=== PATIENT | male | born 1945 | race Caucasian/White ===

== ENCOUNTER 2023-12-02 09:48 | Outpatient (OUT) | payer MEDICARE, SELFPAY ==
--- NOTE | 2023-12-02 09:57 | CA_ITS ---
Patient Name: NGHIA GUPTA MR#: [id number] : 1945 Exam Date: 12/02/2023 Ordering Doctor: DR KATELYN VALENTE M.D. ECHOCARDIOGRAM REPORT PROCEDURE: CA ECHO DOPPLER COMPLETE INDICATIONS: Nonrheumatic aortic valve stenosis COMPARISON: None. DESCRIPTION: COMPLETE ECHOCARDIOGRAM Real-time transthoracic echocardiography with 2D, M-mode, spectral and color flow Doppler performed. QUALITY: Technical quality was adequate. LEFT VENTRICLE: Normal chamber size. Mild concentric left ventricular hypertrophy. LV EF: Global left ventricular systolic function is normal. Visual estimation of left ventricular ejection fraction is 60-65%. No wall motion abnormalities. DIASTOLIC: Normal diastolic function. ATRIAL SEPTUM: Inadequately seen. LEFT ATRIUM: Normal chamber size. RIGHT ATRIUM: Mild dilatation. RIGHT VENTRICLE: Mild dilatation. Normal right ventricular systolic function. TRICUSPID VALVE: Normal mobility and thickness. No stenosis with trivial regurgitation. No evidence of pulmonary hypertension. RVSP 33mmHg MITRAL VALVE: Mildly thickened with normal mobility. No evidence of mitral valve stenosis. Moderate mitral annular calcification. AORTIC VALVE: Normal trileaflet appearance. Moderately calcified aortic valve. Doppler velocity suggests mild aortic valve stenosis. Vmax 2.1m/s, Mean gradient 10mmHg. No aortic regurgitation. AORTIC ROOT: Normal diameter and appearance. PULMONIC VALVE: Normal thickness and mobility. No stenosis. Trivial regurgitation. PERICARDIUM: No evidence of pericardial effusion. IVC: Collapses with inspirations. Normal size. CONCLUSION: 1. Global left ventricular systolic angiogram; visually estimated ejection fraction is 60 to 65% 2. Right ventricle is mildly dilated with normal systolic function 3. Mild right atrial dilatation 4. Mildly increased left ventricular wall thickness 5. Normal diastolic function 6. Mild aortic valve stenosis Adult Echocardiography Procedure Report Left Ventricle LVEDD (3.7 - 5.6 cm): 5.14 cm LVESD (2.2 - 4.0 cm): 3.62 cm LVIVS thickness (0.6 - 1.2 cm): 1.43 cm LVPW thickness (0.5 - 1.0 cm): 1.29 cm e': 0.07 m/s E - e': 11.97 LVOT Max Gradient: 1.60 mm[Hg] LVOT Area (cm2): 0.63 m/s Peak Velocity (LVOT): 0.63 m/s Mean Velocity (LVOT): 0.41 m/s LVOT Diameter 2.36 cm Left Atrium Left Atrium Systolic Dimension: 5.00 cm Mitral Valve MV E to A Ratio: 0.88 Mitral Valve A-Wave Peak Velocity: 0.95 m/s Mitral Valve E-Wave Peak Velocity: 0.84 m/s Right Ventricle RV Internal Diastolic Dimension: 4.19 cm Aorta AO Root Diam: 3.60 cm Ascending Ao Diam: 3.50 cm Aortic Valve AoV Area (Peak Cheo): 1.33 cm2, 1.34 cm2 AoV Area (VTI): 1.46 cm2, 1.46 cm2 Peak Velocity(Antegrade Flow): 2.05 m/s, 2.10 m/s Peak Gradient(Antegrade Flow): 16.77 mm[Hg], 17.67 mm[Hg] Mean Velocity(Antegrade Flow): 1.41 m/s, 1.50 m/s Mean Gradient(Antegrade Flow): 8.99 mm[Hg], 10.17 mm[Hg] Velocity Time Integral: 48.12 cm, 47.88 cm Tricuspid Valve Peak Velocity (Regurgitant Flow): 2.44 m/s, 2.21 m/s, 2.74 m/s Pulmonic Valve Mean Gradient: 2.51 mm[Hg], 3.42 mm[Hg] Mean Velocity: 0.74 m/s, 0.87 m/s Peak Velocity: 1.13 m/s Peak Gradient: 4.78 mm[Hg], 5.42 mm[Hg] Right Atrium Right Atrium Systolic Pressure: 73.81 ml, 73.81 ml Dictated by: Shahana Padron M.D. on 12/03/2023 at 10:29 Approved by: Shahana Padron M.D. on 12/03/2023 at 10:34
== END 2023-12-02 09:49 | disposition home or self-care (01) ==
LOC: CARD 09:52
PROVIDERS: PCP Family Medicine; Visit Provider Internal Medicine Interventional Cardiology
DX: I35.0 Nonrheumatic aortic (valve) stenosis (principal)
CPT/HCPCS: 93306

== ENCOUNTER 2023-12-16 13:39 | Inpatient (IN) | payer MEDICARE, SELFPAY ==
[2023-12-16] VITALS (66 sets, daily range): BP systolic 105–164; BP diastolic 42–79; PULSE 32–74; TEMP 36.7–36.9; O2SAT 94–97; BMI 52.3; BMI 52.6
--- NOTE | 2023-12-16 13:42 | ECG_ITS ---
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1945 Requested By: 1854 Order Number: [id number] Reading MD: LEV IBARRA Measurements Intervals [place] Rate: 55 P: -56561 RI: -87042 QRS: -30 QRSD: 100 T: 75 QT: 426 QTc: 414 Interpretive Statements FIRST DEGREE AV BLOCK 3113 Cannot rule out anterior myocardial infarction, probably old 8102 Low QRS voltage in chest leads 9150 abnormal ECG Compared to ECG 06/26/2018 21:29:02 Sinus tachycardia no longer present First degree AV block no longer present Incomplete right bundle-branch block no longer present Left anterior fascicular block no longer present Myocardial infarct finding still present Electronically Signed On 12-17-2023 13:31:34 EDT by LEV IBARRA
--- NOTE | 2023-12-16 14:02 | ED_ITS ---
HPI - Arrhythmia/Palpitations General Chief Complaint: Arrhythmia/Palpitations Stated Complaint: SLOW HEART RATE Time Seen by Provider: 12/16/23 13:42 Source: patient Mode of arrival: Wheelchair Limitations: no limitations History of Present Illness HPI narrative: The patient was getting a regular outpatient evaluation at the cardiology clinic when he was found to have a bradycardic rate, the patient himself denies any complaints chest pain or any nausea vomiting dizziness or any other concerns. He also mentioned that he took his beta-marcello this morning Related Data Home Medications ?Medication ?Instructions ?Recorded ?Confirmed albuterol sulfate 90 mcg/actuation inhalation 12/16/23 aerosol inhaler amlodipine 10 mg tablet 10 mg PO DAILY 12/16/23 12/16/23 atorvastatin 40 mg tablet 40 mg PO DAILY 12/16/23 12/16/23 carvedilol 6.25 mg tablet 6.25 mg 12/16/23 clopidogrel 75 mg tablet 75 mg PO DAILY 12/16/23 12/16/23 dapagliflozin propanediol 5 mg 5 mg PO DAILY 12/16/23 12/16/23 tablet (Farxiga) lisinopril 30 mg tablet 30 mg PO DAILY 12/16/23 12/16/23 metformin 1,000 mg tablet 1,000 mg PO BID 12/16/23 12/16/23 prazosin 5 mg capsule 5 mg PO DAILY 12/16/23 12/16/23 Allergies Allergy/AdvReac Type Severity Reaction Status Date / Time sulfamethoxazole Allergy Severe Hives Verified 12/16/23 13:49 [From ] trimethoprim [From ] Allergy Severe Hives Verified 12/16/23 13:49 Review of Systems ROS Status of ROS 10 or more systems reviewed and unremark able except as noted in history and below [facility] Medical History (Updated 12/16/23 @ 15:02 by Dorothy Ray MD) History of stroke ?Z86.73 - Personal history of transient ischemic attack (TIA), and cerebral infarction without residual deficits (ICD-10) History of COPD ?Z87.09 - Personal history of other diseases of the respiratory system (ICD- 10) History of hypertension ?Z86.79 - Personal history of other diseases of the circulatory system (ICD- 10) History of diabetes mellitus ?Z86.39 - Personal history of other endocrine, nutritional and metabolic disease (ICD-10) Surgical History (Updated 12/16/23 @ 14:12 by Amor Vick) History of appendectomy ?Z90.49 - Acquired absence of other specified parts of digestive tract (ICD- 10) History of bilateral knee replacement ?Z96.653 - Presence of artificial knee joint, bilateral (ICD-10) Hx of heart artery stent ?Z95.5 - Presence of coronary angioplasty implant and graft (ICD-10) Exam Narrative Exam Narrative: Nurses notes and vital signs reviewed and patient is not hypoxic. General: Well-appearing and in no apparent distress. Skin: Warm, dry, no pallor noted. No rash. Head: Normocephalic, atraumatic. Neck: Supple, non-tender. Eye: Pupils are equal, round and EOMI. No scleral icterus. Ears, Nose, Mouth, and Throat: TM are clear, no nasal mucosal hypertrophy. Oral mucosa is moist, no posterior oropharynx erythema, uvula is mid-line Cardiovascular: Regular Rate and Rhythm without murmur, gallop or rub. Respiratory: No accessory muscle use or respiratory distress. Lungs are clear to auscultation, no wheezing, rales or rhonchi Chest Wall: no tenderness Back: No midline thoracic or lumbar vertebral tenderness. No CVA tenderness Musculoskeletal: normal ROM, no calf or popliteal tenderness, no lower extremity edema/swelling GI: Abdomen is soft, non-distended. Normal bowel sounds. No masses appreciated. No tenderness to palpation. No rebound, guarding, or rigidity noted. Neurological: A&O x4. No cranial nerve dysfunction observed. No truncal ataxia. Moves all extremities. Sensation intact. Psychiatric: Cooperative and interactive. Normal mood and affect. Constitutional Vital Signs, click to edit/add: Last Vital Signs Temp 98.5 F 12/16/23 13:49 Pulse 54 L 12/16/23 14:47 Resp 19 12/16/23 14:47 BP 117/53 12/16/23 14:47 Pulse Ox 95 12/16/23 14:47 O2 Del Method Room Air 12/16/23 14:10 Course Vital Signs Vital signs: Vital Signs Temperature 98.5 F 12/16/23 13:49 Pulse Rate 53 L 12/16/23 13:49 Respiratory Rate 16 12/16/23 13:49 Blood Pressure 138/45 L 12/16/23 13:49 Pulse Oximetry 96 12/16/23 13:49 Oxygen Delivery Method Room Air 12/16/23 13:49 Temperature 98.5 F 12/16/23 13:49 Pulse Rate 54 L 12/16/23 14:47 Respiratory Rate 19 12/16/23 14:47 Blood Pressure 117/53 12/16/23 14:47 Pulse Oximetry 95 12/16/23 14:47 Oxygen Delivery Method Room Air 12/16/23 14:10 MDM - Arrhythmia/Palpitations MDM Narrative Medical decision making narrative: I did receive the signout from the outpatient clinic for concern of bradycardia and complete heart block possibly although the EKG upon arrival did show bradycardia with a possible second-degree The first EKG was done showing heart rate of 55 with a second-degree heart block with possible PACs The patient EKG done after he was given 0.5 mg of atropine showing sinus rhythm with a heart rate of 72 with a first-degree heart block The patient CBC and chemistry shows some elevation acute kidney injury he was provided with IV fluid 500 cc The patient case was discussed with Dr. Weber and after reviewing the EKG she agreed that this is not a complete heart block the plan right now is just to observe the patient after stopping his beta-marcello I spoke with Dr. Barroso and she agreed with admitting the patient for observation Lab Data Labs: Lab Results 12/16/23 Range/Units 13:57 WBC 6.4 (4.0-11.0) 10^3/uL RBC 4.56 L (4.70-6.10) 10^6/uL Hgb 12.9 L (14.0-18.0) g/dL Hct 39.1 L (42.0-54.0) % MCV 85.7 (80.0-94.0) fL MCH 28.3 (25.9-34.0) pg MCHC 33.0 (29.9-35.2) g/dL RDW 14.3 (11.0-15.0) % Plt Count 206 (150-450) 10^3/uL MPV 9.1 L (9.5-13.5) fL Neut % (Auto) 65.5 (43.0-75.0) % Lymph % (Auto) 22.3 (20.5-60.0) % [place] % (Auto) 7.5 (1.7-12.0) % Eos % (Auto) 3.7 (0.9-7.0) % Baso % (Auto) 0.8 (0.2-2.0) % Neut # (Auto) 4.2 (1.4-6.5) 10^3/uL Lymph # (Auto) 1.4 (1.2-3.8) 10^3/uL [place] # (Auto) 0.5 (0.3-0.8) 10^3/uL Eos # (Auto) 0.2 (0.0-0.7) 10^3/uL Baso # (Auto) 0.1 (0.0-0.1) 10^3/uL Abs Immat Gran (auto) 0.01 (0.00-0.03) 10^3/uL Imm/Tot Granulo (auto) 0.2 (0.0-0.5) % PT 10.4 (9.0-11.6) sec INR 0.98 Sodium 136 (136-145) mmol/L Potassium 4.8 (3.5-5.1) mmol/L Chloride 102 (98-107) mmol/L Carbon Dioxide 24.2 (21.0-32.0) mmol/L Anion Gap 14.6 BUN 24.0 H (7.0-18.0) mg/dL Creatinine 1.65 H (0.70-1.30) mg/dL Est GFR ( Amer) 49 L (>=60) Est GFR (Non-Af Amer) 40 L (>=60) BUN/Creatinine Ratio 14.5 Glucose 139 H (74-106) mg/dL Calcium 9.0 (8.5-10.1) mg/dL Magnesium 1.9 (1.8-2.4) mg/dL Total Bilirubin 1.1 H (0.2-1.0) mg/dL AST 17 (15-37) U/L ALT 29 (16-63) U/L Alkaline Phosphatase 115 (46-116) U/L Troponin I High Sens 11.7 (4.0-76.1) pg/mL Total Protein 7.4 (6.4-8.2) g/dL Albumin 3.6 (3.4-5.0) g/dL Globulin 3.8 g/dL Albumin/Globulin Ratio 0.9 Discharge Plan Discharge Chief Complaint: Arrhythmia/Palpitations Clinical Impression: Bradycardia Patient Disposition: Admitted as Observation Time of Disposition Decision: 15:01
[2023-12-16 14:05] LABS: White Blood Count 6.4 10^3/uL (4.0-11.0)
[2023-12-16 14:06] LABS: Basophils Absolute Auto 0.1 10^3/uL (0.0-0.1); Basophils Percent Auto 0.8 % (0.2-2.0); Eosinophils Absolute Auto 0.2 10^3/uL (0.0-0.7); Eosinophils Percent Auto 3.7 % (0.9-7.0); Hematocrit 39.1 % (42.0-54.0); Hemoglobin 12.9 g/dL (14.0-18.0); Immature Granulocytes Abs Auto 0.01 10^3/uL (0.00-0.03); Immature Granulocytes Pct Auto 0.2 % (0.0-0.5); Lymphocytes Absolute Auto 1.4 10^3/uL (1.2-3.8); Lymphocytes Percent Auto 22.3 % (20.5-60.0); Mean Corpuscular Hemoglobin 28.3 pg (25.9-34.0); Mean Corpuscular Volume 85.7 fL (80.0-94.0); Mean Platelet Volume 9.1 fL (9.5-13.5); Monocytes Absolute Auto 0.5 10^3/uL (0.3-0.8); Monocytes Percent Auto 7.5 % (1.7-12.0); Neutrophils Absolute Auto 4.2 10^3/uL (1.4-6.5); Neutrophils Percent Auto 65.5 % (43.0-75.0); Platelet Count 206 10^3/uL (150-450); Red Blood Count 4.56 10^6/uL (4.70-6.10); Red Cell Distribution Width 14.3 % (11.0-15.0)
[2023-12-16 14:21] LABS: INR 0.98; Prothrombin Time 10.4 sec (9.0-11.6)
[2023-12-16] MEDS: ATROPINE SULFATE 1 MG/10 ML SYRINGE 0.5 MG IVP (14:22)
[2023-12-16 14:23] LABS: Alanine Aminotransferase 29 U/L (16-63); Albumin Globulin Ratio 0.9; Albumin Level 3.6 g/dL (3.4-5.0); Alkaline Phosphatase 115 U/L (46-116); Anion Gap 14.6; Aspartate Amino Transferase 17 U/L (15-37); BUN Creatinine Ratio 14.5; Bilirubin Total 1.1 mg/dL (0.2-1.0); Carbon Dioxide 24.2 mmol/L (21.0-32.0); Chloride 102 mmol/L (98-107); Estimated GFR (African America 49 (>=60); Estimated GFR (Non-African Ame 40 (>=60); Globulin 3.8 g/dL; Glucose 139 mg/dL (74-106); Magnesium 1.9 mg/dL (1.8-2.4); Potassium 4.8 mmol/L (3.5-5.1); Sodium 136 mmol/L (136-145); Total Protein 7.4 g/dL (6.4-8.2); Troponin I High Sensitivity 11.7 pg/mL (4.0-76.1)
--- NOTE | 2023-12-16 14:26 | ECG_ITS ---
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1945 Requested By: 1854 Order Number: [id number] Reading MD: LEV IBARRA Measurements Intervals [place] Rate: 72 P: -98630 SC: -67604 QRS: -27 QRSD: 96 T: 64 QT: 384 QTc: 408 Interpretive Statements FIRST DEGREE AV BLOCK 2440 Incomplete right bundle branch block 3114 Cannot rule out anterior myocardial infarction, age undetermined 8102 Low QRS voltage in chest leads 9150 abnormal ECG Compared to ECG 12/16/2023 13:49:42 Incomplete right bundle-branch block now present First degree AV block no longer present Myocardial infarct finding still present Electronically Signed On 12-17-2023 13:32:08 EDT by LEV IBARRA
[2023-12-16] MEDS: 0.9 % SODIUM CHLORIDE 1,000 ML 500 ML IV (15:02)
--- NOTE | 2023-12-16 15:13 | P.HP_ITS ---
HPI H&P: HPI History of Present Illness Chief complaint: SLOW HEART RATE bradycardia Narrative: Patient is a 78 y.o white male with past medical history of Type 2 diabetes, non insulin dep., History of Stroke, Cardiac Stent, Neurogenic bladder with incontinence, HTN, HLD, COPD (ex smoker). Patient reports that he was being seen at the cardiology clinic today when after vitals, he was told his HR was in the 30's. EKG showed 1st degree heart block. At the time and currently, patient de nies chest pain, weakness or dizziness. He does wrap his legs daily and has noticed a slight increase in size on the left leg but no warmth to touch, no pain, no history of DVT's. He reports his BP's have been stable at home, Sugars have been running 90-110's. Yesterday was his birthday and overall he's been feeling good. No shortness of breath, no chest pain, no weakness, denies sweats, weight gain. ER findings: Cr. 1.65, uncertain baseline, BUN 24, normal mag, potassium, Trop, TSH; hemoglobin 12.9, WBC's 6.4. EKG showed Mobitz Type 1, first degree heart block with HR of 43, per ER doctor, HR 30's given Atropine 1.5mg total. I spoke with Dr. Weber communication spec [employer] As[employer] from [facility], She also feels the coreg is contributing and stopping this and HR should improve. Patient had recent Echo 12/02/23 which showed EF 60-65% with mild aortic valve stenosis Opioid HPI Opioid Management Most Recent Pain and Opioid Data: Last Pain Scale 0 12/16/23 14:10 Last ED Pain Assessment 12/16/23 14:10 Last ORT Total Score 0 12/16/23 16:20 Last ORT Risk Category Low Risk 12/16/23 16:20 Review of Systems ROS Narrative ROS: a complete review of systems were reviewed with patient and are positive as below or listed in History of Chief Complaint. General: no fever, chills, night sweats Head: no headache, trauma, visual changes, nausea or vomiting Skin: no reported rashes, itching or sores Eyes: no blurriness of vision Ears: no reported hearing loss, vertigo, earache, or tinnitus Throat: no sore throat, hoarseness, swelling of neck, or tongue pain Heart: no chest pain Lungs: no shortness of breath or cough GI: no diarrhea or vomiting/nausea Urinary: no urinary urgency, frequency or pain Neuro: no numbness or tingling HEM: no bleeding issues or bruising ENDO: no thyroid problems Psych: no anxiety or depression PFSH PFS Medical History (Updated 12/16/23 @ 17:16 by Aure Barroso DO) History of stroke ?Z86.73 - Personal history of transient ischemic attack (TIA), and cerebral infarction without residual deficits (ICD-10) History of COPD ?Z87.09 - Personal history of other diseases of the respiratory system (ICD- 10) History of hypertension ?Z86.79 - Personal history of other diseases of the circulatory system (ICD-10) History of diabetes mellitus ?Z86.39 - Personal history of other endocrine, nutritional and metabolic disease (ICD-10) Surgical History History of appendectomy ?Z90.49 - Acquired absence of other specified parts of digestive tract (ICD- 10) History of bilateral knee replacement ?Z96.653 - Presence of artificial knee joint, bilateral (ICD-10) Hx of heart artery stent ?Z95.5 - Presence of coronary angioplasty implant and graft (ICD-10) Family History (Updated 12/16/23 @ 17:15 by Rosy Post) Other Family history of CHF (congestive heart failure) Family history of cancer Family history of diabetes mellitus Family history of hypertension Family history of stroke Meds Home Medications and Allergies Home Medications ?Medication ?Instructions ?Recorded ?Confirmed ?Type albuterol sulfate 90 mcg/actuation 2 puff inhalation Q6H PRN 12/16/23 12/16/23 History aerosol inhaler shortness of breath or wheezing amlodipine 10 mg tablet 10 mg PO DAILY 12/16/23 12/16/23 History atorvastatin 40 mg tablet 40 mg PO DAILY 12/16/23 12/16/23 History clopidogrel 75 mg tablet 75 mg PO DAILY 12/16/23 12/16/23 History dapagliflozin propanediol 5 mg 5 mg PO DAILY 12/16/23 12/16/23 History tablet (Farxiga) lisinopril 30 mg tablet 30 mg PO DAILY 12/16/23 12/16/23 History metformin 1,000 mg tablet 1,000 mg PO BID 12/16/23 12/16/23 History prazosin 5 mg capsule 5 mg PO DAILY 12/16/23 12/16/23 History umeclidinium 62.5 mcg/actuation 1 inh inhalation Q24H 12/16/23 History blister powder for inhalation (Incruse Ellipta) Allergies Allergy/AdvReac Type Severity Reaction Status Date / Time sulfamethoxazole Allergy Severe Hives Verified 12/16/23 13:49 [From ] trimethoprim [From ] Allergy Severe Hives Verified 12/16/23 13:49 Exam Narrative Exam Narrative: General: Patient is alert, and oriented to person, place and time with normal affect, proper hygiene, mobid obesity Skin: no visible rashes, or ulcers Head: atraumatic, acephalic Eyes: PERRLA, no nystagmus present, conjunctiva clear, no scleral icterus Ears: normal gross auditory acuity Nose: symmetric, no discharge, no maxillary or frontal sinus tenderness Heart: Normal rate and rhythm, no murmurs/rubs/gallops Lungs: no audible wheezes, crackles and normal breath sounds all lung [place] Abdomen: Normal audible bowel sounds, no distension, No palpable masses, no organomegaly, no rebound/guarding/ or rigidity; central obesity Musculoskeletal: bilateral leg wraps in place Neuro: CN II-X grossly intact Constitutional Vital Signs, click to edit/add: Last Vital Signs Temp 98.5 F 12/16/23 13:49 Pulse 53 L 12/16/23 15:01 Resp 16 12/16/23 15:01 BP 106/44 L 12/16/23 15:01 Pulse Ox 95 12/16/23 15:01 O2 Del Method Room Air 12/16/23 14:10 Results Labs Labs: Short CBC 12/16/23 Range/Units 13:57 WBC 6.4 (4.0-11.0) 10^3/uL Hgb 12.9 L (14.0-18.0) g/dL Hct 39.1 L (42.0-54.0) % Plt Count 206 (150-450) 10^3/uL BMP 12/16/23 13:57 Sodium 136 Potassium 4.8 Chloride 102 Carbon Dioxide 24.2 BUN 24.0 H Creatinine 1.65 H Glucose 139 H Calcium 9.0 Liver Function 12/16/23 Range/Units 13:57 Total Bilirubin 1.1 H (0.2-1.0) mg/dL AST 17 (15-37) U/L ALT 29 (16-63) U/L Alkaline Phosphatase 115 (46-116) U/L Albumin 3.6 (3.4-5.0) g/dL Assessment and Plan Assessment and Plan (1) First degree heart block by electrocardiogram: Assessment and Plan: Patient given 1.5mg of Atropine. HR 50-70 after admission. cbc, electrolytes and TSH all normal. troponin normal. Stop coreg, Cardiology consult. Recheck labs in the morning. Patient on tele. (2) Bradycardia: Assessment and Plan: see #1 (3) Acute kidney injury: Assessment and Plan: uncertain baseline, Cr 1.65, Will treat with gentle LR @ 75 (4) Hypertension: Assessment and Plan: will continue lisinopril, BP stable, Hold amlodipine and coreg. Qualifiers: Hypertension type: primary hypertension Qualified Code(s): I10 - Essential (primary) hypertension (5) Diabetes mellitus type 2, noninsulin dependent: Assessment and Plan: SSI for now, hold metformin, Farxiga, check ha1c in the morning. (6) History of COPD: Assessment and Plan: no acute exacerbation, may continue home meds. (7) Urinary incontinence, functional: Assessment and Plan: reports long standing, nothing acute. (8) CAD in [place] artery: Assessment and Plan: continue statin and plavix Plan Patient is a full code Patient was made inpatient status due to bradycardia, and heart block, the need for hospital care and possible decompensation requiring urgent need for transfer and pacemaker placement. SCD's for DVT prophylaxis
[2023-12-16 15:14] LABS: Thyroid Stimulating Hormone 2.561 uIU/mL (0.358-3.740)
[2023-12-16] MEDS: ATROPINE SULFATE 1 MG/10 ML SYRINGE IVP (15:31)
--- NOTE | 2023-12-16 16:07 | ECG_ITS ---
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
--- OUTSIDE RECORDS SUMMARY | 2023-12-16 16:34 | XMS_ITS | CCD ---
Author Organization [facility] Care Team Providers Care Hand Mounter Name Role Phone MARJORIE NATH Primary Care Physician [phone] GABRIELA CLEMENS Admitting Unavailable GABRIELA CLEMENS Attending Unavailable DR MARJORIE NATH Primary Care Unavailable GABRIELA CLEMENS Consulting Unavailable KATELYN VALENTE Attending Unavailable GABRIELA CLEMENS Attending Unavailable TYREE HADDAD Attending Sherlyn Shelby Referring Unavailable Sherlyn Navarro Attending Unavailable Sherlyn Navarro Admitting Unavailable TYREE HADDAD Attending Unavailab TYREE Valentino Admitting Unavailab Sherlyn Weinstein Referring Unavailable Sherlyn Navarro Attending Unavailable Marjorie Nath MD Unavailable Marjorie Nath MD Primary Care Provider JUAN TRAORE Attending Unavailable ROSSY ZAMAN Attending Unavailable KYMBERLY NATION Attending Unavailable WENDY HURLEY Attending Unavailable MILADY CAMPOS Attending UnavailJUAN Burgess Attending Unavailable WENDY HURLEY Attending Unavailable ROSSY ZAMAN Attending Unavailable WENDY HURLEY Attending Unavailable Allergies Allergy Classification Reported Allergen(s) Allergy Type Date of Onset Reaction(s) Facility (13 sources) Sulfamethoxazole / Trimethoprim; Translations: [sulfamethoxazole-t rimethoprim] Drug Allergy 01-13-20 13 Urticaria (disorder), Hives, Other [facility] (2 sources) Sulfamethoxazole / Trimethoprim; Translations: [Septra] Drug Allergy [facility] Repository (1 source) Sulfamethizole; Translations: [SULFAMETHIZOLE] Drug Allergy 04-14-20 [facility] Rep[facility] (1 source) Trimethoprim; Translations: [TRIMETHOPRIM] Drug Allergy 04-14-20 16 [facility] Rep[facility] (3 sources) Sulfonamides (Antibiotic) Drug Intolerance 02-11-20 17 [facility] Work Phone: Medications Current Medications Medication Drug Class(es) Dates Sig (Normalized) Sig (Original) [id number] 200 actuat albuterol 0.09 mg/actuat metered dose inhaler (3 sources) beta2-Adrenergic Agonist Start: 01-15-2023 albuterol HFA 90 mcg/act inhaler Indications: Chronic obstructive pulmonary disease, unspecified COPD type (CMS/HCC) USE 1 INHALATION ORALLY EVERY 4 HOURS NEEDED FORSHORTNESS OF BREATH OR COUGH for 34 18 g 5 01/15/2023 Active amLODIPine 10 mg oral tablet (7 sources) Dihydropyridine Calcium Channel Linda Start: 01-19-2019 take 1 tablet by mouth once daily amLODIPine 10 mg Tab 10 mg = 1 tab(s), Oral, Daily, Refills(s) 0 Start Date: 01/19/19 Status: Ordered aspirin 81 mg oral tablet (7 sources) Platelet Aggregation Inhibitor, Nonsteroidal Anti-inflammatory Drug Start: 01-19-2019 take 1 mg by mouth once daily aspirin 81 mg oral tablet mg tab(s), Oral, Daily, Refills(s) 0 Start Date: 01/19/19 Status: Ordered take 1 tablet by mouth in the mo rning aspirin 81 MG EC tablet Take 1 tablet by mouth in the morning. 0 Active atorvastatin 40 mg oral tablet (7 sources) HMG-CoA Reductase Inhibitor Start: 03-11-2023 atorvastatin (Lipito r) 40 MG tablet Indications: Hyperlipidemia, unspecified hyperlipidemia type (CMS/HCC) TAKE 1 TABLET ONCE DAILY 90 tablet 1 03/11/2023 Active Start: 01-19-2019 take 1 tablet by susu th once daily atorvastatin 40 mg Tab 40 mg = 1 tab(s), Oral, Daily, Refills(s) 0 Start Date: 01/19/19 Status: Ordered carvedilol 6.25 mg oral tablet (5 sources) alpha-Adrenergic Linda, beta-Adrenergic Linda Start: 09-25-2022 End: 09-25-2023 take 1 tablet by mouth in the morning carvedilol (Coreg) 6.25 MG tablet Take 6.25 mg by mouth in the morning and 6.25 mg in the evening. Take with meals. 0 09/25/2022 09/25/2023 Active Start: 07-20-2020 take 1 mg by mouth twice daily carvedilol 6.25 mg Tab mg tab(s), Oral, BID, Refills(s) 0 Start Date: 07/20/20 Status: Ordered cholecalciferol 0.025 mg oral capsule (3 sources) Vitamin D take 1 capsule by mouth in the morning cholecalciferol (Vitamin D-3) 25 MCG (1000 UT) capsule Take 1,000 Units by mouth in the morning. 0 Active ciclopirox 7.7 mg/ml topical cream (4 sources) Start: 05-06-2023 ciclopirox (Loprox) 0.77 % cream Indications: Intertrigo Apply to skin folds External BID prn for skin irritation, hold when clear for 90 days 90 g 11 05/06/2023 Active Start: 12-25-2022 ciclopirox top ical 0.77% cream Refill(s) 0 Start Date: 12/25/22 Status: Ordered clopidogrel 75 mg oral tablet (7 sources) P2Y12 Platelet Inhibitor Start: 06-02-2023 clopidogrel (Plavix) 75 MG tablet Indications: CAD S/P percutaneous coronary angioplasty ([facility]) TAKE 1 TABLET ONCE DAILY 90 tablet 1 06/02/2023 Active Start: 01-19-2019 take 1 tablet by susu once daily Plavix 75 mg Tab 75 mg = 1 tab(s), Oral, Daily, Refills(s) 0 Start Date: 01/19/19 Status: Ordered dapagliflozin 5 mg oral tablet (3 sources) Sodium-Glucose Cotransporter 2 Inhibitor Start: 03-31-2023 Farxiga 5 MG Indications: Type 2 diabetes mellitus with microalbuminuria, without long-term current use of insulin ([facility]) TAKE 1 TABLET IN THE MORNING 90 tablet 1 03/31/2023 Active furosemide 20 mg oral tablet (2 sources) Loop Diuretic Start: 12-25-2022 furosemide 20 mg Tab Refills(s) 0 Start Date: 12/25/22 Status: Ordered Start: 01-19-2019 take 1 tablet by susu th once daily furosemide 40 mg Tab 40 mg = 1 tab(s), Oral, Daily, patient takes 3-4 days per week, Refills(s) 0 Start Date: 01/19/19 Status: Ordered lisinopril 30 mg oral tablet (7 sources) Angiotensin Converting Enzyme Inhibitor Start: 06-23-2023 lisinopril 30 MG tablet Indications: Benign essential hypertension (CMS/HCC) TAKE 1 TABLET EVERY MORNING 90 tablet 1 06/23/2023 Active Start: 01-19-2019 take 1 tablet by susu th once daily lisinopril 20 mg Tab 20 mg = 1 tab(s), Oral, Daily, Refills(s) 0 Start Date: 01/19/19 Status: Ordered metFORMIN hydrochloride 1000 mg oral tablet (7 sources) Biguanide Start: 06-02-2023 metFORMIN (Glu cophage) 1000 MG tablet Indications: Type 2 diabetes mellitus without complication, without long-term current use of insulin (CMS/HCC) TAKE 1 TABLET TWICE DAILY WITH MEALS 180 tablet 1 06/02/2023 Active Start: 01-19-2019 take 1 tablet by susu twice daily metformin 1000 mg Tab 1,000 mg = 1 tab(s), Oral, BID, Refills(s) 0 Start Date: 01/19/19 Status: Ordered pioglitazone 30 mg oral tablet (5 sources) Peroxisome Proliferator Receptor alpha Agonist, Peroxisome Proliferator Receptor gamma Agonist, Thiazolidinedione Start: 07-20-2020 take 1 mg by mouth once daily Actos 30 mg Tab mg tab(s), Oral, Daily, Refills(s) 0 Start Date: 07/20/20 Status: Ordered Start: 01-19-2019 take 1 tablet by susu th once daily pioglitazone 15 mg Tab 15 mg = 1 tab(s), Oral, Daily, Refills(s) 0 Start Date: 01/19/19 Status: Ordered prazosin 5 mg oral capsule (7 sources) alpha-Adrenergic Linda Start: 06-02-2023 prazo sin (Minipress) 5 MG capsule Indications: Benign essential hypertension (CMS/HCC) TAKE 1 CAPSULE ONCE DAILY 90 capsule 1 06/02/2023 Active Start: 01-19-2019 take 1 capsule by mo [facility] at bedtime prazosin 5 mg oral capsule 5 mg = 1 cap(s), Oral, Bedtime, Refills(s) 0 Start Date: 01/19/19 Status: Ordered Tylenol 8 HR Arthritis Pain (1 source) Start: 12-08-2019 Tylenol 8 HR Arthritis Pain Oral, BID, Refills(s) 0 Start Date: 12/08/19 Status: Ordered 7 actuat umeclidinium 0.0625 mg/actuat dry powder inhaler (2 sources) Anticholinergic Start: 07-02-2023 End: 09-30-2023 take 1 puff(s) by inhalation in the morning Umeclidinium [place] (Incruse Ellipta) 62.5 MCG/ACT aerosol powder Indications: Chronic obstructive pulmonary disease, unspecified COPD type (CMS/HCC) Inhale 1 puff in the morning. 90 each 0 07/02/2023 09/30/2023 Active Vitamin D3 (4 sources) Start: 01-19-2019 Vitamin D3 Refills(s) 0 Start Date: 01/19/19 Status: Ordered Problems Active Problems Problem Classification Problem Date Documented Date Episodic/Chronic Acute cerebrovascular disease (7 sources) Cerebrovascular accident; Translations: [Cerebellar infarction] Onset: 01-12-2013 01-19-2019 Chronic Cataract (3 sources) Nuclear sclerotic cataract; Translations: [Age-related nuclear cataract, unspecified eye] Onset: 03-25-2023 03-25-2023 Chronic Chronic kidney disease (2 sources) Chronic kidney disease stage 3A ; Translations: [Chronic kidney disease, stage 3a (HCC) ([facility])] 07-02-2023 Chronic Chronic obstructive pulmonary disease and bronchiectasis (5 sources) Chronic obstructive lung disease; Translations: [Chronic obstructive pulmonary disease, unspecified] Onset: 03-09-2019 12-24-2022 Chronic Coronary atherosclerosis and other heart disease (11 sources) Atherosclerotic heart disease of [place] coronary artery without angina pectoris; Translations: [Atherosclerosis of coronary artery without angina pectoris] Onset: 01-12-2013 Chronic Diabetes mellitus with complications (9 sources) Disorder of nervous system due to type 2 diabetes mellitus; Translations: [Type 2 diabetes mellitus with other diabetic neurological complication] Onset: 12-24-2022 12-24-2022 Chronic Diabetes mellitus without complication (6 sources) Diabetes mellitus; Translations: [Type 2 diabetes mellitus without complications] Onset: 05-18-2014 12-24-2022 Chronic Disorders of lipid metabolism (15 sources) Hyperlipidemia; Translations: [Mixed hyperlipidemia] Onset: 09-11-2011 01-19-2019 Chronic Essential hypertension (12 sources) Hypertensive disorder; Translations: [Essential (primary) hypertension] Onset: 09-11-2011 Resolved: 03-27-2023 01-19-2019 Chronic Genitourinary symptoms and ill-defined conditions (20 sources) Urge incontinence; Translations: [Incontinence without sensory awareness] Onset: 06-24-2016 Chronic Heart valve disorders (9 sources) Nonrheumatic aortic (valve) stenosis; Translations: [Aortic valve stenosis] Onset: 04-28-2020 Chronic Hyperplasia of prostate (7 sources) Benign prostatic hypertrophy with outflow obstruction; Translations: [Benign prostatic hyperplasia with lower urinary tract symptoms] Onset: 09-11-2021 Chronic Late effects of cerebrovascular disease (3 sources) Ataxia as sequela of cerebrovascular disease; Translations: [Ataxia following cerebral infarction] Onset: 01-12-2013 12-24-2022 Chronic Osteoarthritis (6 sources) Primary gonarthrosis, bilateral; Translations: [Bilateral primary osteoarthritis of knee] Onset: 11-05-2017 12-24-2022 Chronic Other and ill-defined cerebrovascular disease (3 sources) Cerebrovascular disease; Translations: [Cerebrovascular disease, unspecified] Onset: 01-27-2013 03-25-2023 Chronic Other and ill-defined heart disease (3 sources) Cardiomegaly; Translations: [Cardiomegaly] Onset: 07-18-2016 12-24-2022 Chronic Other circulatory disease (2 sources) Personal history of transient ischemic attack (TIA), and cerebral infarction without residual deficits; Translations: [Personal history of transient ischemic attack (TIA), and cerebral infarction without residual deficits] Onset: 06-24-2022 Episodic Other diseases of veins and lymphatics (3 sources) Lymphedema; Translations: [Lymphedema, not elsewhere classified] Onset: 06-07-2021 12-24-2022 Chronic Other eye disorders (3 sources) Bilateral posterior vitreous detachment; Translations: [Vitreous degeneration, bilateral] Onset: 03-25-2023 03-25-2023 Chronic Other liver diseases (3 sources) Steatosis of liver; Translations: [Fatty (change of) liver, not elsewhere classified] Onset: 12-24-2022 12-24-2022 Chronic Other lower respiratory disease (3 sources) Interstitial lung disease; Translations: [Interstitial pulmonary disease, unspecified] Onset: 12-22-2020 12-24-2022 Chronic Other nervous system disorders (3 sources) Chronic pain; Translations: [Other chronic pain] Onset: 06-08-2019 12-24-2022 Chronic Other nutritional; endocrine; and metabolic disorders (4 sources) Body mass index 40+ - severely obese 01-18-2020 Chronic Other nutritional; endocrine; and metabolic disorders (2 sources) Morbid (severe) obesity due to excess calories; Translations: [Morbid (severe) obesity due to excess calories] Onset: 06-24-2022 Chronic Other nutritional; endocrine; and metabolic disorders (3 sources) Morbid obesity; Translations: [Morbid (severe) obesity due to excess calories] Onset: 04-28-2020 12-24-2022 Chronic Other nutritional; endocrine; and metabolic disorders (3 sources) Obesity caused by energy imbalance; Translations: [Other obesity due to excess calories] Onset: 09-11-2011 03-25-2023 Chronic Residual codes; unclassified (3 sources) Obstructive sleep apnea syndrome; Translations: [Obstructive sleep apnea (adult) (pediatric)] Onset: 02-07-2021 12-24-2022 Chronic Retinal detachments; defects; vascular occlusion; and retinopathy (3 sources) Epiretinal membrane; Translations: [Puckering of macula, unspecified eye] Onset: 03-25-2023 03-25-2023 Chronic Unclassified (4 sources) Drug therapy finding 11-09-2019 Past or Other Problems Problem Classification Problem Date Documented Date Episodic/Chronic Biliary tract disease (3 sources) Finding of measures of gallbladder; Translations: [Other specified diseases of gallbladder] Onset: 12-24-2022 12-24-2022 Episodic Blindness and vision defects (9 sources) Hypermetropia; Translations: [Hypermetropia, unspecified eye] Onset: 03-25-2023 03-25-2023 Episodic Coronary atherosclerosis and other heart disease (5 sources) Presence of coronary angioplasty implant and graft; Translations: [Patient post percutaneous transluminal coronary angioplasty] Onset: 10-10-2011 Episodic Genitourinary symptoms and ill-defined conditions (15 sources) Increased frequency of urination; Translations: [Nocturia] Onset: 03-13-2022 11-09-2019 Episodic Mood disorders (3 sources) Mood disorders Onset: 03-26-2023 03-26-2023 Other circulatory disease (3 sources) History of cerebrovascular accident; Translations: [Personal history of transient ischemic attack (TIA), and cerebral infarction without residual deficits] Onset: 04-28-2020 12-24-2022 Episodic Other screening for suspected conditions (not mental disorders or infectious disease) (7 sources) Encounter for screening for malignant neoplasm of prostate; Translations: [Screening for malignant neoplasm done] Onset: 09-11-2011 Episodic Residual codes; unclassified (3 sources) Edema; Translations: [Edema, unspecified] Onset: 03-13-2022 12-24-2022 Episodic Residual codes; unclassified (3 sources) H/O: neoplasm; Translations: [Personal history of other specified conditions] Onset: 06-29-2019 12-24-2022 Episodic Results Test Name Value Interpretation Reference Range Facility Laboratory - Hematology and Cell countson 07-02-2023 HbA1c (Bld) [Mass fraction] 6.3 % [facility] No Panel Informationon 07-02 Interpretation and review of laboratory results Abnormal [facility] XR CHEST 2 VIEWSon 3 XR CHEST 2 VIEWS EXAMINATION: XR CHES T 2 VIEWS HISTORY: cough TECHNIQUE: Frontal and lateral views of the chest. COMPARISON: FINDINGS: Cardiomediastinal silhouette is within normal limits. No pneumothorax, pleural effusion, or consolidation. The lungs appear hyperinflated and there is coarsening of the pulmonary interstitium, most significant at the lung bases. No acute osseous abnormality. IMPRESSION: No radiographic evidence of acute intrathoracic process. Findings suggesting COPD. ELECTRONICALLY SIGNED BY: Nghia Lam DO Normal Not Available [facility] 12-26-2022 Screens [id number] :127 Normal [facility] Ambulatory Visit Summaryon 0 12-25-2022 Ambulatory Visit Summary NGHIA GUPTA:1945 Visit Date:12/25/2022 Ambulatory Visit Instructions Your Diagnosis Urinary incontinence without sensory awareness Urge incontinence BPH with urinary obstruction Tests Performed Urnls Dip Stick Auto w/o Microscopy POC 24880 Your Care Team Attending Physician - hSerlyn Navarro MD Primary Care Physician - MARJORIE NATH MD Referring Physician - Sherlyn Navarro MD This Is Your Medications List Contact prescribing physician if questions or concerns amlodipine (amLODIPine 10 mg Tab) aspirin (aspirin 81 mg oral tablet) atorvastatin (atorvastatin 40 mg Tab) carvedilol (carvedilol 6.25 mg Tab) cholecalciferol (Vitamin D3) ciclopirox topical (ciclopirox topical 0.77% cream) clopidogrel (Plavix 75 mg Tab) furosemide (furosemide 20 mg Tab) lisinopril (lisinopril 20 mg Tab) metformin (metformin 1000 mg Tab) pioglitazone (Actos 30 mg Tab) prazosin (prazosin 5 mg oral capsule) Procedures Performed Injection of therapeutic substance into bladder wall (12/16/2019), Injection of therapeutic substance into bladder wall (03/25/2019), Colonoscopy (11/04/2016), Cystoscopy (09/23/2014), Placement of stent in cardiac conduit (05/26/2009), Laser ablation of prostate (05/2007), Transrectal biopsy of prostate using ultrasound (US) guidance (05/26/2007), Appendectomy, Cystoscopy, Knee replacement. Discharge Vitals Heart Rate (Peripheral) 68 Respiratory Rate 16 Blood Pressure 132/84 Height 170 cm Height 67 in Weight 141 kg Weight 310.2 lb BMI 48.79 What to do next You Need to Schedule the Following Appointments Follow Up with Ramon WHITE, Sherlyn Hernandez, URL, URO When: Comments: PRN Where: Medications What How Much When Instructions Unchanged amlodipine (amLODIPine 10 mg Tab) 1 Tablets By Mouth Every day Contact prescribing physician if questions or concerns Unchanged aspirin (aspirin 81 mg oral tablet) By Mouth Every day Contact prescribing physician if questions or concerns Unchanged atorvastatin (atorvastatin 40 mg Tab) 1 Tablets By Mouth Every day Contact prescribing physician if questions or concerns Unchanged carvedilol (carvedilol 6.25 mg Tab) Contact prescribing physician if questions or concerns Unchanged cholecalciferol (Vitamin D3) Contact prescribing physician if questions or concerns Unchanged ciclopirox topical (ciclopirox topical 0.77% cream) Contact prescribing physician if questions or concerns Unchanged clopidogrel (Plavix 75 mg Tab) 1 Tablets By Mouth Every day Contact prescribing physician if questions or concerns Unchanged furosemide (furosemide 20 mg Tab) Contact prescribing physician if questions or concerns Unchanged lisinopril (lisinopril 20 mg Tab) 1 Tablets By Mouth Every day Contact prescribing physician if questions or concerns Unchanged metformin (metformin 1000 mg Tab) 1 Tablets By Mouth 2 times a day Contact prescribing physician if questions or concerns Unchanged pioglitazone (Actos 30 mg Tab) By Mouth Every day Contact prescribing physician if questions or concerns Unchanged prazosin (prazosin 5 mg oral capsule) 1 Capsules By Mouth At bedtime Contact prescribing physician if questions or concerns Test Results Urnls Dip Stick Auto w/o Microscopy POC 31665 (12/25/2022) Bilirubin Urine Dipstick - Negative Blood Urine Dipstick - Trace-intact Glucose Urine Dipstick - Negative Ketones Urine Dipstick - Negative Leukocytes Urine Dipstick - 1+ Small Nitrite Urine Dipstick - Negative Protein Urine Dipstick - Negative Specific [place] Urine Dipstick - 1.020 Urine Appearance Urine Dipstick - Clear Urine Color Urine Dipstick - Yellow Urobilinogen Urine Dipstick - Normal 0.2-1 EU/dl pH Urine Dipstick - 5.5 Allergies Septra (Hives) sulfamethoxazole-trimeth oprim (Unknown) Problems Ongoing - Any problem that you are currently receiving treatment for. Anticoagulated BMI 50.0-59.9, adult BPH with urinary obstruction Nocturia Urge incontinence Urinary frequency Urinary incontinence without sensory awareness Urinary urgency Historical - Any problem that you are no longer receiving treatment for. Hyperlipidemia Hypertension Stroke Education Materials Benign Prostatic Hyperplasia Benign prostatic hyperplasia (BPH) is an enlarged prostate gland that is caused by the normal aging process. The prostate may get bigger as a man gets older. The condition is not caused by cancer. The prostate is a walnut-sized gland that is involved in the production of semen. It is located in front of the rectum and below the bladder. The bladder stores urine. The urethra carries stored urine out of the body. An enlarged prostate can press on the urethra. This can make it harder to pass urine. The buildup of urine in the bladder can cause infection. Back pressure and infection may progress to bladder damage and kidney (renal) failure. What are the causes? This condition (more content not included)... Normal [facility] Patient Educationon 12-26-19 Patient Education Urology Benign Prostatic Hyperplasia Benign prostatic hyperplasia (BPH) is an enlarged prostate gland that is caused by the normal aging process. The prostate may get bigger as a man gets older. The condition is not caused by cancer. The prostate is a walnut-sized gland that is involved in the production of semen. It is located in front of the rectum and below the bladder. The bladder stores urine. The urethra carries stored urine out of the body. An enlarged prostate can press on the urethra. This can make it harder to pass urine. The buildup of urine in the bladder can cause infection. Back pressure and infection may progress to bladder damage and kidney (renal) failure. What are the causes? This condition is part of the normal aging process. However, not all men develop problems from this condition. If the prostate enlarges away from the urethra, urine flow will not be blocked. If it enlarges toward the urethra and compresses it, there will be problems passing urine. What increases the risk? This condition is more likely to develop in men older than 50 years. What are the signs or symptoms? Symptoms of this condition include: ? Getting up often during the night to urinate. ? Needing to urinate frequently during the day. ? Difficulty starting urine flow. ? Decrease in size and strength of your urine stream. ? Leaking (dribbling) after urinating. ? Inability to pass urine. This needs immediate treatment. ? Inability to completely empty your bladder. ? Pain when you pass urine. This is more common if there is also an infection. ? Urinary tract infection (UTI). How is this diagnosed? This condition is diagnosed based on your medical history, a physical exam, and your symptoms. Tests will also be done, such as: ? A post-void bladder scan. This measures any amount of urine that may remain in your bladder after you finish urinating. ? A digital rectal exam. In a rectal exam, your health care provider checks your prostate by putting a lubricated, gloved finger into your rectum to feel the back of your prostate gland. This exam detects the size of your gland and any abnormal lumps or growths. ? An exam of your urine (urinalysis). ? A prostate specific antigen (PSA) screening. This is a blood test used to screen for prostate cancer. ? An ultrasound. This test uses sound waves to electronically produce a picture of your prostate gland. Your health care provider may refer you to a specialist in kidney and prostate diseases (urologist). How is this treated? Once symptoms begin, your health care provider will monitor your condition (active surveillance or watchful waiting). Treatment for this condition will depend on the severity of your condition. Treatment may include: ? Observation and yearly exams. This may be the only treatment needed if your condition and symptoms are mild. ? Medicines to relieve your symptoms, including: ? Medicines to shrink the prostate. ? Medicines to relax the muscle of the prostate. ? Surgery in severe cases. Surgery may include: ? Prostatectomy. In this procedure, the prostate tissue is removed completely through an open incision or with a laparoscope or robotics. ? Transurethral resection of the prostate (TURP). In this procedure, a tool is inserted through the opening at the tip of the penis (urethra). It is used to cut away tissue of the inner core of the prostate. The pieces are removed through the same opening of the penis. This removes the blockage. ? Transurethral incision (TUIP). In this procedure, small cuts are made in the prostate. This lessens the prostate's pressure on the urethra. ? Transurethral microwave thermotherapy (TUMT). This procedure uses microwaves to create heat. The heat destroys and removes a small amount of prostate tissue. ? Transurethral needle ablation (TUNA). This procedure uses radio frequencies to destroy and remove a small amount of prostate tissue. ? Interstitial laser coagulation (ILC). This procedure uses a laser to destroy and remove a small amount of prostate tissue. ? Transurethral electrovaporization (TUVP). This procedure uses electrodes to destroy and remove a small amount of prostate tissue. ? Prostatic urethral lift. This procedure inserts an implant to push the lobes of the prostate away from the urethra. Follow these instructions at home: ? Take dbet-cdp-fzvnbdc and prescription medicines only as told by your health care provider. ? Monitor your symptoms for any changes. Contact your health care provider with any changes. ? Avoid drinking large amounts of liquid before going to bed or out in public. ? Avoid or reduce how much caffeine or alcohol you drink. ? Give yourself time when you urinate. ? Keep all follow-up visits. This is important. Contact a health care provider if: ? You have unexplained back pain. ? Your symptoms do not get better with treatment. ? You develop side effects from the medicine (more content not included)... Normal [facility] Urology Office/Clinic Noteon 12-25-2022 Urology Office/Clinic Note Chief Complaint S/P Botox 100 units HPI Staff S/P Cysto/Botox 100 units 09/30/22. Previous DX:Urinary Incontinence without Sensory Awareness, Urge Incontinence, BPH with Urinary Obstruction. Pt is currently taking Prazosin, through PCP. Urgency has improved. Still wearing a depends. Occasional leakage. Has greatly improved. Leakage is mostly when he first gets up in the morning. Denies nocturia. Denies pain/burning and blood in urine. Per last encounter, stopped monitoring PSA due to age & stability. IPSS 6 QOl 3 PVR 0ml History of Present Illness Tests reviewed: reviewed UA I have reviewed the previous health record information and history for this patient from . I have reviewed and verified the staff HPI to be accurate for this encounter. There have been no associated fever, chills, flank pain, or blood in the urine. Denies any urinary infections since last encounter. Review of Systems PHQ Score Initial Depression Screen Score: 0 ROS - Provider Constitutional: denies weight loss, denies hot flashes. Eyes: denies eye problems. Gastrointestinal: denies nausea, denies vomiting. Cardiovascular: denies chest pain or angina. Integumentary: no dryness Musculoskeletal: denies musculoskeletal symptoms. ENMT: denies otolaryngeal symptoms. Respiratory: no shortness of breath. Heme/Lymph: denies easy bleeding tendency, denies easy bruising tendency. Psychiatric: no confusion, no anxiety. Genitourinary: See HPI. Physical Exam Vitals & Measurements HR: 68(Peripheral) RR: 16 BP: 132/84 HT: 67 in HT: 170 cm WT: 141 kg WT: 310.2 lb BMI: 48.79 General Appearance: alert, no distress, well nourished, well developed male. Assessment/Plan Pt had seen Diana Haddad in the past, followed up with Botox w/ KML. Pt has had botox in the past with DLS. Per last encounter, stopped monitoring PSA due to age & stability. 1. Urinary incontinence without sensory awareness (N39.42: Incontinence without sensory awareness) S/p Botox 100u in Dec 2019, had good response per pt. S/p Botox 100u 09/30/22 Pt states his urinary symptoms have improved since his Botox. Pt experiences occasional leaking, mostly in the mornings. Pt states he does wear depends at night due to the leaking in the morning. Pt states he tries to limit fluid before bed, advised stopping fluid intake 1-2 hr before bed. Advised pt that his sleep apnea could cause more leaking. Pt states he is happy with his urinary symptoms. -Advised pt that if he feels his Botox is wearing off, he can call our office to have another appt set up. All questions/concerns were discussed. Pt to call the office if he encounters any issues prior. Pt acknowledges understanding. 2. Urge incontinence (N39.41: Urge incontinence) see #1. 3. BPH with urinary obstruction (N40.1: Benign prostatic hyperplasia with lower urinary tract symptoms) Pt is currently taking prazosin through PCP, not for BPH. UA today shows trace intact blood and small leuks. IPSS 6(15), QoL 3, PVR 0ml. Pt denies any issues w UTIs. Pt denies any gross hematuria. -Cont timed voiding, call for follow up if having issues I spent 20 minutes today with the patient: reviewing tests in preparation to see and discuss them with the patient, documenting clinical information in the electronic health records, and care coordination. Time was spent performing a medical exam and evaluation, and counseling and educating the patient. Follow-up With When Contact Information Ramon WHIET, Sherlyn Hernandez, URBryson, URO Additional Instructions: PRN Patient Education Benign Prostatic Hyperplasia Keren Mata, personally scribed for Dr. Navarro on 12/25/2022 10:19:14. . Documentation recorded by the scribe, Keren Hylton, accurately reflects the services(s) I performed and decisions made by me. Authenticated by Dr. Navarro on 12/25/2022 12:33:18. Problem List/Past Medical History Ongoing Anticoagulated BMI 50.0-59.9, adult BPH with urinary obstruction Nocturia Urge incontinence Urinary frequency Urinary incontinence without sensory awareness Urinary urgency Historical Hyperlipidemia Hypertension Stroke Procedure/Surgical History Injection of therapeutic substance into bladder wall (12/16/2019), Injection of therapeutic substance into bladder wall (03/25/2019), Colonoscopy (11/04/2016), Cystoscopy (09/23/2014), Placement of stent in cardiac conduit (05/26/2009), Laser ablation of prostate (05/2007), Transrectal biopsy of prostate using ultrasound (US) guidance (05/26/2007), Appendectomy, Cystoscopy, Knee replacement. Medications Actos 30 mg Tab, Oral, Daily amLODIPine 10 mg Tab, 10 mg= 1 tab(s), Oral, Daily aspirin 81 mg oral tablet, Oral, Daily atorvastatin 40 mg Tab, 40 mg= 1 tab(s), Oral, Daily carvedilol 6.25 mg Tab ciclopirox topical 0.77% cream furosemide 20 mg Tab lisinopril 20 mg Tab, 20 mg= 1 tab(s), Oral, Daily metfor (more content not included)... Normal [facility] Comment on above: Result Comment: Elec tronically Signed By: Sherlyn Navarro MD\.br\Date and Time Signed: 12/25/22 12:33 EDT\.br\Electronically Co-Signed By: Keren Hylton\.br\Date and Time Co-Signed: 12/25/22 10:19 EDT Office Visiton 12-10-2022 Follow-up visit [id number] Rodolfo Gupta 1945 M Date Provider Department Center 12/10/2022 KATELYN DILL KARYN Cortez [facility] Family History Problem Relation Age of Onset Coronary artery disease Father Coronary artery disease Brother Family Status - Relation Status Age at Father Brother Level of Service:22732 DE OFFICE/OUTPATIENT ESTABLISHED LOW MDM 20-29 MIN Reason for Visit and Comments: Follow-up [789103] - 6 month follow up Normal [facility] Consent for Procedure/Surger yon 09-30-2022 Consent for Procedure/Surgery [id number]: 127 Normal [facility] Consent for Treatmenton Consent for Treatment [id number]: 127 [facility] Inpatient Patient Summaryon 09-30-2022 Inpatient Patient Summary [address] [address] Clinical Summary Person Information Name: NGHIA GUPTA Age: 76 Years : 1945 Sex: Male PCP: MARJORIE NATH MD Marital Status: Race: White Ethnicity: Non- or Language: Lao Visit Id: Visit Reason: URINARY INCONTINENCE WITHOUT SENSORY AWARENESS, URGE INCONTINENCE Speciality: Acuity: Enc Type: Outpatient Med Service: Surgery Arrival: 09/30/2022 09:01:45 Discharge: Dispo Type: Address: [address] [place] [address] [id number] Provider Notes: Diagnosis: Anticoagulated; Urge incontinence; Urinary incontinence without sensory awareness; Urinary urgency Problems Active BPH with urinary obstruction Urinary incontinence without sensory awareness Urge incontinence BMI 50.0-59.9, adult Anticoagulated Urinary frequency Nocturia Urinary urgency Smoking Status: Functional Status: Sensory Deficits: History of Falls: Mobility Assistance Prior to Admission: ADLs: Current Level of Assistance for Self-Care/Mobility: Cognitive Status: Allergies Septra (Hives) sulfamethoxazole-trimeth oprim (Unknown) Laboratory or Other Results This Visit (last charted value for your 09/30/2022 visit) No Laboratory or Other Results This Visit Measurements: Height: 170 cm Weight: 146 kg Blood Pressure: Not Valued / Not Valued BMI: 50.52 kg/m2 Procedures No Procedures Documented Immunizations No Immunizations Documented This Visit Final Med List: amlodipine (amLODIPine 10 mg Tab) 1 Tablets By Mouth every day. aspirin (aspirin 81 mg oral tablet) By Mouth every day. atorvastatin (atorvastatin 40 mg Tab) 1 Tablets By Mouth every day. cholecalciferol (Vitamin D3) clopidogrel (Plavix 75 mg Tab) 1 Tablets By Mouth every day. lisinopril (lisinopril 20 mg Tab) 1 Tablets By Mouth every day. metformin (metformin 1000 mg Tab) 1 Tablets By Mouth 2 times a day. pioglitazone (Actos 30 mg Tab) By Mouth every day. prazosin (prazosin 5 mg oral capsule) 1 Capsules By Mouth at bedtime. Care Team Members: Attending Physician: Sherlyn Navarro MD Consulting Physician: Referring Physician: Sherlyn Navarro MD Follow up: With: Address: When: Sherlyn Navarro [address], [address], [facility] [address] [place] [id number] [phone] Business (1) Comments: Office to schedule follow up in 3 months with PVR Patient Education Information: EU - Cystoscopy with Botox Injection Discharge Instructions (CUSTOM) [facility] IntraOperative Documentson 0 09-30-2022 IntraOperative Documents [id number]: 127 [facility] Main OR Intraoperative Recor don 09-30-2022 Main OR Intraoperative Record IntraOp Document Type FTURO Summary Primary Physician: Sherlyn Navarro MD Finalized Date/Time: 09/30/22 10:27:33 Pt. Name: NGHIA GUPTA Dannie Santos/Sex: 1945 Male Med Rec #: [id number] Physician: Sherlyn Navarro MD Financial #: [id number] Pt. Type: O Room/Bed: / Admit/Disch: 09/30/22 09:01:45 - Institution: Case Times FTURO Entry 1 Patient Times In Room 09/30/22 10:05:00 Out Room 09/30/22 10:22:00 Procedure Times Start 09/30/22 10:07:00 Stop 09/30/22 10:16:00 Anesthesia Times Last Modified By: Shanna AJ, Genevieve STANTON 09/30/22 10:16:29 Case Attendance FTURO Entry 1 Entry 2 Entry 3 Case Attendee Sherlyn Navarro MD RN, PORSHAOR, Chelo HARRIS, Malinda Vallejo Role Performed Surgeon - Primary Home Energy Consultant - Primary Scrub - Primary Time In 09/30/22 10:05:00 09/30/22 10:05:00 09/30/22 10:05:00 Time Out 09/30/22 10:22:00 09/30/22 10:22:00 09/30/22 10:22:00 Procedure CYSTOSCOPY LOCAL BOTOX CYSTOSCOPY LOCAL BOTOX CYSTOSCOPY LOCAL BOTOX INJECTION(.) INJECTION(.) INJECTION(.) Comments Last Modified By: Shanna RN, CNShanna REYNOSO RN, MAXIMINO, Shanna AJ, PORSHAOR, Genevieve 09/30/22 Genevieve 09/30/22 Genevieve 09/30/22 10:16:31 10:16:31 10:16:31 Surgical Procedures FTURO Entry 1 Procedure Description Procedure CYSTOSCOPY LOCAL BOTOX Modifiers . INJECTION Surgeon Description CYSTO WITH BOTOX 100 UNITS Primary Procedure Yes Primary Surgeon Sherlyn Navarro MD Start 09/30/22 10:07:00 Stop 09/30/22 10:16:00 Anesthesia Type Local Surgical Service Urology Wound Class 2 - Clean-Contaminated Last Modified By: Shanna AJ, PORSHAOR, Genevieve 09/30/22 10:16:34 General Comments: botox 100 units lot [id number] outdate 02/17 General Case Data FTURO Pre-Care Text: Classifies surgical wound, implements aseptic technique, initiates traffic control Entry 1 Case Information OR URO 1 FT Case Level None Wound Class 2 - Clean-Contaminated Specialty Urology Preop Diagnosis URINARY INCONTINENCE Postop Same As Preop Yes WITHOUT SENSORY AWARENESS, URGE INCONTINENCE Postop Diagnosis URINARY INCONTINENCE Outcomes Met? Yes WITHOUT SENSORY AWARENESS, URGE INCONTINENCE Last Modified By: Shanna AJ, PORSHAOR, Genevieve 09/30/22 10:09:10 Post-Care Text: The patient is free from signs and symptoms of infection EU IntraOp - FTURO Pre-Care Text: Implements protective measures prior to operative or invasive procedure, confirms identity before the operative or invasive procedure, verifies operative procedure, surgical site, and laterality Entry 1 EU Perioperative Protocols Procedure(s) CYSTOSCOPY LOCAL BOTOX Patient Identity Birthday, ID Band INJECTION(.) Verified (select at Check, Patient least 2): Participation Consents / H and P HandP, Surgery/Procedure Operative Site N/A Verified Consent Marking Verified Surgical Site Yes Laterality Verified n/a Verified Procedure Verified Yes Correct Patient Yes Position Verified Availability Equipment, Implant, Time Out Sherlyn Navarro MD, Verified (If Medication Participants Shanna AJ, CNOR, Applicable) Chelo Vallejo CST, Malinda Chan Time Out Complete 09/30/22 10:06:00 Allergies Reviewed? Yes Allergies Reviewed Self/Patient With Body Position Low Lithotomy Prep Area penis Prep Agents Betadine Solution Skin. Condition Unable to Visualize Additional None Specimens Collected Vitals - EU Blood Pressure 144/73 Pulse 64 bpm Respirations 16 br/min SPO2 EBL 0 IandO - EU Total Intake 0 Total Output 0 Outcomes Met? Yes Last Modified By: MAXIMINO Otero RN, Ruthann 09/30/22 10:14:36 Post-Care Text: The patient is free from signs and symptoms of injury caused by extraneous objects Sign Out FTURO Entry 1 Before Patient Leaves OR Nurse verbally Yes Nurse verbally n/a confirms with the confirms with the team the name of team that the procedure(s) instrument, sponge, recorded and needle counts are correct (or N/A) Nurse verbally n/a Nurse verbally n/a confirms with the confirms with the team how the team whether there specimen is labeled are any equipment (including patient problems to be name), if applicable addressed Sign Out Complete 09/30/22 10:20:00 Last Modified By: MAXIMINO Otero RN, Ruthann 09/30/22 10:22:43 Case Comments Finalized By: MAXIMINO Otero RN, Ruthann Document Signatures Signed By: MAXIMINO Otero RN, Ruthann 09/30/22 10:22 MAXIMINO Otero RN, Ruthann 09/30/22 10:24 MAXIMINO Otero RN, Ruthann 09/30/22 10:27 Normal [facility] Main OR Preoperative Recordo n 09-30-2022 Main OR Preoperative Record Holding Area Document Type FTURO Summary Primary Physician: Sherlyn Navarro MD Finalized Date/Time: 09/30/22 10:13:50 Pt. Name: ALONSONGHIA/Sex: 1945 Male Med Rec #: [id number] Physician: Sherlyn Navarro MD Financial #: [id number] Pt. Type: O Room/Bed: / Admit/Disch: 09/30/22 09:01:45 - Institution: Case Times Holding FTURO Pre-Care Text: Verifies consent for planned procedure, identifies individual values and wishes concerning care, includes family members in perioperative teaching Secures patient's records' belongings, and valuables, maintains patient's dignity and privacy, and maintains patient confidentiality Entry 1 In Holding 09/30/22 09:36:00 Outcomes Met? Yes Last Modified By: Malinda Brenner RN 09/30/22 09:36:29 Post-Care Text: The patient participates in decisions affecting his or her perioperative plan of care The patient's right to privacy is maintained Surgery Checklist FTURO Entry 1 Patient Birthday, ID Band Procedure History and Physical, Identification: Check, Patient Verification: Surgical Consent, With Participation Patient NPO after Midnight: n/a Personal Items: Glasses Personal Items GLASSES WITH PT Limitations: UP WITH CANE Comment: Complaints of Pain: No Skin Integrity Dry, Warm Vitals - EU Blood Pressure 144/73 Pulse 64 bpm Respirations 16 br/min SPO2 97 % Additional Other (See Comment) Specimens Comment U/A DIPSTICK Specimens Collected RN Reviewed Yes Last Modified By: Malinda Brenner RN 09/30/22 09:39:06 Finalized By: MAXIMINO Otero RN, Ruthann Document Signatures Signed By: Malinda Brenner RN 09/30/22 10:01 MAXIMINO Otero RN, Ruthann 09/30/22 10:13 Normal [facility] Operative Reporton Operative Report Patient: DELIO GUPTA Age: 76 years Sex: Male : 1945 Associated Diagnoses: None Author: Sherlyn Navarro MD Procedure Operative Information Details: Date/ Time: 09/30/2022 10:19:00. Pre-Op Dx: Urinary urgency (VEJ71-KS R39.15, Discharge, Medical), Urinary incontinence without sensory awareness (LRX21-ZX N39.42, Discharge, Medical), Urge incontinence (QJW41-DM N39.41, Discharge, Medical), Anticoagulated (ZVI19-LF Z79.01, Discharge, Medical). Post-Op Dx: Same. Anesthesia Type: Local. Procedure: Local Cystoscopy with botox injection. Complications: None. Risks/Benefits/Informed Consent: Surgical risks, benefits, details of the procedure have been explained to the patient, Full informed consent has been obtained, Elevated risk of bleeding discussed as pt is on Plavix, tolerated procedure well in the past. Intraoperative Information Prepped: Patient is brought back to the endoscopy suite, Male Prep (Patient is placed in supine position, 10 cc 2% Xylocaine Jelly is placed per Urethra, Straight cath inserted to obtain urine specimen, 60 cc 2% Xylocaine liquid inserted into bladder, 10 additional cc 2% Xylocaine Jelly is placed per Urethra, Penile clamp applied for 20 min dwell prior to procedure with patient in sitting position, Placed in modified dorso/lithotomy position for procedure), Urine Specimen Results Negative for infection, Patient prepped in the usual fashion with Betadine solution, After waiting several minutes the Cystoscope is introduced. Procedure: The trigone was identified and evaluated. The bladder was instilled with enough saline to achieve adequate visualization for the injections. The needle was inserted approximately 2 mm into the detrusor. A total of 10 injections with 1 ml volume was delivered at each site, total 100 units, evenly spaced out throughout the bladder taking care to avoid the ureteral orficies. There was excellent hemostasis at the end of the procedure. The cystoscope was removed and the patient tolerated the procedure well without immediate complications. . The Urethra is: Normal. The Prostatic Urethra is: Unobstructed, Mild-moderate right lateral hypertrophy only, not obstructed overall from defect in prostatic fossa from prior outlet procedure. The Bladder is: Trabeculated (Moderate (2), Scattered few small cellules. ), No bladder tumors, lesions, stones or foreign bodies. . The ureteral orifices: Show efflux of clear urine. Devices Implanted: None. Removal: Cystoscope is removed, The patient tolerated it well. Postoperative Information Discharge: Patient is discharged home with antibiotic coverage, Follow up arranged. Follow up in 3 months with PVR. Normal [facility] Comment on above: Result Comment: Elec tronically Signed By: Sherlyn Navarro MD\.br\Date and Time Signed: 09/30/22 10:22 EDT Outpatient Surgery Discharge Instructionon 09-30-2022 Outpatient Surgery Discharge Instruction [id number]: 127 Normal [facility] Outpatient Surgery Discharge Instruction [address] [address] Patient Discharge Instructions PERSON INFORMATION Name: NGHIA GUPTA Date of : 1945 Current Date: 09/30/2022 10:19:03 PHYSICIANS Admitting Physician: Sherlyn Navarro MD Comment: Discharge Diagnosis: Anticoagulated; Urge incontinence; Urinary incontinence without sensory awareness; Urinary urgency NGHIA GUPTA has been given the following list of follow-up instructions, prescriptions, and patient education materials: IF UNABLE TO CONTACT YOUR PHYSICIAN AND YOU FEEL IT IS AN EMERGENCY, GO TO THE NEAREST EMERGENCY ROOM OR CALL 911 Follow up: With: Address: When: Sherlyn Navarro [address] [facility], [place] [address], [place] [phone] Business (1) Comments: Office to schedule follow up in 3 months with PVR Comment: PATIENT EDUCATION INFORMATION Instructions: Cystoscopy with Botox injection ? Voiding after the procedure: there may be some pain, burning, urgency, frequency and blood tinged urine following the procedure. These symptoms usually resolve within 2-5 days. Drink the amount of fluid it takes to keep the urine pink to yellow or clear in color. Drinking enough water and fluids will help to ease any discomfort after your procedure. ? It may take a few days to a week to notice a gradual improvement in the overactive bladder symptoms. ? If you are having problems that seem out of the ordinary, please call. ? If unable to contact your physician and you feel it is an emergency, go to the nearest emergency room or call 911 ? Do not lift more than fifteen pounds for 1-2 days. If you see a lot of blood, you probably did too much. ? Diet ? you may resume your normal diet. ? Pain control ? You may take extra strength Tylenol or Motrin for discomfort. ? Call if you have a fever over 100 degrees. I, NGHIA GUPTA, have received the attached patient education materials/instructions and have verbalized understanding: May we do a follow up call? Yes No I was present when discharge instructions were given Patient Signature Date Clinican/Nurse Signature Date You may receive a survey from [facility] asking you to rate your care experience. Your feedback is important and will help us understand what we do well and how we can improve the quality of care we provide to you, your loved ones and our community. It?s an honor to serve you. Thank you for choosing [facility] Normal [facility] Pre-Certification Formon Pre-Certification Form [id number] D:127 Normal [facility] Coding Summary.on 09-20-2022 Coding Summary. CD:[id number] Ww+P GhlYWQ+TU6NVMOuZ63sxGIzq I7bM2MUGToTVitgNIPLUWyVH oOuxxZlIH6qyNTtBMMa IC8+OU1yABCbTmhcaTDnx4E4 vWC8M56ayl9yCFundTD3DBDi EmPssjysj2usmBw1YOmdXprm OyBt WXPigK83SLR0jX49Bl68gAHk rINud6djaYf6OpQfBFDrPAC7 hFlkRRqav9HiWZMkF00vmOGg c2U6 WFMxuOiigSJcSsMmtIS8vY3z PFuxsutdj6giegurRec6tw25 bKFgg0H3gHL8U6TolhQ8SHJo bGQg LxubnTFBgZ5nwqaqs7vggdry TlTnYXYgWMh7UXp4YZFamGuk TgItQC29GLA8QJArkeErU5Oy LWFs aLhhAxP2w4Z8Pm1RB0LWBsab Q2IHJBTINIdydZO+IO56to92 W3MtMksdCkh8AVPgEHV1kNB3 aD0n CJAvOBewn7K9dJI4W7WqfhQz mm5sc1umQAMlHFgrM10ecWEi e7M8YBSwlVK9OMKeiVejWpHz aG93 Oyc+HFVsdWahh8IkIdgig7fh g6kuaGy2EwarPUQvblHvtKdk KWM5s5TdHs5nQQAyrTL3xUW5 aD0i YqUsYuM3PUarE201JxVimQLl VuprI33bY9GbmOR+PHRyPjx0 DMYvtDxwJN6bV2JgFJNfdmen bGVm gXpnSF2rUIVnojunCMEfaH9w RQBaF3g7IdJdUkR8NSjdK8Ig HASsncnwYy15qK2uFoMrLbW2 MGlu L8NddbN2DVIgsEMsVXrnUAH2 A02sp0M2YKAnIWYcKWE7vQU2 sP0tqBohqpezpQKhrLxvluQr dGlj SGwuCNntA910HKAifIeaRpAd ZGluZyBEYXRlOiAgMDQvMjgv MjAyMzwvdGQ+JBUxHWM4vUxw PSAn xYAjIEfjGu7bjGepkTzgAL0n GIDxvesmDERvfV2mETYxwQFl lWbsKI3kYHUiyzpyt811ByXf MHB0 GHLimPJtB7QfpX3gShMuIQQn SRFfK2YwsJBnTAmmM858SVol BjB3DAFtyrTrA6CnRUFmlWkn OiB0 r4N9Af1Dm3DbcjhyZ4JapRTt PoQsNzymSGq2P9WwDtkoaPA+ NZ79LAJuJU70DNn1WKB2oUbg PSdi FDGmO9YmaD0pCwQnXSFtSDAy Oyc+PHRhYmxlIHdpZHRoPScx SLHwJzHglAwqKG9cIp4hPPPt LWNv aKkfhFFqOeTyw8yqXPBrOEkw LS7seTbrZ5FlaLQ3GHDpa6w5 Yo83E15iV5JiaUA+PGNvbCB3 aWR0 nR7gFmRmKsQ1FEqpM309IfGr pWWoMiasu3egy0bpyEc4GhP2 XBOjbtBzaQpdTCB0t0WoBo22 Y29s IHdpZHRoPSIxNSUiIHZhbGln zb4ugO8yRf7+YIQurFZ0mJU6 uU0nEoHoDaO3NNymL272TiKh cCIv Jgqvz7oqj4wlzBx8CyYbBJWy vlVhqQkfUTI4x2HvLc68J4Mj aQlav2WfCfb7fn85tUHlw3X5 bGU9 V1AcKZKwtqjiaOMlcWqyUX7x POZitomtHUIqkD7hZJJaI0k2 RrJwRlN3EEdoY3GcwiF5AKKr bGQg WNHnlKBBfT6njgqky5ebcndi VrHvJYQlEWm7TOi2TPMtzLxx IqMjCCF3RuY2KMB4gRPfoJ5d bGln ufdimU5eNeo+CIY2pILulVQF DP7kCahpbPJ+AUMqBYU5wKhm MAjnBIBkiR8uSQAfY4b3NiLv LjA1 RXnzD5WynfZ6EZOydNWxPZGn iYKKgX7ojympp8rrcdqwQyEc AAJzRJf0ESj6PYTtcNifYjSt ZWZ0 RfS8ICF0dQZbqG9uwUjqwvjz lC6lYvr+VlzniZfdUEB1GEe5 B1ChUcr8XRExtFjiQR0idYWg ZGlu Vl6jjNvlvOshCF9eRCQyikfg g351OcQhv8jkYJZkjRLqARxt TOV9G42jm4V0UTWkWPPgVGW4 dGV4 gT1ksKqdryfnqINzxSkbefRn fRksGLpfWNssF607KJWucRkh CqIlCBp6V7KaTfi2VCPmnCuw ZT0n xIGkLVkbEl3jtAfljGjlHJ2n EJIhajixo628TpQpk4nlUWWq rBMbSTjdWIL8O97xd1K9VORe MDAw VZN8kJG5oM9ixNerchmvlUCz aKteuhGvbVfnABobBOymY615 TUNgcFzpIyPsoQz2R5QrRlo4 ZCBz uPajGS8ugCYjQQebJl8jeVzg sSffNL7sEQEdvomzi339HeRi o6ynHHZwiLNxJLcbPXN0L09z b3I6 ONWhCEZbBQA4wTQ7sO0laXxi bjogbGVmdDsgdmVydGljYWwt VUilV227WBLhqLztFvFevTux bnQg SScwUBi8Y7ZaJgmuzQR+PC90 TDUzVT47hLJklQZwp7rxhGv5 IzNrGCFlMDN4fMugYPxfv2Ty ZXIt P36uhHVem4T2ANZcsWdwzKRu PrRzeXE6eS3cAHyjxcxap3hj hjnbGnhsg9wces20oC53U49v IHdp JNBdNSMfWMWpLOZimOjbwk2t hU9kAn7+LRVukZS3sXJ1zH9z UJMoIwH5IFopD484AdEklPLw Pjxj s4kmd0ncnPs5QtL3RGVggmFy vAjdTYN4a3UnRi07Z85lFErg GCQbFPZxMKShKVVwvWauha1j dG9w Ii8+PPBtcAH1dIH8nM8rIuEo SrU9HQrsO830KkLhsTWqHfkn Z90aT2JsaIT+WWWeBio2MNVg dHls DC7apCUnGPreHo9hZMO0YwEn PxYnOQzyV7FyYQUwqikkvkxu zSX6KQFaIIIzrM92Cp6gdWnw MTBw yLVBoV0ffkbvf0hluneeLhGw HJFwDKc6QUt3XEUnkCriZhYs CJR3QoA0TLU6bAAluW8fsOuq bjog vM2wU5DvHFDhvmivRf62zS2n HfDtQaH8COdrTcd+SPSXP4OE BMDKE6TYVbCvTklcsSQ+PHRk IHN0 eGutHFtkEBGfeJ1aHDWiX0g8 AnNkGhQ6RIidF1FeKNGquvos Cl34eX9gDoYrPuH9YAywR7Vp bnQ6 GDQaoERpAXjqCMG7U41br1F4 SMQvVNSwVEM2vNE2cP4kaNue bjogbGVmdDsgdmVydGljYWwt YWxp S085XJKniJbuGeU4TfAsMcL9 ZUM6O6CwAka1BRFuaFnkWF6k bQDkEEdhNn6oyHrdbKifBV8h NTBp mcsgNEZceX3mORNklROryWqx DY5jQFJmdwuet848JsHmRAN1 YXMlyFRxH1RtbQ0bPaDdVBSr MDAw G9VpgQCcRJkvG724GZiiAgT2 PPClyrWrL6XwFHVoaZuoOgC3 w6S1Nr47BWXHRIQcqqbukDW+ PHRk MIY4yJehGApvUCDqkY8mLBOq Y7o8OwXhZuD5TJbiQ0PjPCHy zlalZh94aX8sDgDwXuP9JCgg O2Zv wvZ3VKSbqDUjDMosAVW1D53l n1E5WDPtJQTnQMK4mZQ7jH0b bGlnbjogbGVmdDsgdmVydGlj YWwt WVylQ654EMNljHmwQp3bcYI5 E6OwMys9WJYpbMazRL7ljKAn MDuxSz7vjHmvxZauRO5kSQHw bjtw GMSswX9bNWDnxTQuoIkfLB0d ZXAagngpu352XaReAWF3ETFa jKHkV9NjjF5cHdUcGDJiDQXy O3Rl gBRnYWqaW382LPpwKwU6DAOg qbVlC9NrLAIviMhgTiY7i1D1 Kh2SHHAbDKRymLCqJiJ2L6Aw Pjwv dHI+NJ02ZLIcLY61aOLurNXf x1whsEa8GkFlPMUwFJY0oGom XWdds2DxXVBmT31wkGVka3R8 IGNv kKcqtJEsFnWrkHB3mX2dQWok eqjey0coecshBooki8udqe75 jG30A79hBMosUXHmLPMbGTTz IHZh uPujho0deX4gQd7+PGNvbCB3 aVI4xM3zGuIsMwF5LQedN018 ShMquBUlFjbss8zyw2llrLm9 IjIw LVJpgrLgkXypHRH1r1MoZm53 M72zGSryRUQjZKBcPLQjJAGp xFdgto1bqD9kZu0+PR1dg0uh cm91 aE60mHD+HNNwAFL3hGkyMMli JSQmjJ9qUNtfGtY7ZLNxVyTq vL39fUDjMMrwWl9uzWjudCrc MC4w FUEzfvclu361TbRpr1fuBOSj rDEjAPjuELD1E66ky6S8NIQx QVCnCKZ8sGZ1vP9vjIytcmsz bGVm sSafczAvrCjoWLccHEpgX427 SYOvjTliGyDesZWfH8uiaqBS WR8fRsrxtEL+VIKkGRV7hIus PSdw PBLdgH7xICClP1v9DwKgCkB2 TJhzG1VbiiN4DQIhjDEgBWSb cWGCbN2vommql8qhinskIcQg MDAw EUc9EHj6SGPojFteOnOnZBN7 LsO4ORT2wJNwcT5cyLcfmtpo bQ4eDbf+RklOOjwvdGQ+PHRk IHN0 sKnbQKhjPSJlgT3hVFCbF3g2 HaJfWuT8OAurC3SehiP2RAMn tIMtWTXukDPAbK3buqhif6ap cjog VcTeGVVwDOq8FSm8EYBrsWem ElElUXD8BdS1WJP9cOLxvX8m bZtueqwmhE5kWys+TVJOOjwv dGQ+ LCHxMNH3uZxrZVifBMVxkK4q KVIbI3y8QbMlHqH5OUpuH3If twZ7OXNxjLMlTIPpcZWLrI7l cztj n8pxhxabOpThVNDmIJx6TQi8 NQUeeObaSjDqBVI5KcC6DTD6 vTFvmG7bdSjlsizlmB0fJii+ UGF5 VCL7DU38YS61N2NiIwtigOBa bGU+PHRhYmxlIHdpZHRoPScx BHZaLqIkjGclBT6dDz5pMMXd LWNv bGxhcHNl (more content not included)... Normal [facility] C Urineon 09-19-2022 Bacteria identified Cx Nom (U) Microbiology PROCEDURE: Urine Culture [R1] SOURCE: U Random BODY SITE: COLLECTED DATE/TIME: 09/17/2022 11:31 EDT RECEIVED DATE/TIME: 09/17/2022 18:03 EDT START DATE/TIME: 09/17/2022 18:03 EDT FREE TEXT SOURCE: CATIE MARJORIE CLEMENTS PA-C, JENNIFER E FINAL REPORTS Final Report [] Verified Date/Time: 09/19/2022 11:58 EDT 75,000 cfu/ml Citrobacter koseri SUSCEPTIBILITY RESULTS ___ LEGEND: S=Susceptible, N/R=Not Reported, Blank=Data not available, or drug not advisable or tested, I=Intermediate, ESBL=Extended spectrum beta-lactamase, R=Resistant, TFG=Thymidine-dependent strain, YUE=Beta-lactamase positive, ABBI=mcg/m;(mg/L), S*=Predicted susceptible interp, R*=Predicted resistant interp Citkos Antibiotic ABBI Dilutn ABBI Interp Amikacin <=16 S Ampicillin >16 R Ampicillin/ <=8/4 S Sulbactam Aztreonam <=4 S Cefazolin <=2 S Cefepime <=2 S Cefoxitin <=8 S Ceftazidime <=1 S Ceftazidime/ <=8 S Avibactam Ceftriaxone <=1 S Ciprofloxacin <=1 S Ertapenem <=0.5 S Gentamicin <=4 S Levofloxacin <=2 S Meropenem <=1 S Nitrofurantoin <=32 S Piperacillin/ <=16 S Tazobactam Tetracycline <=4 S Tigecycline <=2 S Tobramycin <=4 S Trimethoprim/ <=2/38 S Sulfa Performing Locations R1: This test was performed at: [facility], [address] [place] [address], [id number] , [place], Normal [facility] Comment on above: Performed By: #### [id number] ####[facility] [address] [place] [address] Patient Educationon 09-18-19 Patient Education Urology Urinary Incontinence Urinary incontinence refers to a condition in which a person is unable to control where and when to pass urine. A person with this condition will urinate involuntarily. This means that the person urinates when he or she does not mean to. What are the causes? This condition may be caused by: ? Medicines. ? Infections. ? Constipation. ? Overactive bladder muscles. ? Weak bladder muscles. ? Weak pelvic floor muscles. These muscles provide support for the bladder, intestine, and, in women, the uterus. ? Enlarged prostate in men. The prostate is a gland near the bladder. When it gets too big, it can pinch the urethra. With the urethra blocked, the bladder can weaken and lose the ability to empty properly. ? Surgery. ? Emotional factors, such as anxiety, stress, or post-traumatic stress disorder (PTSD). ? Spinal cord injury, nerve injury, or other neurological conditions. ? Pelvic organ prolapse. This happens in women when organs move out of place and into the vagina. This movement can prevent the bladder and urethra from working properly. What increases the risk? The following factors may make you more likely to develop this condition: ? Age. The older you are, the higher the risk. ? Obesity. ? Being physically inactive. ? and childbirth. ? Menopause. ? Diseases that affect the nerves or spinal cord. ? Long-term, or chronic, coughing. This can increase pressure on the bladder and pelvic floor muscles. What are the signs or symptoms? Symptoms may vary depending on the type of urinary incontinence you have. They include: ? A sudden urge to urinate, and passing urine involuntarily before you can get to a bathroom (urge incontinence). ? Suddenly passing urine when doing activities that force urine to pass, such as coughing, laughing, exercising, or sneezing (stress incontinence). ? Needing to urinate often but urinating only a small amount, or constantly dribbling urine (overflow incontinence). ? Urinating because you cannot get to the bathroom in time due to a physical disability, such as arthritis or injury, or due to a communication or thinking problem, such as Alzheimer's disease (functional incontinence). How is this diagnosed? This condition may be diagnosed based on: ? Your medical history. ? A physical exam. ? Tests, such as: ? Urine tests. ? X-rays of your kidney and bladder. ? Ultrasound. ? CT scan. ? Cystoscopy. In this procedure, a health care provider inserts a tube with a light and camera (cystoscope) through the urethra and into the bladder to check for problems. ? Urodynamic testing. These tests assess how well the bladder, urethra, and sphincter can store and release urine. There are different types of urodynamic tests, and they vary depending on what the test is measuring. To help diagnose your condition, your health care provider may recommend that you keep a log of when you urinate and how much you urinate. How is this treated? Treatment for this condition depends on the type of incontinence that you have and its cause. Treatment may include: ? Lifestyle changes, such as: ? Quitting smoking. ? Maintaining a healthy weight. ? Staying active. Try to get 150 minutes of moderate-intensity exercise every week. Ask your health care provider which activities are safe for you. ? Eating a healthy diet. ? Avoid high-fat foods, like fried foods. ? Avoid refined carbohydrates like white bread and white rice. ? Limit how much alcohol and caffeine you drink. ? Increase your fiber intake. Healthy sources of fiber include beans, whole grains, and fresh fruits and vegetables. ? Behavioral changes, such as: ? Pelvic floor muscle exercises. ? Bladder training, such as lengthening the amount of time between bathroom breaks, or using the bathroom at regular intervals. ? Using techniques to suppress bladder urges. This can include distraction techniques or controlled breathing exercises. ? Medicines, such as: ? Medicines to relax the bladder muscles and prevent bladder spasms. ? Medicines to help slow or prevent the growth of a man's prostate. ? Botox injections. These can help relax the bladder muscles. ? Treatments, such as: ? Using pulses of electricity to help change bladder reflexes (electrical nerve stimulation). ? For women, using a special forces medical sergeant to prevent urine leaks. This is a small, tampon-like, disposable device that is inserted into the urethra. ? Injecting collagen or carbon beads (bulking agents) into the urinary sphincter. These can help thicken tissue and close the bladder opening. ? Surgery. Follow these instructions at home: Lifestyle ? Limit alcohol and caffeine. These can fill your bladder quickly and irritate it. ? Keep yourself clean to help prevent odors and skin damage. Ask your health care provider about special skin creams and cleansers that can protect the skin from urine. ? (more content not included)... Normal [facility] Urology Office/Clinic Noteon 09-17-2022 Urology Office/Clinic Note Chief Complaint 1yr HPI Staff DLS pt 1 yr with PVR. DX: Urinary Incontinence w/o sensory awareness, urge incontinence & BPH. no rx meds from our office. Pt states he is incontinent. Constantly wears pad. Gets the urge to void and won't make it to restroom in time. Also has spontaneous leaking through out the day. Doesn't feel it. Did have Botox in 2019. States it did help then. Would be interested in possibly another round of Botox. Intermittent weak stream at times. Does have to sit to void. Denies pain, pain visible blood. IPSS 15 PVR 0 Review of Systems PHQ Score Initial Depression Screen Score: 0 no fever, chills, malaise, myalgia. no rash/lesions. no chest pain, palpitations, or SOB. no abdominal pain, nausea, vomiting. no unilateral calf swelling, redness, pain Physical Exam Vitals & Measurements HR: 68(Peripheral) RR: 16 BP: 130/78 HT: 67 in HT: 170 cm WT: 146 kg WT: 321.2 lb BMI: 50.52 General: nontoxic, NAD Mouth: moist mucosa Lungs: normal respiratory effort Cardio: regular rate, good distal perfusion Abdomen: nondistended, no suprapubic distention or tenderness, no CVA tenderness Neurologic: Grossly normal Skin: No rashes or suspicious lesions Assessment/Plan 1. Urinary incontinence without sensory awareness (N39.42: Incontinence without sensory awareness) going through a few pads per day. not saturated/soaked. amount of leakage varies based on fluid intake. has noticed leaking worsening over the past year. s/p Botox 100u in Dec 2019. had good response per pt. would like to try this again. will send urine today. Will schedule Botox. The procedural risks, benefits, details, and treatment alternatives have been discussed with the patient. These include bleeding, infection, continued problems with overactive bladder, inability to empty the bladder which could require an indwelling catheter or need for in/out catheterization to empty the bladder, and need for repeat procedures over time (usually lasts up to six months), as well as fatigue and insomnia, among others. There is a minimal risk of Botox entering the blood stream and causing neurological problems, which is quite rare. Full informed consent has been obtained. Will order Local anesthesia. Ordered: E&M of Est. Patient Moderate 30-39 Min 02941 2. Urge incontinence (N39.41: Urge incontinence) see #1. Ordered: E&M of Est. Patient Moderate 30-39 Min 20428 3. BPH with urinary obstruction (N40.1: Benign prostatic hyperplasia with lower urinary tract symptoms) on prazosin through PCP, not for BPH. mild weak stream/straining but no changes over the past 3-5 yrs per pt. PVR 0ml. no issues w UTIs. no gross hematuria. Ordered: E&M of Est. Patient Moderate 30-39 Min 11869 Measure Post Void residual urine and/or bladder capacity by US- non-imaging 06038 Urnls Dip Stick Auto w/o Microscopy POC 41985 4. Prostate cancer screening (Z12.5: Encounter for screening for malignant neoplasm of prostate) PSA Feb 2021 - 0.9 I discussed stopping the PSA checks, due to the PSA stability, and his advancing age. He is aware that his chances of developing and having problems from prostate cancer at this point are quite low. He agrees to stop the PSA checks. Ordered: E&M of Est. Patient Moderate 30-39 Min 47029 Follow-up With When Contact Information [facility] [place] [address] Business (1) Additional Instructions: our patient scheduler will be contacting you for follow-up Patient Education Urinary Incontinence Problem List/Past Medical History Ongoing Anticoagulated BMI 50.0-59.9, adult BPH with urinary obstruction Nocturia Urge incontinence Urinary frequency Urinary incontinence without sensory awareness Urinary urgency Historical Hyperlipidemia Hypertension Stroke Procedure/Surgical History Injection of therapeutic substance into bladder wall (12/16/2019), Injection of therapeutic substance into bladder wall (03/25/2019), Colonoscopy (11/04/2016), Cystoscopy (09/23/2014), Placement of stent in cardiac conduit (05/26/2009), Laser ablation of prostate (05/2007), Transrectal biopsy of prostate using ultrasound (US) guidance (05/26/2007), Appendectomy, Cystoscopy, Knee replacement. Medications Actos 30 mg Tab, Oral, Daily amLODIPine 10 mg Tab, 10 mg= 1 tab(s), Oral, Daily aspirin 81 mg oral tablet, Oral, Daily atorvastatin 40 mg Tab, 40 mg= 1 tab(s), Oral, Daily lisinopril 20 mg Tab, 20 mg= 1 tab(s), Oral, Daily metformin 1000 mg Tab, 1000 mg= 1 tab(s), Oral, BID Plavix 75 mg Tab, 75 mg= 1 tab(s), Oral, Daily prazosin 5 mg oral capsule, 5 mg= 1 cap(s), Oral, Bedtime Vitamin D3 Allergies Septra (Hives) sulfamethoxazole-trimeth oprim (Unknown) Social History Alcohol - Denies Alcohol Use, 01/19/2019 Substance Abuse - Denies Substance Abuse, 11/09/2019 Tobacco - Denies Tobacco Use, 11/09/2019 Former smok (more content not included)... Normal [facility] Comment on above: Result Comment: Elec tronically Signed By: MARJORIE HADDAD PA-C\.br\Date and Time Signed: 09/17/22 09:56 EDT Office Visiton 06-24-2022 Follow-up visit [id number] Rodolfo Gupta 1945 M Date Provider Department Center 06/24/2022 GABRIELA FERNANDEZ Family History Problem Relation Age of Onset Coronary artery disease Father Coronary artery disease Brother Family Status - Relation Status Age at Father Brother Level of Service:09900 DE OFFICE/OUTPATIENT ESTABLISHED LOW MDM 20-29 MIN Reason for Visit and Comments: Coronary Artery Disease [187] Hypertension [925570] Hyperlipidemia [182] Normal [facility] XR Chest 2 Views*on 05-31-19 XR Chest 2 Views* FINDINGS: Comparison made with priorr chest x-ray 2020, subsequent chest CT January 23, 2021. Persistent diffuse interstitial prominence. No new parenchymal consolidation, infiltrates, or pulmonary edema. No pleural effusion. Mild beventricular prominence. IMPRESSION: Stable parenchymal findings consistent with interstitial lung disease Report reported and signed by Jan Cortes on 05/31/2022 0933 Normal [facility] US Liveron 04-05-2022 US Liver HISTORY: FINDINGS: The liver is somewhat homogeneous, appearance suggestive of diffuse fatty infiltration. No focal mass lesions or biliary dilatation, however, is identified. Relatively smooth, borderline nodular contour. Diffuse fatty replacement throughout the pancreatic bed. No pancreatic mass or neighboring fluid collections. No pancreatic ductal dilatation. Right kidney: Normal. Gallbladder: Irregular wall thickening (2-4mm), several focal areas of shadowing, no dependently layering stones, pericholecystic fluid or positive sonographic Williamson's sign upon examination. Non-distended biliary tree, normal common bile duct 3 mm. IMPRESSION: 1. Gallbladder findings most consistent with chronic cholecystitis, possible component of cholesterolosis. No current evidence of acute cholecystits or biliary obstruction. 2. Hepatic appearance consistent with diffuse fatty infiltration, borderline nodular contour may reflect early cirrhosis. 3. Diffuse fatty replacement of the pancreas. Report reported and signed by Jan Cortes on 04/05/2022 0919 Normal [facility] ECHOCARDIO M/2D COMPLETEon 1 06-02-2021 ECHOCARDIO M/2D COMPLETE Patient: NGHIA GUPTA Exam Date: 04/02/2022 : 1945 Gender:M Ordering : [facility] Admission #: [id number] Family : DR MARJORIE NATH M.D. Order #: [id number] CLICK HERE TO VIEW EXAM ECHOCARDIOGRAM REPORT PROCEDURE: CARDIO PULMONARY ECHOCARDIO M/2D COMP INDICATIONS: Aortic valve stenosis, hypertension, diabetes, h/o CVA COMPARISON: None. DESCRIPTION: COMPLETE ECHOCARDIOGRAM Real-time transthoracic echocardiography with 2D, M-mode, spectral and color flow Doppler performed. QUALITY: Technically difficult due to patients condition. 66 311# BP 128/64 LEFT VENTRICLE: Mild dilatation. Borderline left ventricular hypertrophy. Normal systolic function. LV EF: Normal left ventricular ejection fraction, (>55%). DIASTOLIC: Grade I diastolic dysfunction. ATRIAL SEPTUM: Visually appears intact. LEFT ATRIUM: Mild mild dilatation. RIGHT ATRIUM: Moderate dilatation. RIGHT VENTRICLE: Normal chamber size. Normal systolic function TRICUSPID VALVE: Normal mobility and thickness. No stenosis. Unable to calculate right sided pressures due to lack of regurgitation. MITRAL VALVE: Normal mobility and thickness. No evidence of mitral valve stenosis. Mild mitral annular calcification. No mitral regurgitation. AORTIC VALVE: Normal trileaflet appearance. Mildly to moderately calcified aortic valve. Mildly diminished mobility. No aortic regurgitation. AORTIC ROOT: Normal diameter and appearance. PULMONIC VALVE: Not well visualized. No stenosis. Trivial regurgitation. PERICARDIUM: No evidence of pericardial effusion. IVC: Dilated IVC with no collapse. PLEURA: CONCLUSION: 1. Left ventricle is mildly dilated with normal systolic function. LVEF is 60%. 2. The right ventricle is normal in size and systolic function. 3. Mild to moderate calcification of the aortic valve with likely mild stenosis. 4. Technically difficult study. Adult Echocardiography Procedure Report Left Ventricle LVEDD (3.7 - 5.6 cm): 6.32 cm LVESD (2.2 - 4.0 cm): 3.75 cm LVIVS thickness (0.6 - 1.2 cm): 1.07 cm LVPW thickness (0.5 - 1.0 cm): 0.96 cm e': 0.10 m/s E - e': 8.19 LVOT Diameter 2.75 cm, 2.43 cm Left Ventricular Ejection Fraction: 60 % Left Atrium Left Atrium Systolic Dimension: 5.78 cm Mitral Valve MV E to A Ratio: 0.93 Mitral Valve A-Wave Peak Velocity: 0.92 m/s Mitral Valve E-Wave Peak Velocity: 0.86 m/s Right Ventricle Aorta AO Root Diam: 3.81 cm Aortic Valve Peak Velocity(Antegrade Flow): 1.89 m/s, 1.35 m/s, 1.35 m/s, 1.88 m/s Peak Gradient(Antegrade Flow): 14.12 mm[Hg], 14.30 mm[Hg], 7.31 mm[Hg], 7.31 mm[Hg] Mean Velocity(Antegrade Flow): 1.22 m/s, 0.89 m/s, 0.88 m/s Mean Gradient(Antegrade Flow): 7.42 mm[Hg], 3.72 mm[Hg], 3.49 mm[Hg] Velocity Time Integral: 30.66 cm, 29.56 cm, 29.74 cm Tricuspid Valve Peak Velocity: 0.86 m/s Pulmonic Valve Mean Gradient: 2.72 mm[Hg] Mean Velocity: 0.78 m/s Peak Velocity: 1.12 m/s, 1.01 m/s Peak Gradient: 4.07 mm[Hg], 5.05 mm[Hg] Right Atrium Right Atrium Systolic Pressure: 46.69 ml, 46.69 ml Dictated by: Katelyn Valente M.D. on 04/02/2022 at 16:05 Approved by: Katelyn Valente M.D. on 04/02/2022 at 16:11 Normal [facility] Comprehensive Metabolic Pane [facility] 06-18-2021 Albumin [Mass/Vol] 4.7 g/dL Normal 3.6-5.1 [facility] Comment on above: Performed By: #### C MP #### [facility] [address], [place] [id number] Albumin/Globulin [Mass ratio] 2.2 {ratio} Normal 1.0-2.5 [facility] Comment on above: Performed By: #### C MP #### [facility] [address], [place] [id number] ALP [Catalytic activity/Vol] 104 U/L Normal 40-129 [facility] Comment on above: Performed By: #### C MP #### [facility] [address], [place] [id number] ALT [Catalytic activity/Vol] 18 U/L Normal 9-46 [facility] Comment on above: Result Comment: 04/25 Female reference range changed. Performed By: #### C MP #### [facility] [address], [place] [id number] Anion gap [Moles/Vol] 18 mmol/L Normal 12-20 [facility] Comment on above: Result Comment: Effe ctive 05/31/2019 reference range changed. Performed By: #### C MP #### [facility] [address], [place] [id number] AST [Catalytic activity/Vol] 17 U/L Normal 10-40 [facility] Comment on above: Performed By: #### C MP #### [facility] [address], [place] [id number] Bilirubin [Mass/Vol] 0.86 mg/dL Normal 0.30-1.20 [facility] Comment on above: Performed By: #### C MP #### [facility] [address], [place] [id number] BUN/CREA 25 Ratio High 6-22 [facility] Comment on above: Performed By: #### C MP #### [facility] [address], [place] [id number] Calcium [Mass/Vol] 9.5 mg/dL Normal 8.6-10.2 [facility] Comment on above: Performed By: #### C MP #### [facility] [address], [place] [id number] Chloride [Moles/Vol] 104 mmol/L Normal 98-107 [facility] Comment on above: Performed By: #### C MP #### [facility] [address], [place] [id number] CO2 [Moles/Vol] 25 mmol/L Normal 20-31 [facility] Comment on above: Performed By: #### C MP #### [facility] [address], [place] [id number] Creatinine [Mass/Vol] 0.8 mg/dL Normal 0.7-1.4 [facility] Comment on above: Performed By: #### C MP #### [facility] [address], [place] [id number] eGFRAA 114 mL/min/1.73m2 Normal >60 [facility] Comment on above: Performed By: #### C MP #### [facility] [address], [place] [id number] eGFRNAA 94 mL/min/1.73m2 Normal >60 [facility] Comment on above: Performed By: #### C MP #### [facility] [address], [place] [id number] Globulin (S) [Mass/Vol] 2.1 g/dL Normal 1.9-3.7 [facility] Comment on above: Performed By: #### C MP #### [facility] [address], [place] [id number] Glucose [Mass/Vol] 157 mg/dL High 65-99 [facility] Comment on above: Result Comment: For FASTING Glucose --- ADA reference ranges: Normal 65-99 mg/dl Prediabetes 100-125 Diabetes >/= 126 Performed By: #### C MP #### [facility] [address], [place] [id number] Potassium [Moles/Vol] 4.4 mmol/L Normal 3.5-5.5 [facility] Comment on above: Performed By: #### C MP #### [facility] [address], [place] [id number] Protein [Mass/Vol] 6.8 g/dL Normal 6.1-8.1 [facility] Comment on above: Performed By: #### C MP #### [facility] [address], [place] [id number] Sodium [Moles/Vol] 142 mmol/L Normal 135-146 [facility] Comment on above: Performed By: #### C MP #### [facility] [address], [place] [id number] Urea nitrogen [Mass/Vol] 20 mg/dL Normal 7-25 [facility] Comment on above: Performed By: #### C MP #### [facility] [address], [place] [id number] Hemoglobin A1Con 06-18-2021 EAG 154.20 Normal [facility] Comment on above: Performed By: #### A 1C #### [facility] [address], [place] [id number] HbA1c (Bld) [Mass fraction] 7.0 % High 4.0-6.0 [facility] Comment on above: Performed By: #### A 1C #### [facility] [address], [place] [id number] Vital Signs Date Time Vital Sign Value Performing Clinician Facility 07-02-2023 11:33-0500 Diastolic blood pressure 62 mm[Hg] Juan Kampfer ELECTROFORMER Work Phone: [facility] 07-02-2023 11:33-0500 Systolic blood pressure 138 mm[Hg] Juan Traore ELECTROFORMER Work Phone: [facility] 07-02-2023 11:06-0500 Body height 165.1 cm Juan Traore ELECTROFORMER Work Phone: [facility] 07-02-2023 11:06-0500 Body mass index (BMI) [Ratio] 51.59 kg/m2 Juan Traore ELECTROFORMER Work Phone: [facility] 07-02-2023 11:06-0500 Body weight 140.62 kg Juan Traore ELECTROFORMER Work Phone: [facility] 07-02-2023 11:06-0500 Heart rate 66 /min Juan Traore ELECTROFORMER Work Phone: [facility] 07-02-2023 11:06-0500 SaO2% (BldA) [Mass fraction] 95 % Juan Traore ELECTROFORMER Work Phone: [facility] 12-25-2022 09:38-0400 Blood Pressure Location Sherlyn Lue [facility] 12-25-2022 09:38-0400 Diastolic blood pressure 84 mm[Hg] Sherlyn Lue [facility] 12-25-2022 09:38-0400 Heart rate 68 /min Sherlyn Lue [facility] 12-25-2022 09:38-0400 Respiratory rate 16 /min Sherlyn Lue [facility] 12-25-2022 09:38-0400 Systolic blood pressure 132 mm[Hg] Sherlyn Lue [facility] 09-17-2022 08:59-0400 Blood Pressure Location MARJORIE HADDAD [facility] 09-17-2022 08:59-0400 Diastolic blood pressure 78 mm[Hg] MARJORIE CATIE [facility] 09-17-2022 08:59-0400 Heart rate 68 /min MARJORIE HADDAD [facility] 09-17-2022 08:59-0400 Respiratory rate 16 /min MARJORIE CATIE [facility] 09-17-2022 08:59-0400 Systolic blood pressure 130 mm[Hg] MARJORIE HADDAD [facility] 09-11-2021 11:06-0400 Diastolic blood pressure 73 mm[Hg] Ron Miller Jr. [facility] 09-11-2021 11:06-0400 Mean blood pressure 89 mm[Hg] Ron Miller Jr. [facility] 09-11-2021 11:06-0400 Systolic blood pressure 121 mm[Hg] Ron Miller Jr. [facility] 09-11-2021 10:29-0400 Blood Pressure Location Ron Miller Jr. [facility] 09-11-2021 10:29-0400 Diastolic blood pressure 70 mm[Hg] Ron Miller Jr. [facility] 09-11-2021 10:29-0400 Heart rate 62 /min Ron Miller Jr. [facility] 09-11-2021 10:29-0400 Respiratory rate 16 /min Ron Miller Jr. [facility] 09-11-2021 10:29-0400 Systolic blood pressure 158 mm[Hg] Ron Miller Jr. [facility] Encounters Encounter Date Encounter Type Care Provider Facility Start: 11-06-2023 End: 11-06-2023 ambulatory WENDY HURLEY Not Available Start: 10-03-2023 End: 10-03-2023 ambulatory JUAN TRAORE Not Available Start: 08-19-2023 End: 08-19-2023 ambulatory MILADY CAMPOS Not Available Start: 08-05-2023 End: 08-05-2023 ambulatory WENDY HURLEY Not Available Start: 07-30-2023 End: 07-30-2023 ambulatory KYMBERLY NATION Not Available Start: 07-29-2023 End: 07-29-2023 ambulatory ROSSY Chan FELTFREEDOM Not Available Start: 07-02-2023 Bamboo flowsheet Juan Traore ELECTROFORMER Work Phone: [facility] Start: 07-02-2023 Bamboo flowsheet Juan Traore ELECTROFORMER Work Phone: [facility] Start: 07-02-2023 End: 07-02-2023 ambulatory JUAN TRAORE Not Available Start: 07-02-2023 End: 07-02-2023 Office outpatient visit 25 minutes Juan Traore ELECTROFORMER Work Phone: [facility] Comment on above: Type 2 diabetes leesa itus with neurological manifestation (CMS/HCC) (Primary Dx); Chronic obstructive pulmonary disease, unspecified COPD type (CMS/HCC); Type 2 diabetes mellitus with stage 3a chronic kidney disease, without long-term current use of insulin (HCC) (CMS/HCC); Chronic kidney disease, stage 3a (N18.31); Type 2 diabetes mellitus with diabetic cataract, without long-term current use of insulin (CMS/HCC) Start: 05-06-2023 End: 05-06-2023 ambulatory ROSSY ZAMAN Not Available Start: 04-29-2023 End: 04-29-2023 ambulatory WENDY Thompson HURLEY Not Available Start: 03-25-2023 Patient encounter status Juan Traore Work Phone: [facility] Start: 12-25-2022 End: 12-26-2022 ambulatory Sherlyn Navarro Facility:[facility] Start: 12-25-2022 End: 12-25-2022 Patient encounter procedure Sherlyn Navarro [facility] Start: 12-10-2022 End: 12-10-2022 ambulatory [facility] Start: 09-30-2022 End: 10-01-2022 ambulatory Sherlyn Navarro Facility:[facility] Start: 09-17-2022 End: 09-18-2022 ambulatory TIFFANIE-Apryl HADDAD Facility:[facility] Start: 09-17-2022 End: 09-17-2022 Lab Drop off MARJORIE HADDAD [facility] Start: 09-17-2022 End: 09-18-2022 ambulatory TIFFANIE-Apryl HADDAD Facility:[facility] Start: 09-17-2022 End: 09-17-2022 Patient encounter procedure MARJORIE HADDAD [facility] Start: 06-24-2022 End: 06-24-2022 ambulatory [facility] Start: 04-02-2022 End: 04-03-2022 ambulatory [facility] Facility:[facility] Start: 09-11-2021 End: 09-11-2021 Patient encounter procedure Ron Miller Jr. [facility] Procedures Date Procedure Procedure Detail Performing Clinician Start: 07-02-2023 Hemoglobin glycosyla gracie a1c Juan Eugenie ELECTROFORMER Work Phone: Start: 12-16-2019 Injection of therape utic substance into bladder wall Ron Miller Jr. Start: 03-25-2019 Injection of therape utic substance into bladder wall Ron Miller Jr. Start: 11-04-2016 Colonoscopy Ron hodge Jr. Start: 09-23-2014 Cystoscopy Ron hodge Jr. Start: 05-26-2009 Placement of stent i n cardiac conduit Ron Miller Jr. Start: 05-26-2007 Laser ablation of prostate Ron Miller Jr. Start: 05-26-2007 Transrectal biopsy o f prostate using ultrasound guidance Ron Miller Jr. Appendectomy Ron Headley Arthroplasty of knee Ron Miller Jr. Comment on above: B/L Cystoscopy Ron Headley Plan of Treatment Date Care Activity Detail Author Start: 03-13-2025 Glaucoma screening Diabetes: R etinopathy Screening [facility] Start: 03-26-2024 Medicare Annual Well ness (AWV) Medicare Annual Wellness (AWV) [facility] Start: 10-03-2023 End: 10-03-2023 Patient encounter procedure 10/03/2023 11:30 AM EDT Office Visit [facility] [address] [place] [id number] Juan Traore, JANELL [address] [place], [place] [id number] [facility] Start: 09-30-2023 Hemoglobin A1c measurement Diabetes: Hemoglobin A1C [facility] Start: 08-05-2023 End: 08-05-2023 Patient encounter procedure 08/05/2023 9:30 AM EDT Procedure Visit [facility] [address] [place] [phone] Wendy Hurley, MALIA [address] [place], [place] [id number] [facility] Start: 07-30-2023 End: 07-30-2023 Patient encounter procedure 07/30/2023 10:45 [address] [facility] [address] [place] [phone] Kymberly Nation, DO [address] [place] [address] [facility] Start: 07-29-2023 End: 07-29-2023 Patient encounter procedure 07/29/2023 10:10 AM EST Office Visit [facility] [address] [place] [phone] Rossy Zaman, [employer] [address] [place], [place] [phone] [facility] Start: 06-26-2023 Hemoglobin A1c measurement Diabetes: Hemoglobin A1C [facility] Immunizations Immunization Date Immunization Notes Care Provider [facility] 02-21-2023 RSV, recombinant, protein subunit RSVpreF, adjuvant reconstitu, 120mcg/0.5mL, PF (Arexvy) Juan Traore ELECTROFORMER Work Phone: [facility] 02-21-2023 SARS-COV-2 (COVID-19 ) vaccine, mRNA, spike protein, LNP, PF, alfonzo-sucrose, 30 mcg/0.3 mL Juan Traore ELECTROFORMER Work Phone: [facility] 02-07-2023 Influenza, Seasonal, Quadrivalent, Adjuvanted Juan Traore ELECTROFORMER Work Phone: [facility] 02-07-2023 zoster vaccine recombinant Juan Traore ELECTROFORMER Work Phone: [facility] 10-09-2022 Moderna Bivalent Gamez ster Vaccination Juan Traore ELECTROFORMER Work Phone: [facility] 10-09-2022 SARS-CoV-2 (COVID-19 ) [id number] Sherlyn Navarro [facility] 10-09-2022 zoster vaccine recombinant Sherlyn Navarro [facility] 03-26-2022 Moderna Bivalent Gamez ster Vaccination Juan Traore ELECTROFORMER Work Phone: [facility] 03-26-2022 SARS-CoV-2 (COVID-19 ) [id number] MARJORIEMLIAN BRICERY [facility] 01-24-2022 influenza virus vacc ine, unspecified formulation Juan Traore ELECTROFORMER Work Phone: [facility] 01-16-2022 influenza virus vacc ine, unspecified formulation MARJORIE CATIE [facility] 01-16-2022 Influenza, Seasonal, Quadrivalent, Adjuvanted Juan Traore ELECTROFORMER Work Phone: [facility] 09-03-2021 SARS-CoV-2 (COVID-19 ) mRNA-1273 vaccine MARJORIE BRICERY [facility] 04-11-2022 SARS-CoV-2, Unspecified April h Kampfer ELECTROFORMER Work Phone: [facility] 04-05-2021 SARS-CoV-2 (COVID-19 ) mRNA-1273 vaccine MARJORIEMILAN BRICERY [facility] 04-05-2021 SARS-CoV-2, Unspecified April Traore ELECTROFORMER Work Phone: [facility] 04-04-2021 Moderna SARS-CoV-2 Vaccination Juan Traore ELECTROFORMER Work Phone: [facility] 02-23-2021 influenza virus vacc ine, unspecified formulation Juan Traore ELECTROFORMER Work Phone: [facility] 02-16-2021 influenza virus vacc ine, unspecified formulation MARJORIE HADDAD [facility] 02-16-2021 Influenza, Seasonal, Quadrivalent, Adjuvanted Juan Traore ELECTROFORMER Work Phone: [facility] 07-31-2020 Moderna SARS-CoV-2 Vaccination Juan Traore ELECTROFORMER Work Phone: [facility] 07-04-2020 SARS-CoV-2 (COVID-19 ) mRNA-1953 vaccine Ron Miller Jr. [facility] 07-03-2020 Moderna SARS-CoV-2 Vaccination Juan Traore ELECTROFORMER Work Phone: [facility] 01-25-2020 influenza virus vacc ine, unspecified formulation Ron Miller Jr. [facility] 01-22-2020 influenza virus vacc ine, unspecified formulation MARJORIE CATIE [facility] 01-22-2020 influenza, injectabl e, quadrivalent, preservative free Juan Elizondopfer ELECTROFORMER Work Phone: [facility] 03-11-2019 Influenza, High-dose Seasonal, Quadrivalent, Preservative Free Juan Elizondopfer ELECTROFORMER Work Phone: [facility] 03-05-2019 influenza virus vacc ine, unspecified formulation MARJORIE CATIE [facility] 03-05-2019 Seasonal trivalent influenza vaccine, adjuvanted, preservative free Juan Elizondopfer ELECTROFORMER Work Phone: [facility] 01-24-2019 influenza virus vacc ine, unspecified formulation Juan Elizondopfer ELECTROFORMER Work Phone: [facility] 11-16-2018 pneumococcal conjuga te vaccine, 13 valent MARJORIE CATIE [facility] 02-09-2018 influenza virus vacc ine, unspecified formulation MARJORIE CATIE [facility] 02-09-2018 Seasonal trivalent influenza vaccine, adjuvanted, preservative free Juan Kampfer ELECTROFORMER Work Phone: [facility] 03-28-2017 pneumococcal polysaccharide vaccine, 23 valent MARJORIE CATIE [facility] 02-10-2017 tetanus toxoid, redu dora diphtheria toxoid, and acellular pertussis vaccine, adsorbed Juan Elizondonellyfer ELECTROFORMER Work Phone: [facility] 02-03-2017 influenza virus vacc ine, unspecified formulation MARJORIE CATIE [facility] 02-03-2017 Seasonal trivalent influenza vaccine, adjuvanted, preservative free Juan Kampfer ELECTROFORMER Work Phone: [facility] 03-27-2016 pneumococcal conjuga te vaccine, 13 valent MARJORIE CATIE [facility] 02-07-2016 influenza virus vacc ine, unspecified formulation MARJORIE CATIE [facility] 02-07-2016 seasonal influenza, intradermal, preservative free Juan Kampfer ELECTROFORMER Work Phone: [facility] 02-01-2015 influenza virus vacc ine, unspecified formulation MARJORIE CATIE [facility] 02-01-2015 influenza, high dose seasonal, preservative-free Juan Kampfer ELECTROFORMER Work Phone: [facility] 06-17-2013 zoster vaccine, live JENNIFE R CATIE [facility] 02-24-2012 influenza virus vacc ine, unspecified formulation MARJORIE CATIE [facility] 02-24-2012 influenza, seasonal, injectable Juan Kampfer ELECTROFORMER Work Phone: [facility] 02-27-2010 influenza virus vacc ine, unspecified formulation MARJORIE CATIE [facility] 02-27-2010 influenza, seasonal, injectable Juan Kampfer ELECTROFORMER Work Phone: [facility] Payers Date Payer Category Payer Medicare [employer]NA MEDICARE A DVANTAGE AETNA MEDICARE REPLACEMENT [id number] 2022-Present [address] [place] [address] [id number] 2022 Medicare [id number] 1961 Medicare [id number] 1945 Unknown [id number] 1943 Unknown [id number] 1943 Unknown [id number] 1943 Unknown [id number] 1943 Unknown [id number] 1943 Unknown [id number] 1943 Unknown [id number] 1943 Unknown [id number] 1943 Unknown [id number] [id number] 1943 Unknown [id number] [id number] 1943 Unknown [id number] 1943 Unknown [id number] 1943 Unknown [id number] 1943 Unknown [id number] Unknown [id number] Social History Date Type Detail Facility Start: 09-11-2021 End: 12-25-2022 Tobacco smoking status Ex-smoker (finding) [facility] Start: 03-25-2023 End: 03-26-2023 Sex Assigned At Male [facility] Tobacco smoking status Never [facility] Start: 12-25-2022 Tobacco smoking stat us WYIS Never smoked tobacco [facility] Start: 12-25-2022 Tobacco use and exposure Smokeless tobacco non-user [facility] Start: 05-06-2023 End: 07-02-2023 Alcohol intake Lifetime non-drinker (finding) [facility] Start: 03-25-2023 End: 03-26-2023 History of Social function [facility] Within the last year , have you been afraid of your partner or ex-partner? No [facility] Are you now , , , , never or living with a partner? [facility] How often to you hav e a drink containing alcohol? Never [facility] (I/We) worried whenaveen er (my/our) food would run out before (I/we) got money to buy more. Never true [facility] Start: 01-15-2023 Alcohol Comment caffeine: coff ee occasionally [facility] Start: 1945 Sex Assigned At Not on file [facility] Start: 08-07-2022 Gender identity Identifies as male gender (finding) [facility] Functional Status Date Assessment Result Facility 12-25-2022 Functional Status N/A [facility] 09-17-2022 Functional Status N/A [facility] Clinical Notes 09-11-2021 to 07-02-2023 Juan Traore NP - 07/02/2023 11:00 AM EST Note Date & Type Note Facility 07-02-2023 History of Present illness Narrative Nghia Gupta is a 77 y.o. male presents with chief complaint of Diabetes and Follow-up HPI: Diabetes Mellitus Patient presents for follow up of diabetes. Current symptoms include: none. Symptoms have stabilized. Patient denies foot ulcerations and hyperglycemia. Evaluation to date has included: fasting blood sugar, fasting lipid panel, and hemoglobin A1C. Home sugars: BGs consistently in an acceptable range, BGs have been labile ranging between 90 and 110. Current treatment: Continued metformin which has been effective. Last dilated eye exam: dec. 2023. He reports ongoing cough, worse in the mornings, does have some sputum production clear to white in color. Is using albuterol inhaler 3-5 times a week. Diabetes SUBJECTIVE: MEDICATIONS: Current Outpatient Medications Medication Instructions albuterol HFA 90 mcg/act inhaler USE 1 INHALATION ORALLY EVERY 4 HOURS NEEDED FORSHORTNESS OF BREATH OR COUGH for 34 amLODIPine (Norvasc) 10 MG tablet Take 1 tablet every day by oral route for 90 days. aspirin 81 MG EC tablet 1 tablet, Oral, Daily atorvastatin (LIPITOR) 40 mg, Oral, Daily carvedilol (COREG) 6.25 mg, Oral, 2 times daily with meals cholecalciferol (VITAMIN D-3) 1,000 Units, Oral, Daily RT ciclopirox (Loprox) 0.77 % cream Apply to skin folds External BID prn for skin irritation, hold when clear for 90 days clopidogrel (PLAVIX) 75 mg, Oral, Daily Farxiga 5 mg, Oral, Every morning lisinopril 30 mg, Oral, Every morning metFORMIN (GLUCOPHAGE) 1,000 mg, Oral, 2 times daily with meals prazosin (MINIPRESS) 5 mg, Oral, Daily REVIEW OF SYMPTOMS: Review of Systems Constitutional: Negative. HENT: Negative. Eyes: Negative. Respiratory: Negative. Cardiovascular: Negative. Gastrointestinal: Negative. Genitourinary: Negative. Musculoskeletal: Negative. Skin: Negative. Neurological: Negative. OBJECTIVE: Visit Vitals BP 138/62 Pulse 66 Ht 5' 5 Wt 310 lb SpO2 95% BMI 51.59 kg/m Smoking Status Never BSA 2.54 m Physical Exam Vitals reviewed. Constitutional: Appearance: He is obese. HENT: Head: Normocephalic and atraumatic. Nose: Nose normal. Mouth/Throat: Mouth: Mucous membranes are moist. Eyes: Pupils: Pupils are equal, round, and reactive to light. Cardiovascular: Rate and Rhythm: Normal rate and regular rhythm. Pulses: Normal pulses. Heart sounds: Normal heart sounds. Pulmonary: Effort: Pulmonary effort is normal. Breath sounds: Normal breath sounds. Musculoskeletal: Cervical back: Normal range of motion and neck supple. Skin: General: Skin is warm and dry. Capillary Refill: Capillary refill takes less than 2 seconds. Findings: No rash. Neurological: General: No focal deficit present. Mental Status: He is alert and oriented to person, place, and time. ASSESSMENT AND PLAN: Assessment/Plan Diagnoses and all orders for this visit: Type 2 diabetes mellitus with neurological manifestation ([facility]) - POCT Glycated hemoglobin, total -Diabetic protocols reviewed. Discussed and updated current management plan. Addressed barriers to care, diet, exercise plan and blood sugar testing. Education provided for medications. Goal A1C <7 and BP <130/80 for suboptimally controlled diabetes. I have encouraged patient to check feet regularly and to see ophthomololgist annually. I have discussed the need for regular testing and follow up. We will recheck an A1C every 3 months and microalbumin yearly. Discussed complications which could include blindness, heart disease and kidney disease. Chronic obstructive pulmonary disease, unspecified COPD type ([facility]) - Umeclidinium [place] (Incruse Ellipta) 62.5 MCG/ACT aerosol powder ; Inhale 1 puff in the morning. -Using rescue inhaler frequently during the week. Start him on a maintenance inhaler to help with his breathing. He is agreeable to this. Type 2 diabetes mellitus with stage 3a chronic kidney disease, without long-term current use of insulin (HCC) ([facility]) Chronic kidney disease, stage 3a (N18.31) Type 2 diabetes mellitus with diabetic cataract, without long-term current use of insulin ([facility]) documented in this encounter [facility] 12-25-2022 Hospital Discharge instructions Patient Education 12/25/2022 10:17:49 Benign Prostatic Hyperplasia Benign Prostatic Hyperplasia Benign prostatic hyperplasia (BPH) is an enlarged prostate gland that is caused by the normal aging process. The prostate may get bigger as a man gets older. The condition is not caused by cancer. The prostate is a walnut-sized gland that is involved in the production of semen. It is located in front of the rectum and below the bladder. The bladder stores urine. The urethra carries stored urine out of the body. An enlarged prostate can press on the urethra. This can make it harder to pass urine. The buildup of urine in the bladder can cause infection. Back pressure and infection may progress to bladder damage and kidney (renal) failure. What are the causes? This condition is part of the normal aging process. However, not all men develop problems from this condition. If the prostate enlarges away from the urethra, urine flow will not be blocked. If it enlarges toward the urethra and compresses it, there will be problems passing urine. What increases the risk? This condition is more likely to develop in men older than 50 years. What are the signs or symptoms? Symptoms of this condition include: Getting up often during the night to urinate. Needing to urinate frequently during the day. Difficulty starting urine flow. Decrease in size and strength of your urine stream. Leaking (dribbling) after urinating. Inability to pass urine. This needs immediate treatment. Inability to completely empty your bladder. Pain when you pass urine. This is more common if there is also an infection. Urinary tract infection (UTI). How is this diagnosed? This condition is diagnosed based on your medical history, a physical exam, and your symptoms. Tests will also be done, such as: A post-void bladder scan. This measures any amount of urine that may remain in your bladder after you finish urinating. A digital rectal exam. In a rectal exam, your health care provider checks your prostate by putting a lubricated, gloved finger into your rectum to feel the back of your prostate gland. This exam detects the size of your gland and any abnormal lumps or growths. An exam of your urine (urinalysis). A prostate specific antigen (PSA) screening. This is a blood test used to screen for prostate cancer. An ultrasound. This test uses sound waves to electronically produce a picture of your prostate gland. Your health care provider may refer you to a specialist in kidney and prostate diseases (urologist). How is this treated? Once symptoms begin, your health care provider will monitor your condition (active surveillance or watchful waiting). Treatment for this condition will depend on the severity of your condition. Treatment may include: Observation and yearly exams. This may be the only treatment needed if your condition and symptoms are mild. Medicines to relieve your symptoms, including: ?Medicines to shrink the prostate. ?Medicines to relax the muscle of the prostate. Surgery in severe cases. Surgery may include: ?Prostatectomy. In this procedure, the prostate tissue is removed completely through an open incision or with a laparoscope or robotics. ?Transurethral resection of the prostate (TURP). In this procedure, a tool is inserted through the opening at the tip of the penis (urethra). It is used to cut away tissue of the inner core of the prostate. The pieces are removed through the same opening of the penis. This removes the blockage. ?Transurethral incision (TUIP). In this procedure, small cuts are made in the prostate. This lessens the prostate's pressure on the urethra. ?Transurethral microwave thermotherapy (TUMT). This procedure uses microwaves to create heat. The heat destroys and removes a small amount of prostate tissue. ?Transurethral needle ablation (TUNA). This procedure uses radio frequencies to destroy and remove a small amount of prostate tissue. ?Interstitial laser coagulation (ILC). This procedure uses a laser to destroy and remove a small amount of prostate tissue. ?Transurethral electrovaporization (TUVP). This procedure uses electrodes to destroy and remove a small amount of prostate tissue. ?Prostatic urethral lift. This procedure inserts an implant to push the lobes of the prostate away from the urethra. Follow these instructions at home: Take athd-ejo-pwqoump and prescription medicines only as told by your health care provider. Monitor your symptoms for any changes. Contact your health care provider with any changes. Avoid drinking large amounts of liquid before going to bed or out in public. Avoid or reduce how much caffeine or alcohol you drink. Give yourself time when you urinate. Keep all follow-up visits. This is important. Contact a health care provider if: You have unexplained back pain. Your symptoms do not get better with treatment. You develop side effects from the medicine you are taking. Your urine becomes very dark or has a bad smell. Your lower abdomen becomes distended and you have trouble passing urine. Get help right away if: You have a fever or chills. You suddenly cannot urinate. You feel light-headed or very dizzy, or you faint. There are large amounts of blood or clots in your urine. Your urinary problems become hard to manage. You develop moderate to severe low back or flank pain. The flank is the side of your body between the ribs and the hip. These symptoms may be an emergency. Get help right away. Call 911. Do not wait to see if the symptoms will go away. Do not drive yourself to the hospital. Summary Benign prostatic hyperplasia (BPH) is an enlarged prostate that is caused by the normal aging process. It is not caused by cancer. An enlarged prostate can press on the urethra. This can make it hard to pass urine. This condition is more likely to develop in men older than 50 years. Get help right away if you suddenly cannot urinate. This information is not intended to replace advice given to you by your health care provider. Make sure you discuss any questions you have with your health care provider. Document Revised: 11/28/2021 Document Reviewed: 11/28/2021 [employer] Patient Education 2022 [employer]. Follow Up Care 09/30/2022 10:27:46 With:Ramon WHITE, Sherlyn Hernandez, URBryson, URO Address: When: Unknown Comments:[facility] 12-10-2022 Note [place] [facility] Subjective Nghia Gupta is a 76 y.o. 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 (CMS/HCC) Chronic obstructive pulmonary disease (CMS/HCC) Chronic pain DM type 2 (diabetes mellitus, type 2) (CMS/HCC) Type 2 diabetes mellitus without complication (CMS/HCC) Dribbling of urine Dizziness Dyslipidemia Edema Elevated PSA Encounter for preprocedural cardiovascular examination History of cerebrovascular accident History of neoplasm Hyperlipidemia Benign essential hypertension Hypertension Cerebrovascular disease Class 2 obesity due to excess calories without serious comorbidity with body mass index (BMI) of 37.0 to 37.9 in adult Lymphedema Interstitial lung disease (CMS/HCC) Morbid obesity (CMS/HCC) Obstructive sleep apnea syndrome Osteoarthritis of knee Proteinuria Pure hypercholesterolemia Status post percutaneous transluminal coronary angioplasty Urinary incontinence Family History Problem Relation Name Age of Onset Coronary artery disease Father Coronary artery disease Brother Social History Tobacco Use Smoking status: Former Types: Cigarettes Smokeless tobacco: Never Substance Use Topics Alcohol use: Not Currently HPI Mr. Gupta is seen in follow-up. He is a 76-year-old man with prior history: CAD -In 2011, he underwent cardiac cath with BMS to his RCA. His last stress test was in 2014 which was negative for ischemia. HTN DM type II CVA around 2013. He is on DAPT chronically. HLD - Mild per 04/2020 ECHO, moderate by echo 03/2021. He ambulates with the help of a cane, he also uses a walker. He is undergoing treatment for lymphedema with pumps. He denies chest pain, shortness of breath, syncope and palpitations. Overall he says he is doing well. Review of Systems Cardiovascular: Positive for leg swelling. Musculoskeletal: Positive for back pain. All other systems reviewed and are negative. Objective Visit Vitals BP 132/78 (BP Location: Left arm, Patient Position: Sitting, BP Cuff Size: Large adult) Pulse 60 Ht 1.676 m (5' 6 ) Wt (!) 142 kg (314 lb) SpO2 95% BMI 50.68 kg/m??? Smoking Status Former BSA 2.57 m??? Physical Exam Constitutional: Appearance: He is well-developed. He is obese. He is not ill-appearing. HENT: Head: Normocephalic and atraumatic. Nose: Nose normal. Eyes: General: No scleral icterus. Pupils: Pupils are equal, round, and reactive to light. Neck: Thyroid: No thyromegaly. Vascular: No JVD. Cardiovascular: Rate and Rhythm: Normal rate and regular rhythm. Pulses: Radial pulses are 2+ on the right side and 2+ on the left side. Heart sounds: Normal heart sounds. No murmur heard. No friction rub. No gallop. Pulmonary: Effort: Pulmonary effort is normal. No respiratory distress. Breath sounds: Normal breath sounds. No wheezing or rales. Chest: Chest wall: No tenderness. Abdominal: General: Bowel sounds are normal. There is no distension. Palpations: Abdomen is soft. Tenderness: There is no abdominal tenderness. Musculoskeletal: General: No swelling. Cervical back: Neck supple. Right lower le+ Pitting Edema present. Left lower le+ Pitting Edema present. Comments: Uses a cane to help with ambulation Skin: General: Skin is warm and dry. Neurological: General: No focal deficit present. Mental Status: He is alert and oriented to person, place, and time. Psychiatric: Mood and Affect: Mood normal. Behavior: Behavior is cooperative. Judgment: Judgment normal. Allergies Allergies Allergen Reactions Sulfamethizole Other reaction(s): Intolerance-unknown Sulfamethoxazole-Trimethoprim Hives Trimethoprim Other reaction(s): Intolerance-unknown Medications Current Outpatient Medications: amLODIPine (Norvasc) 10 mg tablet, amlodipine 10 mg tablet, Disp: , Rfl: aspirin 81 mg EC tablet, in the morning., Disp: , Rfl: atorvastatin (Lipitor) 40 mg tablet, atorvastatin 40 mg tablet, Disp: , Rfl: carvedilol (Coreg) 6.25 mg tablet, Take 1 tablet (6.25 mg) by mouth with breakfast and with evening meal., Disp: 180 tablet, Rfl: 3 clopidogrel (Plavix) 75 mg tablet, clopidogrel 75 mg tablet, Disp: , Rfl: furosemide (Lasix) 20 mg tablet, Take 1 tablet (20 mg) by mouth in the morning., Disp: 90 tablet, Rfl: 3 lisinopril 30 mg tablet, Take 30 mg by mouth in the morning., Disp: , Rfl: metFORMIN (Glucophage) 1,000 mg tablet, Take 1,000 mg by mouth with breakfast., Disp: , Rfl: pioglitazone (Actos) 30 mg tablet, pioglitazone 30 mg tablet, Disp: , Rfl: prazosin (Minipress) 5 mg capsule, prazosin 5 mg (more content not included)... [facility] 09-30-2022 Note [id number] [facility] 09-30-2022 Note Cystoscopy with Boto x injection ? Voiding after the procedure: there may be some pain, burning, urgency, frequency and blood tinged urine following the procedure. These symptoms usually resolve within 2-5 days. Drink the amount of fluid it takes to keep the urine pink to yellow or clear in color. Drinking enough water and fluids will help to ease any discomfort after your procedure. ? It may take a few days to a week to notice a gradual improvement in the overactive bladder symptoms. ? If you are having problems that seem out of the ordinary, please call. ? If unable to contact your physician and you feel it is an emergency, go to the nearest emergency room or call 911 ? Do not lift more than fifteen pounds for 1-2 days. If you see a lot of blood, you probably did too much. ? Diet ? you may resume your normal diet. ? Pain control ? You may take extra strength Tylenol or Motrin for discomfort. ? Call if you have a fever over 100 degrees. [facility] 09-17-2022 Evaluation + Plan note Diagnostic Tests PendingUrine Culture 4/25/23 [facility] 09-17-2022 Hospital Discharge instructions Patient Education 09/17/2022 09:56:10 Urinary Incontinence Urinary Incontinence Urinary incontinence refers to a condition in which a person is unable to control where and when to pass urine. A person with this condition will urinate involuntarily. This means that the person urinates when he or she does not mean to. What are the causes? This condition may be caused by: Medicines. Infections. Constipation. Overactive bladder muscles. Weak bladder muscles. Weak pelvic floor muscles. These muscles provide support for the bladder, intestine, and, in women, the uterus. Enlarged prostate in men. The prostate is a gland near the bladder. When it gets too big, it can pinch the urethra. With the urethra blocked, the bladder can weaken and lose the ability to empty properly. Surgery. Emotional factors, such as anxiety, stress, or post-traumatic stress disorder (PTSD). Spinal cord injury, nerve injury, or other neurological conditions. Pelvic organ prolapse. This happens in women when organs move out of place and into the vagina. This movement can prevent the bladder and urethra from working properly. What increases the risk? The following factors may make you more likely to develop this condition: Age. The older you are, the higher the risk. Obesity. Being physically inactive. and childbirth. Menopause. Diseases that affect the nerves or spinal cord. Long-term, or chronic, coughing. This can increase pressure on the bladder and pelvic floor muscles. What are the signs or symptoms? Symptoms may vary depending on the type of urinary incontinence you have. They include: A sudden urge to urinate, and passing urine involuntarily before you can get to a bathroom (urge incontinence). Suddenly passing urine when doing activities that force urine to pass, such as coughing, laughing, exercising, or sneezing (stress incontinence). Needing to urinate often but urinating only a small amount, or constantly dribbling urine (overflow incontinence). Urinating because you cannot get to the bathroom in time due to a physical disability, such as arthritis or injury, or due to a communication or thinking problem, such as Alzheimer's disease (functional incontinence). How is this diagnosed? This condition may be diagnosed based on: Your medical history. A physical exam. Tests, such as: ?Urine tests. ?X-rays of your kidney and bladder. ?Ultrasound. ?CT scan. ?Cystoscopy. In this procedure, a health care provider inserts a tube with a light and camera (cystoscope) through the urethra and into the bladder to check for problems. ?Urodynamic testing. These tests assess how well the bladder, urethra, and sphincter can store and release urine. There are different types of urodynamic tests, and they vary depending on what the test is measuring. To help diagnose your condition, your health care provider may recommend that you keep a log of when you urinate and how much you urinate. How is this treated? Treatment for this condition depends on the type of incontinence that you have and its cause. Treatment may include: Lifestyle changes, such as: ?Quitting smoking. ?Maintaining a healthy weight. ?Staying active. Try to get 150 minutes of moderate-intensity exercise every week. Ask your health care provider which activities are safe for you. ?Eating a healthy diet. ?Avoid high-fat foods, like fried foods. ?Avoid refined carbohydrates like white bread and white rice. ?Limit how much alcohol and caffeine you drink. ?Increase your fiber intake. Healthy sources of fiber include beans, whole grains, and fresh fruits and vegetables. Behavioral changes, such as: ?Pelvic floor muscle exercises. ?Bladder training, such as lengthening the amount of time between bathroom breaks, or using the bathroom at regular intervals. ?Using techniques to suppress bladder urges. This can include distraction techniques or controlled breathing exercises. Medicines, such as: ?Medicines to relax the bladder muscles and prevent bladder spasms. ?Medicines to help slow or prevent the growth of a man's prostate. ?Botox injections. These can help relax the bladder muscles. Treatments, such as: ?Using pulses of electricity to help change bladder reflexes (electrical nerve stimulation). ?For women, using a special forces medical sergeant to prevent urine leaks. This is a small, tampon-like, disposable device that is inserted into the urethra. ?Injecting collagen or carbon beads (bulking agents) into the urinary sphincter. These can help thicken tissue and close the bladder opening. ?Surgery. Follow these instructions at home: Lifestyle Limit alcohol and caffeine. These can fill your bladder quickly and irritate it. Keep yourself clean to help prevent odors and skin damage. Ask your health care provider about special skin creams and cleansers that can protect the skin from urine. Consider wearing pads or adult diapers. Make sure to change them regularly, and always change them right after experiencing incontinence. General instructions Take show-rqg-jyalqgs and prescription medicines only as told by your health care provider. Use the bathroom about every 3 4 hours, even if you do not feel the need to urinate. Try to empty your bladder completely every time. After urinating, wait a minute. Then try to urinate again. Make sure you are in a relaxed position while urinating. If your incontinence is caused by nerve problems, keep a log of the medicines you take and the times you go to the bathroom. Keep all follow-up visits. This is important. Where to find more information [employer]est[employer]ney Diseases: www.niddk.nih.gov [employer]: www.urologyhealth.org Contact a health care provider if: You have pain that gets worse. Your incontinence gets worse. Get help right away if: You have a fever or chills. You are unable to urinate. You have redness in your groin area or down your legs. Summary Urinary incontinence refers to a condition in which a person is unable to control where and when to pass urine. This condition may be caused by medicines, infection, weak bladder muscles, weak pelvic floor muscles, enlargement of the prostate (in men), or surgery. Factors such as older age, obesity, and childbirth, menopause, neurological diseases, and chronic coughing may increase your risk for developing this condition. Types of urinary incontinence include urge incontinence, stress incontinence, overflow incontinence, and functional incontinence. This condition is usually treated first with lifestyle and behavioral changes, such as quitting smoking, eating a healthier diet, and doing regular pelvic floor exercises. Other treatment options include medicines, bulking agents, medical devices, electrical nerve stimulation, or surgery. This information is not intended to replace advice given to you by your health care provider. Make sure you discuss any questions you have with your health care provider. Document Revised: 2020 Document Reviewed: 2020 [employer] Patient Education 2022 [employer]. Follow Up Care 09/11/2021 11:22:38 With:[facility] Address: [address] [place] [address] Business (1) When: Unknown Comments:our patient scheduler will be contacting you for follow-up [facility] 06-24-2022 Note Patient here for 6 m o follow up CAD, hypertension, and aortic valve stenosis. Has not had lipid profile done yet, but did have echo in Mar 2022. Denies chest pain and SOB. No more LE edema than normal for him. He does not want to take lasix more than 20mg daily due to frequent urination and incontinence. Review of Systems Cardiovascular: Positive for leg swelling. Genitourinary: Positive for bladder incontinence. All other systems reviewed and are negative. [facility] 06-24-2022 Note [facility] SUBJECTIVE Chief Complaint Patient presents with Coronary Artery Disease Hypertension Hyperlipidemia Nghia Gupta is a 76 y.o. male here for follow-up. HPI PMHx: *CAD -In 2011, he underwent cardiac cath with BMS to his RCA. His last stress test was in 2014 which was negative for ischemia. *HTN *DM type II *CVA *HLD * - Mild per 04/2020 ECHO, moderate per 03/2021 ECHO *Lymphedema 06/24/22 -He states he has been feeling well, no changes since last seen -He did have a fall about 1 month ago while trying to get into his sons car, slipped on the ice -He ambulates with a cane. 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 (CMS/HCC) Chronic obstructive pulmonary disease (CMS/HCC) Chronic pain DM type 2 (diabetes mellitus, type 2) (CMS/HCC) Type 2 diabetes mellitus without complication (CMS/HCC) Dribbling of urine Dizziness Dyslipidemia Edema Elevated PSA Encounter for preprocedural cardiovascular examination History of cerebrovascular accident History of neoplasm Hyperlipidemia Benign essential hypertension Hypertension Cerebrovascular disease Class 2 obesity due to excess calories without serious comorbidity with body mass index (BMI) of 37.0 to 37.9 in adult Lymphedema Interstitial lung disease (CMS/HCC) Morbid obesity (CMS/HCC) Obstructive sleep apnea syndrome Osteoarthritis of knee Proteinuria Pure hypercholesterolemia Status post percutaneous transluminal coronary angioplasty Urinary incontinence Past Medical History: Diagnosis Date Coronary artery disease Diabetes mellitus (CMS/HCC) Heart valve disease Hyperlipidemia Hypertension Sleep apnea Stroke (CMS/HCC) Family History Problem Relation Name Age of Onset Coronary artery disease Father Coronary artery disease Brother Social History Tobacco Use Smoking status: Former Types: Cigarettes Smokeless tobacco: Never Substance Use Topics Alcohol use: Not Currently Allergies Allergen Reactions Sulfamethoxazole-Trimethoprim Hives ROS Cardiovascular: Positive for leg swelling. Genitourinary: Positive for bladder incontinence. All other systems reviewed and are negative. OBJECTIVE Visit Vitals BP 112/60 (BP Location: Left arm, Patient Position: Sitting) Pulse 63 Ht 1.676 m (5' 6 ) Wt (!) 147 kg (323 lb) SpO2 97% BMI 52.13 kg/m??? Smoking Status Former BSA 2.62 m??? Medications: Current Outpatient Medications: amLODIPine (Norvasc) 10 mg tablet, amlodipine 10 mg tablet, Disp: , Rfl: aspirin 81 mg EC tablet, in the morning., Disp: , Rfl: atorvastatin (Lipitor) 40 mg tablet, atorvastatin 40 mg tablet, Disp: , Rfl: carvedilol (Coreg) 6.25 mg tablet, Take 6.25 mg by mouth with breakfast and with evening meal., Disp: , Rfl: clopidogrel (Plavix) 75 mg tablet, clopidogrel 75 mg tablet, Disp: , Rfl: furosemide (Lasix) 20 mg tablet, Take 1 tablet (20 mg) by mouth in the morning., Disp: 90 tablet, Rfl: 3 lisinopril 30 mg tablet, Take 30 mg by mouth in the morning., Disp: , Rfl: metFORMIN (Glucophage) 1,000 mg tablet, Take 1,000 mg by mouth with breakfast., Disp: , Rfl: pioglitazone (Actos) 30 mg tablet, pioglitazone 30 mg tablet, Disp: , Rfl: prazosin (Minipress) 5 mg capsule, prazosin 5 mg capsule, Disp: , Rfl: Physical Exam Constitutional: Appearance: Normal appearance. He is obese. HENT: Head: Normocephalic and atraumatic. Right Ear: External ear normal. Left Ear: External ear normal. Eyes: Extraocular Movements: Extraocular movements intact. Pupils: Pupils are equal, round, and reactive to light. Neck: Vascular: No carotid bruit. Cardiovascular: Rate and Rhythm: Normal rate and regular rhythm. Pulses: Normal pulses. Heart sounds: Normal heart sounds. Pulmonary: Effort: Pulmonary effort is normal. Breath sounds: Normal breath sounds. Abdominal: General: Bowel sounds are normal. Palpations: Abdomen is soft. Musculoskeletal: General: Normal range of motion. Cervical back: Neck supple. Right lower leg: Edema present. Left lower leg: Edema present. Comments: Bilateral leg wraps in place Skin: General: Skin is warm and dry. Neurological: General: No focal deficit present. Mental Status: He is alert and oriented to person, place, and time. Psychiatric: Mood and Affect: Mood normal. Behavior: Behavior normal. Thought Content: Thought content normal. Judgment: Judgment normal. Labs/Testing/Procedures: ECHO (04/03/2022) Labs 06/18/2021 CMP-creatinine 0.8, BUN 20, K4.4, GFR 94, (more content not included)... [facility] 09-11-2021 Hospital Discharge instructions Patient Education 09/11/2021 11:10:59 Overactive Bladder, Adult Overactive Bladder, Adult Overactive bladder refers to a condition in which a person has a sudden need to pass urine. The person may leak urine if he or she cannot get to the bathroom fast enough (urinary incontinence). A person with this condition may also wake up several times in the night to go to the bathroom. Overactive bladder is associated with poor nerve signals between your bladder and your brain. Your bladder may get the signal to empty before it is full. You may also have very sensitive muscles that make your bladder squeeze too soon. These symptoms might interfere with daily work or social activities. What are the causes? This condition may be associated with or caused by: Urinary tract infection. Infection of nearby tissues, such as the prostate. Prostate enlargement. Surgery on the uterus or urethra. Bladder stones, inflammation, or tumors. Drinking too much caffeine or alcohol. Certain medicines, especially medicines that get rid of extra fluid in the body (diuretics). Muscle or nerve weakness, especially from: ?A spinal cord injury. ?Stroke. ?Multiple sclerosis. ?Parkinson's disease. Diabetes. Constipation. What increases the risk? You may be at greater risk for overactive bladder if you: Are an older adult. Smoke. Are going through menopause. Have prostate problems. Have a neurological disease, such as stroke, dementia, Parkinson's disease, or multiple sclerosis (MS). Eat or drink things that irritate the bladder. These include alcohol, spicy food, and caffeine. Are overweight or obese. What are the signs or symptoms? Symptoms of this condition include: Sudden, strong urge to urinate. Leaking urine. Urinating 8 or more times a day. Waking up to urinate 2 or more times a night. How is this diagnosed? Your health care provider may suspect overactive bladder based on your symptoms. He or she will diagnose this condition by: A physical exam and medical history. Blood or urine tests. You might need bladder or urine tests to help determine what is causing your overactive bladder. You might also need to see a health care provider who specializes in urinary tract problems (urologist). How is this treated? Treatment for overactive bladder depends on the cause of your condition and whether it is mild or severe. You can also make lifestyle changes at home. Options include: Bladder training. This may include: ?Learning to control the urge to urinate by following a schedule that directs you to urinate at regular intervals (timed voiding). ?Doing Kegel exercises to strengthen your pelvic floor muscles, which support your bladder. Toning these muscles can help you control urination, even if your bladder muscles are overactive. Special devices. This may include: ?Biofeedback, which uses sensors to help you become aware of your body's signals. ?Electrical stimulation, which uses electrodes placed inside the body (implanted) or outside the body. These electrodes send gentle pulses of electricity to strengthen the nerves or muscles that control the bladder. ?Women may use a plastic device that fits into the vagina and supports the bladder (pessary). Medicines. ?Antibiotics to treat bladder infection. ?Antispasmodics to stop the bladder from releasing urine at the wrong time. ?Tricyclic antidepressants to relax bladder muscles. ?Injections of botulinum toxin type A directly into the bladder tissue to relax bladder muscles. Lifestyle changes. This may include: ?Weight loss. Talk to your health care provider about weight loss methods that would work best for you. ?Diet changes. This may include reducing how much alcohol and caffeine you consume, or drinking fluids at different times of the day. ?Not smoking. Do not use any products that contain nicotine or tobacco, such as cigarettes and e-cigarettes. If you need help quitting, ask your health care provider. Surgery. ?A device may be implanted to help manage the nerve signals that control urination. ?An electrode may be implanted to stimulate electrical signals in the bladder. ?A procedure may be done to change the shape of the bladder. This is done only in very severe cases. Follow these instructions at home: Lifestyle Make any diet or lifestyle changes that are recommended by your health care provider. These may include: ?Drinking less fluid or drinking fluids at different times of the day. ?Cutting down on caffeine or alcohol. ?Doing Kegel exercises. ?Losing weight if needed. ?Eating a healthy and balanced diet to prevent constipation. This may include: ?Eating foods that are high in fiber, such as fresh fruits and vegetables, whole grains, and beans. ?Limiting foods that are high in fat and processed sugars, such as fried and sweet foods. General instructions Take [id number] and prescription medicines only as told by your health care provider. If you were prescribed an antibiotic medicine, take it as told by your health care provider. Do not stop taking the antibiotic even if you start to feel better. Use any implants or pessary as told by your health care provider. If needed, wear pads to absorb urine leakage. Keep a journal or log to track how much and when you drink and when you feel the need to urinate. This will help your health care provider monitor your condition. Keep all follow-up visits as told by your health care provider. This is important. Contact a health care provider if: You have a fever. Your symptoms do not get better with treatment. Your pain and discomfort get worse. You have more frequent urges to urinate. Get help right away if: You are not able to control your bladder. Summary Overactive bladder refers to a condition in which a person has a sudden need to pass urine. Several conditions may lead to an overactive bladder. Treatment for overactive bladder depends on the cause and severity of your condition. Follow your health care provider's instructions about lifestyle changes, doing Kegel exercises, keeping a journal, and taking medicines. This information is not intended to replace advice given to you by your health care provider. Make sure you discuss any questions you have with your health care provider. Document Released: 03/08/2010 Document Revised: 09/02/2019 Document Reviewed: 05/28/2018 [employer] Patient Education 2020 [employer]. 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 No data available for this section [facility] Summary Purpose Family History No Family History Records FoundNo Family History Records FoundNo Family History Records FoundNo Family History Records FoundNo Family History Records Found Advance Directives No Advanced Directives Records FoundNo Advanced Directives Records FoundNo Advanced Directives Records FoundNo Advanced Directives Records FoundNo Advanced Directives Records Found Additional Source Comments (unrecognized sect ion and content) No Status Records FoundNo Status Records FoundNo Status Records FoundNo Status Records FoundNo Status Records Found INFORMATION SOURCE (unrecogn ized section and content) DATE CREATED AUTHOR 05/31/2022 [facility] DATE CREATED AUTHOR AUTHOR'S ORGANIZ ATION 08/08/2022 [facility] DATE CREATED AUTHOR AUTHOR'S ORGANIZ ATION 12/11/2022 [facility] DATE CREATED AUTHOR AUTHOR'S ORGANIZ ATION 12/27/2022 Shawn Jennings [facility] DATE CREATED AUTHOR AUTHOR'S ORGANIZ ATION 11/07/2023 [facility] EPIC Patient Care team informatio n (unrecognized section and content) Hand Mounter Relationship Specialty Start Date End Date Marjorie Nath MD [address] [place] [address] PCP - [employer] 05/26/22 Marjorie Nath MD [address] [place] [address] PCP - General Family Medicine 12/21/22 Hand Mounter Relationship Specialty Start Date End Date Marjorei Nath MD [address] [place] [address] PCP - [employer] 05/26/22 Marjorie Nath MD [address] [place] [address] PCP - General Family Medicine 12/21/22 Reason for Visit (unrecogniz ed section and content) Reason Comments Diabetes Follow-up FOR RECORDS PERTAINING TO PATIENTS WHO ARE OR HAVE BEEN ENROLLED IN A CHEMICAL DEPENDENCY/SUBSTANCEABUSE PROGRAM, SOME INFORMATION MAY BE OMITTED. This clinical summary was aggregated from multiple sources. Caution should be exercised in using it in the provision of clinical care. This summary normalizes information from multiple sources, and as a consequence, information in this document may materially change the coding, format and clinical context of patient data. In addition, data may be omitted in some cases. CLINICAL DECISIONS SHOULD BE BASED ON THE PRIMARY CLINICAL RECORDS. [employer] provides no warranty or guarantee of the accuracy or completeness of information in this document.
[2023-12-16] MEDS: LACTATED RINGER'S SOLUTION 1,000 ML 75 ML IV (17:20)
[2023-12-16 17:25] LABS: Glucometer 95 mg/dL (74-106)
--- NOTE | 2023-12-16 19:43 | ECG_ITS ---
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
[2023-12-16 22:26] LABS: Glucometer 114 mg/dL (74-106)
[2023-12-17] VITALS (84 sets, daily range): BP systolic 116–129; BP diastolic 46–72; PULSE 28–73; TEMP 36.6; O2SAT 96
--- NOTE | 2023-12-17 01:32 | ECG_ITS ---
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1945 Requested By: LEV IBARRA Order Number: [id number] Reading MD: LEV IBARRA Measurements Intervals [place] Rate: 29 P: 17 NV: 328 QRS: -23 QRSD: 94 T: 70 QT: 490 QTc: 345 Interpretive Statements marked Mobitz type I 1938 Extreme bradycardia 2231 First degree AV block 2440 Incomplete right bundle branch block 3113 Cannot rule out anterior myocardial infarction, probably old 8102 Low QRS voltage in chest leads 8305 Short QTc interval 9150 abnormal ECG Compared to ECG 12/16/2023 19:50:43 Second-degree AV block, Mobitz type I (Wenckebach) no longer present Left-axis deviation no longer present Myocardial infarct finding still present Electronically Signed On 12-17-2023 13:36:44 EDT by LEV IBARRA
[2023-12-17] MEDS: LACTATED RINGER'S SOLUTION 1,000 ML 75 ML IV (04:53)
[2023-12-17 06:27] LABS: Basophils Percent Auto 0.3 % (0.2-2.0); Eosinophils Absolute Auto 0.2 10^3/uL (0.0-0.7); Eosinophils Percent Auto 3.5 % (0.9-7.0); Hematocrit 37.8 % (42.0-54.0); Hemoglobin 12.1 g/dL (14.0-18.0); Immature Granulocytes Abs Auto 0.02 10^3/uL (0.00-0.03); Immature Granulocytes Pct Auto 0.3 % (0.0-0.5); Lymphocytes Absolute Auto 1.1 10^3/uL (1.2-3.8); Lymphocytes Percent Auto 16.3 % (20.5-60.0); Mean Corpuscular Hemoglobin 28.1 pg (25.9-34.0); Mean Corpuscular Volume 87.9 fL (80.0-94.0); Mean Platelet Volume 9.5 fL (9.5-13.5); Monocytes Absolute Auto 0.5 10^3/uL (0.3-0.8); Monocytes Percent Auto 7.4 % (1.7-12.0); Neutrophils Percent Auto 72.2 % (43.0-75.0); Platelet Count 200 10^3/uL (150-450); Red Cell Distribution Width 14.3 % (11.0-15.0); White Blood Count 6.9 10^3/uL (4.0-11.0)
[2023-12-17 06:41] LABS: Estimated Average Glucose 134 mg/dL; Glycohemoglobin A1C 6.3 % (4.5-6.2)
[2023-12-17 06:57] LABS: Alanine Aminotransferase 22 U/L (16-63); Albumin Globulin Ratio 0.9; Albumin Level 3.2 g/dL (3.4-5.0); Alkaline Phosphatase 103 U/L (46-116); Anion Gap 13.5; Aspartate Amino Transferase 17 U/L (15-37); BUN Creatinine Ratio 15.6; Bilirubin Total 1.3 mg/dL (0.2-1.0); Calcium 8.7 mg/dL (8.5-10.1); Carbon Dioxide 25.1 mmol/L (21.0-32.0); Chloride 106 mmol/L (98-107); Chol HDL Ratio 2.7; Cholesterol 122 mg/dL (<=200); Estimated GFR (African America 59 (>=60); Estimated GFR (Non-African Ame 48 (>=60); Globulin 3.4 g/dL; Glucose 120 mg/dL (74-106); HDL Cholesterol 45 mg/dL (40-60); LDL Cholesterol Calculated 63.6 mg/dL; Magnesium 1.9 mg/dL (1.8-2.4); Potassium 4.6 mmol/L (3.5-5.1); Sodium 140 mmol/L (136-145); Total Protein 6.6 g/dL (6.4-8.2); Triglycerides 67 mg/dL (<=150); Troponin I High Sensitivity 12.3 pg/mL (4.0-76.1); VLDL CHOLESTEROL 13.4 mg/dL
--- NOTE | 2023-12-17 08:37 | P.DS_ITS ---
DS: Providers Provider Date of admission: 12/16/23 16:10 Primary care physician: MARYJO NATH Admitting clinician: Aure Barroso Consults: 12/16/23 Consult to Poultry Farm Manager Routine Reason for consult:: Durable Medical Equipment 12/16/23 15:04 Physical Therapy Eval and Treat Routine Reason for consultation: weakness Has provider been notified: No 12/16/23 15:13 Consult to Cardiology Routine Reason for consultation: bradycardia, 1st degree heart block Has provider been notified: No Discharging clinician: Aure Barroso DS: Diagnosis Discharge Diagnosis (1) First degree heart block by electrocardiogram: (2) Bradycardia: (3) Acute kidney injury: (4) Hypertension: Qualifiers: Hypertension type: primary hypertension Qualified Code(s): I10 - Essential (primary) hypertension (5) Diabetes mellitus type 2, noninsulin dependent: (6) History of COPD: (7) Urinary incontinence, functional: (8) 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 Patient reports that he was being seen at the cardiology clinic when after vitals, he was told his HR was in the 30's. EKG showed 1st degree heart block. At the time and currently, patient denies chest pain, weakness or dizziness. He does wrap his legs daily and has noticed a slight increase in size on the left leg but no warmth to touch, no pain, no history of DVT's. He reports his BP's have been stable at home, Sugars have been running 90-110's. At the time of transfer, patient denies shortness of breath, no chest pain, no weakness, denies sweats, weight gain. findings: Cr. 1.65 down to 1.41, uncertain baseline, BUN 24, normal mag, potassium, Trop, TSH; hemoglobin 12.1, WBC's 6.9. EKG showed Mobitz Type 1, first degree heart block with HR of 43, per ER doctor, HR 30's given Atropine 1.5mg total. No interventions overnight. HR dropped to 28, this morning 30-50's during exam. I spoke with Dr. Weber collections associate Director Corporate Compliance from [facility], She also feels the coreg is contributing and stopping this and HR should improve. Patient had recent Echo 12/02/23 which showed EF 60-65% with mild aortic valve stenosis. Unfortunately, little to no improvement with holding the coreg. I have called for Transfer of the patient to [facility] for cardiology evaluation and pacemaker placement. Dr. Guillaume and Dr. Dockery accepting physicians. Patient is in agreement with transfer. I have also held patient's amlodipine along with the coreg. SSI, held oral hypoglycemics. Continued statin and plavix. Status at Discharge Functional status at discharge: uses cane/walker Time Spent with Patient Time attestation: Total time spent providing and/or coordinating discharge services: Time spent: greater than 30 minutes Exam Narrative Exam Narrative: General: Patient is alert, and oriented to person, place and time with normal affect, proper hygiene, morbid obesity Skin: no visible rashes, or ulcers Head: atraumatic, acephalic Eyes: PERRLA, no nystagmus present, conjunctiva clear, no scleral icterus Ears: normal gross auditory acuity Nose: symmetric, no discharge, no maxillary or frontal sinus tenderness Heart: slow rate and abnormal rhythm, no murmurs/rubs/gallops Lungs: no audible wheezes, crackles and normal breath sounds all lung garrison Abdomen: Normal audible bowel sounds, no distension, No palpable masses, no organomegaly, no rebound/guarding/ or rigidity; central obesity Musculoskeletal: bilateral leg wraps in place Neuro: CN II-X grossly intact Constitutional Vital Signs, click to edit/add: Last Vital Signs Temp 98 F 12/17/23 00:35 Pulse 38 L 12/17/23 07:57 Resp 19 12/17/23 05:02 BP 129/72 12/17/23 04:55 Pulse Ox 96 12/17/23 01:50 O2 Del Method Room Air 12/16/23 19:58 DS: Data Data Completed and Pending Labs on day of discharge: Labs from last 24 hours 12/17/23 12/16/23 12/16/23 05:34 22:23 17:22 WBC 6.9 RBC 4.30 L Hgb 12.1 L Hct 37.8 L MCV 87.9 MCH 28.1 MCHC 32.0 RDW 14.3 Plt Count 200 MPV 9.5 Neut % (Auto) 72.2 Lymph % (Auto) 16.3 L [place] % (Auto) 7.4 Eos % (Auto) 3.5 Baso % (Auto) 0.3 Neut # (Auto) 5.0 Lymph # (Auto) 1.1 L [place] # (Auto) 0.5 Eos # (Auto) 0.2 Baso # (Auto) 0.0 Abs Immat Gran (auto) 0.02 Imm/Tot Granulo (auto) 0.3 PT INR Sodium 140 Potassium 4.6 Chloride 106 Carbon Dioxide 25.1 Anion Gap 13.5 BUN 22.0 H Creatinine 1.41 H Est GFR ( Amer) 59 L Est GFR (Non-Af Amer) 48 L BUN/Creatinine Ratio 15.6 Glucose 120 H Estimat Average Glucose 134 Hemoglobin A1c 6.3 H Calcium 8.7 Magnesium 1.9 Total Bilirubin 1.3 H AST 17 ALT 22 Alkaline Phosphatase 103 Troponin I High Sens 12.3 NT-Pro-B Natriuret Pep 821.0 Total Protein 6.6 Albumin 3.2 L Globulin 3.4 Albumin/Globulin Ratio 0.9 Triglycerides 67 Cholesterol 122 LDL Cholesterol, Calc 63.6 VLDL Cholesterol 13.4 HDL Cholesterol 45 Cholesterol/HDL Ratio 2.7 TSH POC Glucose 114 H 95 12/16/23 13:57 WBC 6.4 RBC 4.56 L Hgb 12.9 L Hct 39.1 L MCV 85.7 MCH 28.3 MCHC 33.0 RDW 14.3 Plt Count 206 MPV 9.1 L Neut % (Auto) 65.5 Lymph % (Auto) 22.3 [place] % (Auto) 7.5 Eos % (Auto) 3.7 Baso % (Auto) 0.8 Neut # (Auto) 4.2 Lymph # (Auto) 1.4 Stoddard # (Auto) 0.5 Eos # (Auto) 0.2 Baso # (Auto) 0.1 Abs Immat Gran (auto) 0.01 Imm/Tot Granulo (auto) 0.2 PT 10.4 INR 0.98 Sodium 136 Potassium 4.8 Chloride 102 Carbon Dioxide 24.2 Anion Gap 14.6 BUN 24.0 H Creatinine 1.65 H Est GFR ( Amer) 49 L Est GFR (Non-Af Amer) 40 L BUN/Creatinine Ratio 14.5 Glucose 139 H Estimat Average Glucose Hemoglobin A1c Calcium 9.0 Magnesium 1.9 Total Bilirubin 1.1 H AST 17 ALT 29 Alkaline Phosphatase 115 Troponin I High Sens 11.7 NT-Pro-B Natriuret Pep 211.0 Total Protein 7.4 Albumin 3.6 Globulin 3.8 Albumin/Globulin Ratio 0.9 Triglycerides Cholesterol LDL Cholesterol, Calc VLDL Cholesterol HDL Cholesterol Cholesterol/HDL Ratio TSH 2.561 POC Glucose Discharge Plan Discharge Disposition: Xfer Acute Care Hospital Discharge location: [facility] under Dr. Dockery and Dr. Guillaume for pacemaker
--- NOTE | 2023-12-17 09:18 | PC.NURSE ---
[facility] cardiology [place] office calls and instructs transfer to [facility]. Dr Barroso notified
[2023-12-17] MEDS: CLOPIDOGREL BISULFATE 75 MG TABLET PO (10:07)
[2023-12-17] MEDS: LISINOPRIL 10 MG TABLET 30 MG PO (10:07)
[2023-12-17] MEDS: ATORVASTATIN CALCIUM 40 MG TABLET PO (10:07)
--- NOTE | 2023-12-17 10:12 | SWNOTE1 ---
Important Message from Medicare reviewed and discussed with patient. Pt. verbalized understanding and signed the form. Original given to patient and copy placed in patient?s chart. Plan is for pt to be transferred to [facility]. SW did have order to discuss DME with pt, but with plan of transfer, DME can be discussed with discharging facility.
--- NOTE | 2023-12-17 11:13 | CM.NOTE ---
Rounds made with Dr. Barroso. Plan is to transfer to [facility] for Cardiac intervention. Mr. Avery verbalizes understanding.
[2023-12-17 11:22] LABS: Glucometer 123 mg/dL (74-106)
[2023-12-17 13:27] LABS: Bilirubin Urine NEGATIVE (NEGATIVE); Blood Urine SMALL (NEGATIVE); Clarity Urine CLEAR (CLEAR); Color Urine LT. YELLOW (YELLOW); Glucose Urine UA NEGATIVE (NEGATIVE); Ketones Urine NEGATIVE (NEGATIVE); Leukocyte Esterase Urine LARGE (NEGATIVE); Nitrite Urine NEGATIVE (NEGATIVE); Protein Urine TRACE mg/dL (NEG/TRACE); Specific Gravity Urine 1.015 (1.005-1.025); Urobilinogen Urine 0.2 EU/dL (0.2-1.0)
[2023-12-17 13:37] LABS: Urine Microscopic Indicated YES
[2023-12-17 13:45] LABS: Bacteria Urine LARGE #/HPF (NONE SEEN); Mucus Urine NONE SEEN (NONE SEEN); WBC Urine 20-50 #/HPF (NONE SEEN)
[2023-12-17 13:46] LABS: Cast Seen? NONE SEEN #/LPF (NONE SEEN); Crystals Seen? None Seen #/HPF (None Seen); Squamous Epithelial Cell Urine FEW #/LPF (NONE/RARE); Urine Culture Indicated YES
== END 2023-12-17 14:24 | disposition short-term general hospital (02) | DRG 309 ==
LOC: ER 15:02 → ICU 16:17
PROVIDERS: Admitting Provider Family Medicine; Emergency Provider Emergency Medicine; PCP Family Medicine; Visit Provider Family Medicine
DX: I44.0 Atrioventricular block, first degree (principal); N17.9 Acute kidney failure, unspecified; N39.0 Urinary tract infection, site not specified; R00.1 Bradycardia, unspecified; I10 Essential (primary) hypertension; E11.9 Type 2 diabetes mellitus without complications; J44.9 Chronic obstructive pulmonary disease, unspecified; I25.10 Atherosclerotic heart disease of native coronary artery without angina pectoris; R39.81 Functional urinary incontinence; N31.9 Neuromuscular dysfunction of bladder, unspecified; E78.5 Hyperlipidemia, unspecified; Z95.5 Presence of coronary angioplasty implant and graft; Z79.899 Other long term (current) drug therapy; Z79.02 Long term (current) use of antithrombotics/antiplatelets; Z79.84 Long term (current) use of oral hypoglycemic drugs; Z86.73 Personal history of transient ischemic attack (TIA), and cerebral infarction without residual deficits; Z87.891 Personal history of nicotine dependence; B96.89 Other specified bacterial agents as the cause of diseases classified elsewhere
CPT/HCPCS: 36415; 51702; 51798; 80053; 80061; 81001; 82948; 83036; 83735; 83880; 84443; 84484; 85025; 85610; 87086; 87150; 87186; 93005; 94761; 96374; 96376; 99285; J0461

== ENCOUNTER 2024-01-04 17:35 | Emergency (ER) | payer MEDICARE, SELFPAY ==
[2024-01-04 17:41] VITALS: BP 149/69; PULSE 64; TEMP 36.6; O2SAT 96; BMI 49.9
--- OUTSIDE RECORDS SUMMARY | 2024-01-04 17:42 | XMS_ITS | CCD ---
Author Organization [facility] CliniSymo Care Team Providers Care Editing Internship Name Role Phone MARJORIE NATH Primary Care Physician HENOK LUONGINDA Admitting Unavailable JAYLEENHENOKGABRIELA Attending Unavailable DR MARJORIE NATH Primary Care Unavailable GABRIELA LUONG Consulting TYREE Alexander Attending UnavailSherlyn Bui Referring Unavailable Sherlyn Navarro Attending Unavailable Sherlyn Navarro Admitting Unavailable TYREE PICKETT Attending Unavailab TYREE Valentino Admitting UnavailSherlyn Bui Referring Unavailable Sherlyn Navarro Attending Unavailable Marjorie Nath MD Unavailable Marjorie Nath MD Primary Care Provider DEIRDRE MOJICA Referring Unavailable JAYLEEN, GABRIELA Referring Unavailable FREEMAN, YOHAN Referring Unavailable FREEMAN, YOHAN Referring Unavailable JAYLEEN, GABRIELA Attending Unavailable JUN HEALY Attending Unavailable JAYLEEN, GABRIELA Referring Unavailable MARGARETTEDIVINA ARIAS Attending Unavailable FREEMAN, YOHAN Admitting Unavailable HORANI, CARROL Admitting Unavailable HORANI, CARROL Attending Unavailable JAYLEEN, GABRIELA Referring Unavailable BETH TRAORE Attending Unavailable MARCELLA ZAMAN Attending Unavailable KYMBERLY NATION Attending Unavailable AURE HURLEY Attending Unavailable MILADY CAMPOS Attending Unavailab BETH Cali Attending Unavailable AURE HURLEY Attending Unavailable AURE HURLEY Attending Unavailable MARJORIE NATH Attending Unavailable MARCELLA ZAMAN Attending Unavailable Allergies Allergy Classification Reported Allergen(s) Allergy Type Date of Onset Reaction(s) Facility (13 sources) Sulfamethoxazole / Trimethoprim; Translations: [sulfamethoxazole-t rimethoprim] Drug Allergy 01-13-20 13 Urticaria (disorder), Hives, Other [facility] (2 sources) Sulfamethoxazole / Trimethoprim; Translations: [Septra] Drug Allergy [facility] Repository (3 sources) Sulfonamides (Antibiotic) Drug Intolerance 02-11-20 17 [facility] Work Phone: (1 source) Sulfamethizole; Translations: [SULFAMETHIZOLE] Drug Allergy 04-14-20 16 [facility] Repository (1 source) Trimethoprim; Translations: [TRIMETHOPRIM] Drug Allergy 04-14-20 16 [facility] Repository Medications Current Medications Medication Drug Class(es) Dates Sig (Normalized) Sig (Original) [id number] 200 actuat albuterol 0.09 mg/actuat metered dose inhaler (3 sources) beta2-Adrenergic Agonist Start: 01-15-2023 albuterol HFA 90 mcg/act inhaler Indications: Chronic obstructive pulmonary disease, unspecified COPD type (CMS/HCC) USE 1 INHALATION ORALLY EVERY 4 HOURS NEEDED FORSHORTNESS OF BREATH OR COUGH for 34 18 g 5 01/15/2023 Active amLODIPine 10 mg oral tablet (7 sources) Dihydropyridine Calcium Channel Marcello Start: 01-19-2019 take 1 tablet by mouth [...] 6.25 mg oral tablet (5 sources) alpha-Adrenergic Marcello, beta-Adrenergic Marcello Start: 09-25-2022 End: 09-25-2023 take 1 tablet [...] tablet Indications: CAD S/P percutaneous coronary angioplasty (CMS/HCC) TAKE 1 TABLET ONCE DAILY 90 tablet 1 06/02/2023 Active Start: 01-19-2019 take 1 tablet by susu th once daily Plavix 75 mg Tab 75 mg = 1 tab(s), Oral, Daily, Refills(s) 0 Start Date: 01/19/19 Status: Ordered dapagliflozin 5 mg oral tablet (3 sources) Sodium-Glucose Cotransporter 2 Inhibitor Start: 03-31-2023 Farxiga 5 MG Indications: Type 2 diabetes mellitus with microalbuminuria, without long-term current use of insulin ([facility]) TAKE 1 TABLET IN THE MORNING 90 [...] 30 MG tablet Indications: Benign essential hypertension ([facility]) TAKE 1 TABLET EVERY MORNING 90 tablet [...] complication, without long-term current use of insulin ([facility]) TAKE 1 TABLET TWICE DAILY WITH MEALS 180 tablet 1 06/02/2023 Active Start: 01-19-2019 take 1 tablet by susu th twice daily metformin 1000 mg Tab 1,000 [...] 5 mg oral capsule (7 sources) alpha-Adrenergic Marcello Start: 06-02-2023 prazo sin (Minipress) 5 MG capsule Indications: Benign essential hypertension (CMS/HCC) TAKE 1 CAPSULE ONCE DAILY 90 capsule 1 06/02/2023 Active Start: 01-19-2019 take 1 capsule by cox monett at bedtime prazosin 5 mg oral capsule [...] puff(s) by inhalation in the morning Umeclidinium [place] (Incruse Ellipta) 62.5 MCG/ACT aerosol powder Indications: [...] Translations: [Cerebellar infarction] Onset: 01-12-2013 01-19-2019 Chronic Cardiac dysrhythmias (2 sources) Bradycardia Onset: 12-16-2023 Episodic Cataract (3 sources) Nuclear sclerotic cataract; Translations: [Age-related nuclear cataract, unspecified eye] Onset: 03-25-2023 03-25-2023 Chronic Chronic kidney disease (2 sources) Chronic kidney disease stage 3A ; Translations: [Chronic kidney disease, stage 3a (HCC) (CMS/HCC)] 07-02-2023 Chronic Chronic obstructive pulmonary disease and bronchiectasis (5 sources) Chronic obstructive lung disease; Translations: [Chronic obstructive pulmonary disease, unspecified] Onset: 03-09-2019 12-24-2022 Chronic Conduction disorders (2 sources) Atrioventricular block, complete; Translations: [Atrioventricular block, complete] Onset: 12-17-2023 Chronic Coronary atherosclerosis and other heart disease (11 sources) Atherosclerosis of coronary artery without angina pectoris; Translations: [Atherosclerotic heart disease of [place] coronary artery without angina pectoris] Onset: 01-12-2013 12-24-2022 Chronic Diabetes mellitus with complications (9 sources) Disorder of nervous system due to type 2 diabetes mellitus; Translations: [Type 2 diabetes mellitus with other diabetic neurological complication] Onset: 12-24-2022 12-24-2022 Chronic Diabetes mellitus without complication (6 sources) Diabetes mellitus; Translations: [Type 2 diabetes mellitus without complications] Onset: 05-18-2014 12-24-2022 Chronic Disorders of lipid metabolism (15 sources) Hyperlipidemia; Translations: [Dyslipidemia] Onset: 09-11-2011 01-19-2019 Chronic Essential hypertension (12 sources) Hypertensive disorder; Translations: [Benign essential hypertension] Onset: 09-11-2011 Resolved: 03-27-2023 01-19-2019 Chronic Genitourinary symptoms and ill-defined conditions (20 sources) Urge incontinence; Translations: [Incontinence without sensory awareness] Onset: 06-24-2016 Chronic Heart valve disorders (7 sources) Nonrheumatic aortic (valve) stenosis; Translations: [Aortic [...] Translations: [Cardiomegaly] Onset: 07-18-2016 12-24-2022 Chronic Other diseases of veins and lymphatics (3 [...] Episodic Coronary atherosclerosis and other heart disease (3 sources) Patient post percutaneous transluminal coronary angioplasty; Translations: [Coronary angioplasty status] Onset: 10-10-2011 03-25-2023 Episodic Genitourinary symptoms and ill-defined conditions (15 [...] Test Name Value Interpretation Reference Range Facility Office Visiton 12-26-2023 Follow-up visit [id number] Marker,Rodolfo rt K 1945 M Date Provider Department Center 12/26/2023 Elvin-JUN HEALY KARYN Ortega Family History Problem Relation Age of Onset Coronary artery disease Father Coronary artery disease Brother Family Status - Relation Status Age at Father Brother Level of Service:17142 [place] POSTOP FOLLOW UP VISIT RELATED TO ORIGINAL PX Normal [facility] BASIC METABOLIC PANELon 11-24 Anion gap [Moles/Vol] 13 mmol/L Normal -20 [facility] Comment on above: Performed By: #### L [id number] #### [facility] (BEAKER) [address] [place] [address] Calcium [Mass/Vol] 9.0 mg/dL Normal 8.6-10.3 [facility] Comment on above: Performed By: #### L [id number] #### [facility] (BEAKER) [address] [place] [address] Chloride [Moles/Vol] 103 mmol/L Normal 98-107 [facility] Comment on above: Performed By: #### L [id number] #### [facility] ([facility]) [address] [place] [address] CO2 [Moles/Vol] 26 mmol/L Normal 21-31 [facility] Comment on above: Performed By: #### L [id number] #### [facility] ([facility]) [address] [place] [address] Creatinine [Mass/Vol] 1.21 mg/dL Normal 0.70-1.30 [facility] Comment on above: Performed By: #### L [id number] #### [facility] ([facility]) [address] [place] [address] GLOMERULAR FILTRATION RATE ML/MIN/1.73 SQ M.PREDICTED 60.5 mL/min/1.73m*2 Normal >60.0 [facility] Comment on above: Result Comment: The [facility]???s estimated glomerular filtration rate (eGFR) will no longer include consideration of race in its calculation. The National Kidney Foundation???s eGFR Task Force developed new recommendations for the estimation of the glomerular filtration rate in the [place] They recommend immediate implementation of the new equation refit without the race variable in all laboratories because the calculation does not include race. In addition to not including race in the calculation and reporting, it included diversity in its development, and has acceptable performance characteristics and potential consequences that do not disproportionately affect any one group of individuals. Performed By: #### L [id number] #### [facility] ([facility]) [address] [place] [address] Glucose [Mass/Vol] 115 mg/dL High 70-100 [facility] Comment on above: Performed By: #### L [id number] #### [facility] ([facility]) [address] [place] [address] Potassium [Moles/Vol] 4.2 mmol/L Normal 3.5-5.1 [facility] Comment on above: Performed By: #### L [id number] #### [facility] (BEAKER) [address] [place] [address] Sodium [Moles/Vol] 138 mmol/L Normal 136-145 [facility] Comment on above: Performed By: #### L [id number] #### [facility] ([facility]) [address] [place] [place] [address] Urea nitrogen [Mass/Vol] 26 mg/dL High 7-25 [facility] Comment on above: Performed By: #### L [id number] #### [facility] ([facility]) [address] [place] [place] [address] UREA NITROGEN/CREATININE (MASS RATIO) IN SER/PLAS 21.5 Normal [facility] Comment on above: Performed By: #### L [id number] #### [facility] ([facility]) [address] [place] [place] [address] CBC WITH AUTO DIFFERENTIALon 12-20-2023 Basophils (Bld) [#/Vol] 0.03 10*3/uL Normal 0.00-0.20 [facility] Comment on above: Performed By: #### L [id number] #### [facility] ([facility]) [address] [place] [address] Basophils/100 WBC (Bld) 0.4 % Normal 0.0-1.0 [facility] Comment on above: Performed By: #### L [id number] #### [facility] ([facility]) [address] [place] [address] Eosinophils (Bld) [#/Vol] 0.32 10*3/uL Normal 0.00-0.50 [facility] Comment on above: Performed By: #### L [id number] #### [facility] ([facility]) [address] [place] [address] Eosinophils/100 WBC (Bld) 4.0 % Normal 0.0-6.0 [facility] Comment on above: Performed By: #### L [id number] #### [facility] ([facility]) [address] [place] [address] Erythrocyte distribution width (RBC) [Ratio] 14.2 % Normal 11.5-15.0 [facility] Comment on above: Performed By: #### L [id number] #### [facility] (BEAKER) [address] [place] [address] ERYTHROCYTE MEAN CORPUSCULAR HEMOGLOBIN CONCENTRATION (G/DL) BY AUTOMATED 32.3 g/dL Normal 32.0-35.0 [facility] Comment on above: Performed By: #### L [id number] #### [facility] ([facility] [address] [place] [address] Hematocrit (Bld) [Volume fraction] 38.1 % Low 39.0-55.0 [facility] Comment on above: Performed By: #### L [id number] #### [facility] ([facility] [address] [place] [address] Hemoglobin (Bld) [Mass/Vol] 12.3 g/dL Low 13.0-17.0 [facility] Comment on above: Performed By: #### L [id number] #### [facility] (BEAKER) [address] [place] [address] Immature granulocytes (Bld) [#/Vol] 0.03 10*3/uL Normal 0.00-0.20 [facility] Comment on above: Performed By: #### L [id number] #### [facility] ([facility]AKER) [address] [place] [address] Immature granulocytes/100 WBC (Bld) 0.4 % Normal 0.0-1.0 [facility] Comment on above: Performed By: #### L [id number] #### [facility] ([facility]ER) [address] [place] [address] Lymphocytes (Bld) [#/Vol] 1.12 10*3/uL Low 1.20-4.00 [facility] Comment on above: Performed By: #### L [id number] #### [facility] ([facility]ER) [address] [place] [address] Lymphocytes/100 WBC (Bld) 14.1 % Low 20.0-45.0 [facility] Comment on above: Performed By: #### L [id number] #### [facility] ([facility] [address] [place] [address] MCH (RBC) [Entitic mass] 27.6 pg Normal 27.0-33.0 [facility] Comment on above: Performed By: #### L [id number] #### [facility] ([facility]) [address] [place] [address] MCV (RBC) [Entitic vol] 85.4 fL Normal 82.0-98.0 [facility] Comment on above: Performed By: #### L [id number] #### [facility] ([facility]) [address] [place] [address] Monocytes (Bld) [#/Vol] 0.67 10*3/uL Normal 0.10-1.00 [facility] Comment on above: Performed By: #### L [id number] #### [facility] ([facility]) [address] [place] [address] Monocytes/100 WBC (Bld) 8.4 % Normal 5.0-12.0 [facility] Comment on above: Performed By: #### L [id number] #### [facility] ([facility]) [address] [place] [address] Neutrophils (Bld) [#/Vol] 5.76 10*3/uL Normal 1.60-7.60 [facility] Comment on above: Performed By: #### L [id number] #### [facility] ([facility] [address] [place] [address] Neutrophils/100 WBC (Bld) 72.7 % High 40.0-72.0 [facility] Comment on above: Performed By: #### L [id number] #### [facility] ([facility] [address] [place] [address] NRBC (PER 100 WBCS) BY AUTOMATED COUNT 0.0 % Normal 0 [facility] Comment on above: Performed By: #### L [id number] #### [facility] ([facility] [address] [place] [address] PLATELETS (10*3/UL) IN BLOOD AUTOMATED COUNT 208 10*3/uL Normal 150-400 [facility] Comment on above: Performed By: #### L [id number] #### [facility] ([facility]) [address] [place] [address] RBC (Bld) [#/Vol] 4.46 10*6/uL Normal 4.20-5.70 [facility] Comment on above: Performed By: #### L [id number] #### [facility] ([facility]) [address] [place] [address] WBC (Bld) [#/Vol] 7.93 10*3/uL Normal 4.00-10.60 [facility] Comment on above: Performed By: #### L [id number] #### [facility] ([facility]) [address] [place] [address] DSon 12-20-2023 DS Admit Date 12/17/2023 Discharge Date 12/20/2023 Discharge Diagnosis 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 Take 1 tablet (12.5 mg) by mouth two times daily for 60 doses. CONTINUE taking these medications Instructions Last Dose Given Next Dose Due aspirin 81 mg EC tablet atorvastatin 40 mg tablet Commonly known as: Lipitor cholecalciferol 25 MCG (1000 UT) capsule Commonly known as: Vitamin D-3 dapagliflozin propanediol 5 mg Commonly known as: Farxiga Incruse Ellipta 62.5 mcg/actuation inhalation Generic drug: umeclidinium lisinopril 30 mg tablet metFORMIN 1,000 mg tablet Commonly known as: Glucophage pioglitazone 30 mg tablet Commonly known as: Actos prazosin 5 mg capsule Commonly known as: Minipress STOP taking these medications amLODIPine 10 mg tablet Commonly known as: Norvasc clopidogrel 75 mg tablet Commonly known as: Plavix Where to Get Your Medications These medications were sent to [facility] [place], [place] - [address] [place] [address] [place] [address], [facility] [address] carvedilol 12.5 mg tablet Activity -Maintain post-device precautions for 4 weeks after procedure including no driving, lifting left elbow above left shoulder, lifting >5# with left arm. , -No showering until we see you in clinic. You may sponge bath. No driving for 4 weeks No showering Sponge bathe only until clinic visit Diet Continue on the same type of diet and foods as you were eating before your admission. Drink plenty of water. Allergies Sulfamethizole, Sulfamethoxazole-trimeth oprim, and Trimethoprim Hospital Course History of Present Illness Nghia Avery is an 78 y.o. male who came from [facility] with concern for complete heart block. Patient has past medical history of CAD with stent placement in 2011, hypertension, diabetes mellitus type 2, CVA, hyperlipidemia, aortic stenosis-moderate, and lymphedema. Patient was sent to [facility] due to concern for complete heart block on Holter monitor. Patient was monitored there overnight and they held patient's beta-marcello, however patient remained bradycardic overnight reaching as low as 29 heart rate. Request was made to transfer here for placement of a pacemaker by Dr. Mojica. He denies any symptoms, no lightheadedness no dizziness. He denies any chest pain or shortness of breath. He reports he did have difficulty urinating at [place] and has a Carlson in currently, that is his only complaint. Complete heart block - cards following - pacemaker with Dr. Mojica placed 12/18 Biotronik dual-chamber pulse generator. - cardiology did clear for discharge on 12/19 - has follow up arranged on 12/25 Urinary retention - carlson placed in the ER for 2 liters retention - will arrange follow up with urology for removal - 01/06 CAD s/p PCI 5 years ago - holding ASA and plavix - Cardiology at DC discontinued plavix DMII noninsulin dependent - resume home meds at discharge Primary hypertension - cardiology discontinued norvasc and increased coreg to 12.5mg po bid Pertinent Physical Exam At Time of Discharge Physical Exam Constitutional: Appearance: Normal appearance. HENT: Head: Normocephalic. Mouth/Throat: Mouth: Mucous membranes are moist. Eyes: Extraocular Movements: Extraocular movements intact. Pupils: Pupils are equal, round, and reactive to light. Cardiovascular: Rate and Rhythm: Normal rate and regular rhythm. Pulmonary: Effort: Pulmonary effort is normal. Abdominal: General: Abdomen is flat. Neurological: Mental Status: He is alert. In sling, incision C/D/I Carlson in place - clear urine Lab Results Labs Reviewed B-TYPE NATRIURETIC PEPTIDE - Abnormal Result Value BNP 429 (*) BASIC METABOLIC PANEL - Abnormal Sodium 139 Potassium 4.1 Chloride 106 CO2 23 BUN 24 Creatinine 1.36 (*) Glucose 96 Calcium 9.3 Anion Gap 14 eGFR 52.6 (*) BUN/Creatinine Ratio 17.6 HEPATIC FUNCTION PANEL - Abnormal Total Bilirubin 1.4 (*) Bilirubin, Direct 0.3 (*) Alkaline Phosphatase 100 AST 14 ALT (SGPT) 13 Total Protein 7.2 Albumin 4.1 CBC WITH AUTO DIFFERENTIAL - Abnormal Auto WBC 7.71 RBC 4.63 Hemoglobin 13.1 Hematocrit 39.3 MCV 84.9 MCH 28.3 MCHC 33.3 RDW 14.3 Neutrophils Relative 71.2 Lymphocytes Relative 17.4 (*) (more content not included)... Normal [facility] MAGNESIUMon 12-20-2023 Magnesium [Mass/Vol] 1.9 mg/dL Normal 1.9-2.7 [facility] Comment on above: Performed By: #### L [id number] ####[facility] (BEAKER)[address] [place] [address] POCT GLUCOSE METER UNSOLICIT ED RESULTSon 12-20-2023 Glucose [Mass/Vol] 163 mg/dL High 70-105 [facility] Comment on above: Order Comment: Waive d Testing in the ED is performed under the ED CLIA certificate #[id number]. Result Comment: dcun dic Performed By: #### L [id number] ####[facility] (BEAKER)[address] [place] [address] Glucose [Mass/Vol] 131 mg/dL High 70-105 [facility] Comment on above: Order Comment: Waive d Testing in the ED is performed under the ED CLIA certificate #[id number]. Result Comment: dcun dic Performed By: #### L [id number] ####[facility] (MARIA G)[address] [place] [address] 30on 12-19-2023 30 The patient is Moderately Stable - Low risk of patient condition declining or worsening The patient's goals for the shift include sleep The clinical goals for the shift include vss Problem: Pain - Adult Goal: Verbalizes/displays adequate comfort level or baseline comfort level Outcome: Progressing Flowsheets (Taken 12/19/20231949) Verbalizes/displays adequate comfort level or baseline comfort level: Encourage patient to monitor pain and request assistance Assess pain using appropriate pain scale Administer analgesics based on type and severity of pain and evaluate response Problem: Safety - Adult Goal: Free from fall injury Outcome: Progressing Flowsheets (Taken 12/19/20231949) Free from fall injury: Assess patient frequently for physical needs Identify cognitive and physical deficits and behaviors that affect risk of falls [place] fall precautions as indicated by assessment Educate patient/family on patient safety, including physical limitations Instruct patient to call for assistance with activity based on assessment Modify environment to reduce risk of injury Problem: Chronic Conditions and Co-morbidities Goal: Patient's chronic conditions and co-morbidity symptoms are monitored and maintained or improved Outcome: Progressing Flowsheets (Taken 12/19/20231949) Care Plan - Patient's Chronic Conditions and Co-Morbidity Symptoms are Monitored and Maintained or Improved: Monitor and assess patient's chronic conditions and comorbid symptoms for stability, deterioration, or improvement Collaborate with multidisciplinary team to address chronic and comorbid conditions and prevent exacerbation or deterioration Update acute care plan with appropriate goals if chronic or comorbid symptoms are exacerbated and prevent overall improvement and discharge Normal [facility] 30 Daily Case Managemen t Update Multidisciplinary rounds have been completed. Barriers to Discharge: PPM placement today; monitor overnight. Plan to discharge with a carlson catheter,urology follow up for 01/06, arranged [facility] through [facility]. Diet: Dietary Orders (From admission, onward) Start Ordered 12/19/23 1219 Regular Diet Heart Healthy/HTN, CABG,Stroke, (2gNA, low fat, low cholesterol); Diabetic Male (carb 60g/meal) Diet effective now Question Answer Comment Room Service? Yes Fat restriction: Heart Healthy/HTN, CABG,Stroke, (2gNA, low fat, low cholesterol) Carbohydrate restriction: Diabetic Male (carb 60g/meal) 12/19/23 1219 12/18/23 1653 Special Kitchen Request Once Comments: Patient would like a anvik wrap, cottage cheese, grilled chicken salad,caffeine free cola, allyson food cake please! Thank you! 12/18/23 1656 12/18/23 0842 Special Kitchen Request Once Comments: Please send ham and cheese omelet, cheerios and skim milk. Thank you! 12/18/23 0842 Physician Expected Discharge Date: 12/19/2023 Discharge Delays: Procedure Delayed/Cancelled [120] PT Six Click Score: 14 OT Six Click Score: Normal [facility] 30 The patient is Moderately Stable - Low risk of patient condition declining or worsening The patient's goals for the shift include Pacemaker placement The clinical goals for the shift include Vital signs WNL and pacemaker placement Over the shift, the patient did not make progress toward the following goals. Barriers to progression include N/A. Recommendations to address these barriers include N/A. Normal [facility] BASIC METABOLIC PANELon 07-2 Anion gap [Moles/Vol] 13 mmol/L Normal 7-20 [facility] Comment on above: Performed By: #### L [id number] ####[facility] (BEAKER)[address] [place] [address] Calcium [Mass/Vol] 9.0 mg/dL Normal 8.6-10.3 [facility] Comment on above: Performed By: #### L [id number] ####[facility] (BEAKER)[address] [place] [address] Chloride [Moles/Vol] 107 mmol/L Normal 98-107 [facility] Comment on above: Performed By: #### L [id number] ####[facility] (BEAKER)[address] [place] [address] CO2 [Moles/Vol] 23 mmol/L Normal 21-31 [facility] Comment on above: Performed By: #### L [id number] ####[facility] ([facility])[address] [place] [address] Creatinine [Mass/Vol] 1.33 mg/dL High 0.70-1.30 [facility] Comment on above: Performed By: #### L [id number] ####[facility] ([facility])[address] [place] [address] GLOMERULAR FILTRATION RATE ML/MIN/1.73 SQ M.PREDICTED 54.0 mL/min/1.73m*2 Low >60.0 [facility] Comment on above: Result Comment: The [facility]???s estimated glomerular filtration rate (eGFR) will no longer include consideration of race in its calculation. The National Kidney Foundation???s eGFR Task Force developed new recommendations for the estimation of the glomerular filtration rate in the [place] They recommend immediate implementation of the new equation refit without the race variable in all laboratories because the calculation does not include race. In addition to not including race in the calculation and reporting, it included diversity in its development, and has acceptable performance characteristics and potential consequences that do not disproportionately affect any one group of individuals. Performed By: #### L [id number] ####[facility] ([facility])[address] [place] [address] Glucose [Mass/Vol] 120 mg/dL High 70-100 [facility] Comment on above: Performed By: #### L [id number] ####[facility] ([facility])[address] [place] [address] Potassium [Moles/Vol] 4.0 mmol/L Normal 3.5-5.1 [facility] Comment on above: Performed By: #### L [id number] ####[facility] ([facility])[address] [facility] [address] Sodium [Moles/Vol] 139 mmol/L Normal 136-145 [facility] Comment on above: Performed By: #### L [id number] ####[facility] ([facility] [place] [address] Urea nitrogen [Mass/Vol] 28 mg/dL High 7-25 [facility] Comment on above: Performed By: #### L [id number] ####[facility] ([facility])[address] [place] [address] UREA NITROGEN/CREATININE (MASS RATIO) IN SER/PLAS 21.1 Normal [facility] Comment on above: Performed By: #### L [id number] ####[facility] ([facility])[address] [place] [address] CBC WITH AUTO DIFFERENTIALon 12-19-2023 Basophils (Bld) [#/Vol] 0.05 10*3/uL Normal 0.00-0.20 [facility] Comment on above: Performed By: #### L [id number] #### [facility] ([facility]) [address] [place] [address] Basophils/100 WBC (Bld) 0.7 % Normal 0.0-1.0 [facility] Comment on above: Performed By: #### L [id number] #### [facility] ([facility]) [address] [place] [address] Eosinophils (Bld) [#/Vol] 0.27 10*3/uL Normal 0.00-0.50 [facility] Comment on above: Performed By: #### L [id number] #### [facility] ([facility]) [address] [place] [address] Eosinophils/100 WBC (Bld) 4.0 % Normal 0.0-6.0 [facility] Comment on above: Performed By: #### L [id number] #### [facility] ([facility]) [address] [place] [address] Erythrocyte distribution width (RBC) [Ratio] 14.3 % Normal 11.5-15.0 [facility] Comment on above: Performed By: #### L [id number] #### [facility] ([facility] [address] [place] [address] ERYTHROCYTE MEAN CORPUSCULAR HEMOGLOBIN CONCENTRATION (G/DL) BY AUTOMATED 32.7 g/dL Normal 32.0-35.0 [facility] Comment on above: Performed By: #### L [id number] #### [facility] ([facility] [address] [place] [address] Hematocrit (Bld) [Volume fraction] 37.0 % Low 39.0-55.0 [facility] Comment on above: Performed By: #### L [id number] #### [facility] ([facility]) [address] [place] [address] Hemoglobin (Bld) [Mass/Vol] 12.1 g/dL Low 13.0-17.0 [facility] Comment on above: Performed By: #### L [id number] #### [facility] ([facility]) [address] [place] [address] Immature granulocytes (Bld) [#/Vol] 0.02 10*3/uL Normal 0.00-0.20 [facility] Comment on above: Performed By: #### L [id number] #### [facility] ([facility]) [address] [place] [address] Immature granulocytes/100 WBC (Bld) 0.3 % Normal 0.0-1.0 [facility] Comment on above: Performed By: #### L [id number] #### [facility] ([facility]) [address] [place] [address] Lymphocytes (Bld) [#/Vol] 1.50 10*3/uL Normal 1.20-4.00 [facility] Comment on above: Performed By: #### L [id number] #### [facility] ([facility]) [address] [place] [address] Lymphocytes/100 WBC (Bld) 22.2 % Normal 20.0-45.0 [facility] Comment on above: Performed By: #### L [id number] #### [facility] ([facility] [address] [facility] [address] MCH (RBC) [Entitic mass] 27.5 pg Normal 27.0-33.0 [facility] Comment on above: Performed By: #### L [id number] #### [facility] ([facility]) [address] [place] [address] MCV (RBC) [Entitic vol] 84.1 fL Normal 82.0-98.0 [facility] Comment on above: Performed By: #### L [id number] #### [facility] ([facility]) [address] [place] [address] Monocytes (Bld) [#/Vol] 0.55 10*3/uL Normal 0.10-1.00 [facility] Comment on above: Performed By: #### L [id number] #### [facility] ([facility]) [address] [place] [address] Monocytes/100 WBC (Bld) 8.1 % Normal 5.0-12.0 [facility] Comment on above: Performed By: #### L [id number] #### [facility] ([facility]) [address] [place] [address] Neutrophils (Bld) [#/Vol] 4.37 10*3/uL Normal 1.60-7.60 [facility] Comment on above: Performed By: #### L [id number] #### [facility] ([facility]) [address] [place] [address] Neutrophils/100 WBC (Bld) 64.7 % Normal 40.0-72.0 [facility] Comment on above: Performed By: #### L [id number] #### [facility] ([facility]) [address] [place] [address] NRBC (PER 100 WBCS) BY AUTOMATED COUNT 0.0 % Normal 0 [facility] Comment on above: Performed By: #### L [id number] #### [facility] ([facility] [address] [place] [address] PLATELETS (10*3/UL) IN BLOOD AUTOMATED COUNT 216 10*3/uL Normal 150-400 [facility] Comment on above: Performed By: #### L [id number] #### [facility] (BEAKER) [address] [place] [address] RBC (Bld) [#/Vol] 4.40 10*6/uL Normal 4.20-5.70 [facility] Comment on above: Performed By: #### L [id number] #### [facility] ([facility]AKER) [address] [facility] [place] [address] WBC (Bld) [#/Vol] 6.76 10*3/uL Normal 4.00-10.60 [facility] Comment on above: Performed By: #### L [id number] #### [facility] ([facility]) [address] [place] [address] HPon 12-19-2023 History Of Present Illness Nghia Avery is a 78 y.o. male presenting with heart block. Past Medical History He has a past medical history of Coronary artery disease, Diabetes mellitus ([facility]), Heart valve disease, Hyperlipidemia, Hypertension, Sleep apnea, and Stroke ([facility]). Surgical History He has a past surgical history that includes Appendectomy and Total knee arthroplasty. Social History He reports that he has quit smoking. His smoking use included cigarettes. He has never used smokeless tobacco. He reports that he does not currently use alcohol. No history on file for drug use. Allergies Sulfamethizole, Sulfamethoxazole-trimeth oprim, and Trimethoprim Medications Medications Prior to Admission Medication Sig Dispense Refill Last Dose amLODIPine (Norvasc) 10 mg tablet amlodipine 10 mg tablet 12/16/2023 aspirin 81 mg EC tablet in the morning. 12/16/2023 atorvastatin (Lipitor) 40 mg tablet atorvastatin 40 mg tablet 12/16/2023 carvedilol (Coreg) 6.25 mg tablet TAKE 1 TABLET WITH BREAKFAST AND WITH EVENING MEAL 180 tablet 3 cholecalciferol (Vitamin D-3) 25 MCG (1000 UT) capsule Take 1,000 Units by mouth in the morning. 12/16/2023 clopidogrel (Plavix) 75 mg tablet clopidogrel 75 mg tablet 12/16/2023 dapagliflozin propanediol (Farxiga) 5 mg Take 5 mg by mouth. 12/16/2023 Incruse Ellipta 62.5 mcg/actuation inhalation Past Week lisinopril 30 mg tablet Take 30 mg by mouth in the morning. 12/16/2023 metFORMIN (Glucophage) 1,000 mg tablet Take 1,000 mg by mouth with breakfast. 12/16/2023 pioglitazone (Actos) 30 mg tablet pioglitazone 30 mg tablet 12/16/2023 prazosin (Minipress) 5 mg capsule prazosin 5 mg capsule 12/16/2023 Review of Systems Physical Exam Last Recorded Vitals Blood pressure 170/72, pulse 56, temperature 36.4 ???C (97.6 ???F), temperature source Temporal, resp. rate 16, height 1.676 m (5' 6 ), weight (!) 145 kg (319 lb 10.7 oz), SpO2 94 %. Relevant Results Heart block Assessment/Plan Principal Problem: Heart block AV third degree (CMS/HCC) Active Problems: CAD S/P percutaneous coronary angioplasty Chronic obstructive pulmonary disease (CMS/HCC) DM type 2 (diabetes mellitus, type 2) (CMS/HCC) Type 2 diabetes mellitus without complication (CMS/HCC) Benign essential hypertension Heart Block Deirdre Mojica MD Normal [facility] MAGNESIUMon 12-19-2023 Magnesium [Mass/Vol] 1.9 mg/dL Normal 1.9-2.7 [facility] Comment on above: Performed By: #### L [id number] #### [facility] (BEAKER) [address] [place] [address] POCT GLUCOSE METER UNSOLICIT ED RESULTSon 12-19-2023 Glucose [Mass/Vol] 172 mg/dL High 70-105 [facility] Comment on above: Order Comment: Waive d Testing in the ED is performed under the ED CLIA certificate #[id number]. Result Comment: [email or web address] Performed By: #### L [id number] #### [facility] (BEAKER) [address] [place] [address] Glucose [Mass/Vol] 133 mg/dL High 70-105 [facility] Comment on above: Order Comment: Waive d Testing in the ED is performed under the ED CLIA certificate #[id number]. Result Comment: dcun dic Performed By: #### L [id number] ####[facility] ([facility])[address] [place] [address] Glucose [Mass/Vol] 125 mg/dL High 70-105 [facility] Comment on above: Order Comment: Waive d Testing in the ED is performed under the ED CLIA certificate #[id number]. Result Comment: dcun dic Performed By: #### L [id number] #### [facility] ([facility]) [address] [place] [address] Glucose [Mass/Vol] 120 mg/dL High 70-105 [facility] Comment on above: Order Comment: Waive d Testing in the ED is performed under the ED CLIA certificate #[id number]. Result Comment: dcun dic Performed By: #### L [id number] #### [facility] ([facility]) [address] [facility] [place] [address] 30on 12-18-2023 30 The patient is Moderately Stable - Low risk of patient condition declining or worsening The patient's goals for the shift include comfort and rest The clinical goals for the shift include VSS and comfort Problem: Pain - Adult Goal: Verbalizes/displays adequate comfort level or baseline comfort level Outcome: Progressing Problem: Safety - Adult Goal: Free from fall injury Outcome: Progressing Problem: Chronic Conditions and Co-morbidities Goal: Patient's chronic conditions and co-morbidity symptoms are monitored and maintained or improved Outcome: Progressing Normal [facility] 30 Daily Case Managemen t Update Multidisciplinary rounds have been completed. Barriers to Discharge: Patient is a transfer from [facility]. Was seen at cardio clinic on 12/16, was noted to have bradycardia, EKG done and showed complete heart block. Patient sent to [facility] ER for pacemaker work up. Tx to [facility] for pacemaker placement per MD Hamiltonb. To go for pacemaker tomorrow, echo today. Discharge dispo: Pending Clinical course, Owner Spa Director reached out to MD about PT/OT Orders. Diet: Dietary Orders (From admission, onward) Start Ordered 12/18/23 0842 Special Kitchen Request Once Comments: Please send ham and cheese omelet, cheerios and skim milk. Thank you! 12/18/23 0842 12/18/23 0835 Regular Diet Heart Healthy/HTN, CABG,Stroke, (2gNA, low fat, low cholesterol); Diabetic Male (carb 60g/meal) Diet effective now Question Answer Comment Room Service? Yes Fat restriction: Heart Healthy/HTN, CABG,Stroke, (2gNA, low fat, low cholesterol) Carbohydrate restriction: Diabetic Male (carb 60g/meal) 12/18/23 0834 Physician Expected Discharge Date: 12/19/2023 Discharge Delays: Procedure Delayed/Cancelled [120] PT Six Click Score: 14 OT Six Click Score: PT Recommendations: OT Recommendations: New Consults: Normal [facility] 30 The patient is Moderately Stable - Low risk of patient condition declining or worsening The patient's goals for the shift include comfort, rest The clinical goals for the shift include VSS Over the shift, the patient did make progress toward the following goals. Problem: Pain - Adult Goal: Verbalizes/displays adequate comfort level or baseline comfort level Outcome: Progressing Flowsheets (Taken 12/18/2023 1229) Verbalizes/displays adequate comfort level or baseline comfort level: Encourage patient to monitor pain and request assistance Assess pain using appropriate pain scale Administer analgesics based on type and severity of pain and evaluate response Implement non-pharmacological measures as appropriate and evaluate response Problem: Safety - Adult Goal: Free from fall injury Outcome: Progressing Flowsheets (Taken 12/18/20231228) Free from fall injury: Assess patient frequently for physical needs Identify cognitive and physical deficits and behaviors that affect risk of falls [place] fall precautions as indicated by assessment Educate patient/family on patient safety, including physical limitations Instruct patient to call for assistance with activity based on assessment Modify environment to reduce risk of injury Problem: Discharge Planning Goal: Discharge to home or other facility with appropriate resources Outcome: Progressing Problem: Pacemaker Goal: My safety and comfort will be maintained Outcome: Progressing Normal [facility] BASIC METABOLIC PANELon 07- Anion gap [Moles/Vol] 11 mmol/L Normal - [facility] Comment on above: Performed By: #### L [id number] #### [facility] ([facility]AKER) [address] [place] [address] Calcium [Mass/Vol] 8.8 mg/dL Normal 8.6-10.3 [facility] Comment on above: Performed By: #### L [id number] #### [facility] ([facility] [address] [place] [address] Chloride [Moles/Vol] 105 mmol/L Normal 98-107 [facility] Comment on above: Performed By: #### L [id number] #### [facility] ([facility]) [address] [place] [address] CO2 [Moles/Vol] 27 mmol/L Normal 21-31 [facility] Comment on above: Performed By: #### L [id number] #### [facility] ([facility]) [address] [place] [address] Creatinine [Mass/Vol] 1.35 mg/dL High 0.70-1.30 [facility] Comment on above: Performed By: #### L [id number] #### [facility] ([facility]) [address] [place] [address] GLOMERULAR FILTRATION RATE ML/MIN/1.73 SQ M.PREDICTED 53.1 mL/min/1.73m*2 Low >60.0 [facility] Comment on above: Result Comment: The [facility]???s estimated glomerular filtration rate (eGFR) will no longer include consideration of race in its calculation. The National Kidney Foundation???s eGFR Task Force developed new recommendations for the estimation of the glomerular filtration rate in the [place] They recommend immediate implementation of the new equation refit without the race variable in all laboratories because the calculation does not include race. In addition to not including race in the calculation and reporting, it included diversity in its development, and has acceptable performance characteristics and potential consequences that do not disproportionately affect any one group of individuals. Performed By: #### L [id number] #### [facility] ([facility] [address] [place] [address] Glucose [Mass/Vol] 111 mg/dL High 70-100 [facility] Comment on above: Performed By: #### L [id number] #### [facility] ([facility] [address] [place] [address] Potassium [Moles/Vol] 4.1 mmol/L Normal 3.5-5.1 [facility] Comment on above: Performed By: #### L [id number] #### [facility] ([facility] [address] [place] [address] Sodium [Moles/Vol] 139 mmol/L Normal 136-145 [facility] Comment on above: Performed By: #### L [id number] #### [facility] ([facility]) [address] [place] [address] Urea nitrogen [Mass/Vol] 21 mg/dL Normal 7-25 [facility] Comment on above: Performed By: #### L [id number] #### [facility] ([facility]) [address] [place] [address] UREA NITROGEN/CREATININE (MASS RATIO) IN SER/PLAS 15.6 Normal [facility] Comment on above: Performed By: #### L [id number] #### [facility] ([facility]) [address] [place] [address] CBCon 12-18-2023 Erythrocyte distribution width (RBC) [Ratio] 14.3 % Normal 11.5-15.0 [facility] Comment on above: Performed By: #### L [id number] ####[facility] ([facility])[address] [place] [address] ERYTHROCYTE MEAN CORPUSCULAR HEMOGLOBIN CONCENTRATION (G/DL) BY AUTOMATED 33.4 g/dL Normal 32.0-35.0 [facility] Comment on above: Performed By: #### L [id number] ####[facility] ([facility] [place] [address] Hematocrit (Bld) [Volume fraction] 37.1 % Low 39.0-55.0 [facility] Comment on above: Performed By: #### L [id number] ####[facility] ([facility] [place] [address] Hemoglobin (Bld) [Mass/Vol] 12.4 g/dL Low 13.0-17.0 [facility] Comment on above: Performed By: #### L [id number] ####[facility] (BEAKER)[address] [place] [address] MCH (RBC) [Entitic mass] 27.9 pg Normal 27.0-33.0 [facility] Comment on above: Performed By: #### L [id number] ####[facility] ([facility] [place] [address] MCV (RBC) [Entitic vol] 83.4 fL Normal 82.0-98.0 [facility] Comment on above: Performed By: #### L [id number] ####[facility] ([facility] [place] [address] PLATELETS (10*3/UL) IN BLOOD AUTOMATED COUNT 200 10*3/uL Normal 150-400 [facility] Comment on above: Performed By: #### L [id number] ####[facility] ([facility])[address] [place] [address] RBC (Bld) [#/Vol] 4.45 10*6/uL Normal 4.20-5.70 [facility] Comment on above: Performed By: #### L [id number] ####[facility] ([facility])[address] [place] [address] WBC (Bld) [#/Vol] 6.59 10*3/uL Normal 4.00-10.60 [facility] Comment on above: Performed By: #### L [id number] ####[facility] ([facility])[address] [place] [address] CONSULTon 12-18-2023 CONSULT ---- -------- Attestation signed by Joan Weber MD at 12/18/2023 1:39 PM I personally saw and examined the patient on the same date of service as resident/fellow Dr bryant. I discussed the findings and therapeutic plan with the resident/fellow Dr bryant. I agree with the documentation, except for any edits/updates below. Teaching Physician's Revisions: None In summary the patient presented to cardiology clinic for follow-up visit and he was noted to be bradycardic totally asymptomatic. First EKG showed sinus rhythm with 221 AV block and heart rate in the 30s. He was admitted in [facility] overnight, beta-marcello was discontinued, the patient was going between sinus rhythm with significant first-degree AV block to Mobitz 1 to Mobitz 2 but he remained significantly and frequently bradycardic. Patient still asymptomatic. He had a prior history of coronary artery disease and angioplasty. He denies any chest pain or shortness of breath. He has sleep apnea, he tries to be compliant with the CPAP but it gives him a lot of discomfort. We got today echo on him and it came back to show normal left ventricle systolic function with wall motion abnormalities. I do not think we need to get ischemic workup at this point. I think the patient needs permanent pacemaker. That was discussed with him in details and he is agreeable Joan Weber MD, [facility] -------- Cardiology Consult Note Reason for Consult: [facility] holter monitor HPI: Nghia Avery is a 78 y.o. male with history of coronary artery disease s/p PCI long time ago, diabetes mellitus, hypertension, COPD was referred to our hospital from [facility] due to complete heart block the patient was seen by cardiology clinic found to be in complete AV block the patient was totally asymptomatic he was on low-dose beta-marcello and he was kept for observation of beta-blockers, he continued to go in and out of complete heart block and second-degree AV block Mobitz 2, here the patient was in Mobitz 2 AV block, he was totally asymptomatic he denies any chest pain shortness of breath orthopnea or PND's denies lower extremity swelling. Cardiology ROS: Negative except for the above Past Medical History He has a past medical history of Coronary artery disease, Diabetes mellitus (CMS/HCC), Heart valve disease, Hyperlipidemia, Hypertension, Sleep apnea, and Stroke (CMS/HCC). Surgical History He has a past surgical history that includes Appendectomy and Total knee arthroplasty. Social History He reports that he has quit smoking. His smoking use included cigarettes. He has never used smokeless tobacco. He reports that he does not currently use alcohol. No history on file for drug use. Family History Family History Problem Relation Name Age of Onset Coronary artery disease Father Coronary artery disease Brother Allergies Sulfamethizole, Sulfamethoxazole-trimeth oprim, and Trimethoprim Medications Medications Prior to Admission Medication Sig Dispense Refill Last Dose amLODIPine (Norvasc) 10 mg tablet amlodipine 10 mg tablet 12/16/2023 aspirin 81 mg EC tablet in the morning. 12/16/2023 atorvastatin (Lipitor) 40 mg tablet atorvastatin 40 mg tablet 12/16/2023 carvedilol (Coreg) 6.25 mg tablet TAKE 1 TABLET WITH BREAKFAST AND WITH EVENING MEAL 180 tablet 3 cholecalciferol (Vitamin D-3) 25 MCG (1000 UT) capsule Take 1,000 Units by mouth in the morning. 12/16/2023 clopidogrel (Plavix) 75 mg tablet clopidogrel 75 mg tablet 12/16/2023 dapagliflozin propanediol (Farxiga) 5 mg Take 5 mg by mouth. 12/16/2023 Incruse Ellipta 62.5 mcg/actuation inhalation Past Week lisinopril 30 mg tablet Take 30 mg by mouth in the morning. 12/16/2023 metFORMIN (Glucophage) 1,000 mg tablet Take 1,000 mg by mouth with breakfast. 12/16/2023 pioglitazone (Actos) 30 mg tablet pioglitazone 30 mg tablet 12/16/2023 prazosin (Minipress) 5 mg capsule prazosin 5 mg capsule 12/16/2023 Last Recorded Vitals Patient Vitals for the past 24 hrs: BP Temp Temp src Pulse Resp SpO2 Height Weight 12/18/23 1200 133/53 36.3 ???C (97.3 ???F) Temporal 59 13 94 % -- -- 12/18/23 1045 129/68 -- -- -- -- -- -- -- 12/18/23 0840 143/58 36.4 ???C (97.5 ???F) Temporal 60 14 96 % -- -- 12/18/23 0816 -- -- -- -- -- 96 % -- -- 12/18/23 0657 -- -- -- -- -- -- 1.676 m (5' 6 ) -- 12/18/23 0500 -- -- -- -- -- -- -- (!) 148 kg (325 lb 13.4 oz) 12/18/23 0400 133/53 36.6 ???C (97.9 ???F) -- 60 16 92 % -- -- 12/18/23 0311 (!) 141/40 -- -- (!) 44 19 94 % -- -- 12/18/23 0310 -- -- -- (!) 28 18 95 % -- -- 12/18/23 0308 -- -- -- (!) 39 21 95 % -- -- 12/17/232016 156/63 36.2 ???C (97.2 ???F) -- 66 21 96 % -- -- 12/17/23 1700 149/71 36.5 ???C (97.7 ???F) Temporal 64 16 97 % -- -- Physical Examination: GENERAL: AOx3, in no acute distress. HEAD: Atraumati (more content not included)... Normal [facility] POCT GLUCOSE METER UNSOLICIT ED RESULTSon 12-18-2023 Glucose [Mass/Vol] 227 mg/dL High 70-105 [facility] Comment on above: Order Comment: Waive d Testing in the ED is performed under the ED CLIA certificate #[id number]. Result Comment: melissa rowland Performed By: #### L [id number] #### [facility] ([facility]) [address] [place] [address] Glucose [Mass/Vol] 154 mg/dL High 70-105 [facility] Comment on above: Order Comment: Waive d Testing in the ED is performed under the ED CLIA certificate #[id number]. Result Comment: dzer man Performed By: #### L [id number] #### [facility] ([facility]) [address] [place] [address] Glucose [Mass/Vol] 155 mg/dL High 70-105 [facility] Comment on above: Order Comment: Waive d Testing in the ED is performed under the ED CLIA certificate #[id number]. Result Comment: estephania galloway Performed By: #### L [id number] #### [facility] ([facility]) [address] [place] [address] Glucose [Mass/Vol] 126 mg/dL High 70-105 [facility] Comment on above: Order Comment: Waive d Testing in the ED is performed under the ED CLIA certificate #[id number]. Result Comment: cody man Performed By: #### L [id number] #### [facility] ([facility]) [address] [place] [address] B-TYPE NATRIURETIC PEPTIDEon 12-17-2023 Natriuretic peptide B (Bld) [Mass/Vol] 429 pg/mL High 0-100 [facility] Comment on above: Performed By: #### L [id number] #### [facility] ([facility]) [address] [place] [address] BASIC METABOLIC PANELon 11-24 Anion gap [Moles/Vol] 14 mmol/L Normal 7-20 [facility] Comment on above: Performed By: #### L [id number] #### [facility] ([facility]) [address] [place] [address] Calcium [Mass/Vol] 9.3 mg/dL Normal 8.6-10.3 [facility] Comment on above: Performed By: #### L [id number] #### [facility] ([facility]) [address] [place] [address] Chloride [Moles/Vol] 106 mmol/L Normal 98-107 [facility] Comment on above: Performed By: #### L [id number] #### [facility] ([facility]) [address] [place] [address] CO2 [Moles/Vol] 23 mmol/L Normal 21-31 [facility] Comment on above: Performed By: #### L [id number] #### [facility] ([facility]) [address] [place] [address] Creatinine [Mass/Vol] 1.36 mg/dL High 0.70-1.30 [facility] Comment on above: Performed By: #### L [id number] #### [facility] ([facility]) [address] [place] [address] GLOMERULAR FILTRATION RATE ML/MIN/1.73 SQ M.PREDICTED 52.6 mL/min/1.73m*2 Low >60.0 [facility] Comment on above: Result Comment: The [facility]???s estimated glomerular filtration rate (eGFR) will no longer include consideration of race in its calculation. The National Kidney Foundation???s eGFR Task Force developed new recommendations for the estimation of the glomerular filtration rate in the [place] They recommend immediate implementation of the new equation refit without the race variable in all laboratories because the calculation does not include race. In addition to not including race in the calculation and reporting, it included diversity in its development, and has acceptable performance characteristics and potential consequences that do not disproportionately affect any one group of individuals. Performed By: #### L [id number] #### [facility] ([facility]) [address] [facility] [address] Glucose [Mass/Vol] 96 mg/dL Normal 70-100 [facility] Comment on above: Performed By: #### L [id number] #### [facility] ([facility]) [address] [place] [address] Potassium [Moles/Vol] 4.1 mmol/L Normal 3.5-5.1 [facility] Comment on above: Performed By: #### L [id number] #### [facility] ([facility]) [address] [place] [address] Sodium [Moles/Vol] 139 mmol/L Normal 136-145 [facility] Comment on above: Performed By: #### L [id number] #### [facility] ([facility] [address] [place] [address] Urea nitrogen [Mass/Vol] 24 mg/dL Normal 7-25 [facility] Comment on above: Performed By: #### L [id number] #### [facility] ([facility]) [address] [place] [address] UREA NITROGEN/CREATININE (MASS RATIO) IN SER/PLAS 17.6 Normal [facility] Comment on above: Performed By: #### L [id number] #### [facility] ([facility]) [address] [place] [address] CBC WITH AUTO DIFFERENTIALon 12-17-2023 Basophils (Bld) [#/Vol] 0.04 10*3/uL Normal 0.00-0.20 [facility] Comment on above: Performed By: #### L [id number] ####[facility] ([facility])[address] [place] [address] Basophils/100 WBC (Bld) 0.5 % Normal 0.0-1.0 [facility] Comment on above: Performed By: #### L [id number] ####[facility] ([facility])[address] [place] [address] Eosinophils (Bld) [#/Vol] 0.26 10*3/uL Normal 0.00-0.50 [facility] Comment on above: Performed By: #### L [id number] ####[facility] ([facility])[address] [place] [address] Eosinophils/100 WBC (Bld) 3.4 % Normal 0.0-6.0 [facility] Comment on above: Performed By: #### L [id number] ####[facility] ([facility])[address] [place] [address] Erythrocyte distribution width (RBC) [Ratio] 14.3 % Normal 11.5-15.0 [facility] Comment on above: Performed By: #### L [id number] ####[facility] ([facility])[address] [place] [address] ERYTHROCYTE MEAN CORPUSCULAR HEMOGLOBIN CONCENTRATION (G/DL) BY AUTOMATED 33.3 g/dL Normal 32.0-35.0 [facility] Comment on above: Performed By: #### L [id number] ####[facility] ([facility])[address] [place] [address] Hematocrit (Bld) [Volume fraction] 39.3 % Normal 39.0-55.0 [facility] Comment on above: Performed By: #### L [id number] ####[facility] ([facility])[address] [place] [address] Hemoglobin (Bld) [Mass/Vol] 13.1 g/dL Normal 13.0-17.0 [facility] Comment on above: Performed By: #### L [id number] ####[facility] ([facility])[address] [place] [address] Immature granulocytes (Bld) [#/Vol] 0.03 10*3/uL Normal 0.00-0.20 [facility] Comment on above: Performed By: #### L [id number] ####[facility] ([facility])[address] [place] [address] Immature granulocytes/100 WBC (Bld) 0.4 % Normal 0.0-1.0 [facility] Comment on above: Performed By: #### L [id number] ####[facility] ([facility])[address] [place] [address] Lymphocytes (Bld) [#/Vol] 1.34 10*3/uL Normal 1.20-4.00 [facility] Comment on above: Performed By: #### L [id number] ####[facility] ([facility])[address] [place], [place] [address] Lymphocytes/100 WBC (Bld) 17.4 % Low 20.0-45.0 [facility] Comment on above: Performed By: #### L [id number] ####[facility] ([facility])[address] [place] [address] MCH (RBC) [Entitic mass] 28.3 pg Normal 27.0-33.0 [facility] Comment on above: Performed By: #### L [id number] ####[facility] ([facility])[address] [place] [address] MCV (RBC) [Entitic vol] 84.9 fL Normal 82.0-98.0 [facility] Comment on above: Performed By: #### L [id number] ####[facility] ([facility])[address] [place] [address] Monocytes (Bld) [#/Vol] 0.55 10*3/uL Normal 0.10-1.00 [facility] Comment on above: Performed By: #### L [id number] ####[facility] ([facility])[address] [place] [address] Monocytes/100 WBC (Bld) 7.1 % Normal 5.0-12.0 [facility] Comment on above: Performed By: #### L [id number] ####[facility] ([facility])[address] [place] [address] Neutrophils (Bld) [#/Vol] 5.49 10*3/uL Normal 1.60-7.60 [facility] Comment on above: Performed By: #### L [id number] ####[facility] ([facility] [place] [address] Neutrophils/100 WBC (Bld) 71.2 % Normal 40.0-72.0 [facility] Comment on above: Performed By: #### L [id number] ####[facility] ([facility] [place] [address] NRBC (PER 100 WBCS) BY AUTOMATED COUNT 0.0 % Normal 0 [facility] Comment on above: Performed By: #### L [id number] ####[facility] ([facility])[address] [place] [address] PLATELETS (10*3/UL) IN BLOOD AUTOMATED COUNT 220 10*3/uL Normal 150-400 [facility] Comment on above: Performed By: #### L [id number] ####[facility] ([facility])[address] [place] [address] RBC (Bld) [#/Vol] 4.63 10*6/uL Normal 4.20-5.70 [facility] Comment on above: Performed By: #### L [id number] ####[facility] ([facility])[address] [place] [address] WBC (Bld) [#/Vol] 7.71 10*3/uL Normal 4.00-10.60 [facility] Comment on above: Performed By: #### L [id number] ####[facility] ([facility])[address] [place] [address] HEPATIC FUNCTION PANELon Albumin [Mass/Vol] 4.1 g/dL Normal 3.5-5.7 [facility] Comment on above: Performed By: #### L [id number] #### [facility] ([facility]) [address] [place] [address] ALP [Catalytic activity/Vol] 100 U/L Normal 34-104 [facility] Comment on above: Performed By: #### L [id number] #### [facility] ([facility]) [address] [place] [address] ALT [Catalytic activity/Vol] 13 U/L Normal 7-52 [facility] Comment on above: Performed By: #### L [id number] #### [facility] ([facility]) [address] [place] [address] AST [Catalytic activity/Vol] 14 U/L Normal 13-39 [facility] Comment on above: Performed By: #### L [id number] #### [facility] ([facility]) [address] [place] [address] Bilirubin [Mass/Vol] 1.4 mg/dL High 0.3-1.0 [facility] Comment on above: Performed By: #### L [id number] #### [facility] ([facility]) [address] [place] [address] Magnesium [Mass/Vol] 0.3 mg/dL High 0-0.2 [facility] Comment on above: Performed By: #### L [id number] #### [facility] ([facility]) [address] [place] [address] Protein [Mass/Vol] 7.2 g/dL Normal 6.0-8.3 [facility] Comment on above: Performed By: #### L [id number] #### [facility] ([facility]) [address] [facility] [address] POCT GLUCOSE METER UNSOLICIT ED RESULTSon 12-17-2023 Glucose [Mass/Vol] 166 mg/dL High 70-105 [facility] Comment on above: Order Comment: Waive d Testing in the ED is performed under the ED CLIA certificate #[id number]. Result Comment: mmah [email or web address] Performed By: #### L [id number] #### [facility] ([facility]) [address] [place] [address] TROPONIN Ion 12-17-2023 Troponin I.cardiac [Mass/Vol] 0.02 ng/mL Normal 0.00-0.04 [facility] Comment on above: Performed By: #### L [id number] ####[facility] ([facility])[address] [place] [address] TSH3 REFLEX TO FT4on 024 THYROTROPIN (MIU/L) IN SER/PLAS BY DETECTION LIMIT <= 0.05 MIU/L 2.40 mIU/L Normal 0.34-5.60 [facility] Comment on above: Performed By: #### L [id number] #### [facility] ([facility]) [address] [facility] [address] Office Visiton 12-16-2023 Follow-up visit [id number] GenaDelionuris rt K 1945 M Date Provider Department Center 12/16/2023 GABRIELA FERNANDEZ [facility] Family History Problem Relation Age of Onset Coronary artery disease Father Coronary artery disease Brother Family Status - Relation Status Age at Father Brother Level of Service:25752 [place] OFFICE/OUTPATIENT ESTABLISHED HIGH MDM 40 MIN Reason for Visit and Comments: Coronary Artery Disease [187] Hypertension [411988] Normal [facility] Laboratory - Hematology and Cell countson 07-02-2023 HbA1c (Bld) [Mass fraction] 6.3 % [facility] No Panel Informationon 07-02 Interpretation and review of laboratory results Abnormal [facility] XR CHEST 2 VIEWSon 3 XR CHEST [...] DO Normal Not Available Screenson 12-26-2022 Screens [id number]#[id number] :127 Normal [facility] Ambulatory Visit Summaryon 0 12-25-2022 Ambulatory Visit Summary GENANGHIA Dannie :1945 Visit Date:12/25/2022 Ambulatory Visit Instructions Your Diagnosis Urinary incontinence without sensory awareness Urge incontinence BPH with urinary obstruction Tests Performed Urnls Dip Stick Auto w/o Microscopy POC 05194 Your Care Team Attending Physician - Sherlyn Navarro MD Primary Care Physician - MARJORIE [...] Following Appointments Follow Up with Ramon WHITE, DESMOND Wong, URO When: Comments: PRN Where: Medications What [...] Urnls Dip Stick Auto w/o Microscopy POC 71605 (12/25/2022) Bilirubin Urine Dipstick - Negative Blood Urine Dipstick - Trace-intact Glucose Urine Dipstick - Negative Ketones Urine Dipstick - Negative Leukocytes Urine Dipstick - 1+ Small Nitrite Urine Dipstick - Negative Protein Urine Dipstick - Negative Specific Zaleski Urine Dipstick - 1.020 Urine Appearance Urine [...] This condition (more content not included)... Normal [facility] Patient Educationon 12-26-19 Patient Education Urology Benign [...] Follow these instructions at home: ? Take cbtt-pol-uandfel and prescription medicines only as told by [...] the medicine (more content not included)... Normal [facility] Urology Office/Clinic Noteon 12-25-2022 Urology Office/Clinic Note [...] developed male. Assessment/Plan Pt had seen Diana Pickett in the past, followed up with Botox [...] patient. Follow-up With When Contact Information Ramon WHITE, Sherlyn Hernandez, URL, URO Additional Instructions: PRN Patient Education Benign Prostatic Hyperplasia I, Keren Hylton, personally scribed for Dr. Navarro on 12/25/2022 [...] Daily metfor (more content not included)... Normal [facility] Comment on above: Result Comment: Elec tronically Signed By: Sherlyn Navarro MD\.br\Date and Time Signed: 12/25/22 12:33 EDT\.br\Electronically Co-Signed By: Keren Hylton\.br\Date and Time Co-Signed: 12/25/22 10:19 EDT Consent for Procedure/Surger yon 09-30-2022 Consent for Procedure/Surgery [id number]#[id number]: 127 Normal [facility] Consent for Treatmenton Consent for Treatment [id number]#[id number]: 127 [facility] Inpatient Patient Summaryon 09-30-2022 Inpatient Patient Summary [place] [address] Clinical Summary Person Information Name: NGHIA AVERY Age: 76 Years : 1945 Sex: Male PCP: MARJORIE NATH MD Marital Status: Race: White Ethnicity: Non- or Language: Turkish Visit Id: Visit Reason: URINARY INCONTINENCE WITHOUT SENSORY AWARENESS, URGE INCONTINENCE Speciality: Acuity: Enc Type: Outpatient Med Service: Surgery Arrival: 09/30/2022 09:01:45 Discharge: Dispo Type: Address: [address] [place] [phone] Provider Notes: Diagnosis: Anticoagulated; Urge incontinence; Urinary [...] Follow up: With: Address: When: Sherlyn Navarro [address] [place] [address], [place] [address], [place] [phone] Business (1) Comments: Office to schedule follow up in 3 months with PVR Patient Education Information: EU - Cystoscopy with Botox Injection Discharge Instructions (CUSTOM) [facility] IntraOperative Documentson 0 09-30-2022 IntraOperative Documents [id number]#[id number]: 127 [facility] Main OR Intraoperative Recor don 09-30-2022 Main OR Intraoperative Record IntraOp Document Type FTURO Summary Primary Physician: Sherlyn Navarro MD Finalized Date/Time: 09/30/22 10:27:33 Pt. Name: NGHIA AVERY/Sex: 1945 Male Med Rec #: [id number] Physician: Sherlyn Navarro MD Financial #: [id number] Pt. Type: O Room/Bed: / Admit/Disch: 09/30/22 09:01:45 - Institution: Case Times FTURO Entry 1 Patient Times In Room 09/30/22 10:05:00 Out Room 09/30/22 10:22:00 Procedure Times Start 09/30/22 10:07:00 Stop 09/30/22 10:16:00 Anesthesia Times Last Modified By: Shanna AJ, MAXIMINO, Genevieve 09/30/22 10:16:29 Case Attendance FTURO Entry 1 Entry 2 Entry 3 Case Attendee Ramon WHITE, Sherlyn Otero RN, PORSHAOR, Chelo HARRIS, Malinda Vallejo Role Performed Surgeon - Primary Hemodialysis Lab Technician - Primary Scrub - Primary Time In 09/30/22 10:05:00 09/30/22 10:05:00 09/30/22 10:05:00 Time Out 09/30/22 10:22:00 09/30/22 10:22:00 09/30/22 10:22:00 Procedure CYSTOSCOPY LOCAL BOTOX CYSTOSCOPY LOCAL BOTOX CYSTOSCOPY LOCAL BOTOX INJECTION(.) INJECTION(.) INJECTION(.) Comments Last Modified By: Shanna AJ, PORSHAOR, Shanna AJ, PORSHAOR, Shanna AJ, PORSHAOR, Genevieve 09/30/22 Genevieve 09/30/22 [...] 10:16:34 General Comments: botox 100 units lot [id number] outdate 02/17 General Case Data FTURO Pre-Care [...] Sherlyn Navarro MD, Verified (If Medication Participants MAXIMINO Otero RN, Applicable) Chelo Vallejo CST, Malinda Chan Time [...] MAXIMINO Otero RN, Ruthann 09/30/22 10:27 Normal [facility] Main OR Preoperative Recordo n 09-30-2022 Main OR Preoperative Record Holding Area Document Type FTURO Summary Primary Physician: Sherlyn Navarro MD Finalized Date/Time: 09/30/22 10:13:50 Pt. Name: NGHIA AVERY /Sex: 1945 Male Med Rec #: [id number] Physician: Sherlyn Navarro MD Financial #: [id number] Pt. Type: O Room/Bed: / Admit/Disch: 09/30/22 [...] MAXIMINO Otero RN, Ruthann 09/30/22 10:13 Normal [facility] Operative Reporton Operative Report Patient: DELIO AVERY Age: 76 years Sex: Male : 1945 Associated Diagnoses: None Author: Sherlyn Navarro MD Procedure Operative Information Details: Date/ Time: 09/30/2022 10:19:00. Pre-Op Dx: Urinary urgency (CYN20-KG R39.15, Discharge, Medical), Urinary incontinence without sensory awareness (JOH88-BZ N39.42, Discharge, Medical), Urge incontinence (JXQ93-EO N39.41, Discharge, Medical), Anticoagulated (HFI76-RH Z79.01, Discharge, Medical). Post-Op Dx: Same. Anesthesia [...] up in 3 months with PVR. Normal [facility] Comment on above: Result Comment: Elec tronically Signed By: Sherlyn Navarro MD\.br\Date and Time Signed: 09/30/22 10:22 EDT Outpatient Surgery Discharge Instructionon 09-30-2022 Outpatient Surgery Discharge Instruction [id number]#[id number]: 127 Normal [facility] Outpatient Surgery Discharge Instruction [address] [address] Patient Discharge Instructions PERSON INFORMATION Name: NGHIA AVERY Date of : 1945 Current Date: 09/30/2022 10:19:03 PHYSICIANS Admitting Physician: Sherlyn Navarro MD Comment: Discharge Diagnosis: Anticoagulated; Urge incontinence; Urinary incontinence without sensory awareness; Urinary urgency NGHIA AVERY has been given the following list of follow-up instructions, prescriptions, and patient education materials: IF UNABLE TO CONTACT YOUR PHYSICIAN AND YOU FEEL IT IS AN EMERGENCY, GO TO THE NEAREST EMERGENCY ROOM OR CALL 911 Follow up: With: Address: When: Sherlyn Navarro [address] [place], [place] [id number] [facility] (1) Comments: Office to schedule follow up [...] you have a fever over 100 degrees. GENA Mata ROBERT K, have received the attached patient education materials/instructions [...] to serve you. Thank you for choosing [facility] Normal [facility] Pre-Certification Formon Pre-Certification Form [id number] D:127 [facility] Coding Summary.on 09-20-2022 Coding Summary. CD:[id number] Ww+P GhlYWQ+AR4CSVLrF60qyTRqr V7sY2AIDYqSMeknYVCGHPmKU pNkliGiOJ4xhTDaZQFv IC8+QI0sWNWvPtbrcKGfo6Z2 fMW0S72tvp6lSMgbgTY8JVKi EoDuvvpme9hasJl6BGqtBwlb OyBt PLUzlO99HDG7rZ53Kl86jTFc tQOcg7ehtJr6MtBjQBIzWGW1 uVcjEUvxv6JsCIBtB70ziWNh c2U6 KKMbkKburSGpNkAudCE4fI2x BSlhsrdai1ndpndxVzu7dr82 lHBor7L0eEP2H5OaebE3UQRg bGQg OayekOXXxM4mkxpwy1rirbph JhHnHVZdGKj0GTo3WVMvyTrr SeXhPH11USF5CXShybSgE5Vu LWFs nEryUkF6z6H8Zt9UJ5KXEfiz A4TBNIHEBVxgrQE+QC47do97 Z1LwRwndFwx8JBHoCYN0kHF9 aD0n FPYhWXjdg9M7aVX3N5EdoyBq sg4yv4ivSHPyMEsvK23doQCd s3O4BVFyeCK3WPLuhFkxAjCp aG93 Oyc+MDKciWokr5EzRkess4cb e6cbkDy3OwqkURNusuSqcKll SZL5o9PuDd6uJJFgiQS7gGU1 aD0i EuJsYcG8UYtfO217TsYfbNVn FmslX04wP0JjdGO+PHRyPjx0 VJMprLhxBB8kT7JuIPWuujye bGVm mPibWX2rYEHlwwirRFNnzT1x SWHyU3n1FhTtJmC9UGheI0Wg XPWzcinbMb09lP4mTzAlOtY7 MGlu S8WsavP7DGBslDZnYAlzUZS6 A57cr0I7OQGaFSBsUND5eMQ7 bU9eeJgseatvnGNqoJxdorZu dGlj PMcaQJryS649UNAheGaaJfDk ZGluZyBEYXRlOiAgMDQvMjgv MjAyMzwvdGQ+PHAzHFD8jWyz PSAn rUUeKQnfEg3jeOexrVvtXE9p CWZeuzyrJUAguG4vIHZakWNi lJwtDT6iZLKjnudcb168PzRf MHB0 ZJQbtGDuY9MbgN4wJdYsSSAf KWTqM2FxpLEfUUbsD742OQog GaT5IGWafmEwD0IyRULsvMeo OiB0 a4W2Iw3Xd4SmkfpuI6LhkMDu KzLiOqmpQVe6Z6FyQnrrxAS+ EJ00PAJgFY54TNq7QVJ3sDnf PSdi WRAuU7LodC6gUiXiIFGyFCTj Oyc+PHRhYmxlIHdpZHRoPScx NGUhJsAcpTjmNB0mJz7wDNUr LWNv hVoqzAJcCxCnl0jgRXIxYRbf PI1trYibJ6YluKN2PJQzk5w9 Wh08V46aG4EvkIS+PGNvbCB3 aWR0 pB7sKtAdFoM2JVczY891HnQx lDYdWuglj0zen3scoTc0HbZ5 XHPtwsZyhXybPCK2o2RmZi75 Y29s IHdpZHRoPSIxNSUiIHZhbGln fw3wnY3bQz6+YXMybMW2wFQ9 nN5qBtZeIxW5JQqbM344DdNz cCIv Kdwrk8ygt7hghQb7LrRqLVHr xfClwGcxLCJ7q5JwIc92X8Gg pMzoh1LzAch2be59lZJtm5Y4 bGU9 I4QeLSBogxomxATvyNmaGW8v REOjkufkYKKgyJ4gQCSxK9o9 FoKaGaJ2YGfzP4GjmfW2BJJa bGQg QMRrpGWEoM7nslfdx6juolzo CnIzVFFbKSf0WXr2LKTcsZqf SbPcPVL7VcN7YGP8xFZmcL6o bGln ylfrvT4pPno+MAN7rQDobNAK BO7uLitodWY+NGGpZZH1xIwe ERlvBMNrxM1mMTEyJ1w1XhMg LjA1 FOipH8QorlH7UKJwbFOwSBWj gOEXfQ9kycdgi9xhqctvAlId XXNvIOx7JRs6REPynJouUmDo ZWZ0 OtP0DSS6wGZvcT3klKpvzhap tD4rAye+PrnwjOjoNPP7ENp0 O7VnNun5EUFhwAxuIB9ftNZb ZGlu Lh9ngIvwxPaxTY5vPPEsxque o225ZwUll0yqRNIhjSViQGhf ZMV5J00sz8O8GYQaIPVkUQT9 dGV4 zF5guUabptcwoUFdbSklbvQv cYkjQHstBEwjM587PLRlrOrv NtAeFCr9T3JrVqw4ZHGijZlj ZT0n nTDjFYaxHa0tvYhkiXjoRG8k PLMnetrwh756AnMng0xyNDRp iBEmJHnmPPV6C53ze9K1GCIo MDAw WOY9wJN9sL3lpPknxeiioNOu aThyloUiaUqlMWntNZzkW764 FPQwyGzbBrTycDg6L0CtEgx1 ZCBz jNvnGV0qhOCqCRvsYi0boUji rKhvRH4fXJTywxxsu072EdAa b9wbXSFxgDEqLZylYAW2E18y b3I6 VTQlYPUwYKC4dLI1tW4laRho bjogbGVmdDsgdmVydGljYWwt XTsxM708DVCwmNaoWqEjrImc bnQg HIreLYs9J8PtWncduLH+PC90 JODhBX06cZZhiVOux0mjwNs8 YiUjZRUqNRB2xSmhWIzwa9Ns ZXIt M53ohNNhv0H2XIDdrEkqkLNu HdUsjZA5sQ8dPMqjxxzhw8rq bfrxToqdc5swqe00iG95R04a IHdp LZCpCFDnFZIqZDXntPmyrk9t iE6iEs3+HEOvxZK8fJU2wG2u XDFwCtM6BKxbS791UuVfcMSu Pjxj g6exb3ezkNl4HfN4TYFdcvDz zPghSIO7f3UnAy76O03bZGtv RDAiRGUkIEZyNBEddGxzme4a dG9w Ii8+EXSwdQU0sIP0hR7uHeZv CpN7IDgsS309RiMxlQNlOqum L55lN5QiyQN+BVGoZvm2NJRp dHls MQ0obZIzCMvwKb4lPQI9MuOi ExJmVXtnO7MtDUXmpytmtiaf yHN2YMRkCOQsdM21Ia6sbMcl MTBw cWLRuM5srfkiy2ofjresJkOu JWHdUVj9JPo7YEVzoAxvRhPs UEI7PaK5YCD1yLVeeP3baAiu bjog oL7kA8StKBVcekstAb66mI2c MbJhWzP2GPnlRlc+HKVNP0BC PBDDK4OOFsApIhfyhVX+PHRk IHN0 nKvjNGvkPEJhjF7eBULgK7v6 JyJiLdZ2PPuoX7XsHPYcunef Jn88aK2rMoWmPqZ8WZpfW0Hs bnQ6 CTYqmIDeUIudUXB4R56hx5B0 TQApKJYvAAX0qJJ8lT6dpYnk bjogbGVmdDsgdmVydGljYWwt YWxp K853DXXgxNhgHtU7DjVwBfW7 LLN7D7SkXou7WGKdpUukTN1o zRCxHSdcZu1pxUbxaSotSM1v NTBp lhjyVMPamF3gJWDmkXAzpKml CK0cAWXgmuisl315DeNnRDY2 JNZzaTTvV5FchN6xUfZkFZZk MDAw F9SmyGCyDJlaZ088EZrqWhR8 GGOqyhSnR0RiRNUlvQkxYxS0 m4D1Fr50EVSNXKOfekaggQI+ PHRk GBP4pDwkMGjgYFUefA5dLJWf Y5j4LqQvPcE6JYrwR3NpZOBu ygdeRj40gD9fRdDjLiO4SMad O2Zv hmL2CBKinJEfPFkyZRS6Z38a r9E6PYBkLKGlVQJ2nYD4tV4f bGlnbjogbGVmdDsgdmVydGlj YWwt SJkbL275FMHnvXczCm6ddVZ5 Y6ZxMdr0CAFymIqbLB8hsXRq NGjxXj6ajIwgxBypCZ1yBSMy bjtw CIAktN9kXEAjiVNopJbcMC2b GWVabgkmp160XnRiIQX4ENFy pFHrV5TpsV0aPyRkDIThDHEh O3Rl jGDpIMsgD774RIijElR0CYIq keDhN9OkOZTsvYgnIfC3n5J0 Eq8ZZUUrFNZbvCVsEgY0X4Iu Pjwv dHI+KY76VMYuLH45jHMtmLVw m0dldDs6GkQbNLZdXPN9sHnk WCtcn7RcKLNmA05haXFry2L0 IGNv hJnwfLZoOqSaxST2dK6dHWam cubbk9qlqxnxLcwsw3ftbj88 cV43G57bHJugXSOjSOQyFWFt IHZh eLlkko8svU8cIm1+PGNvbCB3 pDV3eX2bOfSpQjT1RYrhR155 GwOyhQDgReltr2jqq8dihXs5 IjIw XWKaqmMzdZmiFDC1b5DwBp41 K60fNEabSNNdBPWpNWNoNYDi fRtwzz3okW7lMp1+MA8qw8bd cm91 pG18wNL+OPAtGFA9iNrvMPva ZTSnnI2rVEjwUrQ1AMJwRhOq jS07hKPyJCyoZm4myChaxUon MC4w VDDaikldo945JuUqm0ijWAOd nOQrGBpwJAZ4K91kf3C4QRTq MSOfQUZ9bMS8jS1ptRqkuyik bGVm fZcuqmCvnOhgBDriCHfmQ477 WVTthQwrJjAogPKmU7ruzfEE SY6jUfulvYD+NUOsVKK5gNzs PSdw CVKwsY0eBKPfN2m3VyKuRpH7 EFxxX5FttaZ4XFQcfOYmFHVx sZCOpJ2lljocp6ojaifnFhZj MDAw JEa2GGa6CJAagFmrWuZmUJS4 WkT6KID1jUMdyE6jsHjlcspw wE7iKrt+RklOOjwvdGQ+PHRk IHN0 eJxmORkiPFFkxV5hAAYtM2c0 KsNyMuF3YVulK8CapnS8QSJf iNCiJNEdwGXEjS7twijtv6zt cjog BhUrDLSiFMb3HOd9PKJvtFux UyXiVNW0EhX3XPJ6uRFweP1m kQahmiergG0yBct+TVJOOjwv dGQ+ PWOvPVD5vSrhXIzdRQRxyA6g NVQhR5y8VdQzNwT2TDnpV4Kk muT0LXEsqEFxASEfpRCHoU9v cztj w1mmjiafYvBiOAAzTUv5WLh8 XGEzlFfkIyVdRMK3XtU5FDU7 tACiaE9mtSeeyquvdP6qJnt+ UGF5 BTN1MB86LO99K2XwAujrwXQv bGU+PHRhYmxlIHdpZHRoPScx PZLhPsCqrSroZJ1xEh9pUZSh LWNv bGxhcHNl (more content not included)... [facility] C Urineon 09-19-2022 Bacteria identified Cx Nom (U) Microbiology PROCEDURE: Urine Culture [R1] SOURCE: U Random BODY SITE: COLLECTED DATE/TIME: 09/17/2022 11:31 EDT RECEIVED DATE/TIME: 09/17/2022 18:03 EDT START DATE/TIME: 09/17/2022 18:03 EDT FREE TEXT SOURCE: MARJORIE PICKETT PA-C, PA-C, MARJORIE Lawler FINAL REPORTS Final Report [] Verified Date/Time: [...] Locations R1: This test was performed at: [facility], [address] [place] [address], [phone] , , Normal [facility] Comment on above: Performed By: #### 2 [id number] ####[facility] [address] [place] [address] Patient Educationon 09-18-19 Patient Education Urology Urinary [...] nerve stimulation). ? For women, using a medical dir to prevent urine leaks. This is a [...] urine. ? (more content not included)... Normal [facility] Urology Office/Clinic Noteon 09-17-2022 Urology Office/Clinic Note [...] E&M of Est. Patient Moderate 30-39 Min 54533 2. Urge incontinence (N39.41: Urge incontinence) see #1. Ordered: E&M of Est. Patient Moderate 30-39 Min 46111 3. BPH with urinary obstruction (N40.1: Benign prostatic hyperplasia with lower urinary tract symptoms) on prazosin through PCP, not for BPH. mild weak stream/straining but no changes over the past 3-5 yrs per pt. PVR 0ml. no issues w UTIs. no gross hematuria. Ordered: E&M of Est. Patient Moderate 30-39 Min 86751 Measure Post Void residual urine and/or bladder capacity by US- non-imaging 59621 Urnls Dip Stick Auto w/o Microscopy POC 18531 4. Prostate cancer screening (Z12.5: Encounter for [...] E&M of Est. 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 Normal [facility] Comment on above: Result Comment: Elec tronically Signed By: MARJORIE PICKETT PA-C.mendy\Date and Time Signed: 09/17/22 09:56 EDT XR Chest 2 Views*on 05-31-19 XR Chest 2 Views* FINDINGS: Comparison made with priorr chest x-ray 2020, subsequent chest CT January 23, 2021. Persistent diffuse interstitial prominence. No new parenchymal consolidation, infiltrates, or pulmonary edema. No pleural effusion. Mild beventricular prominence. IMPRESSION: Stable parenchymal findings consistent with interstitial lung disease Report reported and signed by Jan Cortes on 05/31/2022 0933 Normal [facility] US Liveron 04-05-2022 US Liver HISTORY: [...] by Jan Cortes on 04/05/2022 0919 Normal [facility] ECHOCARDIO M/2D COMPLETEon 1 06-02-2021 ECHOCARDIO M/2D COMPLETE Patient: NGHIA AVERY Exam Date: 04/02/2022 : 1945 Gender:M Ordering : GABRIELA LUONG [facility] Admission #: [id number] Family : DR MARJORIE NATH M.D. Order #: [id number] CLICK HERE TO VIEW EXAM ECHOCARDIOGRAM REPORT [...] Pressure: 46.69 ml, 46.69 ml Dictated by: Edwin Ortiz M.D. on 04/02/2022 at 16:05 Approved by: Edwin Ortiz M.D. on 04/02/2022 at 16:11 [address] [facility] Comprehensive Metabolic Pane duane 06-18-2021 Albumin [Mass/Vol] 4.7 g/dL Normal 3.6-5.1 [facility] Comment on above: Performed By: #### C MP #### [facility] [address] [place], [place] [id number] Albumin/Globulin [Mass ratio] 2.2 {ratio} Normal 1.0-2.5 [facility] Comment on above: Performed By: #### C MP #### [facility] [address] [place], [place] [id number] ALP [Catalytic activity/Vol] 104 U/L Normal 40-129 [facility] Comment on above: Performed By: #### C MP #### [facility] [address] [place], [place] [id number] ALT [Catalytic activity/Vol] 18 U/L Normal 9-46 [facility] Specialist Comment on above: Result Comment: 04/25 Female reference range changed. Performed By: #### C MP #### [facility] [address] [place], [place] [id number] Anion gap [Moles/Vol] 18 mmol/L Normal 12-20 [facility] Comment on above: Result Comment: Gaye ctive 05/31/2019 reference range changed. Performed By: #### C MP #### [facility] [address] [facility] [place] [id number] AST [Catalytic activity/Vol] 17 U/L Normal 10-40 [facility] Comment on above: Performed By: #### C MP #### [facility] [address] [place], [place] [id number] Bilirubin [Mass/Vol] 0.86 mg/dL Normal 0.30-1.20 [facility] Comment on above: Performed By: #### C MP #### [facility] [address] [place], [place] [id number] BUN/CREA 25 Ratio High 6-22 [facility] Comment on above: Performed By: #### C MP #### [facility] [address] [place], [place] [id number] Calcium [Mass/Vol] 9.5 mg/dL Normal 8.6-10.2 [facility] Comment on above: Performed By: #### C MP #### [facility] [address] [place], [place] [id number] Chloride [Moles/Vol] 104 mmol/L Normal 98-107 [facility] Comment on above: Performed By: #### C MP #### [facility] [address] [place], [place] [id number] CO2 [Moles/Vol] 25 mmol/L Normal 20-31 [facility] Comment on above: Performed By: #### C MP #### [facility] [address] [place], [place] [id number] Creatinine [Mass/Vol] 0.8 mg/dL Normal 0.7-1.4 [facility] Comment on above: Performed By: #### C MP #### [facility] [address] [facility] [id number] eGFRAA 114 mL/min/1.73m2 Normal >60 [facility] Specialist Comment on above: Performed By: #### C MP #### [facility] [address] [place], [place] [id number] eGFRNAA 94 mL/min/1.73m2 Normal >60 [facility] Comment on above: Performed By: #### C MP #### [facility] [address] [place], [place] [id number] Globulin (S) [Mass/Vol] 2.1 g/dL Normal 1.9-3.7 [facility] Comment on above: Performed By: #### C MP #### [facility] [address] [place], [place] [id number] Glucose [Mass/Vol] 157 mg/dL High 65-99 [facility] Machinist Supervisor Comment on above: Result Comment: For FASTING Glucose --- ADA reference ranges: Normal 65-99 mg/dl Prediabetes 100-125 Diabetes >/= 126 Performed By: #### C MP #### [facility] [address] [place], [place] [id number] Potassium [Moles/Vol] 4.4 mmol/L Normal 3.5-5.5 [facility] Comment on above: Performed By: #### C MP #### [facility] [address] [place], [place] [id number] Protein [Mass/Vol] 6.8 g/dL Normal 6.1-8.1 [facility] Machinist Supervisor Comment on above: Performed By: #### C MP #### [facility] [address] [place], [place] [id number] Sodium [Moles/Vol] 142 mmol/L Normal 135-146 [facility] Machinist Supervisor Comment on above: Performed By: #### C MP #### [facility] [address] [place], [place] [id number] Urea nitrogen [Mass/Vol] 20 mg/dL Normal 7-25 [facility] Machinist Supervisor Comment on above: Performed By: #### C MP #### [facility] [address] [place], [place] [id number] Hemoglobin A1Con 06-18-2021 EAG 154.20 Normal [facility] Comment on above: Performed By: #### A 1C #### [facility] [address] [place], [place] [id number] HbA1c (Bld) [Mass fraction] 7.0 % High 4.0-6.0 [facility] Machinist Supervisor Comment on above: Performed By: #### A 1C #### [facility] [address] [place], [place] [id number] Vital Signs Date Time Vital Sign Value Performing Clinician Facility 07-02-2023 11:33-0500 Diastolic blood pressure 62 mm[Hg] Beth Traore DRILL SETUP OPERATOR Work Phone: [facility] 07-02-2023 11:33-0500 Systolic blood pressure 138 mm[Hg] Beth Traore DRILL SETUP OPERATOR Work Phone: [facility] 07-02-2023 11:06-0500 Body height 165.1 cm Beth Traore DRILL SETUP OPERATOR Work Phone: [facility] 07-02-2023 11:06-0500 Body mass index (BMI) [Ratio] 51.59 kg/m2 Beth Traore DRILL SETUP OPERATOR Work Phone: [facility] 07-02-2023 11:06-0500 Body weight 140.62 kg Beth Traore DRILL SETUP OPERATOR Work Phone: [facility] 07-02-2023 11:06-0500 Heart rate 66 /min Beth Traore DRILL SETUP OPERATOR Work Phone: [facility] 07-02-2023 11:06-0500 SaO2% (BldA) [Mass fraction] 95 % Beth Traore DRILL SETUP OPERATOR Work Phone: [facility] 12-25-2022 09:38-0400 Blood Pressure Location Sherlyn Lue [facility] 12-25-2022 09:38-0400 Diastolic blood pressure 84 mm[Hg] Sherlyn Lue [facility] 12-25-2022 09:38-0400 Heart rate 68 /min Sherlyn Lue [facility] 12-25-2022 09:38-0400 Respiratory rate 16 /min Sherlyn Lue [facility] 12-25-2022 09:38-0400 Systolic blood pressure 132 mm[Hg] Sherlyn Lue [facility] 09-17-2022 08:59-0400 Blood Pressure Location MARJORIE CATIE [facility] 09-17-2022 08:59-0400 Diastolic blood pressure 78 mm[Hg] MARJORIE CATIE [facility] 09-17-2022 08:59-0400 Heart rate 68 /min MARJORIE CATIE [facility] 09-17-2022 08:59-0400 Respiratory rate 16 /min MARJORIE CATIE [facility] 09-17-2022 08:59-0400 Systolic blood pressure 130 mm[Hg] MARJORIE CATIE [facility] 09-11-2021 11:06-0400 Diastolic blood pressure 73 mm[Hg] Ron Miller Jr. [facility] 09-11-2021 11:06-0400 Mean blood pressure 89 mm[Hg] Ron Miller Jr. [facility] 09-11-2021 11:06-0400 Systolic blood pressure 121 mm[Hg] Ron Miller Jr. [facility] 09-11-2021 10:29-0400 Blood Pressure Location Ron Miller Jr. [facility] 09-11-2021 10:29-0400 Diastolic blood pressure 70 mm[Hg] Ron Miller Jr. [facility] 09-11-2021 10:29-0400 Heart rate 62 /min Ron Miller Jr. [facility] 09-11-2021 10:29-0400 Respiratory rate 16 /min Ron Miller Jr. [facility] 09-11-2021 10:29-0400 Systolic blood pressure 158 mm[Hg] Ron Miller Jr. [facility] Encounters Encounter Date Encounter Type Care Provider Facility Start: 01-01-2024 End: 01-01-2024 ambulatory MARJORIE NATH Not Available Start: 12-26-2023 End: 12-26-2023 ambulatory JUN HEALY [facility] Start: 12-20-2023 Evaluation and manag ement of inpatient [facility] Start: 12-20-2023 Evaluation and manag ement of inpatient DEIRDRE MOJICA [facility] Start: 12-18-2023 [facility] Start: 12-17-2023 End: 12-20-2023 Evaluation and management of inpatient [facility] Start: 12-16-2023 [facility]: 12-16-2023 End: 12-16[facility] Start: 11-06-2023 End: 11-06-2023 ambulatory AURE HURLEY Not Available Start: 10-03-2023 End: 10-03-2023 ambulatory BETH EUGENIE Not Available Start: 08-19-2023 End: 08-19-2023 ambulatory MILADY Chan BETH Not Available Start: 08-05-2023 End: 08-05-2023 ambulatory AURE HURLEY Not Available Start: 07-30-2023 End: 07-30-2023 ambulatory KYMBERLYBRYANNA NATION Not Available Start: 07-29-2023 End: 07-29-2023 ambulatory MARCELLA ZAMAN Not Available Start: 07-02-2023 Bamboo flowsheet Beth Traore DRILL SETUP OPERATOR Work Phone: [facility] Start: 07-02-2023 Bamboo flowsheet Beth Traore DRILL SETUP OPERATOR Work Phone: [facility] Start: 07-02-2023 End: 07-02-2023 ambulatory BETH TRAORE Not Available Start: 07-02-2023 End: 07-02-2023 Office outpatient visit 25 minutes Beth Traore DRILL SETUP OPERATOR Work Phone: [facility] Comment on [...] insulin (CMS/HCC) Start: 05-06-2023 End: 05-06-2023 ambulatory MARCELLA ZAMAN Not Available Start: 04-29-2023 End: 04-29-2023 ambulatory AURE HUERTAE Not Available Start: 03-25-2023 Patient encounter status Beth Traore DRILL SETUP OPERATOR Work Phone: [facility] Start: 12-25-2022 End: 12-26-2022 ambulatory Sherlyn Navarro Facility:[facility] Start: 12-25-2022 End: 12-25-2022 Patient encounter procedure Sherlyn Navarro [facility] Start: 09-30-2022 End: 10-01-2022 ambulatory Sherlyn Navarro Facility:[facility] Start: 09-17-2022 End: 09-18-2022 ambulatory PA-C MARJORIE E CATIE Facility:[facility] Start: 09-17-2022 End: 09-17-2022 Lab Drop off MARJORIE PICKETT [facility] Start: 09-17-2022 End: 09-18-2022 ambulatory PA-C MARJORIE BRICERY [facility] Start: 09-17-2022 End: 09-17-2022 Patient encounter procedure MARJORIE PICKETT [facility] Start: 04-02-2022 End: 04-03-2022 ambulatory GABRIELA LUONG Facility: Start: 09-11-2021 End: 09-11-2021 Patient encounter procedure Ron Miller Jr. [facility] Procedures Date Procedure Procedure Detail Performing Clinician Start: 07-02-2023 Hemoglobin glycosyla gracie a1c Beth Traore NP Work Phone: Start: 12-16-2019 Injection of therape utic substance into bladder wall Ron Miller Jr. Start: 03-25-2019 Injection of therape utic substance into bladder wall Ron Miller Jr. Start: 11-04-2016 Colonoscopy Ron hodge Jr. Start: 09-23-2014 Cystoscopy Ron Emmett hodge Kayode Start: 05-26-2009 Placement of stent i n cardiac conduit Ron Miller JrKayode Start: 05-26-2007 Laser ablation of prostate Ron Miller JrKayode Start: 05-26-2007 Transrectal biopsy o f prostate using ultrasound guidance Ron Miller Appendectomy Ron Miller Jr Kayode Arthroplasty of knee Ron Miller JrKayode Comment on above: B/L Cystoscopy Ron Miller Jr Kayode Plan of Treatment Date Care Activity Detail Author Start: 03-13-2025 Glaucoma screening Diabetes: R etinopathy Screening [facility] Start: 03-26-2024 Medicare Annual Well ness (AWV) Medicare Annual Wellness (AWV) [facility] Start: 10-03-2023 End: 10-03-2023 Patient encounter procedure 10/03/2023 11:30 AM EDT [facility] [address] [place] [id number] Beth Traore NP [address] [place] [address] [facility] Start: 09-30-2023 Hemoglobin A1c measurement Diabetes: Hemoglobin A1C [facility] Start: 08-05-2023 End: 08-05-2023 Patient encounter procedure 08/05/2023 9:30 AM EDT Procedure Visit [facility] [address] [facility] [place] [phone] Aure Hurley DPM [address] [place] [address] [facility] Start: 07-30-2023 End: 07-30-2023 Patient encounter procedure 07/30/2023 10:45 AM EST Office Visit [facility] [address] [place] [address] Kymberly Nation, DO [address] [place] [address] [facility] Start: 07-29-2023 End: 07-29-2023 Patient encounter procedure 07/29/2023 10:10 AM EST Office Visit [facility] [address] [place] [address] Marcella Zaman, PROM BURN OFF OPERATOR-MALT ROASTER [address] [place] [address] [facility] Start: 06-26-2023 Hemoglobin A1c measurement Diabetes: Hemoglobin A1C [facility] Immunizations Immunization Date Immunization Notes Care Provider Fa cili 02-21-2023 RSV, recombinant, protein subunit RSVpreF, adjuvant reconstitu, 120mcg/0.5mL, PF (Arexvy) Beth Traore DRILL SETUP OPERATOR Work Phone: [facility] 02-21-2023 SARS-COV-2 (COVID-19 ) vaccine, mRNA, spike protein, LNP, PF, alfonzo-sucrose, 30 mcg/0.3 mL Beth Traore DRILL SETUP OPERATOR Work Phone: [facility] 02-07-2023 Influenza, Seasonal, Quadrivalent, Adjuvanted Beth Traore DRILL SETUP OPERATOR Work Phone: [facility] 02-07-2023 zoster vaccine recombinant Beth Traore DRILL SETUP OPERATOR Work Phone: [facility] 10-09-2022 Moderna Bivalent Gamez ster Vaccination Beth Traore DRILL SETUP OPERATOR Work Phone: [facility] 10-09-2022 SARS-CoV-2 (COVID-19 ) [id number] Sherlyn Navarro [facility] 10-09-2022 zoster vaccine recombinant Sherlyn Navarro [facility] 03-26-2022 Moderna Bivalent Gamez ster Vaccination Beth Traore DRILL SETUP OPERATOR Work Phone: [facility] 03-26-2022 SARS-CoV-2 (COVID-19 ) [id number] MARJORIE CATIE [facility] 01-24-2022 influenza virus vacc ine, unspecified formulation Beth Eugenie DRILL SETUP OPERATOR Work Phone: [facility] 01-16-2022 influenza virus vacc ine, unspecified formulation MARJORIE CATIE [facility] 01-16-2022 Influenza, Seasonal, Quadrivalent, Adjuvanted Beth Traore DRILL SETUP OPERATOR Work Phone: [facility] 09-03-2021 SARS-CoV-2 (COVID-19 ) [id number] vaccine MARJORIE BRICERY [facility] 09-03-2021 SARS-CoV-2, Unspecified April Traore DRILL SETUP OPERATOR Work Phone: [facility] 04-05-2021 SARS-CoV-2 (COVID-19 ) [id number] vaccine MARJORIE CATIE [facility] 04-05-2021 SARS-CoV-2, Unspecified April Traore DRILL SETUP OPERATOR Work Phone: [facility] 04-04-2021 Moderna SARS-CoV-2 Vaccination Beth Traore DRILL SETUP OPERATOR Work Phone: [facility] 02-23-2021 influenza virus vacc ine, unspecified formulation Beth Traore DRILL SETUP OPERATOR Work Phone: [facility] 02-16-2021 influenza virus vacc ine, unspecified formulation MARJORIE CATIE [facility] 02-16-2021 Influenza, Seasonal, Quadrivalent, Adjuvanted Beth Elizondopfer DRILL SETUP OPERATOR Work Phone: [facility] 07-31-2020 Moderna SARS-CoV-2 Vaccination Beth Traore DRILL SETUP OPERATOR Work Phone: [facility] 07-04-2020 SARS-CoV-2 (COVID-19 ) mRNA-[id number] vaccine Ron Miller Jr. [facility] 07-03-2020 Moderna SARS-CoV-2 Vaccination Beth Traore DRILL SETUP OPERATOR Work Phone: [facility] 01-25-2020 influenza virus vacc ine, unspecified formulation Ron Miller Jr. [facility] 01-22-2020 influenza virus vacc ine, unspecified formulation MARJORIE PICKETT [facility] 01-22-2020 influenza, injectabl e, quadrivalent, preservative free Beth Elizondopfer DRILL SETUP OPERATOR Work Phone: [facility] 03-11-2019 Influenza, High-dose Seasonal, Quadrivalent, Preservative Free Beth Kampfer DRILL SETUP OPERATOR Work Phone: [facility] 03-05-2019 influenza virus vacc ine, unspecified formulation MARJORIE CATIE [facility] 03-05-2019 Seasonal trivalent influenza vaccine, adjuvanted, preservative free Beth Elizondopfer DRILL SETUP OPERATOR Work Phone: [facility] 01-24-2019 influenza virus vacc ine, unspecified formulation Beth Kampfer DRILL SETUP OPERATOR Work Phone: [facility] 11-16-2018 pneumococcal conjuga te vaccine, 13 valent MARJORIE CATIE [facility] 02-09-2018 influenza virus vacc ine, unspecified formulation MARJORIE CATIE [facility] 02-09-2018 Seasonal trivalent influenza vaccine, adjuvanted, preservative free Beth Kampfer DRILL SETUP OPERATOR Work Phone: [facility] 03-28-2017 pneumococcal polysaccharide vaccine, 23 valent MARJORIE CATIE [facility] 02-10-2017 tetanus toxoid, redu dora diphtheria toxoid, and acellular pertussis vaccine, adsorbed Beth Kampfer DRILL SETUP OPERATOR Work Phone: [facility] 02-03-2017 influenza virus vacc ine, unspecified formulation MARJORIE CATIE [facility] 02-03-2017 Seasonal trivalent influenza vaccine, adjuvanted, preservative free Beth Kampfer DRILL SETUP OPERATOR Work Phone: [facility] 03-27-2016 pneumococcal conjuga te vaccine, 13 valent MARJORIE CATIE [facility] 02-07-2016 influenza virus vacc ine, unspecified formulation MARJORIE CATIE [facility] 02-07-2016 seasonal influenza, intradermal, preservative free Beth Kampfer DRILL SETUP OPERATOR Work Phone: [facility] 02-01-2015 influenza virus vacc ine, unspecified formulation MARJORIE CATIE [facility] 02-01-2015 influenza, high dose seasonal, preservative-free Beth Kampfer DRILL SETUP OPERATOR Work Phone: [facility] 06-17-2013 zoster vaccine, live JENNIFE R CATIE [facility] 02-24-2012 influenza virus vacc ine, unspecified formulation MARJORIE CATIE [facility] 02-24-2012 influenza, seasonal, injectable Beth Traore DRILL SETUP OPERATOR Work Phone: [facility] Healthcare 02-27-2010 influenza virus vacc ine, unspecified formulation MARJORIE BRICERY [facility] 02-27-2010 influenza, seasonal, injectable Beth Traore DRILL SETUP OPERATOR Work Phone: [facility] Healthcare Payers Date Payer Category Payer Medicare AETNA MEDICARE A DVANTAGE AETNA MEDICARE REPLACEMENT [id number] 2022-Present [address] [place] [address] [id number] 2022 Private Health Insurance [id number] 1961 Medicare [id number] 1945 Unknown [id number]. 593 1945 Unknown [id number] [id number]. 727 1945 Unknown [id number] 2.16.840.1.394222.3.579.2. 727 1943 Unknown [id number] 2.16.840.1.654626.3.579.2. 727 1943 Unknown [id number] 2.16.840.1.358665.3.579.2. 727 1943 Unknown [id number] 2.16.840.1.858714.3.579.2. 1259 1943 Unknown [id number] 2.16.840.1.128104.3.579.2. 1259 1943 Unknown [id number] 2.16.840.1.075597.3.579.2. 1259 1943 Unknown [id number] 2.16.840.1.916537.3.579.2. 1259 1943 Unknown [id number] 2.16.840.1.626485.3.579.2. 1258 1943 Unknown [id number] 2.16.840.1.093370.3.579.2. 1258 1943 Unknown [id number] 2.16.840.1.912744.3.579.2. 1258 1943 Unknown [id number] 2.16.840.1.516832.3.579.2. 1258 1943 Unknown [id number] 2.16.840.1.523463.3.579.2. 1258 1945 Unknown [id number] [id number]. 1259 Social History Date Type Detail Facility Start: 09-11-2021 End: 12-25-2022 Tobacco smoking status Ex-smoker (finding) [facility] Start: 03-25-2023 End: 03-26-2023 Sex Assigned At Male [facility] Tobacco smoking status Never [facility] Start: 12-25-2022 [facility] Start: 12-25-2022 [...] containing alcohol? Never [facility] (I/We) worried wheth er (my/our) food would run out before (I/we) got money to buy more. Never true [facility] Start: 01-15-2023 Alcohol Comment caffeine: coff ee occasionally [facility] Start: 1945 Sex Assigned At Not on file [facility] Start: 08-07-2022 Gender identity Identifies as male gender (finding) [facility] Functional Status Date Assessment Result Facility 12-25-2022 Functional Status N/A [facility] 09-17-2022 Functional Status N/A [facility] Clinical Notes 09-11-2021 to 12-26-2023 Beth Eugenie, DRILL SETUP OPERATOR - 07/02/2023 11:00 AM EST Note Date & Type Note Facility 12-26-2023 Note Currently resolved with PPM [facility] 12-26-2023 Note Wound check today- i ncision healing well, no s/s of infection Wearing sling to lt arm- and continues limited ROM of lt arm well. RTC at 1 month for device check [facility] 12-26-2023 Note [facility] CARDIOLOGY PROGR ESS NOTE HPI: Nghia Avery is a 78 y.o. male here for S/P PPM implantation HPI 78 yo male here for wound check s/p PPM placement on 12/[address] Mojica. Pt is ambulatory via walker. Still has a carlson catheter in place and is seeing Urology 01/07/24 Denied chest pain, states SOB is not worse than usual with exertion. Denied orthopnea, fever, chills, N/V/D Hospital Course History of Present Illness Nghia Avery is an 78 y.o. male who came from [facility] with concern for complete heart block. Patient has past medical history of CAD with stent placement in 2011, hypertension, diabetes mellitus type 2, CVA, hyperlipidemia, aortic stenosis-moderate, and lymphedema. Patient was sent to [facility] due to concern for complete heart block on Holter monitor. Patient was monitored there overnight and they held patient's beta-marcello, however patient remained bradycardic overnight reaching as low as 29 heart rate. Request was made to transfer here for placement of a pacemaker by Dr. Mojica. He denies any symptoms, no lightheadedness no dizziness. He denies any chest pain or shortness of breath. He reports he did have difficulty urinating at [place] and has a Carlson in currently, that is his only complaint. Complete heart block - cards following - pacemaker with Dr. Mojica placed 12/18 Biotronik dual-chamber pulse generator. - cardiology did clear for discharge on 12/19 - has follow up arranged on 12/25 Urinary retention - carlson placed in the ER for 2 liters retention - will arrange follow up with urology for removal - 01/06 CAD s/p PCI 5 years ago - holding ASA and plavix - Cardiology at [place] discontinued plavix DMII noninsulin dependent - resume home meds at discharge Primary hypertension - cardiology discontinued norvasc and increased coreg to 12.5mg po bid Review of Systems Constitutional: Negative. Respiratory: Positive for shortness of breath. Cardiovascular: Negative. Neurological: Negative. All other systems reviewed and are negative. Visit Vitals Smoking Status Former Allergies Allergen Reactions Sulfamethizole Other reaction(s): Intolerance-unknown Sulfamethoxazole-Trimethoprim Hives Trimethoprim Other reaction(s): Intolerance-unknown Medications: Current Outpatient Medications on File Prior to Visit Medication Sig Dispense Refill aspirin 81 mg EC tablet in the morning. atorvastatin (Lipitor) 40 mg tablet atorvastatin 40 mg tablet carvedilol (Coreg) 12.5 mg tablet Take 1 tablet (12.5 mg) by mouth two times daily for 60 doses. 60 tablet 0 cholecalciferol (Vitamin D-3) 25 MCG (1000 UT) capsule Take 1,000 Units by mouth in the morning. dapagliflozin propanediol (Farxiga) 5 mg Take 5 mg by mouth. Incruse Ellipta 62.5 mcg/actuation inhalation lisinopril 30 mg tablet Take 30 mg by mouth in the morning. metFORMIN (Glucophage) 1,000 mg tablet Take 1,000 mg by mouth with breakfast. pioglitazone (Actos) 30 mg tablet pioglitazone 30 mg tablet prazosin (Minipress) 5 mg capsule prazosin 5 mg capsule [DISCONTINUED] amLODIPine (Norvasc) 10 mg tablet amlodipine 10 mg tablet [DISCONTINUED] carvedilol (Coreg) 6.25 mg tablet TAKE 1 TABLET WITH BREAKFAST AND WITH EVENING MEAL 180 tablet 3 [DISCONTINUED] clopidogrel (Plavix) 75 mg tablet clopidogrel 75 mg tablet No current facility-administered medications on file prior to visit. Physical Exam: Constitutional: Appearance: Normal appearance. Without apparent distress, obese, chronically ill HENT: Head: Normocephalic and atraumatic. Nose: Nose normal. Mouth/Throat: Mouth: Mucous membranes are moist. Eyes: Extraocular Movements: Extraocular movements intact. Conjunctiva/sclera: Conjunctivae normal. Neck: Vascular: No JVD. Cardiovascular: Rate and Rhythm: Normal rate and regular rhythm. Pulses: Dorsalis pedis pulses are 3 on the right side and 3on the left side. Posterior tibial pulses are 3 on the right side and 3 on the left side. Heart sounds: Normal heart sounds, S1 normal and S2 normal. Pulmonary: Effort: Pulmonary effort is normal. Breath sounds: Normal breath sounds. Abdominal: General: Bowel sounds are normal. Palpations: Abdomen is soft. Musculoskeletal: General: Normal range of motion. Cervical back: Normal range of motion. Right lower leg: No edema. Left lower leg: No edema. Skin: General: Skin is warm and dry. Lt upper chest incision well approximated, no erythema, ecchymosis or hematoma noted Capillary Refill: Capillary refill takes less than 2 seconds. Neurological: General: No focal deficit present. Mental Status: he is alert and oriented to person, place, and time. Psychiatric: Mood and Affect: Mood normal. Behavior: Behavior normal. Thought Content: Thought content normal. Judgment: Judgment normal. Labs: Component Ref Range & Units 6 d ago 7 d ago 8 d ago 9 d ago Sodium 136 - 145 mmol/L 138 139 139 139 P (more content not included)... [facility] 12-26-2023 Note Patient here for wou nd check s/p PPM placement on 12/[address] Mojica. [facility] 12-20-2023 Note Occupational Therapy Occupational Therapy Evaluation Patient Name: Nghia Avery : 1945 Today's Date: 12/20/2023 Time In: 11:14 Time Out: 11:36 Intervention Time Breakdown: Low complexity eval Total Billed Minutes: 22 minutes General Subjective: I have been waiting for you---i guess I need to see you before I can leave Family/Caregiver Present: No HISTORY: Patient is a 78 yr old transfer from [facility]. Was seen at cardio clinic on 12/16, was noted to have bradycardia, EKG done and showed complete heart block. Patient sent to [facility] ER for pacemaker work up. Tx to [facility] for pacemaker placement per MD Mojica. Under went pacemaker placement on 12-19-23 Pt was seen by OT today to provide education to pt on guidelines/precautions he should follow since having pacemaker placement. Pt was resting in BS chair upon OT arrival and was in chair at end of education session with call light within his reach. Patient Active Problem List Diagnosis Abnormal result [...] post percutaneous transluminal coronary angioplasty Urinary incontinence Atherosclerosis of coronary artery without angina pectoris Epiretinal membrane Fatty liver Hyperopia Nuclear sclerotic cataract Posterior vitreous detachment of both eyes Presbyopia Primary osteoarthritis of both knees Regular astigmatism Thickening of wall of gallbladder 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) Heart block AV third degree (CMS/HCC) Past Medical History: Diagnosis Date Coronary artery disease Diabetes mellitus (CMS/HCC) Heart valve disease Hyperlipidemia Hypertension Sleep apnea Stroke (CMS/HCC) Past Surgical History: Procedure Laterality Date APPENDECTOMY TOTAL KNEE ARTHROPLASTY Precautions Precautions Post-Surgical Precautions: OT session addressed providing education s/p pacemaker placement on restriction/limitations for daily tasks General Assessment General Assessment Hand Dominance: Right Home Living Home Living Type of Home: House Lives With: Alone (but has renter on the second level of home) Home Adaptive Equipment: Walker rolling, Cane Home Layout: Two level, Able to live on main level with bedroom/bathroom, Laundry in basement Home Access: Stairs to enter with rails Entrance Stairs-Rails: Both Entrance Stairs-Number of Steps: 3 (back door) Bathroom Shower/Tub: Tub/shower unit Bathroom Toilet: Standard Bathroom Equipment: Shower chair with back (no grab bars) Prior Level of Function Prior Function Level of [place]: Independent with homemaking with ambulation, Independent with homemaking with wheelchair (pt's son comes daily to apply pts velcro closure compression knee high garments: sleeps in lift chair) Prior Functional Mobility: Independent with cane, Independent with rolling walker (uses RW in community---st cane in home) Receives Help From: (son /grandson) Leisure: used to love to walk and bike; now reads/watch TV Prior IADLs IADL History Homemaking Responsibilities: Yes Meal Prep Responsibility: Primary Laundry Responsibility: No Cleaning Responsibility: Secondary Shopping Responsibility: Secondary Trucking Supervisor Responsibility: No IADL Comments: Pt was driving as needed--ie to grocery store Outcome Assessments AM-PAC 6 Clicks Putting on and taking off regular lower body clothing?: A Lot (Mod/Max Assist) Bathing(Including washing,rinsing,drying)?: A Lot (Mod/Max Assist) Toileting, which includes using the toilet,bedpan,or urinal?: A Little (Min Assist/Contact Guard/Supervision) Putting on and taking off regular upper body clothing?: A Lot (Mod/Max Assist) Taking care of personal grooming such as brushing teeth?: None (Independent) Eating meals?: None (Independent) Total Score OT [facility]: 17 Assessment/Plan OT Assessment OT Impairments: Decreased ADL status, Decreased functional mobility Prognosis: Fair (more content not included)... [facility] 12-20-2023 Note discharge planning: to return home with [facility] to provide shelter for new carlson needs Discharge Order in place; communication sent to bedside RN and [facility] to enquire if anything outstanding before Patient can leave the building this morning; awaiting confirmation. 1022 AVS sent to [facility], via [employer] system [facility] 12-20-2023 Note Cardiology Progress Note REASON FOR CONSULT Reason for Consult: CHB s/p pacemaker SUBJECTIVE Interval History: Patient seen and examined at bedside. No acute events overnight. He is feeling well and would like to go home today. He is concerned about the carlson that is in place. He has a productive cough, hx of COPD. His LE edema is stable. Denies any pain at pacemaker insertion site. Denies c/o CP, dyspnea, orthopnea, PND, dizziness/LH, palpitations, syncope. HPI: Nghia Avery is a 78 y.o. male with history of coronary artery disease s/p PCI long time ago, diabetes mellitus, hypertension, COPD was referred to our hospital from [facility] due to complete heart block the patient was seen by cardiology clinic found to be in complete AV block the patient was totally asymptomatic he was on low-dose beta-marcello and he was kept for observation of beta-blockers, he continued to go in and out of complete heart block and second-degree AV block Mobitz 2, here the patient was in Mobitz 2 AV block, he was totally asymptomatic he denies any chest pain shortness of breath orthopnea or PND's denies lower extremity swelling. OBJECTIVE Objective: Visit Vitals BP 117/67 (BP Location: Right arm, Patient Position: Lying) Pulse 61 Temp 36.3 ???C (97.3 ???F) (Temporal) Resp 20 Physical Examination: GENERAL: AOx3, in no acute distress. HEAD: Atraumatic, normocephalic. EYES: LINA, EOMI. NECK: No JVD present. CARDIAC: RRR. No murmur, rubs, or gallops. RESPIRATORY: CTAB, no increased effort of breathing. ABDOMEN: Soft, nontender, nondistended. EXTREMITIES: No lower extremity edema, peripheral pulses are 2+ bilaterally. NEURO: No focal deficits Current Meds: Current Facility-Administered Medications: acetaminophen (Tylenol) tablet 650 mg, 650 mg, oral, q6h PRN, America Luong NP aspirin EC tablet 81 mg, 81 mg, oral, Daily, America Luong NP atorvastatin (Lipitor) tablet 40 mg, 40 mg, oral, Nightly, America Luong NP, 40 mg at 12/19/232138 carvedilol (Coreg) tablet 12.5 mg, 12.5 mg, oral, BID, Yeny Julian, 12.5 mg at 12/19/232138 dapagliflozin propanediol (Farxiga) tablet 10 mg, 10 mg, oral, Daily, Carrol Bryant MD, 10 mg at 12/19/23 0911 glucose chewable tablet 24 g, 24 g, oral, q15 min PRN OR dextrose 50 % in water (D50W) syringe 25 g, 25 g, intravenous, q15 min PRN, America Luong NP diphenhydrAMINE (BENADryl) capsule 25 mg, 25 mg, oral, Nightly PRN, Radha James NP, 25 mg at 12/19/232138 insulin lispro (HumaLOG) injection 0-10 Units, 0-10 Units, subcutaneous, TID with meals, 2 Units at 12/18/23 1649 AND insulin lispro (HumaLOG) injection 0-8 Units, 0-8 Units, subcutaneous, Nightly, America Luong NP, 2 Units at 12/18/232142 lisinopril tablet 30 mg, 30 mg, oral, Daily, America Luong NP, 30 mg at 12/19/23 09 sennosides-docusate sodium (Savanna-Colace) 8.6-50 mg per tablet 2 tablet, 2 tablet, oral, BID, Divina Barron DO, 2 tablet at 12/19/232138 umeclidinium (Incruse Ellipta) 62.5 mcg/actuation inhalation 62.5 mcg, 1 puff, inhalation, Daily, America Luong NP, 62.5 mcg at 12/19/23 0912 Relevant Lab Results: Encounter Date: 12/17/23 ECG 12 lead Result Value Ventricular Rate 56 Atrial Rate 35 QRS DURATION 104 QT Interval 444 QTC CALCULATION(BAZETT) 428 R-Coyote -34 T Wave Coyote 75 Impression Sinus rhythm with 2nd degree A-V block (Mobitz I) Left axis deviation Incomplete right bundle branch block Abnormal ECG No previous ECGs available Confirmed by Lucho HAMMOND, L.S. (2) on 12/19/2023 11:46:03 AM Lab Results Component Value Date TROPONINI 0.02 12/17/2023 Cardiac Testing/Procedures: EP lab 12/19/2023 Impressions: Permanent pacemaker implantation Conscious sedation Fluoroscopy Contrast injection for venography of the upper extremity Deirdre Mojica M.D. Distinguished [employer]reading [employer] Operatormd senior research scientist and Pediatrics Director: Cardiac Electrophysiology Program Complete Echo (TTE) w/wo Imaging Agent, Strain, 3D, Bubble Study Result Date: 12/18/2023 1 1 [facility] Heart Station [address] [place] [address] [phone] (fax) Echocardiogram-[facility] Name: NGHIA AVERY Study Date: 12/18/2023 09:40 AM B/P: 143 mmHg/58 mmHg HR: 59 bpm Date of : 1945 Location: [facility] Height: 66 in. Age: 78 year(s) Patient Room: [facility] Weight: 325 lb. Gender: Male Patient Status: InPt BSA: 2.46 m2 Indication: Heart Block Examination: Echocardiogram (Complete), Lumason Contrast Image Quality: Poor sound transmission due to body habitus Patient Consent: Procedure explained to patient Conclusions Left Ventricle: The left ventricle is normal size. Global left ventricular systolic function is normal. The calculated Biplane EF is 59 %. Left ventricular wall thickness is normal. No regional wall motion abnormality. Unable to assess diastolic dysfun (more content not included)... [facility] 12-19-2023 Note Pt will discharge buddy carlson. Discussed with pt on whether he would like [facility] setup for nursing visits and he is agreeable. Sending referrals to [facility] as pt lives in [place]. UPDATE 2:05PM- [facility] accepted. Updated AVS. [facility] 12-19-2023 Note Hospital Medicine Daily Progress Note - 12/19/2023 12:53 PM; Room: [facility]/3170-01 Admission: 12/17/2023 4:33 PM; Length of stay: 2 days THE HOSPITALIST TEAM PREFERS TO USE [email or web address] CHAT FOR COMMUNICATION 7AM-7PM. IF I DO NOT RESPOND WITHIN 15 MINUTES, PLEASE PAGE ME/CALL THROUGH THE WARD HELPER. FROM 7PM-7AM, PLEASE PAGE [phone](COVR) Code Status: Full Code Barriers to Discharge: heart rate Expected Discharge Date: 12/19 Discharge Destination: home Overview Patient is seen for evaluation and management of heart block. Subjective Just returned from pacemaker RN at bedside Physical Exam Visit Vitals BP 115/63 (BP Location: Right arm, Patient Position: Sitting) Pulse 60 Temp 36.1 ???C (97 ???F) (Temporal) Resp 16 Intake/Output Summary (Last 24 hours) at 12/19/2023 1253 Last data filed at 12/19/2023 1115 Gross per 24 hour Intake 240 ml Output 1580 ml Net -1340 ml Physical Exam Constitutional: Appearance: Normal appearance. HENT: Head: Normocephalic. Mouth/Throat: Mouth: Mucous membranes are moist. Eyes: Extraocular Movements: Extraocular movements intact. Pupils: Pupils are equal, round, and reactive to light. Cardiovascular: Rate and Rhythm: Normal rate and regular rhythm. Pulmonary: Effort: Pulmonary effort is normal. Abdominal: General: Abdomen is flat. Neurological: Mental Status: He is alert. Estimated body mass index is 51.6 kg/m??? as calculated from the following: Height as of this encounter: 1.676 m (5' 6 ). Weight as of this encounter: 145 kg (319 lb 10.7 oz). Active Inpatient Problems Principal Problem: Heart block AV third degree (CMS/HCC) Active Problems: CAD S/P percutaneous coronary angioplasty Chronic obstructive pulmonary disease (CMS/HCC) DM type 2 (diabetes mellitus, type 2) (CMS/HCC) Type 2 diabetes mellitus without complication (CMS/HCC) Benign essential hypertension Assessment and Plan Complete heart block - cards following - pacemaker with Dr. Mojica placed today, Biotronik dual-chamber pulse generator. Urinary retention - carlson placed in the ER for 2 liters retention - will arrange follow up with urology for removal - 01/06 CAD s/p PCI 5 years ago - holding ASA and plavix DMII noninsulin dependent - holding metformin - cont farxiga - cont ISS Primary hypertension - cont home meds CKD 3a - stable COPD - stable - cont home inhalers Morbid obesity/obese class 3 - BMI 52 VTE Prophylaxis: Held for pacemaker Scheduled Meds amLODIPine, 10 mg, oral, Daily aspirin, 81 mg, oral, Daily atorvastatin, 40 mg, oral, Nightly clopidogrel, 75 mg, oral, Daily dapagliflozin propanediol, 10 mg, oral, Daily insulin lispro, 0-10 Units, subcutaneous, TID with meals And insulin lispro, 0-8 Units, subcutaneous, Nightly lisinopril, 30 mg, oral, Daily magnesium oxide, 400 mg, oral, q8h sennosides-docusate sodium, 2 tablet, oral, BID umeclidinium, 1 puff, inhalation, Daily Pertinent Investigations Hematology: Results from last 7 days Lab Units 12/19/23 0351 12/18/23 0539 WBC AUTO 10*3/uL 6.76 6.59 HEMOGLOBIN g/dL 12.1* 12.4* HEMATOCRIT % 37.0* 37.1* MCV fL 84.1 83.4 PLATELETS AUTO 10*3/uL 216 200 Chemistry: Results from last 7 days Lab Units 12/19/23 0351 12/18/23 0539 12/17/23 1738 SODIUM mmol/L 139 139 139 POTASSIUM mmol/L 4.0 4.1 4.1 CHLORIDE mmol/L 107 105 106 CO2 mmol/L 23 27 23 BUN mg/dL 28* 21 24 CREATININE mg/dL 1.33* 1.35* 1.36* GLUCOSE mg/dL 120* 111* 96 MAGNESIUM mg/dL 1.9 -- -- CALCIUM mg/dL 9.0 8.8 9.3 Results from last 7 days Lab Units 12/17/23 1738 AST U/L 14 ALT U/L 13 ALK PHOS U/L 100 BILIRUBIN TOTAL mg/dL 1.4* BILIRUBIN DIRECT mg/dL 0.3* Results from last 7 days Lab Units 12/19/23 1144 12/19/23 0720 12/18/23 2020 12/18/23 1622 12/18/23 1124 12/18/23 0708 POCT GLUCOSE mg/dL 125* 120* 227* 154* 155* 126* Historical Values: (Includes values prior to this admission) Lab Results Component Value Date TSH 2.40 12/17/2023 No results found for: [id number] , IRON , TIBC , C3 , C4 , BERNICE , CANCA , ASO , PSA , CEA , CA125 , CA199 , AFP , CA153 Imaging ECG 12 lead Sinus rhythm with 2nd degree A-V block (Mobitz I) Left axis deviation Incomplete right bundle branch block Abnormal ECG No previous ECGs available Confirmed by Lucho HAMMOND, L.S. (2) on 12/19/2023 11:46:03 AM Electrophysiology procedure Indications for permanent pacemaker implantation: The patient is a 78-year-old gentleman who presented to the hospital and complete heart block. Because of the complete heart block he will undergo permanent pacemaker implantation Procedure: After written informed consent was obtained he was brought to the pacemaker laboratory in the fasting state. A contrast injection for venography of the upper extremity was performed to delineate the course and patency of the left subclavian. The left subclavicul (more content not included)... [facility] 12-19-2023 Note Indications for perm anent pacemaker implantation: The patient is a 78-year-old gentleman who presented to the hospital and complete heart block. Because of the complete heart block he will undergo permanent pacemaker implantation Procedure: After written informed consent was obtained he was brought to the pacemaker laboratory in the fasting state. A contrast injection for venography of the upper extremity was performed to delineate the course and patency of the left subclavian. The left subclavicular fossa was then prepped and draped in usual manner 1% Xylocaine solution infiltrated for local anesthesia. Utilizing percutaneous technique the left subclavian was cannulated and under fluoroscopic guidance guidewires advanced to the level of the inferior vena cava to ensure neurovascular placement. Following initial sharp incision meticulous blunt dissection was employed to create a subfascial pocket. Via 2 breakaway introducer sheaths Biotronik active-fixation leads were fluoroscopically guided into positions in the right ventricular septum and right atrial appendage. The active-fixation coils of each were deployed and the leads were sutured into place with an 0 silk suture. They were connected to a FarmainstantroniDiffon dual-chamber pulse generator. This was placed in the previously created subfascial pocket and sutured into place with an 0 silk suture. The off field telemetry adequate sensing and pacing levels were determined. The right atrial lead had a pacing threshold of 1.6 V at 1 ms pulse width with a P wave amplitude of 1.4 mV and impedance of 449 ohms. The right ventricular lead had a pacing threshold of 0.5 V at 0.4 ms pulse width with an R wave amplitude of 6.6 mV and impedance of 684 ohms. The pocket was irrigated with antibiotic solution. The fascial layer closed with a continuous 2-0 Vicryl suture. The subdermal area with interrupted 3-0 Biosyn sutures placed utilizing a buried knot technique. The skin surface was closed with Dermabond glue and the wound was dressed with a Telfa pad and Tegaderm dressing. Sponge and needle counts were correct at the end of the case. Prior to the procedure the patient received intravenous antibiotic prophylaxis. Conscious sedation was maintained throughout the case with intravenous midazolam and fentanyl. He was returned to the holding area in stable hemodynamic condition. Impressions: Permanent pacemaker implantation Conscious sedation Fluoroscopy Contrast injection for venography of the upper extremity Deirdre Mojica M.D. [facility] md senior research scientist and Pediatrics Director: Cardiac Electrophysiology Program [facility] 12-19-2023 Note Patient: Nghia zarate Procedure Information Date/Time: 12/19/23 1030 Procedure: Implant PPM Location: [facility] PASTRY WRAPPER 1 / [facility] (Cath) Providers: Deirdre Mojica MD Clinical information reviewed: Allergies Meds Physical Exam Airway Mallampati: II Cardiovascular - normal exam Dental - normal exam Pulmonary - normal exam Abdominal - normal exam Anesthesia Plan ASA 2 The patient is not a current smoker. Patient was not previously instructed to abstain from smoking on day of procedure. Patient did not smoke on day of procedure. Education provided regarding risk of obstructive sleep apnea. Anesthetic plan and risks discussed with patient. Use of blood products discussed with patient who. Additional Equipment Requests [facility] 12-19-2023 Note Attestation signed by Joan Weber MD at 12/19/2023 4:33 PM I personally saw and examined the patient on the same date of service as resident/fellow Dr Julian. I discussed the findings and therapeutic plan with the resident/fellow Dr Julian. I agree with the documentation, except for any edits/updates below. Teaching Physician's Revisions: None Patient is going today for permanent pacemaker implantation due to second-degree AV block with 2:1 AV conduction and severe bradycardia. Will resume beta-marcello after pacemaker implantation for CAD. Hopefully home tomorrow Joan Weber MD, [facility] Cardiology Progress Note REASON FOR CONSULT Reason for Consult: CHB holter monitor SUBJECTIVE Interval History: Patient seen and examined at bedside. No overnight events. They have no complaints at this time and are doing well. Patient is afebrile and hemodynamically stable. Physical exam unchanged. HPI: Nghia Avery is a 78 y.o. male with history of coronary artery disease s/p PCI long time ago, diabetes mellitus, hypertension, COPD was referred to our hospital from [facility] due to complete heart block the patient was seen by cardiology clinic found to be in complete AV block the patient was totally asymptomatic he was on low-dose beta-marcello and he was kept for observation of beta-blockers, he continued to go in and out of complete heart block and second-degree AV block Mobitz 2, here the patient was in Mobitz 2 AV block, he was totally asymptomatic he denies any chest pain shortness of breath orthopnea or PND's denies lower extremity swelling. OBJECTIVE Objective: Visit Vitals BP 115/63 (BP Location: Right arm, Patient Position: Sitting) Pulse 60 Temp 36.1 ???C (97 ???F) (Temporal) Resp 16 Physical Examination: GENERAL: AOx3, in no acute distress. HEAD: Atraumatic, normocephalic. EYES: LINA, EOMI. NECK: No JVD present. CARDIAC: RRR. No murmur, rubs, or gallops. RESPIRATORY: CTAB, no increased effort of breathing. ABDOMEN: Soft, nontender, nondistended. EXTREMITIES: No lower extremity edema, peripheral pulses are 2+ bilaterally. NEURO: No focal deficits Current Meds: Current Facility-Administered Medications: acetaminophen (Tylenol) tablet 650 mg, 650 mg, oral, q6h PRN, America Luong NP amLODIPine (Norvasc) tablet 10 mg, 10 mg, oral, Daily, America Luong NP, 10 mg at 12/19/23 0909 aspirin EC tablet 81 mg, 81 mg, oral, Daily, America Luong NP atorvastatin (Lipitor) tablet 40 mg, 40 mg, oral, Nightly, America Luong NP, 40 mg at 12/18/232142 clopidogrel (Plavix) tablet 75 mg, 75 mg, oral, Daily, America Luong NP dapagliflozin propanediol (Farxiga) tablet 10 mg, 10 mg, oral, Daily, Carrol Bryant MD, 10 mg at 12/19/23 0911 glucose chewable tablet 24 g, 24 g, oral, q15 min PRN OR dextrose 50 % in water (D50W) syringe 25 g, 25 g, intravenous, q15 min PRN, America Luong NP diphenhydrAMINE (BENADryl) capsule 25 mg, 25 mg, oral, Nightly PRN, Radha James NP, 25 mg at 12/18/23 2331 insulin lispro (HumaLOG) injection 0-10 Units, 0-10 Units, subcutaneous, TID with meals, 2 Units at 12/18/23 1649 AND insulin lispro (HumaLOG) injection 0-8 Units, 0-8 Units, subcutaneous, Nightly, America Luong NP, 2 Units at 12/18/23 214 lisinopril tablet 30 mg, 30 mg, oral, Daily, America Luong NP, 30 mg at 12/19/23 0910 magnesium oxide (Mag-Ox) tablet 400 mg, 400 mg, oral, q8h, Divina Barron DO, 400 mg at 12/19/23 0909 sennosides-docusate sodium (Savanna-Colace) 8.6-50 mg per tablet 2 tablet, 2 tablet, oral, BID, Divina Barron DO, 2 tablet at 12/19/23 1213 umeclidinium (Incruse Ellipta) 62.5 mcg/actuation inhalation 62.5 mcg, 1 puff, inhalation, Daily, America Luong NP, 62.5 mcg at 12/19/23 0912 Relevant Lab Results: Encounter Date: 12/17/23 ECG 12 lead Result Value Ventricular Rate 56 Atrial Rate 35 QRS DURATION 104 QT Interval 444 QTC CALCULATION(BAZETT) 428 R-Coyote -34 T Wave Coyote 75 Impression Sinus rhythm with 2nd degree A-V block (Mobitz I) Left axis deviation Incomplete right bundle branch block Abnormal ECG No previous ECGs available Confirmed by Lucho HAMMOND, L.S. (2) on 12/19/2023 11:46:03 AM Lab Results Component Value Date TROPONINI 0.02 12/17/2023 Complete Echo (TTE) w/wo Imaging Agent, Strain, 3D, Bubble Study Result Date: 12/18/2023 1 1 [facility] Heart Station [address] [place] [id number] [phone] (fax) Echocardiogram-[facility] Name: NGHIA AVERY Study Date: 12/18/2023 09:40 AM B/P: 143 mmHg/58 mmHg HR: 59 bpm Date of : 1945 Location: [facility] Height: 66 in. Age: 78 year(s) Patient Room: [facility] Weight: 325 lb. Gender: Male Patient Status: InPt BSA: 2. (more content not included)... [facility] 12-18-2023 Note Hospital Medicine Daily Progress Note - 12/18/2023 12:42 PM; Room: [facility] Admission: 12/17/2023 4:33 PM; Length of stay: 1 days THE HOSPITALIST TEAM PREFERS TO USE [email or web address] CHAT FOR COMMUNICATION 7AM-7PM. IF I DO NOT RESPOND WITHIN 15 MINUTES, PLEASE PAGE ME/CALL THROUGH THE WARD HELPER. FROM 7PM-7AM, PLEASE PAGE [phone](COVR) Code Status: Full Code Barriers to Discharge: heart rate Expected Discharge Date: 1 - 2 days Discharge Destination: home Overview Patient is seen for evaluation and management of heart block. Subjective Doing OK No complaints Physical Exam Visit Vitals BP 133/53 (BP Location: Left arm, Patient Position: Lying) Pulse 59 Temp 36.3 ???C (97.3 ???F) (Temporal) Resp 13 Intake/Output Summary (Last 24 hours) at 12/18/2023 1242 Last data filed at 12/18/2023 1045 Gross per 24 hour Intake 480 ml Output 3300 ml Net -2820 ml Physical Exam Constitutional: Appearance: Normal appearance. HENT: Head: Normocephalic. Mouth/Throat: Mouth: Mucous membranes are moist. Eyes: Extraocular Movements: Extraocular movements intact. Pupils: Pupils are equal, round, and reactive to light. Cardiovascular: Rate and Rhythm: Normal rate and regular rhythm. Pulmonary: Effort: Pulmonary effort is normal. Abdominal: General: Abdomen is flat. Neurological: Mental Status: He is alert. Estimated body mass index is 52.59 kg/m??? as calculated from the following: Height as of this encounter: 1.676 m (5' 6 ). Weight as of this encounter: 148 kg (325 lb 13.4 oz). Active Inpatient Problems Principal Problem: Heart block AV third degree ([facility]) Active Problems: CAD S/P percutaneous coronary angioplasty Chronic obstructive pulmonary disease ([facility]) DM type 2 (diabetes mellitus, type 2) ([facility]) Type 2 diabetes mellitus without complication ([facility]) Benign essential hypertension Assessment and Plan Complete heart block - cards following - plan for pacemaker Urinary retention - carlson placed in the ER for 2 liters retention - will arrange follow up with urology for removal - 01/06 CAD s/p PCI 5 years ago - holding ASA and plavix DMII noninsulin dependent - holding metformin - cont farxiga - cont ISS Primary hypertension - cont home meds CKD 3a - stable COPD - stable - cont home inhalers Morbid obesity/obese class 3 - BMI 52 VTE Prophylaxis: Held for pacemaker Scheduled Meds amLODIPine, 10 mg, oral, Daily [Held by provider] aspirin, 81 mg, oral, Daily atorvastatin, 40 mg, oral, Nightly [START ON 12/19/2023] ceFAZolin (Ancef) 1,000 mg, gentamicin (Garamycin) 80 mg in sodium chloride irrigation solution 0.9 % 500 mL IRRIGATION, , irrigation, Once ceFAZolin, 3 g, intravenous, Once [Held by provider] clopidogrel, 75 mg, oral, Daily dapagliflozin propanediol, 10 mg, oral, Daily insulin lispro, 0-10 Units, subcutaneous, TID with meals And insulin lispro, 0-8 Units, subcutaneous, Nightly lisinopril, 30 mg, oral, Daily umeclidinium, 1 puff, inhalation, Daily Pertinent Investigations Hematology: Results from last 7 days Lab Units 12/18/23 0539 12/17/23 1738 WBC AUTO 10*3/uL 6.59 7.71 HEMOGLOBIN g/dL 12.4* 13.1 HEMATOCRIT % 37.1* 39.3 MCV fL 83.4 84.9 PLATELETS AUTO 10*3/uL 200 220 Chemistry: Results from last 7 days Lab Units 12/18/23 0539 12/17/23 1738 SODIUM mmol/L 139 139 POTASSIUM mmol/L 4.1 4.1 CHLORIDE mmol/L 105 106 CO2 mmol/L 27 23 BUN mg/dL 21 24 CREATININE mg/dL 1.35* 1.36* GLUCOSE mg/dL 111* 96 CALCIUM mg/dL 8.8 9.3 Results from last 7 days Lab Units 12/17/23 1738 AST U/L 14 ALT U/L 13 ALK PHOS U/L 100 BILIRUBIN TOTAL mg/dL 1.4* BILIRUBIN DIRECT mg/dL 0.3* Results from last 7 days Lab Units 12/18/23 1124 12/18/23 0708 12/17/23 2209 POCT GLUCOSE mg/dL 155* 126* 166* Historical Values: (Includes values prior to this admission) Lab Results Component Value Date TSH 2.40 12/17/2023 No results found for: [id number] , IRON , TIBC , C3 , C4 , BERNICE , CANCA , ASO , PSA , CEA , CA125 , CA199 , AFP , CA153 Imaging Complete Echo (TTE) w/wo Imaging Agent, Strain, 3D, Bubble Study 1 1 [facility] Heart Station [address] [place] [address] [phone] (fax) Echocardiogram-[facility] Name: NGHIA AVERY Study Date: 12/18/2023 09:40 AM B/P: 143 mmHg/58 mmHg HR: 59 bpm Date of : 1945 Location: [facility] Height: 66 in. Age: 78 year(s) Patient Room: 3170 Weight: 325 lb. Gender: Male Patient Status: InPt BSA: 2.46 m2 Indication: Heart Block Examination: Echocardiogram (Complete), Lumason Contrast Image Quality: Poor sound transmission due to body habitus Patient Consent: Procedure explained to patient Conclusions Left Ventricle: The left ventricle is normal size. Global left ventricular systolic function is normal. The calculated Biplane EF is 59 %. Left vent (more content not included)... [facility] 12-18-2023 Note 12/18/23904 Admission Assessment Questions Verify insurance with patient Yes Do you understand medical disease or what brought you into the hospital? Yes Who is your current PCP? Marjorie Nath MD Can I schedule a follow up appointment for you at the time of discharge? No (Patient stated he will make it) Do you understand why you are taking your current medications? Yes Are you taking your medications as prescribed? Yes Did patient provide teach back? No Pharmacy Bedside Delivery Status Interested Does the patient have a employment case manager assigned to them through their insurance? No Living Arrangement (Current/Prior to Hospitalization) Private residence (lives alone, lives on first story, 3 steps) Does the patient have history of HHC or SNF? Yes (two rehabs when had knee surgery, one called [facility], and cant Remember name of other one.) Assistive Device Cane;Walker Patient's goal for discharge home Was patient reminded that goal for discharge is 11am? Yes Does the patient have transportation at discharge? Yes (stated son would be his ride) Type of Residence Private residence Is PT/OT appropriate? Yes Is PT/OT ordered? No (reached out to MD) Is SW consult appropriate? Yes Is SW consult ordered? Yes Do you understand the benefits of MyChart? Yes Were you able to send link and activate MyChart? Yes [facility] 12-17-2023 Note Hospital Medicine History and Physical 12/17/2023 8:02 PM THE HOSPITALIST TEAM PREFERS TO USE [email or web address] CHAT FOR COMMUNICATION 7AM-7PM. IF I DO NOT RESPOND WITHIN 15 MINUTES, PLEASE PAGE ME/CALL THROUGH THE WARD HELPER. FROM 7PM-7AM, PLEASE PAGE [phone](COVR) Chief Complaint No chief complaint on file. History of Present Illness Nghia Avery is an 78 y.o. male who came from [facility] with concern for complete heart block. Patient has past medical history of CAD with stent placement in 2011, hypertension, diabetes mellitus type 2, CVA, hyperlipidemia, aortic stenosis-moderate, and lymphedema. Patient was sent to [facility] due to concern for complete heart block on Holter monitor. Patient was monitored there overnight and they held patient's beta-marcello, however patient remained bradycardic overnight reaching as low as 29 heart rate. Request was made to transfer here for placement of a pacemaker by Dr. Mojica. He denies any symptoms, no lightheadedness no dizziness. He denies any chest pain or shortness of breath. He reports he did have difficulty urinating at [facility] and has a Carlson in currently, that is his only complaint. Review of System and Physical Exam Temp: [36.5 ???C (97.7 ???F)] 36.5 ???C (97.7 ???F) Heart Rate: [64] 64 Resp: [16] 16 BP: (149)/(71) 149/71 Physical Exam Vitals reviewed. Constitutional: General: He is awake. He is not in acute distress. Appearance: Normal appearance. He is not ill-appearing. Cardiovascular: Rate and Rhythm: Normal rate. Rhythm irregular. Pulses: Radial pulses are 2+ on the right side and 2+ on the left side. Dorsalis pedis pulses are 2+ on the right side and 2+ on the left side. Heart sounds: Normal heart sounds. Comments: Normal to phani Pulmonary: Effort: Pulmonary effort is normal. No tachypnea, accessory muscle usage or respiratory distress. Breath sounds: Normal breath sounds. Abdominal: General: Bowel sounds are normal. There is no distension. Palpations: Abdomen is soft. Tenderness: There is no abdominal tenderness. Skin: General: Skin is warm and dry. Neurological: Mental Status: He is alert and oriented to person, place, and time. Mental status is at baseline. Psychiatric: Attention and Perception: Attention normal. Mood and Affect: Mood normal. Speech: Speech normal. Behavior: Behavior is cooperative. Review of Systems Constitutional: Negative for activity change, appetite change, fatigue and fever. HENT: Negative. Eyes: Negative. Respiratory: Negative. Cardiovascular: Negative. Gastrointestinal: Negative. Genitourinary: Positive for difficulty urinating. Musculoskeletal: Negative. Allergic/Immunologic: Negative. Neurological: Negative. Hematological: Negative. Psychiatric/Behavioral: Negative. Problem List Patient Active Problem List Diagnosis Date Noted Heart block AV third degree (CMS/HCC) 12/17/2023 Epiretinal membrane 03/25/2023 Hyperopia 03/25/2023 Nuclear sclerotic cataract 03/25/2023 Posterior vitreous detachment of both eyes 03/25/2023 Presbyopia 03/25/2023 Regular astigmatism 03/25/2023 Fatty liver 12/24/2022 Primary osteoarthritis of both knees 12/24/2022 Thickening of wall of gallbladder 12/24/2022 Type 2 diabetes mellitus with neurological manifestation ([facility]) 12/24/2022 Edema 03/13/2022 Proteinuria 03/13/2022 Lymphedema 06/07/2021 Obstructive sleep apnea syndrome 02/07/2021 Interstitial lung disease ([facility]) 12/22/2020 Aortic valve stenosis 04/28/2020 Type 2 diabetes mellitus without complication ([facility]) 04/28/2020 History of cerebrovascular accident 04/28/2020 Hyperlipidemia 04/28/2020 Morbid obesity ([facility]) 04/28/2020 Coronary arteriosclerosis 02/25/2020 History of neoplasm 06/29/2019 Chronic pain 06/08/2019 Dribbling of urine 04/06/2019 Chronic obstructive pulmonary disease ([facility]) 03/09/2019 Osteoarthritis of knee 11/05/2017 Elevated PSA 06/24/2016 Urinary incontinence 06/24/2016 Atherosclerosis of coronary artery without angina pectoris 06/05/2015 Encounter for preprocedural cardiovascular examination 12/01/2014 Cerebrovascular disease 01/27/2013 Dyslipidemia 01/13/2013 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0 to 37.9 in adult 09/11/2011 Pure hypercholesterolemia 09/11/2011 Assessment and Plan Complete heart block Continuous telemetry Baseline EKG stat Card (more content not included)... [facility] 12-16-2023 Note Cardiovascular Medic ine [facility] SUBJECTIVE Chief Complaint Patient presents with Coronary Artery Disease Hypertension Nghia Avery is a 78 y.o. male here for follow-up. HPI PMHx: *CAD -In 2011, he underwent cardiac cath with BMS to his RCA. His last stress test was in 2014 which was negative for ischemia. *HTN *DM type II *CVA *HLD * - Mild per 04/2020 ECHO, moderate per 03/2021 ECHO *Lymphedema 12/16/2023 He overall has been feeling well. He had a fall recently where he thinks his leg gave out or his toes got caught and he was able to lower himself to the ground. He ambulates with a cane. Denies c/o CP, dyspnea, orthopnea, PND, LE edema, dizziness/LH, palpitations, syncope. Patient Active Problem List Diagnosis Abnormal result [...] post percutaneous transluminal coronary angioplasty Urinary incontinence Atherosclerosis of coronary artery without angina pectoris Epiretinal membrane Fatty liver Hyperopia Nuclear sclerotic cataract Posterior vitreous detachment of both eyes Presbyopia Primary osteoarthritis of both knees Regular astigmatism Thickening of wall of gallbladder 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) Past Medical History: Diagnosis Date Coronary artery disease Diabetes mellitus (CMS/HCC) Heart valve disease Hyperlipidemia Hypertension Sleep apnea Stroke (CMS/HCC) Family History Problem Relation Name Age of Onset Coronary artery disease Father Coronary artery disease Brother Social History Tobacco Use Smoking status: Former Types: Cigarettes Smokeless tobacco: Never Substance Use Topics Alcohol use: Not Currently Allergies Allergen Reactions Sulfamethizole Other reaction(s): Intolerance-unknown Sulfamethoxazole-Trimethoprim Hives Trimethoprim Other reaction(s): Intolerance-unknown ROS Cardiovascular: Positive for leg swelling. Musculoskeletal: Positive for back pain. All other systems reviewed and are negative. OBJECTIVE Visit Vitals BP 126/64 (BP Location: Right arm, Patient Position: Sitting) Pulse 58 Ht 1.676 m (5' 6 ) Wt (!) 142 kg (314 lb) SpO2 96% BMI 50.68 kg/m??? Smoking Status Former BSA 2.57 m??? Medications: Current Outpatient Medications: amLODIPine (Norvasc) 10 mg tablet, amlodipine 10 mg tablet, Disp: , Rfl: aspirin 81 mg EC tablet, in the morning., Disp: , Rfl: atorvastatin (Lipitor) 40 mg tablet, atorvastatin 40 mg tablet, Disp: , Rfl: carvedilol (Coreg) 6.25 mg tablet, TAKE 1 TABLET WITH BREAKFAST AND WITH EVENING MEAL, Disp: 180 tablet, Rfl: 3 cholecalciferol (Vitamin D-3) 25 MCG (1000 UT) capsule, Take 1,000 Units by mouth in the morning., Disp: , Rfl: clopidogrel (Plavix) 75 mg tablet, clopidogrel 75 mg tablet, Disp: , Rfl: dapagliflozin propanediol (Farxiga) 5 mg, Take 5 mg by mouth., Disp: , Rfl: Incruse Ellipta 62.5 mcg/actuation inhalation, , Disp: , Rfl: lisinopril 30 mg tablet, Take 30 mg [...] No carotid bruit. Cardiovascular: Rate and Rhythm: Bradycardia present. Rhythm irregular. Pulses: Normal pulses. Heart sounds: Normal heart sounds. Pulmonary: Effort: Pulmonary effort is normal. Breath sounds: Normal breath sounds. Abdominal: General: Bowel sounds are normal. Palpations: Abdomen is soft. Musculoskeletal: General: Normal range of m (more content not included)... [facility] 12-16-2023 Note Patient here for 1 y ear follow up CAD, hypertension, hyperlipidemia, and aortic valve stenosis. Had routine echo 2 weeks ago. He was started on Farxiga by PCP since last visit. Patient denies chest pain, SOB, palpitations, and lightheadedness/syncope. He stopped taking lasix due to urinary incontinence. He denies increased LE edema. Had CMP in Dec 2022. Review of Systems Cardiovascular: Positive for leg swelling. Musculoskeletal: Positive for back pain. All other systems reviewed and are negative. [facility] 07-02-2023 History of Present illness Narrative Nghia Avery is a 77 y.o. male presents with [...] has been effective. Last dilated eye exam: 2022. He reports ongoing cough, worse in the [...] Type 2 diabetes mellitus with neurological manifestation ([facility]) - POCT Glycated hemoglobin, total -Diabetic protocols [...] Chronic obstructive pulmonary disease, unspecified COPD type ([facility]) - Umeclidinium [place] (Incruse Ellipta) 62.5 MCG/ACT aerosol powder ; Inhale 1 puff in the morning. -Using rescue inhaler frequently during the week. Start him on a maintenance inhaler to help with his breathing. He is agreeable to this. Type 2 diabetes mellitus with stage 3a chronic kidney disease, without long-term current use of insulin (HCC) ([facility]) Chronic kidney disease, stage 3a (N18.31) Type 2 diabetes mellitus with diabetic cataract, without long-term current use of insulin ([facility]) documented in this encounter [facility] 12-25-2022 Hospital Discharge instructions Patient [...] urethra. Follow these instructions at home: Take acgw-jac-hmuauei and prescription medicines only as told by [...] provider. Document Revised: 11/28/2021 Document Reviewed: 11/28/2021 [employer] Patient Education 2022 [email or web address]. Follow Up Care 09/30/2022 10:27:46 With:Ramon WHITE, DESMOND Wong, URO Address: When: Unknown Comments:PRINCE [facility] 09-30-2022 Note [id number] [facility] 09-30-2022 Note Cystoscopy with Boto x injection [...] you have a fever over 100 degrees. [facility] 09-17-2022 Evaluation + Plan note Diagnostic Tests PendingUrine Culture 09/17/22 [facility] 09-17-2022 Hospital Discharge instructions Patient Education [...] (electrical nerve stimulation). ?For women, using a medical dir to prevent urine leaks. This is a [...] right after experiencing incontinence. General instructions Take zfol-qcu-evjhufz and prescription medicines only as told by [...] important. Where to find more information National [place] of Diabetes and Digestive and Kidney Diseases: www.niddk.nih.gov [place] [employer]: www.urologyhealth.org Contact a health care [...] provider. Document Revised: 2020 Document Reviewed: 2020 [employer] Patient Education 2022 [email or web address]. Follow Up Care 09/11/2021 11:22:38 With:[facility] Address: [facility] [place] [address] Business (1) When: Unknown Comments:our ice cream maker will be contacting you for follow-up [facility] 09-11-2021 Hospital Discharge instructions Patient Education 09/11/2021 [...] fried and sweet foods. General instructions Take gsni-xct-xfmfwji and prescription medicines only as told by [...] 03/08/2010 Document Revised: 09/02/2019 Document Reviewed: 05/28/2018 [employer] Patient Education 2020 [email or web address]. Follow Up Care 03/08/2021 12:21:21 With:Ron Miller Jr., MD, URO Address: [facility] [address], [place] [address]- [phone] When:09/11/2022 [facility] Evaluation + Plan note Future Appointments Appointment Date:09/17/2022 10:30:00 AM Scheduled Provider:Ron Miller Jr., MD Location:[facility] Appointment Type:URO Office Visit Diagnostic Tests PendingPSA Total 09/11/21 [facility] Evaluation note Diagnosis Type 2 diabetes mellitus [...] available for this section [facility] Hospital Discharge instructions No data available for this section [facility] No data available for this section [facility] Summary Purpose Family History No [...] section and content) DATE CREATED AUTHOR 05/31/2022 [facility] Specialist DATE CREATED AUTHOR AUTHOR'S ORGANIZ ATION 08/08/2022 [facility] DATE CREATED AUTHOR AUTHOR'S ORGANIZ ATION 12/27/2022 Shawn Jennings [facility] DATE CREATED AUTHOR AUTHOR'S ORGANIZ ATION 12/28/2023 [facility] DATE CREATED AUTHOR AUTHOR'S ORGANIZ ATION 01/04/2024 [facility]ists EPIC Patient Care team informatio n (unrecognized section and content) [employer] Relationship Specialty Start Date End Date Marjorie Nath MD [address] [place] [address] PCP - [employer] 05/26/22 Marjorie Nath MD [address] [place] [address] PCP - General Family Medicine 12/21/22 [employer] Relationship Specialty Start Date End Date Marjorie Nath MD [address] [facility] [place] [address] PCP - [employer] 05/26/22 Marjorie Nath MD [address] [place] [address] [place] [address] PCP - General Family Medicine 12/21/22 Reason [...] BE BASED ON THE PRIMARY CLINICAL RECORDS. [facility]. provides no warranty or guarantee of the accuracy or completeness of information in this document.
[2024-01-04 17:55] LABS: Bilirubin Urine NEGATIVE (NEGATIVE); Blood Urine MODERATE (NEGATIVE); Clarity Urine CLEAR (CLEAR); Color Urine LT. YELLOW (YELLOW); Glucose Urine UA >=1000 mg/dL (NEGATIVE); Ketones Urine NEGATIVE (NEGATIVE); Leukocyte Esterase Urine SMALL (NEGATIVE); Nitrite Urine NEGATIVE (NEGATIVE); Protein Urine NEGATIVE (NEG/TRACE); Specific Gravity Urine <=1.005 (1.005-1.025); Urine Microscopic Indicated YES; Urobilinogen Urine 0.2 EU/dL (0.2-1.0)
--- NOTE | 2024-01-04 18:02 | PC.NURSE ---
pt has a urinary cath that is draining but slightly leaking around the meatus. area wet on observation but no leaking / streams observed. urine clear and sent to lab for order. Bladder scan used to make sure pt is not retaining urine and this shows no urinary retention. Pa at bedside and aware
[2024-01-04 18:05] LABS: Bacteria Urine SMALL #/HPF (NONE SEEN); Cast Seen? NONE SEEN #/LPF (NONE SEEN); Crystals Seen? None Seen #/HPF (None Seen); Mucus Urine NONE SEEN (NONE SEEN); Squamous Epithelial Cell Urine FEW #/LPF (NONE/RARE); Urine Culture Indicated YES
--- NOTE | 2024-01-04 18:21 | ED_ITS ---
HPI - Male Genitourinary General Chief complaint: Urogenital-Male Stated complaint: URINE ISSUE Time Seen by Provider: 01/04/24 17:47 Source: patient Mode of arrival: walk-in Limitations: no limitations History of Present Illness HPI Narrative: 78-year-old male presents here with chief complaint of leaking around his urinary catheter. Patient had it placed for urinary incontinence since December 15. He does have an appointment with his urologist this week. Patient states today he had some leaking around it was concerned. He is otherwise nontoxic- appearing. Holder does appear to be draining at this time. Related Data Home Medications ?Medication ?Instructions ?Recorded ?Confirmed albuterol sulfate 90 mcg/actuation 2 puff inhalation Q6H PRN 12/16/23 12/16/23 aerosol inhaler shortness of breath or wheezing amlodipine 10 mg tablet 10 mg PO DAILY 12/16/23 12/16/23 atorvastatin 40 mg tablet 40 mg PO DAILY 12/16/23 12/16/23 clopidogrel 75 mg tablet 75 mg PO DAILY 12/16/23 12/16/23 dapagliflozin propanediol 5 mg 5 mg PO DAILY 12/16/23 12/16/23 tablet (Farxiga) lisinopril 30 mg tablet 30 mg PO DAILY 12/16/23 12/16/23 metformin 1,000 mg tablet 1,000 mg PO BID 12/16/23 12/16/23 prazosin 5 mg capsule 5 mg PO DAILY 12/16/23 12/16/23 umeclidinium 62.5 mcg/actuation 1 inh inhalation Q24H 12/16/23 blister powder for inhalation (Incruse Ellipta) Allergies Allergy/AdvReac Type Severity Reaction Status Date / Time sulfamethoxazole Allergy Severe Hives Verified 01/04/24 17:41 [From ] trimethoprim [From ] Allergy Severe Hives Verified 01/04/24 17:41 Review of Systems ROS Narrative All Systems are negative except as noted/marked.All systems reviewed and otherwise negative [facility] Medical History (Updated 01/04/24 @ 18:20 by Nikki Ritchie) History of stroke ?Z86.73 - Personal history of transient ischemic attack (TIA), and cerebral infarction without residual deficits (ICD-10) History of COPD ?Z87.09 - Personal history of other diseases of the respiratory system (ICD- 10) History of hypertension ?Z86.79 - Personal history of other diseases of the circulatory system (ICD- 10) History of diabetes mellitus ?Z86.39 - Personal history of other endocrine, nutritional and metabolic disease (ICD-10) Surgical History History of appendectomy ?Z90.49 - Acquired absence of other specified parts of digestive tract (ICD- 10) History of bilateral knee replacement ?Z96.653 - Presence of artificial knee joint, bilateral (ICD-10) Hx of heart artery stent ?Z95.5 - Presence of coronary angioplasty implant and graft (ICD-10) Family History (Updated 12/16/23 @ 17:15 by Rosy Post) Other Family history of CHF (congestive heart failure) Family history of cancer Family history of diabetes mellitus Family history of hypertension Family history of stroke Social History (Updated 12/16/23 @ 17:16 by Rosy Post) Within the past year, how often did you have a drink containing alcohol: never Score interpretation: A score less than 4 is consistent with normal alcohol consumption. 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 General: The patient appears well and in no apparent distress. Patient is resting comfortably on cart. Skin: Warm, dry, no pallor noted. There is no rash noted. Head: Normocephalic, atraumatic Eye: Normal conjunctiva, no drainage, EOMI. PERRL Back: non-tender, no CVA tenderness bilaterally to percussion. GI: Normal bowel sounds, no tenderness to palpation, no masses appreciated. No rebound, guarding, or rigidity noted. gu: indwelling holder catheter Musculoskeletal: The patient has no evidence of calf tenderness, no pitting edema, symmetrical pulses noted bilaterally Neurological: A&O x4, normal speech Psychiatric: Cooperative Constitutional Vital Signs, click to edit/add: Last Vital Signs Temp 97.8 F 01/04/24 17:41 Pulse 64 01/04/24 17:41 Resp 20 01/04/24 17:41 BP 149/69 H 01/04/24 17:41 Pulse Ox 96 01/04/24 17:41 O2 Del Method Room Air 01/04/24 17:41 Course Vital Signs Vital signs: Vital Signs Temperature 97.8 F 01/04/24 17:41 Pulse Rate 64 01/04/24 17:41 Respiratory Rate 20 01/04/24 17:41 Blood Pressure 149/69 H 01/04/24 17:41 Pulse Oximetry 96 01/04/24 17:41 Oxygen Delivery Method Room Air 01/04/24 17:41 Temperature 97.8 F 01/04/24 17:41 Pulse Rate 64 01/04/24 17:41 Respiratory Rate 20 01/04/24 17:41 Blood Pressure 149/69 H 01/04/24 17:41 Pulse Oximetry 96 01/04/24 17:41 Oxygen Delivery Method Room Air 01/04/24 17:41 MDM - Male Genitourinary MDM Narrative Medical decision making narrative: 78-year-old male presents here with chief complaint of leaking around his urinary catheter. Patient had it placed for urinary incontinence since December 15. He does have an appointment with his urologist this week. Patient states today he had some leaking around it was concerned. He is otherwise nontoxic- appearing. Holder does appear to be draining at this time. Chief complaint of leaking around his Holder catheter. It is draining well. Patient did not have any urine in his bladder when it was scanned per nursing staff. Patient has no discomfort. We explained to him to use a pad or something as this has been in for quite some time it may leak which is not on normal. It is draining as it should. Patient will follow-up with urology as scheduled this week. Urine was reviewed and shows no sign of UTI at this time. Differential Diagnosis Differential diagnosis: Likely urinary tract infection and other (holder catheter ) Medical Records Attestation: I reviewed the patient's medical records. Lab Data Attestation: I reviewed the patient's lab results. Labs: Lab Results 01/04/24 Range/Units 17:49 Urine Color Lt. yellow (YELLOW) Urine Clarity Clear (CLEAR) Urine pH 6.0 (5.0-9.0) Ur Specific [place] <=1.005 A (1.005-1.025) Urine Protein Negative (NEG/TRACE) mg/dL Urine Glucose (UA) >=1000 A (NEGATIVE) mg/dL Urine Ketones Negative (NEGATIVE) mg/dL Urine Occult Blood Moderate A (NEGATIVE) Urine Nitrite Negative (NEGATIVE) Urine Bilirubin Negative (NEGATIVE) Urine Urobilinogen 0.2 (0.2-1.0) EU/dL Ur Leukocyte Esterase Small A (NEGATIVE) Urine RBC 5-10 A (0-2) #/HPF Urine WBC 5-10 A (NONE SEEN) #/HPF Ur Squamous Epith Cells Few A (NONE/RARE) #/LPF Urine Crystals None seen (None Seen) #/HPF Urine Bacteria Small A (NONE SEEN) #/HPF Urine Casts None seen (NONE SEEN) #/LPF Urine Mucus None seen (NONE SEEN) Ur Culture Indicated? Yes Discharge Plan Discharge Stand Alone Forms: Portal Instructions Chief Complaint: Urogenital-Male Clinical Impression: Chronic indwelling Holder catheter Patient Disposition: Home, Self-Care Time of Disposition Decision: 18:19 Condition: Good Prescriptions / Home Meds: No Action atorvastatin 40 mg tablet 40 mg PO DAILY albuterol sulfate 90 mcg/actuation HFA aerosol inhaler 2 puff INHALATION Q6H PRN (Reason: shortness of breath or wheezing) amlodipine 10 mg tablet 10 mg PO DAILY clopidogrel 75 mg tablet 75 mg PO DAILY lisinopril 30 mg tablet 30 mg PO DAILY metformin 1,000 mg tablet 1,000 mg PO BID prazosin 5 mg capsule 5 mg PO DAILY dapagliflozin propanediol [Farxiga] 5 mg tablet 5 mg PO DAILY Incruse Ellipta 62.5 mcg/actuation blister with device 1 inh INHALATION Q24H Print Language: [place] Instructions: How to Change a Catheter Drainage Bag (DC) Additional Instructions: followup with urology as scheduled Referrals: MARYJO NATH [Primary Care Provider] - 1 week
== END 2024-01-04 18:33 | disposition home or self-care (01) ==
PROVIDERS: Emergency Provider Emergency Medicine; PCP Family Medicine
DX: Z43.6 Encounter for attention to other artificial openings of urinary tract (principal); Z87.891 Personal history of nicotine dependence
CPT/HCPCS: 81001; 87086; 99283

== ENCOUNTER 2025-01-26 09:26 | Outpatient (OUT) | payer MEDICARE, SELFPAY ==
--- OUTSIDE RECORDS SUMMARY | 2024-04-09 04:40 | XMS_ITS | Encounter Summary ---
Author Name [facility] Organization [facility] [place] Address [address] [place] [id number] Care Team Providers Care Civil Preparedness Training Officer Name Role Phone URIEL ACKERMAN Primary Care Provider Unavaila ble Insurance Providers: All historical and current Section Date Range: From patient's date of to the date document was created. This section includes the names of all active insurance providers for the patient. Insurance Provider Type of Coverage Plan Name Start of Policy Coverage End of Policy Coverage Group Number Member ID Insurance Provider's Telephone Number Policy Murray's Name Patient's Relationship to Policy Murray AETNA [facility] (WNR) MEDICARE [facility] ([facility]) May 26, 2022 [id number] [phone] DEEPIKA GUPTA PATIENT MEDICARE (WN) MEDICARE (M) PART A Nov 23, 2008 PART A [id number] DEEPIKA GUPTA PATIENT [facility] (WNR) MEDICARE (M) [facility] ([facility]) May 26, 2018 REPLACE MENT [id number] [phone] DEEPIKA GUPTA PATIENT [facility] ([facility]) MEDICARE ADVANTAGE [facility] ([facility]) May 26, 2016 [id number] DEEPIKA GUPTA PATIENT Selected Encounter This section includes the information on record at ID for the Encounter. Date/Time Encounter Type Encounter Description Reason Provider Source Apr 09, 2024 08:40 AM INTRM OPH EXAM NEW PATIENT OPHTHALMOLOGY ICD-10-CM H35.371 Puckering of macula, right eye ZAMZAM DANIEL IHNuris Encounter Template Text not used by VA Assessments - Encounter Diagnoses This section includes the primary and secondary diagnoses documented for the Encounter. Date/Time Primary/Secondary Diagnosis Diagnosis Name Provider Source Apr 09, 2024 12:05 PM PRIMARY Puckering of macula, right eye LENA KENT [facility] Apr 09, 2024 12:05 PM SECONDARY Age-related nuclear cataract, bilateral LENA KENT [facility] Apr 09, 2024 12:05 PM SECONDARY Type 2 diabetes mellitus without complications LENA KENT [facility] Plan of Treatment: Future Appointments (+ 6 months) and Future Tests (+/- 45 days) The Plan of Treatment section includes future care activities for the patient from all [place] treatmentfacilities. This section includes future appointments and future orders which are active, pending or scheduled. Future Appointments This section includes appointments that were scheduled to occur 6 months from the date of the Encounter, up to a maximum of 20 appointments. The data comes from all ID treatment facilities. Appointment Date/Time Appointment Type Appointme nt Facility Name Sep 07, 2024 11:30 AM AMBULATORY - SURGERY [facility] Encounter Notes: All associated encounter notes This section contains the clinical notes associated to the Encounter. Date/Time Encounter Note(s) Provider Source Apr 09, 2024 11:41 AM OPHTHALMOLOGY CONS ULT: LOCAL TITLE: OPHTHALMOLOGY CONSULT STANDARD TITLE: OPHTHALMOLOGY CONSULT DATE OF NOTE: APR 09, 2024@11:41 ENTRY DATE: APR 09, 2024@11:41:30 AUTHOR: TERENCE MAURICE EXP COSIGNER: URGENCY: STATUS: COMPLETED HPI: 78 y/o MALE The patient was identified by two means of identification (Full Name and Full Social Security Number) Optical Coherence Tomography Fast Mac OCT (60101) OU HD 7 Line Raster 090/180 Degrees ([id number]) OU /es/ TERENCE MAURICE COA Signed: 04/09/2024 11:41 TERNECE MAURICE [facility] Apr 09, 2024 09:26 AM OPHTHALMOLOGY CONS ULT: LOCAL TITLE: OPHTHALMOLOGY CONSULT STANDARD TITLE: OPHTHALMOLOGY CONSULT DATE OF NOTE: APR 09, 2024@09:26 ENTRY DATE: APR 09, 2024@09:26:54 AUTHOR: JUAN MCCABE EXP COSIGNER: URGENCY: STATUS: COMPLETED OPHTHALMOLOGY CONSULT Has ADDENDA Date :Mar The patient was identified using two identifiers (Full name and Full Social Security Number) Last Eye Exam: Aug([place]) Chief Ocular Complaints: Patient feels vision is distorted, when he looks at people/things parts of the image are missing. Most Recent A1c: 8.0 (05/06/18 15:21) HPI: 78 y/o MALE - Patient here for a consult for ERM OD per Bella. Double Vision: No Sudden loss of VA: No Light sensitivity: No Flashes or floaters: No Eye Pain: No Dryness or Itching: No Redness: No Patient Ocular History/Surgeries: per previous physician note: #. 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 Moderate NS cataract OD and mild OS #. Posterior vitreous detachment OU #. ERM OD #. Presbyopia/astigmatism/hype ropia OU Eye Drops/Ointments None Med reviewed with patient and he is taking as above. ROS/FmHx/SocHx completed: Aug Eyes: as above in HPI ALLERGIES:SULFA DRUGS Medical Hx: DXLS/Procedures DXLS/Procedures No data available PROBLEM LIST ACTIVE 12 Active Problems PROBLEM LAST MOD PROVIDER Obesity 02/10/2017 DORENE ACKERMAN Diabetes mellitus 12/29/2018 GÉNESIS DUGGAN Hypertension 02/10/2017 TYRON,DORENE Hyperlipidemia 02/10/2017 TYRON,BIND Urinary incontinence 02/10/2017 DORENE ACKERMAN S/p cva - balance issues only 02/10/2017 DORENE ACKERMAN Nuclear sclerotic cataract 05/22/2017 GÉNESIS DUGGAN Presbyopia 05/22/2017 PETTERBORJack,GÉNESIS Regular astigmatism 05/22/2017 PETTERBORJack,GÉNESIS Hypermetropia 05/22/2017 PETTERBORG,GÉNESIS Epiretinal membrane 05/22/2017 PETTERBORG,GÉNESIS Bilateral posterior vitreous detachment 05/22/2017 GÉNESIS DUGGAN PROBLEM LIST INACTIVE No data available Height: 66 in [167.6 cm] (06/12/2017 08:10) Weight: 331 lb [150.14 kg] (05/28/2021 15:53) BMI: BODY MASS INDEX - NO HEIGHTS FOUND Allergy:SULFA DRUGS -- Systemic Meds: Active Outpatient Medications (including Supplies): Active Outpatient Medications Status 1) BRIEF,TRANQUILITY VASU OVERNITE XL#2117 USE 1 BRIEF ACTIVE MISC NEEDED Active Non-VA Medications Status 1) Non-VA AMLODIPINE BESYLATE 10MG TAB 10MG EVERY DAY ACTIVE 2) Non-VA ASPIRIN 81MG EC TAB 81MG MOUTH EVERY DAY ACTIVE 3) Non-VA ATORVASTATIN CALCIUM 80MG TAB 40MG MOUTH EVERY ACTIVE DAY 4) Non-VA CARVEDILOL 6.25MG TAB 6.25MG MOUTH TWICE ACTIVE DAILY, WITH MEALS 5) Non-VA CHOLECALCIFEROL (VIT D3) GF TAB MOUTH ACTIVE 6) Non-VA CLOPIDOGREL BISULFATE 75MG TAB 75MG ONCE ACTIVE DAILY 7) Non-VA CLOPIDOGREL BISULFATE TAB EVERY DAY ACTIVE 8) Non-VA LISINOPRIL 20MG TAB 30MG MOUTH ONCE DAILY ACTIVE 9) Non-VA METFORMIN HCL 1000MG TAB 1000MG MOUTH TWICE ACTIVE DAILY, WITH MEALS 10) Non-VA PIOGLITAZONE HCL 30MG TAB 30MG MOUTH ACTIVE 11) Non-VA PRAZOSIN HCL 5MG CAP 5MG MOUTH ONCE DAILY ACTIVE 12 Total Medications -- VA With OD 20/40-2 PH20/NI OS 20/20-1 Wearing Rx:03/13/2023 W: OD +0.75+0.69R786 OS +0.75+[id number] Add+2.50 Pupils: (-)APD DARK OD: 3.5mm / LIGHT OD: 2.5mm DARK OS: 3.5mm / LIGHT OS: 2.5mm SLE: Slit Beam (A/C):Open OU IOP:Time:09:42 AM OD:17 OS:15 ICARE/Propar. Dilation time:09:45 AM OU (Mydriacyl 1% - Phenyl 2.5%) Ancillary Testing Performed: [facility] (OU) Additional Internet Merchant Notes: /dagoberto/ JUAN MCCABE COA Signed: 04/09/2024 09:47 04/09/2024 ADDENDUM STATUS: COMPLETED Suicide Screen: C-SSRS Screening [place]-Suicide Severity Rating Scale (C-SSRS Screener) 1. Over the past month, have you wished you were or wished you could go to sleep and not wake up? No 2. Over the past month, have you had any actual thoughts of killing yourself? No 3. Over the past month, have you been thinking about how you might do this? Response not required due to responses to other questions. 4. Over the past month, have you had these thoughts and had some intention of acting on them? Response not required due to responses to other questions. 5. Over the past month, have you started to work out or worked out the details of how to kill yourself? Response not required due to responses to other questions. 6. If yes, at any time in the past month did you intend to carry out this plan? Response not required due to responses to other questions. 7. In your lifetime, have you ever done anything, started to do anything, or prepared to do anything to end your life (for example, collected pills, obtained a gun, gave away valuables, went to the roof but didn't jump)? No 8. If YES, was this within the past 3 months? Response not required due to responses to other questions. /dagoberto/ JUAN MCCABE COA Signed: 04/09/2024 09:49 04/09/2024 ADDENDUM STATUS: COMPLETED [facility] HPI: 78 M Hx cataracts OU, PVD OU, ERM OD, and T2DM w/o DR here for ERM OD eval. Notes blurry vision OD x several yrs (4-5 yrs), possibly a little worse over past 1 yr. No metamorphopsia. No flashes/floaters/curtain/ve il. OS at baseline. A1C - No data available for: HGB A1C BP - Measurement DT BP 05/28/2021 15:55 156/70 05/28/2021 15:53 156/97852/70 (05/28/2021 15:55) POH: - PVD OU - ERM OD - T2DM w/o DR Ocular Meds: - None ===== Per Tech: VA With 04/09/24 OD 20/40-2 PH20/NI OS 20/20-1 Wearing Rx:03/13/2023 W: OD +0.75+0.55X559 OS +0.75+0.18P6547 Add+2.50 Pupils: (-)APD IOP:Time:09:42 AM OD:17 OS:15 ICARE/Propar. Dilation time:09:45 AM OU (Mydriacyl 1% - Phenyl 2.5%) ===== SLIT LAMP: OD: L/L: Normal C/S: White and quiet Cornea: Arcus AC: Deep and quiet Iris: Round, dilated Lens: 1-2+ NS, 1+ CC Ant. vit: syneresis OS: L/L: Normal C/S: White and quiet Cornea: Arcus AC: Deep and quiet Iris: Round, dilated Lens: 1-2+ NS, 1+ CC (w/spoke in visual axis) Ant. vit: syneresis DILATED FUNDUS EXAM: OD Vitreous: PVD Disc: 0.5. Normal Macula: ERM w/blunted FLR and foveal pigment clummp Vessels: Normal Periphery: Normal OS Vitreous: PVD Disc: 0.5. Normal Macula: Normal Vessels: Normal Periphery: Normal ===== OCT Mac 04/09/24 OD: ERM w/loss of contour, tr foveal IRF, inf pigment migration. OS: Good foveal contour, no IRF/SRF. ===== ASSESSMENT AND PLAN # ERM OD - VA 20/40; patient w/blurry vision, however not significantly bothered - Provided w/Amsler for monitoring >>> RV Surg Ret 6 mo DFE/OCT Mac OU (sooner PRN) # Combined cataracts OU - Likely mildly VS - pt not bothered # T2DM w/o DR - no background diabetic retinopathy, clinically significant macular edema, or proliferative changes - Emphasized the importance of tight glycemic control, including medication compliance and lifestyle/dietary changes, for delaying the progression of diabetic retinopathy. - yearly DFE # PVD OU - Chronic, no breaks/tears on DFE - CTM # Refractive error/presbyopia OU - Follows w/CC - can continue for MRx ===== Attending available in clinic for consultation >>> RV Surg Ret 6 mo DFE/OCT Mac OU (sooner PRN) /dagoberto/ LENA KENT Ophthalmology Resident Signed: 04/09/2024 12:05 /dagoberto/ Zamzam Daniel MD Cosigned: 04/09/2024 12:15 JUAN MCCABE [facility]
--- OUTSIDE RECORDS SUMMARY | 2024-09-07 07:30 | XMS_ITS | Encounter Summary ---
Author Name [facility] [place] [place] Organization [facility] [place] Address [address] [place] [id number] Care Team Providers Care Blacktop Spreader Name Role Phone URIEL ACKERMAN Primary Care [...] Name Patient's Relationship to Policy Murray AETNA [facility] ([facility]) MEDICARE [facility] ([facility]) May 26, 2022 [phone] DEEPIKA GUPTA PATIENT MEDICARE (WN) MEDICARE (M) PART A Nov 23, 2008 PART A [id number] DEEPIKA GUPTA PATIENT [employer] (R) MEDICARE (M) [facility] ([facility]) May 26, 2018 REPLACE MENT [id number] [phone] DEEPIKA GUPTA PATIENT [facility] ([facility]) MEDICARE ADVANTAGE [facility] ([facility]) May 26, 2016 [id number] DEEPIKA GUPTA PATIENT Selected Encounter This section includes the information on record at [place] for the Encounter. Date/Time Encounter Type Encounter Description Reason Provider Source Sep 07, 2024 11:30 AM COMPRE OPH EXAM EST PT 1/> OPTOMETRY ICD-10-CM E11.9 Type 2 diabetes mellitus without complications PETTERBORG,PH ILLIP OD IHE Encounter Template Text not used by VA Assessments - Encounter Diagnoses This section includes the primary and secondary diagnoses documented for the Encounter. Date/Time Primary/Secondary Diagnosis Diagnosis Name Provider Source Sep 07, 2024 11:40 AM PRIMARY Type 2 diabetes mellitus without complications [place]TER[place],PHI LLIP OD [facility] Sep 07, 2024 11:40 AM SECONDARY Age-related nuclear cataract, bilateral PETTERBORG,PHI LLIP [facility] Sep 07, 2024 11:40 AM SECONDARY Hypermetropia, right eye PETTERBORG,PHI LLIP OD [facility] Sep 07, 2024 11:40 AM SECONDARY Presbyopia [place]TER[place]G,PHI LLIP OD [facility] Sep 07, 2024 11:40 AM SECONDARY Puckering of macula, right eye PETTERBORG,PHI LLIP OD [facility] Sep 07, 2024 11:40 AM SECONDARY Regular astigmatism, bilateral [place]TER[place]G,PHI LLIP [facility] Sep 07, 2024 11:40 AM SECONDARY Vitreous degeneration, bilateral [place]TER[place]G,PHI LLIP [facility] Plan of Treatment: Future Appointments (+ 6 months) and Future Tests (+/- 45 days) The Plan of Treatment section includes future care activities for the patient from all [place] treatmentfacilities. This section includes future appointments and future orders which are active, pending or scheduled. Future Appointments This section includes appointments that were scheduled to occur 6 months from the date of the Encounter, up to a maximum of 20 appointments. The data comes from all [place] treatment facilities. Appointment Date/Time Appointment Type Appointme nt Facility Name October 13, 2024 01:45 PM AMBULATORY - SURGERY [facility] Social History: Smoking Status (Most current) and Tobacco Use (All prior to encounter date) This section includes the most current, and the historical, smoking and tobacco- related health factors from the VA facility where the Encounter took place. Current Smoking Status This section includes the most current smoking, or tobacco-related health factor, from the VA facility where the Encounter took place. Date/Time Current Smoking Status Comment Facil ity May 14, 2022 10:30 AM VA-TOBACCO QUIT 15 YRS OR MORE [facility] Tobacco Use History This section includes a history of the smoking, or tobacco-related health factors, that were collected on or before the date of the Encounter. The data comes from the [place] facility where the Encounter took place. Date/Time Smoking Status/Tobacco Use Comment F acility May 14, 2022 10:30 AM VA-TOBACCO QUIT 15 YRS OR MORE [facility] May 28, 2021 03:30 PM VA-TOBACCO FORMER USER [facility] May 28, 2021 03:30 PM VA-TOBACCO QUIT 15 YRS OR MORE [facility] May 06, 2018 03:15 PM VA-TOBACCO FORMER USER [facility] May 06, 2018 03:15 PM VA-TOBACCO QUIT 15 YRS OR MORE [facility] Jan 19, 2018 11:19 AM VA-TOBACCO FORMER USER [facility] Jan 19, 2018 11:19 AM VA-TOBACCO QUIT 15 YRS OR MORE [facility] Feb 06, 2017 02:57 PM QUIT TOBACCO >12 MO [facility] Encounter Notes: All associated encounter notes This section contains the clinical notes associated to the Encounter. Date/Time Encounter Note(s) Provider Source Sep 07, 2024 03:50 PM OPHTHALMOLOGY OUTP ATIENT NOTE: LOCAL TITLE: OPHTHALMOLOGY OUTPATIENT FOLLOW-UP STANDARD TITLE: OPHTHALMOLOGY OUTPATIENT NOTE DATE OF NOTE: SEP 07, 2024@15:50 ENTRY DATE: SEP 07, 2024@15:50:22 AUTHOR: EFREM LOPEZ EXP COSIGNER: URGENCY: STATUS: COMPLETED ALLERGIES:SULFA DRUGS HPI: 78 y/o MALE The patient was identified by two means of identification (Full Name and Full Social Security Number) DATE/TIME Optical Coherence Tomography HD kelsey ([id number]) OU /es/ EFREM LOPEZ [facility] [employer] [facility] Optometry Signed: 09/07/2024 15:50 EFREM LOPEZ [facility] Sep 07, 2024 10:57 AM OPHTHALMOLOGY OUTP ATIENT NOTE: LOCAL TITLE: OPHTHALMOLOGY OUTPATIENT FOLLOW-UP STANDARD TITLE: OPHTHALMOLOGY OUTPATIENT NOTE DATE OF NOTE: SEP 07, 2024@10:57 ENTRY DATE: SEP 07, 2024@10:57:38 AUTHOR: EFREM LOPEZ EXP COSIGNER: URGENCY: STATUS: COMPLETED OPHTHALMOLOGY OUTPATIENT FOLLOW-UP Has ADDENDA Ophthalmology Assessment Date:Aug CC: 78 yo NIDDM MALE here for Diabetic ocular health exam and to monitor progression of cataracts. Patient states small vision changes with dis/near. States he has dryness in OU and nothing used to help. Denies glare at this time. BS for the last month 093-123. NIDDM No data available for: HGB A1C Fasting BSL: 098 ROS: Do you have or have you ever had any of the following conditions? GENERAL: Allergies or Hayfever No Asthma / COPD No Sinus Problems No Diabetes Yes Thyroid Disease No Heart Disease No High Blood Pressure Yes Sleep Apnea No Tobacco Use No Alcohol Use No OCULAR: Eye Trauma No Eye Surgery No Amblyopia (lazy eye) No Double Vision No Crossed Eye / Wall EyeNo Cataract (s) Yes Glaucoma No Macular Degeneration No Dry eyes No Other: FHx: (M=Mother,F=Father,B=Brother,S=Si ster,GM=Grandmother,GF=Grandfathe r,A=Aunt,U= Unc le) Do you have a family history of any of the following conditions? GENERAL: Diabetes Yes Heart Disease Yes High Blood Pressure Yes Thyroid Disease No OCULAR:Cataract (s) Yes m Glaucoma No Macular Degeneration No Blindness No Eye Surgery No Other: Allergy:SULFA DRUGS PMH:DXLS/Procedures DXLS/Procedures No data available PROBLEM LIST ACTIVE 12 Active Problems PROBLEM LAST MOD PROVIDER Obesity 02/10/2017 DORENE ACKERMAN Diabetes mellitus 12/29/2018 GÉNESIS UDGGAN Hypertension 02/10/2017 DORENE ACKERMAN Hyperlipidemia 02/10/2017 DORENE ACKERMAN Urinary incontinence 02/10/2017 DORENE ACKERMAN S/p cva - balance issues only 02/10/2017 DORENE ACKERMAN Nuclear sclerotic cataract 05/22/2017 OLGA LIDIA,GÉNESIS Presbyopia 05/22/2017 PETTERBORG,GÉNESIS Regular astigmatism 05/22/2017 PETTERBORG,GÉNESIS Hypermetropia 05/22/2017 PETTERBORG,GÉNESIS Epiretinal membrane 05/22/2017 PETTERANSHUL,GÉNESIS Bilateral posterior vitreous detachment 05/22/2017 GÉNESIS DUGGAN PROBLEM LIST INACTIVE No data available Systemic Meds: Active Outpatient Medications (including Supplies): Active Outpatient Medications Status = 1) BRIEF,TRANQUILITY VASU OVERNITE XL#2117 USE 1 BRIEF MISC ACTIVE NEEDED Active Non-VA Medications Status = 1) Non-VA AMLODIPINE BESYLATE 10MG TAB 10MG EVERY DAY ACTIVE 2) Non-VA ASPIRIN 81MG EC TAB 81MG MOUTH EVERY DAY ACTIVE 3) Non-VA ATORVASTATIN CALCIUM 80MG TAB 40MG MOUTH EVERY DAY ACTIVE 4) Non-VA CARVEDILOL 6.25MG TAB 6.25MG MOUTH TWICE DAILY, WITH ACTIVE MEALS 5) Non-VA CHOLECALCIFEROL (VIT D3) GF TAB MOUTH ACTIVE 6) Non-VA CLOPIDOGREL BISULFATE 75MG TAB 75MG ONCE DAILY ACTIVE 7) Non-VA CLOPIDOGREL BISULFATE TAB EVERY DAY ACTIVE 8) Non-VA LISINOPRIL 20MG TAB 30MG MOUTH ONCE DAILY ACTIVE 9) Non-VA METFORMIN HCL 1000MG TAB 1000MG MOUTH TWICE DAILY, ACTIVE WITH MEALS 10) Non-VA PIOGLITAZONE HCL 30MG TAB 30MG MOUTH ACTIVE 11) Non-VA PRAZOSIN HCL 5MG CAP 5MG MOUTH ONCE DAILY ACTIVE 12 Total Medications O: VA With OD 20/80 OS 20/20-1 Glasses OD:+0.75+0.52D544 OS:+0.75+0.49N248 Add:+2.50 Keratometry: OD: 42.75/43.00 @143 OS: 42.75/43.25 @033 TA@ 1104 OD: 016 mm Hg OS: 017 mm Hg Conf:Full EOM: Full Cover Test: Ortho Pupils: no APD /es/ EFREM [facility] [employer] Specialist Optometry Signed: 09/07/2024 11:12 09/07/2024 ADDENDUM STATUS: COMPLETED Ophthalmology Assessment Neuro: Oriented: AO x 3 Affect: Normal Allergy:SULFA DRUGS The current medication list (including local and remote VA active medications, non-VA medications, recently and discontinued medications and pending orders) was reviewed and reconciled with the patient today. The patient/family member received an updated list of current medications. The patient was counseled on new medications and/or medication changes. Patient verbalized understanding. O: MR OD:+0.75 +1.00 x 010 (20/40-1) OS:+0.75 +1.00 x 170 (20/20) Add:+2.50 J 1+ OU Dilation: 0.5% Proparacaine, 1% Tropicamide OU and 2.5 % Phenylephrine OU (Patient educated on the side effects of drops) LL: Dermatochalasis OU C/S: Clear OU K: Arcus OU AC: Clear OU Iris: No NVI OU Lens: +2 NS OD and +1-2 NS OS Capsule: Clear OU Vitreous: Bass ring OU C/D: 0.55 OU ONH: Normal OU Macula: (-) CSME OU/+1 mottling and ERM OD Vessels: AVR:0.7/+1 tortuousity OU Background: Normal OU OCT Macula Scan -OD: 8/10 dense ERM with loss of contours and small central SRF -OS: 7/10 normal contours A: DM II w/o ocular complications NS cataract OD>OS Posterior vitreous detachment OU ERM OD -OCT confirms Presbyopia/astigmatism/hyperopia OU P: Advised re; findings today, encouraged good compliance and blood glucose control, and options for cataract Continue f/u at [facility] for retina Monitor cataracts and retina annually RTC: 1 yr for full exam/OCTm or PRN /dagoberto/ CARRI DUGGAN OD Reservationist[facility]ella [facility] Signed: 09/07/2024 11:49 EFREM LOPEZ [facility]
--- OUTSIDE RECORDS SUMMARY | 2024-10-13 09:45 | XMS_ITS | Encounter Summary ---
Author Name Department [place] ([place]) Organization Department of Vetera [facility] ([place]) Address [address] [place] [address] Care Team Providers Care Copper Plate Lithographer Name Role Phone URIEL ACKERMAN Primary Care [...] Name Patient's Relationship to Policy Murray AETNA [facility] ([facility]) MEDICARE [facility] ([facility]) May 26, 2022 [id number] [phone] DEEPIKA GUPTA PATIENT MEDICARE ([facility]) MEDICARE (M) PART A Nov 23, 2008 PART A [id number] DEEPIKA GUPTA PATIENT MMOH [facility] ([facility]) MEDICARE (M) [facility] ([facility]) May 26, 2018 REPLACE MENT [id number] [phone] DEEPIKA GUPTA PATIENT [facility] ([facility]) MEDICARE ADVANTAGE [facility] ([facility]) May 26, 2016 [id number] DEEPIKA GUPTA PATIENT Selected Encounter This section includes the information on record at [place] for the Encounter. Date/Time Encounter Type Encounter Description Reason Provider Source October 13, 2024 01:45 PM OFFICE O/P EST SF 10 MIN OPHTHALMOLOGY ICD-10-CM H35.371 Puckering of macula, right eye RAMY WILLIAMSON Nuris Encounter Template Text not used by [place] Assessments - Encounter Diagnoses This section includes the primary and secondary diagnoses documented for the Encounter. Date/Time Primary/Secondary Diagnosis Diagnosis Name Provider Source October 13, 2024 03:12 PM PRIMARY Puckering of macula, right eye ZAFAR ARREOLA [facility] October 13, 2024 03:12 PM SECONDARY Age-related nuclear cataract, bilateral ZAFAR ARREOLA [facility] October 13, 2024 03:12 PM SECONDARY Regular astigmatism, bilateral ZAFAR ARREOLA [facility] October 13, 2024 03:12 PM SECONDARY Vitreous degeneration, bilateral [facility] Plan of Treatment: Future Appointments (+ 6 months) and Future Tests (+/- 45 days) The Plan of Treatment section includes future care activities for the patient from all [place] treatmentfacilities. This section includes future appointments and future orders which are active, pending or scheduled. Future Appointments This section includes appointments that were scheduled to occur 6 months from the date of the Encounter, up to a maximum of 20 appointments. The data comes from all [place] treatment facilities. Appointment Date/Time Appointment Type Appointme nt Facility Name Nov 15, 2024 09:45 AM AMBULATORY - NONE [facility] Encounter Notes: All associated encounter notes This section contains the clinical notes associated to the Encounter. Date/Time Encounter Note(s) Provider Source October 13, 2024 01:36 PM OPHTHALMOLOGY OUTP ATIENT NOTE: LOCAL TITLE: OPHTHALMOLOGY OUTPATIENT FOLLOW-UP STANDARD TITLE: OPHTHALMOLOGY OUTPATIENT NOTE DATE OF NOTE: OCTOBER 13, 2024@13:36 ENTRY DATE: OCTOBER 13, 2024@13:36:15 AUTHOR: DOROTHY HERNANDEZ EXP COSIGNER: URGENCY: STATUS: COMPLETED OPHTHALMOLOGY OUTPATIENT FOLLOW-UP Has ADDENDA Date :September SULFA DRUGS The patient was identified using two identifiers (Full name and Full Social Security Number) Last Eye Exam: Aug Chief Ocular Complaints: 78 y/o MALE No changes fro previous or last visit HPI: RV Surg Ret 6 mo DFE/OCT Mac OU (sooner PRN) Double Vision: No Sudden loss of VA: No Light sensitivity: No Flashes or floaters: Yes Eye Pain: No Dryness or Itching: No Redness: No Patient Ocular History/Surgeries: per previous physician note: ===== OCT Mac 04/09/24 OD: ERM w/loss of contour, tr foveal IRF, inf pigment migration. OS: Good foveal contour, no IRF/SRF. 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 Review of Systems: Aug DXLS/Procedures DXLS/Procedures No data available PROBLEM LIST ACTIVE 12 Active Problems PROBLEM LAST MOD PROVIDER Obesity 02/10/2017 TYRON,DORENE Diabetes mellitus 12/29/2018 OLGA LIDIA,GÉNESIS Hypertension 02/10/2017 TYRON,BIND Hyperlipidemia 02/10/2017 TYRON,BIND Urinary incontinence 02/10/2017 TYRON,BIND S/p cva - balance issues only 02/10/2017 TYRON,DORENE Nuclear sclerotic cataract 05/22/2017 OLGA LIDIA,GÉNESIS Presbyopia 05/22/2017 PETTERBORG,GÉNESIS Regular astigmatism 05/22/2017 PETTERBORG,GÉNESIS Hypermetropia 05/22/2017 PETTERBORG,GÉNESIS Epiretinal membrane 05/22/2017 PETTERALETHEAG,GÉNESIS Bilateral posterior vitreous detachment 05/22/2017 OLGA LIDIA,GÉNESIS PROBLEM LIST INACTIVE No data available -- Systemic Meds: Active Outpatient Medications (including Supplies): Active Outpatient Medications Status 1) BRIEF,TRANQUILITY VASU OVERNITE XL#2117 USE 1 BRIEF MISC ACTIVE NEEDED Active Non-VA Medications Status 1) Non-VA [...] 12 Total Medications -- VA With OD 20/40-1 PH20/NI OS 20/20 Wearing Rx: W: OD +0.75+1.29S915 OS +0.75+1.74F667 Add+2.50 Pupils: (-)APD DARK OD: mm / LIGHT OD: mm DARK OS: mm / LIGHT OS: mm SLE: Slit Beam (A/C):Open OU IOP:Time:13:47 OD:18 OS:16 ICARE (Fluorescein sodium and Benoxinate hydrochloride 0.25%/0.4%) Dilation time: 13:48 OU (Mydriacyl 1% - Phenyl 2.5%) /dagoberto/ DOROTHY HERNANDEZ Certified Army Manager Signed: 10/13/2024 13:47 10/13/2024 ADDENDUM STATUS: COMPLETED [facility] HPI: 78 M Hx cataracts OU, PVD OU, ERM OD, and T2DM w/o DR here for ERM OD eval. He feels his vision OD is unchanged; feels it is blurry. No changes/concerns for OS. A1C - No data available for: HGB A1C BP - Measurement DT BP 05/28/2021 15:55 156/70 05/28/2021 15:53 156/43137/70 (05/28/2021 15:55) POH: - PVD OU - ERM OD - T2DM w/o DR Ocular Meds: - None ===== Per Tech: VA With OD 20/40-1 PH20/NI OS 20/20 Wearing Rx: W: OD +0.75+1.06L697 OS +0.75+1.45S098 Add+2.50 Pupils: (-)APD IOP:Time:13:47 OD:18 OS:16 ICARE --PREVIOUS VA --- VA With 04/09/24 OD 20/40-2 PH20/NI OS 20/20-1 ===== SLIT LAMP: OD: L/L: moderate dermatochalasis C/S: White and quiet Cornea: Arcus AC: Deep and quiet Iris: Round, dilated Lens: 2+ NS, 1+ CC Ant. 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 - no background [...] clinic for consultation >>> RV Surg Ret 12 mo DFE/OCT Mac OU (sooner PRN) /dagoberto/ FREDERIC ARREOLA Internal Medicine Resident Signed: 10/13/2024 15:13 /dagoberto/ RAMY WILLIAMSON RETINA, OPHTHALMOLOGY Cosigned: 10/27/2024 17:33 DOROTHY HERNANDEZ [facility] October 11, 2024 01:11 PM OPHTHALMOLOGY CONS ULT: LOCAL TITLE: OPHTHALMOLOGY CONSULT STANDARD TITLE: OPHTHALMOLOGY CONSULT DATE OF NOTE: OCTOBER 11, 2024@13:11 ENTRY DATE: OCTOBER 14, 2024@13:11:29 AUTHOR: MIGUEL IVERSON COSIGNER: URGENCY: STATUS: COMPLETED Date: September The patient was identified by two means of identification. (Full Name and Full Social Security Number) 78 y/o MALE presents for an OCT. ALLERGIES:SULFA DRUGS Optical Coherence Tomography: Macular Cube [id number] ([id number]) OU HD 5 Line Raster ([id number]) OU Additional Account Supervisor Notes: /dagoberto/ MIGUEL IVERSON COA Signed: 10/14/2024 13:11 MIGUEL IVERSON [facility]
--- OUTSIDE RECORDS SUMMARY | 2025-01-14 10:00 | XMS_ITS | Encounter Summary ---
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); Benign essential hypertension ; Cardiac pacemaker in situ; Coronary artery disease involving [place] coronary artery of [place] heart without angina pectoris ; Class 2 obesity due to excess calories without serious comorbidity with body mass index (BMI) of 37.0 to 37.9 in adult Social History Tobacco Use Types Packs/Day Years Used Date Smoking Tobacco: Never Smokeless Tobacco: Never Alcohol Use Standard Drinks/Week Comments Never 0 (1 standard drink = 0.6 oz pur e alcohol) caffeine: coffee occasionally Humiliation, Afraid, Rape, and Kick questionnair e Answer Date Recorded Within the last year, have y ou been afraid of your partner or ex-partner? No 03/25/2023 Within the last year, have y ou been humiliated or emotionally abused in other ways by your partner or ex-partner? No Within the last year, have y ou been kicked, hit, slapped, or otherwise physically hurt by your partner or ex-partner? No 03/25/2023 Within the last year, have y ou been raped or forced to have any kind of sexual activity by your partner or ex-partner? No 03/25/2023 Social Connection and Isolation Panel [NHANES] A nswer Date Recorded In a typical week, how many times do you talk on the phone with family, friends, or neighbors? Once a week 03/25/2023 How often do you get togethe r with friends or relatives? Three times a week 03/25/2023 How often do you attend chur ch or restorationist services? Patient declined 03/25/2023 Do you belong to any clubs o r organizations such as taoism groups, unions, fraternal or athletic groups, or school groups? Patient declined 03/25/2023 How often do you attend meet ings of the clubs or organizations you belong to? Patient declined 03/25/2023 Are you , , di vorced, , never , or living with a partner? 03/25/2023 AUDIT-C Answer Date Recorded Q1: How often do you have a drink containing alcohol? Never 03/25/2023 Q2: How many drinks containi ng alcohol do you have on a typical day when you are drinking? Patient does not drink Q3: How often do you have si x or more drinks on one occasion? Never 03/25/2023 Overall Financial Resource Strain (CARDIA) Answe r Date Recorded How hard is it for you to pa y for the very basics like food, housing, medical care, and heating? Not hard at all 03/25/2023 PHQ-2 Answer Date Recorded Patient Health Questionnaire-2 Score 0 10/14/2024 Hunger Vital Sign Answer Date Recorded Within the past 12 months, y ou worried that your food would run out before you got the money to buy more. Never true 03/25/20 23 Within the past 12 months, t he food you bought just didn't last and you didn't have money to get more. Never true 03/25/2023 PRAPARE - Transportation Answer Date Re corded In the past 12 months, has l ack of transportation kept you from medical appointments or from getting medications? No 02/25 In the past 12 months, has l ack of transportation kept you from meetings, work, or from getting things needed for daily living? No 03/25/2023 Housing Stability Vital Sign Answer Gold e Recorded In the last 12 months, was t here a time when you were not able to pay the mortgage or rent on time? No 03/25/2023 Number of Places Lived in the Last Year Not on f ile 03/25/2023 In the last 12 months, was t here a time when you did not have a steady place to sleep or slept in a halfway (including now)? No 03/25/2023 Sex and Gender Information Value Date Recorded Sex Assigned at Not on file Legal Sex Male 7:26 PM EDT Gender Identity Male 08/07/2022 7:26 PM EDT Sexual Orientation Not on file documented as of this encounter Last Filed Vital Signs Vital Sign Reading Time Taken Comments Blood Pressure 128/76 01/14/2025 9:57 AM EDT Pulse 60 01/14/2025 9:57 AM EDT Temperature - - Respiratory Rate - - Oxygen Saturation 94% 01/14/2025 9:57 AM EDT Inhaled Oxygen Concentration - - Weight 136 kg (300 lb 3.2 oz) 01/14/2025 9:57 AM EDT Height 165.1 cm (5' 5 ) 01/14/2025 9:57 AM EDT Body Mass Index 49.96 01/14/2025 9:57 AM EDT documented in this encounter Progress Notes * Marjorie Dang MD - 01/14/2025 10:00 AM EDTAssociated Problem(s): 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 * Marjorie Dang MD - 01/14/2025 10:00 AM EDTAssociated Problem(s): Benign essential hypertension Controlled on medications. * Marjorie Dang MD - 01/14/2025 10:00 AM EDTAssociated Problem(s): Cardiac pacemaker in situ Follows with cardio for device checks. * Marjorie Dang MD - 01/14/2025 10:00 AM EDTAssociated Problem(s): Coronary artery disease involving [place] coronary artery of [place] heart without angina pectoris No angina * Marjorie Dang MD - 01/14/2025 10:00 AM EDTAssociated Problem(s): Class 2 obesity due to excess calories without serious comorbidity with bodymass index (BMI) of 37.0 to 37.9 in adult * Marjorie Dang MD - 01/14/2025 10:00 AM EDT Subjective ?Quick Links Last Note in Specialty Snapshot Edit RFV/CC Edit Screenings Current Meds Patient ID: Nikko Avery is a 79 y.o. male who presents for Diabetes. HPI History of Present Illness The patient presents for evaluation of diabetes, hypertension, sleep apnea, and cataract. He monitors his blood sugar levels at home every morning, which typically range between 90 and 120,influenced by his previous night's meal. His current medication regimen includes Farxiga 5 mg and metformin. He has a supply of Farxiga left as he has been halving the pills. He is unsure if Brenzavvy has been tried on him. He is currently undergoing cataract surgery on his right eye, with the procedure on his left eye scheduled for 02/17/2025. He reports that while the surgery has improved brightness, his vision remains blurry. He is using eye drops as part of his post-surgery care. He uses a CPAP machine for his sleep apnea and plans to replace the hose soon. He is on lisinopril and carvedilol for his high blood pressure. He does not recall the last time he needed to use his rescue inhaler for breathing issues. His pacemaker was evaluated a few weeks ago and is expected to last for another 10 years and 2 months. Social History: Sleep: Uses CPAP machine for sleep apnea PAST SURGICAL HISTORY: Cataract surgery on left eye on 02/17/2025 ?Quick Review Review Full History Edit History Meds - albuterol HFA 90 mcg/act inhaler aspirin 81 MG EC tablet atorvastatin (Lipitor) 80 MG tablet carvedilol (Coreg) 12.5 MG tablet cholecalciferol (Vitamin D-3) 25 MCG (1000 UT) capsule clopidogrel (Plavix) 75 MG tablet dapagliflozin (Farxiga) 5 MG lisinopril 30 MG tablet metFORMIN (Glucophage) 1000 MG tablet moxifloxacin (Vigamox) 0.5 % ophthalmic solution nystatin (Mycostatin) 986238 UNIT/GM powder prazosin (Minipress) 5 MG capsule ciclopirox (Loprox) 0.77 % cream traZODone (Desyrel) 50 MG tablet --- PMH - Benign essential hypertension Chicken pox Community acquired pneumonia of right lower lobe of lung Coronary artery stenosis Dermatitis Diabetes (HCC) DM (diabetes mellitus) (HCC) Hematuria Hyperlipidemia Liver disease Lymphedema Measles Mumps Obesity Proteinuria Sepsis due to pneumonia (HCC) Severely atypical nevus, worrisome for melanoma in situ, right neck, 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 Avoid pulling in long tables of results. Comment on relevant results to support your medical decision making. BP 128/76 Pulse 60 Ht 5' 5 Wt 300 lb 3.2 oz SpO2 94% BMI 49.96 kg/m?? Physical Exam Physical Exam General Appearance: Normal. Vital signs: Within normal limits. HEENT: Within normal limits. Respiratory: Clear to auscultation, no wheezing, rales or rhonchi. Cardiovascular: regular rate and rhythm with murmur. Extremities: no edema, palpable pulses. Skin: Warm and dry, no rash. Neurological: Normal. Psychiatric: Normal. 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 Benign essential hypertension Controlled on medications. Cardiac pacemaker in situ Follows with cardio for device checks. Coronary artery disease involving [place] coronary artery of [place] heart without angina pectoris No angina Class 2 obesity due to excess calories without serious comorbidity with body mass index (BMI) of 37.0 to 37.9 in adult Assessment & Plan 1. Diabetes Mellitus: - His A1c level is currently at 6.8, which is slightly elevated compared to the previous reading of6.6 in 06/2024. - He will continue with the current dosage of Farxiga 5 mg until the supply is exhausted, after which a switch to Brenzavvy will be considered. Blood work will be due at the next visit in a few months to monitor cholesterol, kidney, and liver function. - The cost of Brenzavvy is approximately $50 per month, which is more affordable than Farxiga. 2. Hypertension: - His blood pressure readings are within the normal range today. - He is currently on lisinopril and carvedilol. 3. Cataracts: - He has undergone cataract surgery on his right eye and reports that his vision is still blurry post-surgery. - He is scheduled for the left eye surgery on 02/17/2025 and will continue using the prescribed eyedrops as directed. 4. Sleep Apnea: - He is using a CPAP machine for sleep apnea and will get a new hose and other supplies through hisinsurance. 5. Health Maintenance: - He is advised to receive the influenza vaccine at the end of January or beginning of February 2025. His other immunizations are up to date. 6. Unspecified diagnosis: - He does not recall the last time he needed to use his rescue inhaler for breathing issues. Follow-up: The patient will follow up in 3 months. documented in this encounter Plan of Treatment Upcoming Encounters Date Type Department Care Team (Late st Contact Info) Description 02/09/2025 11:00 AM EDT Office Visit [facility] [address] [place] [phone] Kymberly Nation K, DO [address] [facility] [place] [address] 04/15/2025 11:00 AM EST Office Visit [facility] [address] [place] [phone] Marjorie Dang MD [facility] [place] [address] 04/19/2025 1:00 PM EST Procedure Visit [facility] [address] [place] [phone] Aure Guevara DPM [address] [place] [address] 07/28/2025 11:05 AM EST Office Visit [facility] [address] [place] [phone] Felter, Rossy A, ELECTRICIAN DECK-BAR ASSISTANT [address] [place] [address] documented as of this encounter Procedures Procedure Name Priority Date/Time Associated Diagnosis Comments POCT GLYCATED HEMOGLOBIN, TOTAL Routine 01/14/2025 10:05 AM EDT 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) documented in this encounter Results * POCT Glycated hemoglobin, total (01/14/2025 10:05 AM EDT) Hemoglobin A1C 6.8 Blood 01/14/2025 10:0 5 AM EDT Marjorie Dang MD POINT OF CARE TEST ENTER/EDIT ORDERABLES Final Result documented in this encounter Visit Diagnoses Diagnosis Obstructive sleep apnea syndrome- Primary Obstructive sleep apnea (adult) (pediatric) 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) Benign essential hypertension Essential hypertension, benign Cardiac pacemaker in situ Coronary artery disease involving [place] coronary artery of [place] heart without angina pectoris Class 2 obesity due to excess calories without serious comorbidity with body mass index (BMI) of 37.0 to 37.9 in adult documented in this encounter Additional Health Concerns Assessment Noted Time PHQ-9 Depression Total Score: 0 10/15/19 25 1:00 PM EDT documented as of this encounter Care Teams Water Quality Control Engineer Relationship Specialty Start Date End Date Marjorie Dang MD [address] [facility] [place] [address] PCP - [employer] 05/26/22 Marjorie Dang MD [address] [facility] [place] [address] PCP - General Family Medicine 12/21/22 documented as of this encounter
--- OUTSIDE RECORDS SUMMARY | 2025-01-24 07:38 | XMS_ITS | Encounter Summary ---
Author Name [facility] [place] Organization [facility] [place] Address [address] [place] [id number] Care Team Providers Care Manager Biologics Name Role Phone URIEL ACKERMAN Primary Care Provider Lakhwinder solomon Insurance Providers: All historical and current Section [...] Relationship to Policy Murray AETNA [facility] ([facility]) MEDICARE ADVANTAGE [facility] ([facility]) May 26, 2022 [id number] [place] [id number] [phone] DEEPIKA GUPTA PATIENT MEDICARE ([place]) MEDICARE (M) PART A Nov 23, 2008 PART A [id number] [phone] DEEPIKA GUPTA PATIENT MMOH [facility] ([place]) MEDICARE (M) [facility] ([facility]) May 26, 2018 REPLACE MENT [id number] DEEPIAK GUPTA PATIENT [facility] ([facility]) MEDICARE ADVANTAGE [facility] ([facility]) May 26, 2016 [id number] DEEPIKA GUPTA PATIENT Selected Encounter This section includes the information on record at [place] for the Encounter. Date/Time Encounter Type Encounter Description Reason Pro vider Source Jan 24, 2025 11:38 AM Outpatient Encounter TELEPHONE TRIAGE IHE Encounter Template Text not used by [facility] Encounter Notes: All associated encounter notes This section contains the clinical notes associated to the Encounter. Date/Time Encounter Note(s) Provider Source Jan 24, 2025 11:38 AM PHARMACY NOTE: LOCAL TITLE: PHARMACY CONTACT CENTER NOTE STANDARD TITLE: PHARMACY NOTE DATE OF NOTE: JAN 24, 2025@11:38 ENTRY DATE: JAN 24, 2025@11:38:41 AUTHOR: JUN HINDS RPH EXP COSIGNER: URGENCY: STATUS: COMPLETED MEDICATION RENEW [id number] SUBSTANCE: Who is contacting the [facility]? [place]/Patient Contact via: Phone Requesting renewal of medication: BRIEF,TRANQUILITY VASU OVERNITE XL#[id number] ACTIVE 280 03/10/2025 03/09/2024 11/27/2024 0 URIEL ACKERMAN MD 231 USE 1 BRIEF MISC NEEDED Please send medication: Mail Disposition: Notification forwarded to provider for review of renewal request. This note was created by a [employer] [facility] employee. Replies to this message are not monitored. Please do not reply back to the author of this message. If not renewing a medication, please have your clinic contact patient with reason. Thank you. /marija Hinds VISShakira 10 PCC PHARMACIST Signed: 01/24/2025 11:39 Receipt Acknowledged By: 01/25/2025 08:03 /dagoberto/ URIEL ACKERMAN MD Staff Physician, Underwriting Clerks Supervisor - [facility]
--- OUTSIDE RECORDS SUMMARY | 2025-01-26 04:28 | XMS_ITS | Continuity of Care Document ---
Author Name [facility] Organization [facility] Care Team Providers Care Software Application Tester Name Role Phone [facility] Unavailable Unavailable Problems Combined list of problems from [facility] and [facility] facilities. It does not include entries that were removed or entered in error. Problem Status Onset Date Problem Type Date of Resolution Comments Source Bilateral posterior vitreous detachment Active Condition [facility] Diabetes mellitus Active Condition [facility] Epiretinal membrane Active Condition [facility] Hyperlipidemia Active Condition [facility] Hyperopia Active Condition [facility] Hypertension Active Condition [facility] Nuclear sclerotic cataract Active Condition [facility] Obesity Active Condition [facility] Presbyopia Active Condition [facility] Regular astigmatism Active Condition [facility] s/p cva - balance issues only Active Condition [facility] Urinary incontinence Active Condition [facility] Diagnosis: ICD-10-CM H35.371 Puckering of macula, right eye Active Diagnosis [facility] Diagnosis: ICD-10-CM E11.9 Type 2 diabetes mellitus without complications Active Diagnosis [facility] Diagnosis: ICD-10-CM Z74.2 Need for assist at home & no house memb able to render care Active Diagnosis [facility] Medications Combined list of outpatient medications from [facility] and [facility] facilities.Medications provided include 1) outpatient medications from the last 15 months, and 2) patient-reported medications. Medication Details Route Status Patient Instructions Prescription Expires Prescription Number Last Dispense Date Ordering Provider Order Date Order Qty Source AMLODIPINE BESYLATE 10MG TAB TAKE ONE TABLET EVERY DAY ACTIVE URIEL MCDOWELL MD 2017 [facility] ASPIRIN 81MG TAB,EC TAKE ONE TABLET BY MOUTH EVERY DAY ORAL ACTIVE URIEL MCDOWELL MD 2017 [facility] ATORVASTATI N CA 80MG TAB TAKE ONE-HALF TABLET BY MOUTH EVERY DAY ORAL ACTIVE URIEL MCDOWELL MD 2017 [facility] CARVEDILOL 6.25MG TAB TAKE ONE TABLET BY MOUTH TWICE DAILY, WITH MEALS ORAL ACTIVE URIEL MCDOWELL MD 2019 [facility] CHOLECALCIF YESY (VIT D3) GF TAB TAKE BY MOUTH ORAL ACTIVE URIEL MCDOWELL MD 2017 [facility] CLOPIDOGREL BISULFATE 75MG TAB TAKE ONE TABLET ONCE DAILY ACTIVE RUIEL MCDOWELL MD 2018 [facility] CLOPIDOGREL BISULFATE TAB TAKE EVERY DAY ACTIVE URIEL MCDOWELL MD 2017 [facility] LISINOPRIL 20MG TAB TAKE 1.5 TABLETS BY MOUTH ONCE DAILY ORAL ACTIVE URIEL MCDOWELL MD 2021 [facility] METFORMIN HCL 1000MG TAB TAKE ONE TABLET BY MOUTH TWICE DAILY, WITH MEALS ORAL ACTIVE URIEL MCDOWELL MD 2017 [facility] PIOGLITAZON E HCL 30MG TAB TAKE ONE TABLET BY MOUTH ORAL ACTIVE URIEL MCDOWELL MD 2018 [facility] PRAZOSIN HCL 5MG CAP TAKE 1 CAPSULE BY MOUTH ONCE DAILY ORAL ACTIVE URIEL MCDOWELL MD 2021 [facility] Allergies, Adverse Reactions, Alerts Combined list of allergies from [facility] and [facility] facilities. It does not include entries that were removed or entered in error. Substance Category Reaction Severity Reaction type Status Date Reported Comments Source SULFA DRUGS Propensity to adverse reactions to drug (finding) active 02/10/2017 [facility] Immunizations Combined list of available immunizations from the Department of Defense and [facility] facilities. Immunization Series Date Given Administered By Site Reaction Lot Number CVX Code Drug Grades 1 Thru 6 Visiting Teacher Status Comments Source COVID-19 (PFIZER), MRNA, LNP-S, BIVALENT BOOSTER, PF, 30 MCG/0.3 ML DOSE 2021 300 complet ed HISTORICA L INFORMATI ON - FROM OTHER PROVIDER, [facility] INFLUENZA, UNSPECIFIED FORMULATION 2021 88 complet ed HISTORICA L INFORMATI ON - FROM OTHER PROVIDER, [facility] COVID-19 (MODERNA), MRNA, LNP-S, PF, 100 MCG OR 50 MCG DOSE 3 2020 207 complet ed [facility] INFLUENZA, UNSPECIFIED FORMULATION 2020 88 complet ed [facility] COVID-19 (MODERNA), MRNA, LNP-S, PF, 100 MCG/0.5 ML DOSE 2 2020 207 complet ed MOD; [id number]; 1 [facility] COVID-19 (MODERNA), MRNA, LNP-S, PF, 100 MCG/0.5 ML DOSE 1 2020 207 complet ed MOD; [id number]; 1 [facility] INFLUENZA (HISTORICAL) 2018 88 complet ed [facility] TDAP 2016 115 complet ed adacel [id number] [facility] Encounters Combined list of: 1) Encounters from Department of Veterans Affairs facilities going backup to the last 18 months, not all [place] inpatient encounters are included; 2) Encounters from the Department of Defense facilities going backup to 280 months. Location Location Details Encounter Type Encounter Number Reason For Visit Attending Provider ADM Date DC Date Status Disposition Source [facility] Outpatient Encounter [id number] 09/08 [facility] Outpatient Encounter [id number] TIFFANIE BAGLEY 09/08 [facility] OFFICE O/P EST LOW 20 MIN [id number] Diagnos is: ICD-10- CM E11.9 Type 2 diabete s mellitu s without complic ations CARRI DUGGAN OD 09/15 [facility] Outpatient Encounter [id number] 09/16 [facility] Outpatient Encounter [id number] 09/23 [facility]ESS[facility] [id number] Diagnos is: ICD-10- CM Z74.2 Need for assist at home and no house memb able to render care POSTLEWAVALENCIA BESS 12/21 [facility] Outpatient Encounter [id number] 01/27 [facility] Outpatient Encounter [id number] 02/08 [facility] Outpatient Encounter [id number] 02/15 [facility] Outpatient Encounter [id number] 02/15 [facility] Outpatient Encounter [id number] 03/04 [facility] INTRM OPH EXAM NEW PATIENT [id number] Diagnos is: ICD-10- CM H35.371 Puckeri ng of macula, right eye ANA DANIEL HSAW N 04/09 [facility] Outpatient Encounter [id number] 05/28 [facility] Outpatient Encounter [id number] 08/13 [facility] COMPRE OPH EXAM EST PT 1/> [id number] Diagnos is: ICD-10- CM E11.9 Type 2 diabete s mellitu s without complic ations CARRI DUGGAN OD 09/07 [facility] OFFICE O/P EST SF 10 MIN [id number] Diagnos is: ICD-10- CM H35.371 Puckeri ng of macula, right eye RAMY WILLIAMOSN 10/13 [facility] Outpatient Encounter [id number] VELAI CARDOZA 10/19 [facility] Outpatient Encounter [id number] 10/28 [facility] Outpatient Encounter [id number] 11/15 [facility] Outpatient Encounter [id number] 12/23 [facility] Outpatient Encounter [id number] 01/24 [facility] Social History Combined list of available smoking, tobacco, and other social history from Department of Defense and Veterans Affairs facilities. Social History Type Response Date Comment Sourc e Tobacco smoking status NHIS VA-TOBACCO FORMER USER 05/14/2022 [facility] History of tobacco use [facility] 1 5 YRS OR MORE 05/14/2022 [facility] History of tobacco use MO-TOBACCO FORMER USER 05/28/2021 [facility] History of tobacco use MO-TOBACCO FORMER USER 05/06/2018 [facility] History of tobacco use [facility] QUIT 1 5 YRS OR MORE 01/19/2018 [facility] History of tobacco use QUIT TOBACCO >12 MO 02/06/2017 [facility]
--- OUTSIDE RECORDS SUMMARY | 2025-01-26 09:30 | XMS_ITS | Encounter Summary ---
Author Organization [facility] Address [address] [place] [address] Care Team Providers Care Scroll Saw Operator Name Role Phone Marjorie Dang MD Unavailable [phone] Marjorie Dang MD Primary Care Provider [phone] Encounter Details Date Type Department Care Team (Late st Contact Info) Description 01/02/2024 Orders Only [facility] Family Medicine [address] [place] [address] Marjorie Dang MD [address] [place] [address] Type 2 diabetes mellitus with microalbuminuria, without long-term current use of insulin (HCC) Social History Tobacco Use Types Packs/Day Years [...] often do you attend chur ch or worship services? Patient declined 03/25/2023 Do you belong to any clubs o r organizations such as holiness groups, unions, fraternal or athletic groups, or [...] Answer Date Recorded Patient Health Questionnaire-2 Score 1 01/01/2024 Hunger Vital Sign Answer Date Recorded Within [...] place to sleep or slept in a alf (including now)? No 03/25/2023 Sex and Gender Information Value Date Recorded Sex Assigned at Not on file Legal Sex Male 7:26 PM EDT Gender Identity Male 08/07/2022 7:26 PM EDT Sexual Orientation Not on file documented as of this encounter Plan of Treatment Upcoming Encounters Date Type Department Care Team (Late st Contact Info) Description 02/09/2025 11:00 AM EDT Office Visit [facility] [address] [place] [address] Kymberly Nation, DO [address] [place] [address] 04/15/2025 11:00 AM EST Office Visit [facility] [address] [place] [address] Marjorie Dang MD [address] [place] [address] 04/19/2025 1:00 PM EST Procedure Visit [facility] [address] [place] [address] Arue Guevara DPM [address] [facility] [place] [address] 07/28/2025 11:05 AM EST Office Visit [facility] [address] [place] [address] Rossy Zaman STEAMER TENDER-GALLERY OR MUSEUM TECHNICIAN [address] [place] [address] documented as of this encounter Procedures Procedure Name Priority Date/Time Associated Diagnosis Comments MICROALBUMIN / CREATININE URINE RATIO Routine 12/23/2023 8:26 AM EDT documented in this encounter Results * Microalbumin / creatinine urine ratio (12/23/2023 8:26 AM EDT) Urine Urine specimen obtained by clean catch procedure / Unknown Marjorie Dang MD LAB URINE ORDERABLES Final Re sult documented in this encounter Visit Diagnoses Diagnosis Type 2 diabetes mellitus with microalbuminuria, without long-term current use of insulin (HCC) documented in this encounter Additional Health Concerns Assessment Noted Time PHQ-9 Depression Total Score: 4 03/26/20 23 11:00 AM EDT documented as of this encounter Care Teams Scroll Saw Operator Relationship Specialty Start Date End Date Marjorie Dang MD [address] [facility] [place] [address] PCP - [employer] 05/26/22 Marjorie Dang MD [address] [facility] [place] [address] PCP - General Family Medicine 12/21/22 documented as of this encounter
--- OUTSIDE RECORDS SUMMARY | 2025-01-26 09:30 | XMS_ITS | Encounter Summary ---
Author Organization [facility] Address [address] [place] [address] Care Team Providers Care Band Maker Name Role Phone Marjorie Dang MD Unavailable [phone] Marjorie Dang MD Primary Care Provider [phone] Encounter Details Date Type Department Care Team (Latest Contact Info) Description 01/14/2025 Travel Social History Tobacco Use Types Packs/Day Years [...] week 03/25/2023 How often do you attend [facility] or shinto services? Patient declined 03/25/2023 Do you belong to any clubs o r organizations such as jehovah's witness groups, unions, fraternal or athletic groups, or [...] place to sleep or slept in a [place] [facility] [place] (including now)? No 03/25/2023 Sex and Gender Information Value Date Recorded Sex Assigned at Not on file Legal Sex Male 7:26 PM EDT Gender Identity Male 08/07/2022 7:26 PM EDT Sexual Orientation Not on file documented as of this encounter Plan of Treatment Upcoming Encounters Date Type Department Care Team (Late st Contact Info) Description 02/09/2025 11:00 AM EDT Office Visit [facility] [address] [place] [address] Kymberly Nation, DO [address] [place] [address] 04/15/2025 11:00 AM EST Office Visit [facility] [address] [place] [address] Marjorie Dang MD [address] [place], [place] [id number] 04/19/2025 1:00 PM EST Procedure Visit [facility] [address] [place] [address] Aure Guevara, DPM [address] [place] [address] 07/28/2025 11:05 AM EST Office Visit [facility] [address] [place] [address] Rossy Zaman, OFFICE MACHINE INSTALLER-FACILITY TECHNICIAN [address] [place] [address] documented as of this encounter Visit Diagnoses Not on filedocumented in this encounter Additional Health Concerns Assessment Noted Time PHQ-9 Depression Total Score: 0 10/15/19 1:00 PM EDT documented as of this encounter Care Teams Band Maker Relationship Specialty Start Date End Date Marjorie Dang MD [facility] [place], [place] [phone] PCP - [employer] 05/26/22 Marjorie Dang MD [address] [place] [address] PCP - General Family Medicine 12/21/22 documented as of this encounter
--- OUTSIDE RECORDS SUMMARY | 2025-01-26 09:30 | XMS_ITS | Encounter Summary ---
Author Organization [facility] Address [address] [place] [address] Care Team Providers Care Side Show Entertainer Name Role Phone Marjorie Dang MD Unavailable [phone] Marjorie Dang MD Primary Care Provider [phone] Encounter Details Date Type Department Care Team (Late st Contact Info) Description 09/20/2024 Abstract [facility] [address] [place] [phone] Aure Guevara, DPM [address] [place] [address] Social History Tobacco Use Types Packs/Day Years [...] often do you attend chur ch or religion services? Patient declined 03/25/2023 Do you belong to any clubs o r organizations such as hindu groups, unions, fraternal or athletic groups, or [...] Date Recorded Patient Health Questionnaire-2 Score 0 04/15/2024 Hunger Vital Sign Answer Date Recorded Within [...] place to sleep or slept in a fci (including now)? No 03/25/2023 Sex and Gender [...] EDT Office Visit [facility] [address] [place] [phone] Kymberly Nation, DO [address] [place] [address] 04/15/2025 11:00 AM EST Office Visit [facility] [address] [place] [phone] Marjorie Dang MD [address] [place], [place] [phone] 04/19/2025 1:00 PM EST Procedure Visit [facility] [address] [place] [phone] Aure Guevara [facility] [address] [place] [address] 07/28/2025 11:05 AM EST Office Visit [facility] [address] [place] [address] Rossy Zaman APRN-BEAN DUMPER [address] [place] [address] documented as of this encounter Visit Diagnoses Not on filedocumented in this encounter Additional Health Concerns Assessment Noted Time PHQ-9 Depression Total Score: 0 04/15/20 24 1:00 PM EST documented as of this encounter Care Teams Side Show Entertainer Relationship Specialty Start Date End Date Marjorie Dang MD [address] [place] [address] PCP - [employer] 05/26/22 Marjorie Dang MD [address] [place] [address] PCP - General Family Medicine 12/21/22 documented as of this encounter
--- OUTSIDE RECORDS SUMMARY | 2025-01-26 09:30 | XMS_ITS | Clinical Summary ---
Author Organization [facility] Address [address], [address] [place] [address] Care Team Providers Care Filtering Machine Tender Name Role Phone Unavailable Primary Care Provider Unavailabl e Allergies Active Allergy Reactions Criticality Noted Date Comments Sulfamethoxazole-Trimethoprim 2012 Medications oxybutynin (DITROPAN-XL) 10 MG CR tablet Take 10 mg by mouth daily. Active prazosin (MINIPRESS) 1 MG capsule Take 1 mg by mouth nightly. Active metformin (GLUCOPHAGE) 1000 MG tablet Take 1,000 mg by mouth 2 times daily (with meals). Active aspirin 81 MG tablet Take 81 mg by mouth daily. Active amLODIPine (NORVASC) 10 MG tablet Take 10 mg by mouth daily. Active furosemide (LASIX) 20 MG tablet Take 20 mg by mouth daily. Active polyethylene glycol (GLYCOLAX) packet Take 17 g by mouth daily as needed. Active acetaminophen 650 MG TABS Take 650 mg by mouth every 4 hours as needed for Pain (For mild pain level 1-3 or for fever > 100.5). 120 tablet 1 01/14/2013 Active atorvastatin (LIPITOR) 40 MG tablet Take 1 tablet by mouth nightly. 30 tablet 1 01/14/2013 Active lisinopril (PRINIVIL;ZESTRI L) 10 MG tablet Take 1 tablet by mouth daily. 30 tablet 2 01/14/2013 Active clopidogrel (PLAVIX) 75 MG tablet Take 1 tablet by mouth daily. 30 tablet 4 01/14/2013 Active pantoprazole (PROTONIX) 40 MG tablet Take 1 tablet by mouth Daily. 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 Social History Tobacco Use Types Packs/Day Years Used Date Smoking Tobacco: Former Alcohol Use Standard Drinks/Week Comments No 0 (1 standard drink = 0.6 oz pur e alcohol) Sex and Gender Information Value Date Recorded Sex Assigned at Not on file Legal Sex Male 9:25 AM EST Gender Identity Not on file Sexual Orientation Not on file Last Filed Vital Signs Vital Sign Reading Time Taken Comments Blood Pressure 153/62 01/14/2013 4:00 PM EDT Pulse 66 01/14/2013 4:00 PM EDT Temperature 36.7 C (98.1 F) 01/14/2013 4:00 PM EDT Respiratory Rate 20 01/14/2013 4:00 PM EDT Oxygen Saturation 97% 01/14/2013 4:00 PM EDT Inhaled Oxygen Concentration - - Weight 147.9 kg (326 lb) 01/12/2013 7:48 PM EDT Height 170.2 cm (5' 7 ) 01/12/2013 7:35 PM EDT Body Mass Index 51.06 01/12/2013 7:35 PM EDT Plan of Treatment Not on file Advance Directives * Full Code (Latest Code Status on File) Date Activated Date Inactivated Comments 01/13/2013 12:08 AM 01/14/2013 7:21 PM
--- OUTSIDE RECORDS SUMMARY | 2025-01-26 09:30 | XMS_ITS | Encounter Summary ---
Author Organization [facility] Address [address] [place] [address] Care Team Providers Care Agency Recruiter Name Role Phone Marjorie Dang MD Unavailable [phone] Marjorie Dang MD Primary Care Provider [phone] Encounter Details Date Type Department Care Team (Late st Contact Info) Description 10/27/2024 Results Follow-Up [facility] Medicine [address] [place] [address] Rizwana Alejandra NP [address] [place] [address] Urine culture Social History Tobacco Use Types Packs/Day Years [...] often do you attend chur ch or baptist services? Patient declined 03/25/2023 Do you belong to any clubs o r organizations such as adventism groups, unions, fraternal or athletic groups, or [...] place to sleep or slept in a fpc (including now)? No 03/25/2023 Sex and Gender Information Value Date Recorded Sex Assigned at Not on file Legal Sex Male 7:26 PM EDT Gender Identity Male 08/07/2022 7:26 PM EDT Sexual Orientation Not on file documented as of this encounter Miscellaneous Notes * Result Encounter Note - Rizwana Alejandra NP - 10/27/2024 4:14 PM EDT Patient was treated with macrobid according to urology. Patient notified * Telephone Encounter - Keysha Gonzalez MA - 10/27/2024 3:22 PM EDT Patient called back and is asking if an antibiotic is going to be sent in. * Result Encounter Note - Rizwana Alejandra NP - 10/27/2024 2:00 PM EDT Please fax and call these results to his urologists. Send it back to me when you are done thanks documented in this encounter Plan of Treatment Upcoming Encounters Date Type Department Care Team (Late st Contact Info) Description 02/09/2025 11:00 AM EDT Office Visit [facility] [address] [place] [address] Kymberly Nation, [address] [place] [address] 04/15/2025 11:00 AM EST Office Visit [facility] [place] [facility] [address] [facility] [place] [address] Marjorie Dang MD [address] [place] [address] 04/19/2025 1:00 PM EST Procedure Visit [facility] [address] [place] [phone] Aure Guevara, DPM [address] [place] [address] 07/28/2025 11:05 AM EST Office Visit [facility] [place] [facility] [address] [place] [address] Rossy Zaman, BLENDER HELPER-SUPERVISOR ASSEMBLY STOCK [address] [place] [address] documented as of this encounter Visit Diagnoses Not on filedocumented in this encounter Additional Health Concerns Assessment Noted Time PHQ-9 Depression Total Score: 0 10/15/19 25 1:00 PM EDT documented as of this encounter Care Teams Agency Recruiter Relationship Specialty Start Date End Date Marjorie Dang MD [address] [place], [place] [phone] PCP - [employer] 05/26/22 Marjorie Dang MD [address] [place] [address] PCP - General Family Medicine 12/21/22 documented as of this encounter
--- OUTSIDE RECORDS SUMMARY | 2025-01-26 09:30 | XMS_ITS | Encounter Summary ---
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 Patient declined 03/25/2023 Do you belong to any clubs o r organizations such as gnosticist groups, unions, fraternal or athletic groups, or [...] place to sleep or slept in a longterm (including now)? No 03/25/2023 Sex and Gender Information Value Date Recorded Sex Assigned at Not on file Legal Sex Male 7:26 PM EDT Gender Identity Male 08/07/2022 7:26 PM EDT Sexual Orientation Not on file documented as of this encounter Miscellaneous Notes * Telephone Encounter - Yesica Grant NP - 10/28/2024 2:20 PM EDT Farxiga sent to [facility]. * Telephone Encounter - Keysha Gonzalez MA - 10/27/2024 2:44 PM EDT I spoke with patient and I am confused on what is going on with this pharmacy. When I last spoke tothe patient on 10/22, he had to make an online account in order to work with the [facility] pharmacy. I see in a TE, and patient confirmed when I spoke with him now, that he was unable to create an account online. When I spoke with the pharmacy, they said that they would not send medication out until patient made account. I see yesterday the Bexagliflozin was sent again to the [facility] pharmacy. Patient cannot get medication from pharmacy without online account. I did provide him with the help number that I got from the pharmacy on 10/22. Patient is ok with being on Farxiga being sent to [facility] if this medication and pharmacy are not working out. Please advise. * Telephone Encounter - Yesica Grant NP - 10/26/2024 2:15 PM EDT Sent. * Telephone Encounter - Marjorie Purcell MA - 10/26/2024 1:37 PM EDT Spoke with pt he is agreeable to send to [facility] * Telephone Encounter - Yesica Grant NP - 10/25/2024 11:51 AM EDT His insurance does not cover the bexaglifozin. Not sure if the [facility] pharmacy would be cheaperfor him or not? We can try sending it there again if he would like? documented in this encounter Plan of Treatment Upcoming Encounters Date Type Department Care Team (Late st Contact Info) Description 02/09/2025 11:00 AM EDT Office Visit [facility] [address] [place] [address] Kymberly Nation, DO [address] [place] [address] 04/15/2025 11:00 AM EST Office Visit [facility] [address] [place] [address] Marjorie Dang MD [address] [place], [place] [phone] 04/19/2025 1:00 PM EST Procedure Visit [facility] [address] [place] [phone] Aure Guevara DPM [address] [place] [address] 07/28/2025 11:05 AM EST Office [facility] [address] [place] [address] Rossy Zaman APRN-CASH MANAGEMENT SPECIALIST [address] [place] [address] documented as of this encounter Visit Diagnoses Diagnosis 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
--- OUTSIDE RECORDS SUMMARY | 2025-01-26 09:30 | XMS_ITS | Clinical Summary ---
Author Organization [employer] tem Address [id number] [address] [place] [address] Care Team Providers Care Transportation Design Engineer Name Role Phone Rizwana Alejandra APRN-SHIP FITTER Primary Care Pro vider Allergies Active Allergy Reactions Criticality Noted Date Comments Sulfamethizole Hives 04/14/2016 Other reaction(s): Intolerance-unknown Trimethoprim 04/14/2016 Other reaction(s): Intolerance-unknown Medications aspirin 81 mg Active metFORMIN (GLUCOPHAGE) 1000 mg tablet Take 1 tablet (1,000 mg total) by mouth in the morning and 1 tablet (1,000 mg total) in the evening. Take with meals. Active polyethylene glycol (GLYCOLAX) 17 gram packet Take by mouth as needed. Active prazosin (MINIPRESS) 5 mg capsule Take 1 capsule (5 mg total) by mouth nightly. Active amLODIPine (NORVASC) 10 mg tablet Take by mouth. Activ e atorvastatin (LIPITOR) 40 mg tablet Take 2 tablets (80 mg total) by mouth before bedtime. 3 Active clopidogrel (PLAVIX) 75 mg tablet Take by mouth. 3 Active lisinopril (PRINIVIL,ZESTRI L) 20 mg tablet Take 1.5 tablets (30 mg total) by mouth in the morning. 3 Active cholecalciferol, vitamin D3, 25 mcg (1,000 unit) capsule Take 1 capsule (1,000 Units total) by mouth in the morning. Active carvediloL (COREG) 6.25 mg tablet Take 2 tablets (12.5 mg total) by mouth in the morning and 2 tablets (12.5 mg total) in the evening. Take with meals. Active ciclopirox (LOPROX) 0.77 % cream Apply 1 Application topically in the morning and 1 Application before bedtime. Gently massage into affected areas and surrounding skin. Active dapagliflozin propanediol (FARXIGA) 5 mg tablet Take 1 tablet (5 mg total) by mouth in the morning. Active Active Problems Problem Noted Date Diagnosed Date Proteinuria 03/13/2022 Edema 03/13/2022 Lymphedema 03/13/2022 Urinary incontinence 06/24/2016 Overview (12/08/2024): #### May 2007: Status post laser prostatectomy ==== 12/08/2024 ==== #### status post cysto [facility] bladder solution. Open prostatic urethra. Patient has had near resolution of symptoms. ==== 09/29/2024 ==== patient had followed up with a outside urologist for some time. Still bothered by his lower urinary tract symptoms. Urinary incontinence. PVR today 2 cc Plan: Urine for culture-nitrate positive. Await culture results. Urodynamics study. Video. Cystoscopy [facility] bladder solution. Renal bladder ultrasound. May 2007: Status post laser prostatectomy April 26: Deterioration of voiding symptoms, patient on Ditropan XL 15 mg dose. September 2014: Cystoscopy with minimal evidence of prostatic hypertrophy. October 25: Uroflowmetry with maximum flow 24 cc/sec, postvoid residual 0 cc. August 25: Patient switched to mybetrig 50 mg dose due to ineffectiveness of oxybutynin December 25: Voiding symptoms stable on mybetrig 50 milligram dose. 02/03/18: Voiding symptoms stable on myrbetriq 50 mg. We talked about botox as well but he is not interested. He is also going to continue to try to lose weight which will help Assessment & Plan (12/08/2024 11:56 AM EDT): We discuss observation verses some maintenance therapy. Chooses maintenance. Will have him do monthly x3 then will see him back in 6 months Elevated PSA 06/24/2016 Overview (06/24/2016): May 2007: Status post transrectal ultrasound biopsy. November 24 016: Digital rectal exam unchanged. Serum PSA 0.8. Encounter for preprocedural cardiovascular exami nation 12/01/2014 Diabetes mellitus 05/18/2014 Cerebrovascular disease 01/27/2013 Status post percutaneous transluminal coronary a ngioplasty 10/10/2011 Abnormal result of cardiovascular function study 09/11/2011 Benign essential hypertension 09/11/2011 Class 2 obesity due to exces s calories without serious comorbidity with body mass index (BMI) of 37.0 to 37.9 in adult 09/11/2011 Pure hypercholesterolemia 09/11/2011 Primary hypertension Encounters Date Type Department Care Team Description 01/03/2025 10:00 AM EDT Support Visit [facility] [address] [place] [address] [address] [facility] [place] [address] Alonzo Boothe MD Urinary incontinence, unspecified type (Primary Dx) 12/08/2024 11:30 AM EDT Office Visit [facility] [address] [place] [address] [place] [address] Alonzo Boothe MD Urinary incontinence, unspecified type (Primary Dx) 12/08/2024 Telephone [facility] [address] [place] [address] [address] [facility] [place] [address] Alonzo Boothe MD 11/11/2024 Orders Only [facility] [address] [place] [address] [address] [facility] [place] [address] Alonzo Boothe MD 11/02/2024 9:45 AM EDT - 11/02/2024 10:15 AM EDT Surgery [facility] [address] [place] [address] Alonzo Boothe MD CYSTOSCOPY WITH [facility] BLADDER SOLUTION [04237 (CPT )] 11/02/2024 7:20 AM EDT - 11/02/2024 10:40 AM EDT Hospital Encounter [facility] [address] [place] [address] Alonzo Boothe MD Urinary incontinence, unspecified type Discharge Disposition: Home 11/02/2024 Telephone [facility] [address] [address] Alonzo Boothe MD 11/02/2024 Travel 11/01/2024 3:00 PM EDT Support Visit [facility] - Pre Admit [address] [place] [address] 10/28/2024 12:30 PM EDT [facility] [address] [place] [phone] Urinary incontinence, unspecified type 10/28/2024 Travel 10/27/2024 Telephone [facility] [address] [place] [phone] Ron Dumont CMA from Last 3 Months Family History Medical History Relation Name Comments Stroke Father Alzheimer's disease Mother Dementia Mother Relation Name Status Comments Father Mother Social History Tobacco Use Types Packs/Day Years Used Date Smoking Tobacco: Never Smokeless Tobacco: Never Alcohol Use Standard Drinks/Week Comments No 0 (1 standard drink = 0.6 oz pur e alcohol) Childcare Answer Date Recorded Childcare Unknown 11/04/2018 Employment Answer Date Recorded Employment Unknown 11/04/2018 Hunger Screening Answer Date Recorded Within the past 12 months we worried whether our food would run out before we got money to buy more. Never True 12/08/2024 Within the past 12 months th e food we bought just didn't last and we didn't have money to get more. Never True 12/08/2024 Purpose - Life Answer Date Recorded Purpose and direction in life Unknown Sex and Gender Information Value Date Recorded Sex Assigned at Not on file Legal Sex Male 11:43 AM EDT Gender Identity Not on file Sexual Orientation Not on file Last Filed Vital Signs Vital Sign Reading Time Taken Comments Blood Pressure 148/69 12/08/2024 11:23 AM EDT Pulse 98 12/08/2024 11:23 AM EDT Temperature 36.8 C (98.2 F) 11/04/2016 9:16 AM EDT Respiratory Rate 20 01/08/2017 12:45 PM EDT Oxygen Saturation 95% 11/04/2016 11:05 AM EDT Inhaled Oxygen Concentration - - Weight 133.8 kg (295 lb) 12/08/2024 11:23 AM EDT Height 167.6 cm (5' 6 ) 12/08/2024 11:23 AM EDT Body Mass Index 47.61 12/08/2024 11:23 AM EDT Plan of Treatment Upcoming Encounters Date Type Department Care Team (Late st Contact Info) Description 02/08/2025 10:00 AM EDT Support Visit [facility] [address] [place] [phone] Russ Koo MD [address] [place] [address] 03/15/2025 10:00 AM EDT Support Visit [facility] [address] [place] [address] [place] [address] Russ Koo MD [address] [place] [address] 06/15/2025 3:15 PM EST Office Visit [facility] [address] [place] [phone] Alonzo Boothe MD [address] [place] [address] Health Maintenance Due Date Last Done Comments Depression Screening 1957 Fall Risk Screening 12/14/2008 COVID-19 Vaccine (2023- 5 season) 2024 02/05/2024, 02/21/2023, 10/09/2022, Additional history exists Influenza Vaccine 01/24/2025 02/05/2024, , 01/24/2022, Additional history exists Tobacco Screening 12/08/2025 12/08/2024 DTaP,Tdap and Td Vaccines (3 - Td or Tdap) 08/14/2033 08/15/2023, 02/10/2017 Zoster (Shingles) Vaccine Completed 2022, 10/09/2022, 06/17/2013 Medical Devices Not on file Procedures Procedure Name Priority Date/Time Associated Diagnosis Comments [facility] Routine 11/02/2024 10 :19 AM EDT URINE CULTURE Routine 11/02/2024 10:19 AM EDT Urinary incontinence, unspecified type MO CYSTOURETHROSCOPY 11/02/2024 10:05 AM EDT Urinary incontinence, unspecified type CYSTOMETROGRAM Routine 10/28/2024 Urinary incontinence, unspecified type from Last 3 Months Results * (ABNORMAL) [facility] ORDER (11/02/2024 10:19 AM EDT) TEST RESULT SEE COMMENTS( A) 11/11/2024 11:47 AM EDT [facility] Comment: Test Result Flag Unit RefValue Susceptibility, Aerobic, ABBI SEE COMMENTS A SOURCE: URINE, ISOLATE FROM CYSTOSCOPE URINE. SEE ATTACHED RESULTS FOR ADDITIONAL INFO SUSCEPTIBILITY, AEROBIC, ABBI FINAL CITROBACTER FREUNDII Organism identified by client. Organism CITROBACTER FREUNDII Antibiotic ABBI (mcg/mL) Interpretation Ampicillin R Amp/Sulb R Pip/[place] <=8/4 S Cefazolin R Cefepime <=2 S Ceftazidime <=4 S Ceftriaxone <=1 S Ertapenem <=0.25 S Meropenem <=0.12 S Aztreonam <=4 S Ciprofloxacin <=0.25 S Levofloxacin <=0.5 S Amikacin <=4 S Gentamicin <=1 S Tobramycin <=1 S Nitrofurantoin <=32 S TMP/SMX <=.5/9.5 S S=SUSCEPTIBLE I=INTERMEDIATE R=RESISTANT NS=NONSUSCEPTIBLE SDD=SUSCEPTIBLE DOSE DEPENDENT Test Performed by: [address] [address] Sergeant At Arms: Juan Peña Ph.D.; CLIA# [id number] Urine (Urine, Cystoscope) 11/02/2024 10:19 AM EDT 11/02/2024 10:34 AM EDT us Alonzo Boothe MD LAB BLOOD ORDERABLES Final R esult [address] [address], [place] * (ABNORMAL) Urine Culture Urine, Cystoscope (11/02/2024 10:19 AM EDT) CULTURE RESULTS >100,000 CFU/mL Citrobacter freundii(A) 11/12/2024 3:18 PM EDT [facility] Urine (Urine, Cystoscope) 11/02/2024 10:19 AM EDT 11/02/2024 10:34 AM EDT Comment:Pre-op diagnosis: Urinary incontinence, unspecified type [R32] Narrative [facility] - 11/12/2024 3:18 PM EDT Urine received without preservative - delays in transport may affect results. Interpret with caution and clinical correlation is recommended. CULTURE SENT TO REFERENCE LABORATORY FOR ID AND SUSCEPTIBILITY ON 11/04/24. This case was sent to [facility] for expert consult review. See Separate Report for susceptibility. Alonzo Boothe MD MICROBIOLOGY - GENERAL ORDER BALBIR Final Result Performing Organization Address City/[facility]/ZIP Co de Phone Number [facility] [address] [place] [address], [place] [phone] * Cystometrogram (10/28/2024) 10/28/2024 Alonzo Boothe MD PROCEDURE ORDERABLES Lynn l Result Performing Organization Address City/[facility] Co de Phone Number MANUALLY TRANSCRIBED RESULTS from Last 3 Months Insurance [employer] Care Teams Transportation Design Engineer Relationship Specialty Start Date End Date Rizwana Alejandra, ALUMINUM SIDING MECHANIC-SHIP FITTER [address] [place] [address] PCP - General Internal Medicine 07/21/18
--- OUTSIDE RECORDS SUMMARY | 2025-01-26 09:30 | XMS_ITS | Clinical Summary ---
Author Organization [facility] Healthcare Address [address] [place] [address] Care Team Providers Care Figure Skater Name Role Phone Marjorie Dang MD Unavailable [phone] Marjorie Dang MD Primary Care Provider [phone] Allergies Active Allergy Reactions Criticality Noted Date Comments Sulfa Antibiotics Hives Low 02/10/2017 Sulfamethoxazole-Trimethoprim Hives Low 2021 Medications aspirin 81 MG EC tablet Take 1 tablet by mouth Daily Active cholecalciferol (Vitamin D-3) 25 MCG (1000 UT) capsule Take 1,000 Units by mouth in the morning. Active albuterol HFA 90 mcg/act inhalerIndication s:Chronic obstructive pulmonary disease, unspecified COPD type (HCC) USE 1 INHALATION ORALLY EVERY 4 HOURS NEEDED FORSHORTNESS OF BREATH OR COUGH for 34 18 g 5 023 Active traZODone (Desyrel) 50 MG tabletIndications :Primary insomnia Take 1 tablet (50 mg) by mouth at bedtime 30 tablet 024 Active Additional Information Patient not taking.Reported on 01/14/2025 lisinopril 30 MG tabletIndications :Benign essential hypertension TAKE 1 TABLET EVERY MORNING 90 tablet 1 024 Active clopidogrel (Plavix) 75 MG tabletIndications :CAD S/P percutaneous coronary angioplasty TAKE 1 TABLET ONCE DAILY 90 tablet 1 025 Active nystatin (Mycostatin) 236621 UNIT/GM powderIndications :Intertrigo Apply topically 2 (two) times a day 60 g 11 025 Active prazosin (Minipress) 5 MG capsuleIndication s:Benign essential hypertension Take 1 capsule (5 mg) by mouth Daily 90 capsule 1 025 Active metFORMIN (Glucophage) 1000 MG tabletIndications :Type 2 diabetes mellitus without complication, without long-term current use of insulin (HCC) Take 1 tablet (1,000 mg) by mouth in the morning and 1 tablet (1,000 mg) in the evening. Take with meals. 180 tablet 025 Active carvedilol (Coreg) 12.5 MG tabletIndications :Atherosclerosis of ely shoshone coronary artery of ely shoshone heart without angina pectoris Take 1 tablet (12.5 mg) by mouth in the morning and 1 tablet (12.5 mg) in the evening. Take with meals. 180 tablet 025 Active ciclopirox (Loprox) 0.77 % creamIndications: Intertrigo APPLY TO SKIN FOLDS TOPICALLY TWO TIMES A DAY NEEDED FOR SKIN IRRITATION,HOLD WHEN CLEAR, 90 day supply 270 g 2 025 Active moxifloxacin (Vigamox) 0.5 % ophthalmic solution Active atorvastatin (Lipitor) 80 MG tablet Take 80 mg by mouth at bedtime Active dapagliflozin (Farxiga) 5 MGIndications:Typ e 2 diabetes mellitus with neurological manifestation (HCC) Take 1 tablet (5 mg) by mouth Daily 30 tablet 025 2024 Active atorvastatin (Lipitor) 40 MG tabletIndications :Hyperlipidemia, unspecified hyperlipidemia type TAKE 1 TABLET DAILY 90 tablet 1 025 2024 Discontinued dapagliflozin (Farxiga) 10 MGIndications:Typ e 2 diabetes mellitus with neurological manifestation (HCC) Take 1 tablet (10 mg) by mouth Daily 30 tablet 025 2024 Discontinued(D ose adjustment) Active Problems Problem Noted Date Diagnosed Date Need for assistance at home and no other household member able to render care 01/01/2024 Cardiac pacemaker in situ 12/26/2023 Overview (01/01/2024): Last Assessment & Plan: Wound check today- incision healing well, no s/s of infection Wearing sling to lt arm- and continues limited ROM of lt arm well. RTC at 1 month for device check Assessment & Plan (01/14/2025 12:22 PM EDT): Follows with cardio for device checks. Assessment & Plan (10/14/2024 2:13 PM EDT): Follows with cardio for device checks. Heart block AV third degree 12/17/2023 Overview (01/01/2024): Last Assessment & Plan: Currently resolved with PPM Assessment & Plan (10/14/2024 2:13 PM EDT): Pacer placed 12/16. Assessment & Plan (07/13/2024 9:23 PM EST): Pacer placed 12/16. Assessment & Plan (01/01/2024 10:07 PM EDT): Pacer placed 12/16. 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 10/17. Orders: Microalbumin / creatinine urine ratio; Future Bexagliflozin (Brenzavvy) 20 MG tablet; Take 1 tablet by mouth Daily Assessment & Plan (07/13/2024 9:12 PM EST): A1c controlled. Assessment & Plan (01/01/2024 10:05 PM EDT): A1c controlled. Edema 03/13/2022 Proteinuria 03/13/2022 Lymphedema 06/07/2021 Obstructive sleep apnea syndrome 02/07/2021 Assessment & Plan (01/14/2025 12:22 PM EDT): Compliant with his CPAP each night and it is beneficial. Assessment & Plan (10/14/2024 2:13 PM EDT): Compliant with his CPAP each night and it is beneficial. Interstitial lung disease 12/22/2020 Aortic valve stenosis 04/28/2020 History of cerebrovascular accident 04/28/2020 Morbid obesity 04/28/2020 Hyperlipidemia 04/28/2020 Assessment & Plan (10/14/2024 2:13 PM EDT): Controlled on lipitor. History of neoplasm 06/29/2019 Chronic pain 06/08/2019 Dribbling of urine 04/06/2019 Chronic obstructive pulmonary disease 03/09/2019 Assessment & Plan (10/14/2024 2:13 PM EDT): Uses inhalers. No symptoms of breathing issues at all. Assessment & Plan (01/01/2024 10:06 PM EDT): Uses inhalers. Osteoarthritis of knee 11/05/2017 Cardiomegaly 07/18/2016 Elevated PSA 06/24/2016 Overview (12/24/2022): May 2007: Status post transrectal ultrasound biopsy. November 24: Digital rectal exam unchanged. Serum PSA 0.8. May 2007: Status post transrectal ultrasound biopsy. November 24: Digital rectal exam unchanged. Serum PSA 0.8. Urinary incontinence 06/24/2016 Overview (12/24/2022): May 2007: Status post laser prostatectomy April [...] try to lose weight which will help May 2007: Status post laser prostatectomy April [...] try to lose weight which will help Atherosclerosis of coronary artery without angin a pectoris 06/05/2015 Assessment & Plan (10/14/2024 2:13 PM EDT): No angina. Assessment & Plan (07/13/2024 9:23 PM EST): No angina. Assessment & Plan (01/01/2024 10:07 PM EDT): No angina. 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 Assessment & Plan (07/13/2024 9:23 PM EST): Controlled on medications. Assessment & Plan (01/01/2024 10:07 PM EDT): Controlled on medications. Pure hypercholesterolemia 09/11/2011 Assessment & Plan (01/01/2024 10:08 PM EDT): Continue lipitor. Class 2 obesity due to exces s calories without serious comorbidity with body mass index (BMI) of 37.0 to 37.9 in adult 09/11/2011 Assessment & Plan (01/14/2025 12:22 PM EDT): Resolved Problems Problem Noted Date Diagnosed Date Resolved Date Essential (primary) hypertension 03/25/2023 03/27/2023 Encounters Date Type Department Care Team Description 01/14/2025 10:00 AM EDT [facility] [place] [address] Marjorie Dang MD Obstructive sleep apnea syndrome (Primary Dx); 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); Benign essential hypertension ; Cardiac pacemaker in situ; Coronary artery disease involving ely shoshone coronary artery of ely shoshone heart without angina pectoris ; Class 2 obesity due to excess calories without serious comorbidity with body mass index (BMI) of 37.0 to 37.9 in adult 01/14/2025 Bamboo flowsheet [facility] [address] [facility] [place] [address] Marjorie Dang MD 01/14/2025 Travel 01/06/2025 1:00 PM EDT Procedure Visit [facility] [address] [place] [address] Aure Guevara, DPQuincy Type II or unspecified type diabetes mellitus with neurological manifestations, not stated as uncontrolled(250.60) (HCC) (Primary Dx); Onychomycosis 01/06/2025 Bamboo flowsheet [facility] [address] [place] [address] Aure Guevara DPM 01/06/2025 Travel 01/05/2025 Travel 12/31/2024 Travel 12/20/2024 Refill [facility] [address] [place] [address] Marjorie Dang MD Benign essential hypertension ; Type 2 diabetes mellitus without complication, without long-term current use of insulin (HCC); Atherosclerosis of ely shoshone coronary artery of ely shoshone heart without angina pectoris 11/08/2024 Abstract [facility] [address] [place] [address] Mario Horton DPM 11/08/2024 Telephone [facility] [address] [place] [address] Mario Horton DPM Advice Only (Diabetic shoes) 10/28/2024 Telephone [facility] [address] [facility] [place] [address] Marjorie Dang MD 10/27/2024 Results Follow-Up [facility] [address] [place] [phone] Rizwana Alejandra, JANELL Urine culture from Last 3 Months Immunizations Immunization Administration Dates Next Due Influenza, High Dose Seasona l, Preservative Free 02/05/2024,02/01/2015,02/01/2015 Influenza, High-dose Seasona l, Quadrivalent, Preservative Free 03/11/2019 Influenza, Seasonal, Quadriv alent, Adjuvanted 02/07/2023,01/16/2022,02/16/2021 Influenza, Unspecified 01/24/2022,02/23/2021,05/2018 Influenza, injectable, quadr ivalent, preservative free 01/22/2020 Influenza, seasonal, injectable 02/24/2012,02/27 Influenza, seasonal, intrade rmal, preservative free 02/07/2016 Influenza, trivalent, adjuvanted 03/05/2019,01/24,02/03/2017 Moderna Bivalent Booster Vaccination 10/09/2022, 03/26/2022 Moderna SARS-CoV-2 Vaccination 04/04/2021,2020,07/03/2020 Pneumococcal Conjugate PCV 13 11/16/2018, 016 Pneumococcal Conjugate PCV 20 04/15/2024 Pneumococcal Polysaccharide PPSV23 03/28/2017 RSV, recombinant, protein javed bunit RSVpreF, adjuvant reconstitu, 120mcg/0.5mL, PF (Arexvy) 02/21/2023 SARS-COV-2 (COVID-19) vaccin e, mRNA, spike protein, LNP, PF, 50 mcg/0.5 mL 02/05/2024 SARS-COV-2 (COVID-19) vaccin e, mRNA, spike protein, LNP, PF, alfonzo-sucrose, 30 mcg/0.3 mL 02/21/2023 SARS-CoV-2, Unspecified 09/03/2021,04/05/2021 Tdap 08/15/2023,02/10/2017 Zoster, Recombinant 02/07/2023,10/09/2022 Zoster, live 06/17/2013 Family History Medical History Relation Name Comments Alcohol abuse Father Dod Cancer Father Dod Arthritis Mother Mother Breast cancer Mother Mother Diabetes Mother Mother Melanoma Neg Hx Relation Name Status Comments Brother Father Dod Mother Mother Sister Social History Tobacco Use Types Packs/Day Years Used Date Smoking Tobacco: Never Smokeless Tobacco: Never Tobacco Cessation:Counseling Given: Not Answered Alcohol Use Standard Drinks/Week Comments Never 0 [...] week 03/25/2023 How often do you attend [facility] or church services? Patient declined 03/25/2023 Do you belong to any clubs o r organizations such as restoration groups, unions, fraternal or athletic groups, or [...] place to sleep or slept in a half-way (including now)? No 03/25/2023 Sex and Gender Information Value Date Recorded Sex Assigned at Not on file Legal Sex Male 7:26 PM EDT Gender Identity Male 08/07/2022 7:26 PM EDT Sexual Orientation Not on file Last Filed Vital Signs Vital Sign Reading Time Taken Comments Blood Pressure 128/76 01/14/2025 9:57 AM EDT Pulse 60 01/14/2025 9:57 AM EDT Temperature 36.4 C (97.5 F) 12/24/2022 12:51 PM EDT Respiratory Rate 18 10/14/2024 1:14 PM EDT Oxygen Saturation 94% 01/14/2025 9:57 AM EDT Inhaled Oxygen Concentration - - Weight 136 kg (300 lb 3.2 oz) 01/14/2025 9:57 AM EDT Height 165.1 cm (5' 5 ) 01/14/2025 9:57 AM EDT Body Mass Index 49.96 01/14/2025 9:57 AM EDT Plan of Treatment Upcoming Encounters Date Type Department Care Team (Late st Contact Info) Description 02/09/2025 11:00 AM EDT Office Visit [facility] [address] [place] [phone] Kymberly Nation, DO [address] [place] [address] 04/15/2025 11:00 AM EST Office Visit [facility] [address] [place] [phone] Marjorie Dang MD [address] [place], [place] [phone] 04/19/2025 1:00 PM EST [facility] [address] [place] [phone] Aure Guevara, DPM [address] [place] [address] 07/28/2025 11:05 AM EST Office Visit [facility] [place] [facility] [address] [place] [phone] Rossy Zaman, VOLUNTEER SERVICES ASSISTANT-HANDLE FINISHER [address] [place] [address] Health Maintenance Due Date Last Done Comments Influenza Vaccine (#1) 2025 , 02/07/2023, 01/24/2022, Additional history exists Diabetes: Hemoglobin A1C 04/16/20252 025, 10/14/2024, 07/13/2024, Additional history exists Diabetes: Urine Protein Screening 10/14/2025 10/14/2024, 12/23/2023, 12/24/2022, Additional history exists Medicare Annual Wellness (AWV) 10/14/2025 0 10/14/2024, 10/14/2024, 10/14/2024, Additional history exists Diabetes: Retinopathy Screening 09/07/2026 09/07/2024, 10/26/2019, 08/31/2018, Additional history exists Pneumococcal Vaccine: 65+ Years Completed 04/15/2024, 11/16/2018, 03/28/2017, Additional history exists Procedures Procedure Name Priority Date/Time Associated Diagnosis Comments POCT GLYCATED HEMOGLOBIN, TOTAL Routine 01/14/2025 10:05 AM EDT 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) MICROALBUMIN / CREATININE URINE RATIO Routine 10/14/2024 2:26 PM EDT 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) COLOR FUNDUS PHOTOGRAPHY - OU - BOTH EYES Routine 10/26/2019 12:00 PM EDT from Last 3 Months or Most Recently Relevant to Health Maintenance Results * POCT Glycated hemoglobin, total (01/14/2025 10:05 AM EDT) Hemoglobin A1C 6.8 Blood 01/14/2025 10:0 5 AM EDT Marjorie Dang MD POINT OF CARE TEST ENTER/EDIT ORDERABLES Final Result * (ABNORMAL) Microalbumin / creatinine urine ratio (10/14/2024 2:26 PM EDT) CREATININE, RANDOM URINE 31 20 - 320 mg/dL [facility] ALBUMIN, URINE 2.7 See Note: mg/dL [facility] Comment: Reference Range: Reference Range Not established ALBUMIN/CREATININE RATIO, RANDOM URINE 87(H) <30 mg/g creat [facility] Comment: The ADA defines abnormalities in albumin excretion as follows: Albuminuria Category Result (mg/g creatinine) Normal to Mildly increased <30 Moderately increased 30-299 Severely increased > OR = 300 The ADA recommends that at least two of three specimens collected within a 3-6 month period be abnormal before considering a patient to be within a diagnostic category. Urine Urine specimen obtained by clean catch procedure / Unknown 10/14/2024 2:26 PM EDT 10/14/2024 2:26 PM EDT Narrative Resulting Agency Comment Performing Organization Information Site ID: [id number] Name: [facility] Address: [address] [place] [address] Director: Kirk Ovalle MD us Marjorie Dang MD LAB URINE ORDERABLES Final Re sult [facility] * Color Fundus Photography - OU - Both Eyes (10/26/2019 12:00 PM EDT) Anatomical Region Laterality Modality Head Fundus Photograp hy 10/26/2019 12:0 0 PM EDT Narrative 10/26/2019 12:00 PM EDT PERFORMED AT [facility] LOCATION:[id number] Procedure Note CONVERSION, GENERIC - 10/09/2022 PERFORMED AT [facility] LOCATION:[id number] Marjorie Dang MD OPHTH PHOTOGRAPHY Final Resul t from Last 3 Months or Most Recently Relevant to Health Maintenance Insurance [employer] MEDICARE ADVANTAGE Care Teams Figure Skater Relationship Specialty Start Date End Date Marjorie Dang MD [address] [place] [address] PCP - [employer] 05/26/22 Marjorie Dang MD [address] [place] [address] PCP - General Family Medicine 12/21/22
--- OUTSIDE RECORDS SUMMARY | 2025-01-26 09:30 | XMS_ITS | Encounter Summary ---
Author Organization [facility] Address [address] [place] [address] Care Team Providers Care Commercial Sales Representative Name Role Phone Marjorie Dang MD Unavailable [phone] Marjorie Dang MD Primary Care Provider [phone] Encounter Details Date Type Department Care Team (Late Contact Info) Description 02/12/2023 Orders Only General acute hospital Family Medicine [address] [place] [address] Elida Plata MD [address] [place] [address] Type 2 diabetes mellitus without complication, without long-term current use of insulin (HCC) Social History Tobacco Use Types Packs/Day Years Used Date Smoking Tobacco: Never Smokeless Tobacco: Never Alcohol Use Standard Drinks/Week Comments Never 0 (1 standard drink = 0.6 oz pur e alcohol) caffeine: coffee occasionally Sex and Gender Information Value Date Recorded Sex Assigned at Not on file Legal Sex Male 7:26 PM EDT Gender Identity Male 08/07/2022 7:26 PM EDT Sexual Orientation Not on file documented as of this encounter Plan of Treatment Upcoming Encounters Date Type Department Care Team (Late Contact Info) Description 02/09/2025 11:00 AM EDT [facility] [address] [place] [address] Kymberly Nation, DO [address] [place] [address] 04/15/2025 11:00 AM EST [facility] [address] [place] [phone] Marjorie Dang MD [address] [place] [address] 04/19/2025 1:00 PM EST Procedure Visit [facility] [address] [place] [phone] Aure Guevara, DPM [address] [place] [address] 07/28/2025 11:05 AM EST Office Visit [facility] [address] [place] [phone] Rossy Zaman APRN-MIXER PIGMENT [address] [place] [address] documented as of this encounter Visit Diagnoses Diagnosis Type 2 diabetes mellitus without complication, without long-term current use of insulin (HCC) documented in this encounter Care Teams Commercial Sales Representative Relationship Specialty Start Date End Date Marjorie Dang MD [address] [place] [address] PCP - [employer] 05/26/22 Marjorie Dang MD [address] [place] [address] PCP - General Family Medicine 12/21/22 documented as of this encounter
--- OUTSIDE RECORDS SUMMARY | 2025-01-26 09:30 | XMS_ITS | Encounter Summary ---
Author Organization [facility] Address [address] [place] [address] Care Team Providers Care Light Industrial Name Role Phone Marjorie Dang MD Unavailable [phone] Marjroie Dang MD Primary Care Provider [phone] Reason for Visit * Reason Comments Med Refill Encounter Details Date Type Department Care Team (Late Contact Info) Description 12/23/2022 Refill [facility] [address] [place] [phone] Rizwana Alejandra NP [address] [place], [place] [phone] Social History Tobacco Use Types Packs/Day Years Used Date Smoking Tobacco: Never Alcohol Use Standard Drinks/Week Comments Never 0 (1 standard drink = 0.6 oz pure alcohol) caffeine: none coffee occasionally Sex and Gender Information Value Date Recorded Sex Assigned at Not on file Legal Sex Male 7:26 PM EDT Gender Identity Male 08/07/2022 7:26 PM EDT Sexual Orientation Not on file documented as of this encounter Miscellaneous Notes * Telephone Encounter - Marjorie Dang MD - 12/24/2022 9:10 AM EDT Looks like he is due for an appt. documented in this encounter Plan of Treatment Upcoming Encounters Date Type Department Care Team ([facility] Contact Info) Description 02/09/2025 11:00 AM EDT Office Visit [facility] [address] [facility] [place] [phone] Kymberly Nation, DO [address] [place] [address] 04/15/2025 11:00 AM EST Office Visit [facility] [facility] [address] [facility] [place] [phone] Marjorie Dang MD [address] [facility] [place] [address] 04/19/2025 1:00 PM EST Procedure Visit [facility] [address] [place] [address] Aure Guevara, DPM [address] [place] [address] 07/28/2025 11:05 AM EST [facility] [place] [facility] [address] [place] [phone] Rossy Zaman APRN-BLAST FURNACE CHECKER [address] [place] [address] documented as of this encounter Visit Diagnoses Not on filedocumented in this encounter Care Teams Light Industrial Relationship Specialty Start Date End Date Marjorie Dang MD [address] [place] [address] PCP - [employer] 05/26/22 Marjorie Dang MD [address] [facility] [place] [address] PCP - General Family Medicine 12/21/22 documented as of this encounter
--- OUTSIDE RECORDS SUMMARY | 2025-01-26 09:30 | XMS_ITS | Encounter Summary ---
Author Organization [facility] Address [address] [place] [address] Care Team Providers Care Floorwalker Name Role Phone Marjorie Nath MD Unavailable [phone] Marjorie Nath MD Primary Care Provider [phone] Encounter Details Date Type Department Care Team (Late st Contact Info) Description 12/03/2023 Clinisync Result Encounter [facility] External Department Unsolicited Provider, Generic External Data Social History Tobacco Use Types Packs/Day Years [...] often do you attend chur ch or advent services? Patient declined 03/25/2023 Do you belong to any clubs o r organizations such as bahai groups, unions, fraternal or athletic groups, or [...] Date Recorded Patient Health Questionnaire-2 Score 0 08/19/2023 Hunger Vital Sign Answer Date Recorded Within [...] place to sleep or slept in a care home (including now)? No 03/25/2023 Sex and Gender [...] EDT Office Visit [facility] [address] [place] [address] Kymberly Nation, DO [address] [facility] [place] [address] 04/15/2025 11:00 AM EST Office Visit [facility] [address] [place] [address] Marjorie Nath MD [address] [place], [place] [address] 04/19/2025 1:00 PM EST [facility] [address] [place] [address] Aure Guevara, DPM [address] [place] [address] 07/28/2025 11:05 AM EST Office Visit [facility] [address] [place] [address] Rossy Zaamn, CHILD'S NURSE-CHUTE WORKER [address] [place] [address] documented as of this encounter Procedures Procedure Name Priority Date/Time Associated Diagnosis Comments CA ECHO DOPPLER COMPLETE 12/03/2023 10:34 AM EDT documented in this encounter Results * CA ECHO DOPPLER COMPLETE (12/03/2023 10:34 AM EDT) Anatomical Region Laterality Modality Other 12/03/2023 10:3 4 AM EDT Narrative 12/03/2023 10:35 AM EDT [address] [address] Cardiology Report Signed Patient: NGHIA AVERY MR#: [id number] : 1945 Acct:[id number] Age/Sex: 77 / M ADM Date: 12/02/23 Loc: CARD Attending Dr: KATELYN VALENTE Ordering Physician: KATELYN VALENTE Date of Service: 12/02/23 Procedure(s): CA echo doppler complete Accession Number(s): [id number] cc: MARJORIE NATH GEORGE Patient Name: NGHIA AVERY MR#: [id number] : 1945 Exam Date: 12/02/2023 Ordering Doctor: DR KATELYN VALENTE M.D. ECHOCARDIOGRAM REPORT PROCEDURE: CA ECHO DOPPLER COMPLETE INDICATIONS: Nonrheumatic aortic valve stenosis COMPARISON: None. DESCRIPTION: COMPLETE ECHOCARDIOGRAM Real-time transthoracic echocardiography with 2D, M-mode, spectral and color flow Doppler performed. QUALITY: Technical quality was adequate. LEFT VENTRICLE: Normal chamber size. Mild concentric left ventricular hypertrophy. LV EF: Global left ventricular systolic function is normal. Visual estimation of left ventricular ejection fraction is 60-65%. No wall motion abnormalities. DIASTOLIC: Normal diastolic function. ATRIAL SEPTUM: Inadequately seen. LEFT ATRIUM: Normal chamber size. RIGHT ATRIUM: Mild dilatation. RIGHT VENTRICLE: Mild dilatation. Normal right ventricular systolic function. TRICUSPID VALVE: Normal mobility and thickness. No stenosis with trivial regurgitation. No evidence of pulmonary hypertension. RVSP 33mmHg MITRAL VALVE: Mildly thickened with normal mobility. No evidence of mitral valve stenosis. Moderate mitral annular calcification. AORTIC VALVE: Normal trileaflet appearance. Moderately calcified aortic valve. Doppler velocity suggests mild aortic valve stenosis. Vmax 2.1m/s, Mean gradient 10mmHg. No aortic regurgitation. AORTIC ROOT: Normal diameter and appearance. PULMONIC VALVE: Normal thickness and mobility. No stenosis. Trivial regurgitation. PERICARDIUM: No evidence of pericardial effusion. IVC: Collapses with inspirations. Normal size. CONCLUSION: 1. Global left ventricular systolic angiogram; visually estimated ejection fraction is 60 to 65% 2. Right ventricle is mildly dilated with normal systolic function 3. Mild right atrial dilatation 4. Mildly increased left ventricular wall thickness 5. Normal diastolic function 6. Mild aortic valve stenosis Adult Echocardiography Procedure Report Left Ventricle LVEDD (3.7 - 5.6 cm): 5.14 cm LVESD (2.2 - 4.0 cm): 3.62 cm LVIVS thickness (0.6 - 1.2 cm): 1.43 cm LVPW thickness (0.5 - 1.0 cm): 1.29 cm e': 0.07 m/s E - e': 11.97 LVOT Max Gradient: 1.60 mm[Hg] LVOT Area (cm2): 0.63 m/s Peak Velocity (LVOT): 0.63 m/s Mean Velocity (LVOT): 0.41 m/s LVOT Diameter 2.36 cm Left Atrium Left Atrium Systolic Dimension: 5.00 cm Mitral Valve MV E to A Ratio: 0.88 Mitral Valve A-Wave Peak Velocity: 0.95 m/s Mitral Valve E-Wave Peak Velocity: 0.84 m/s Right Ventricle RV Internal Diastolic Dimension: 4.19 cm Aorta AO Root Diam: 3.60 cm Ascending Ao Diam: 3.50 cm Aortic Valve AoV Area (Peak Cheo): 1.33 cm2, 1.34 cm2 AoV Area (VTI): 1.46 cm2, 1.46 cm2 Peak Velocity(Antegrade Flow): 2.05 m/s, 2.10 m/s Peak Gradient(Antegrade Flow): 16.77 mm[Hg], 17.67 mm[Hg] Mean Velocity(Antegrade Flow): 1.41 m/s, 1.50 m/s Mean Gradient(Antegrade Flow): 8.99 mm[Hg], 10.17 mm[Hg] Velocity Time Integral: 48.12 cm, 47.88 cm Tricuspid Valve Peak Velocity (Regurgitant Flow): 2.44 m/s, 2.21 m/s, 2.74 m/s Pulmonic Valve Mean Gradient: 2.51 mm[Hg], 3.42 mm[Hg] Mean Velocity: 0.74 m/s, 0.87 m/s Peak Velocity: 1.13 m/s Peak Gradient: 4.78 mm[Hg], 5.42 mm[Hg] Right Atrium Right Atrium Systolic Pressure: 73.81 ml, 73.81 ml Dictated by: Shahana Padron M.D. on 12/03/2023 at 10:29 Approved by: Shahana Padron M.D. on 12/03/2023 at 10:34 Dictated By: Shahana Padron M.D. Signed By: 12/03/23 1035 DD/ 103 TD/TT: Clammer: Procedure Note Radiology, Radiologist, MD - 12/03/2023 [place] [address] Cardiology Report Signed Patient: NGHIA AVERY KMR#: [id number] : 1945cct:[id number] Age/Sex: 77 / MADM Date: 12/02/23 Loc: CARD Attending Dr: KATELYN VALENTE Ordering Physician: KATELYN VALENTE Date of Service: 12/02/23 Procedure(s): CA echo doppler complete Accession Number(s): [id number] cc: MARJORIE NATH ; KATELYN VALENTE Patient Name: NGHIA AVERY MR#: [id number] : 1945 Exam Date: 12/02/2023 Ordering Doctor: DR KATELYN VALENTE M.D. ECHOCARDIOGRAM REPORT PROCEDURE: CA ECHO DOPPLER COMPLETE INDICATIONS: Nonrheumatic aortic valve stenosis COMPARISON: None. DESCRIPTION: COMPLETE ECHOCARDIOGRAM Real-time transthoracic echocardiography with 2D, M-mode, spectral and color flow Dopplerperformed. QUALITY: Technical quality was adequate. LEFT VENTRICLE: Normal chamber size. Mild concentric left ventricular hypertrophy. LV EF: Global left ventricular systolic function is normal. Visual estimation of left ventricular ejection fraction is 60-65%. No wallmotion abnormalities. DIASTOLIC: Normal diastolic function. ATRIAL SEPTUM: Inadequately seen. LEFT ATRIUM: Normal chamber size. RIGHT ATRIUM: Mild dilatation. RIGHT VENTRICLE: Mild dilatation. Normal right ventricular systolic function. TRICUSPID VALVE: Normal mobility and thickness. No stenosis withtrivial regurgitation. No evidence of pulmonary hypertension. RVSP 33mmHg MITRAL VALVE: Mildly thickened with normal mobility. No evidence of mitral valve stenosis. Moderate mitral annular calcification. AORTIC VALVE: Normal trileaflet appearance. Moderately calcifiedaortic valve. Doppler velocity suggests mild aortic valve stenosis. Vmax 2.1m/s,Mean gradient 10mmHg. No aortic regurgitation. AORTIC ROOT: Normal diameter and appearance. PULMONIC VALVE: Normal thickness and mobility. No stenosis. Trivial regurgitation. PERICARDIUM: No evidence of pericardial effusion. IVC: Collapses with inspirations. Normal size. CONCLUSION: 1. Global left ventricular systolic angiogram; visually estimated ejection fraction is 60 to 65% 2. Right ventricle is mildly dilated with normal systolic function 3. Mild right atrial dilatation 4. Mildly increased left ventricular wall thickness 5. Normal diastolic function 6. Mild aortic valve stenosis Adult Echocardiography Procedure Report Left Ventricle LVEDD (3.7 - 5.6 cm): 5.14 cm LVESD (2.2 - 4.0 cm): 3.62 cm LVIVS thickness (0.6 - 1.2 cm): 1.43 cm LVPW thickness (0.5 - 1.0 cm): 1.29 cm e': 0.07 m/s E - e': 11.97 LVOT Max Gradient: 1.60 mm[Hg] LVOT Area (cm2): 0.63 m/s Peak Velocity (LVOT): 0.63 m/s Mean Velocity (LVOT): 0.41 m/s LVOT Diameter 2.36 cm Left Atrium Left Atrium Systolic Dimension: 5.00 cm Mitral Valve MV E to A Ratio: 0.88 Mitral Valve A-Wave Peak Velocity: 0.95 m/s Mitral Valve E-Wave Peak Velocity: 0.84 m/s Right Ventricle RV Internal Diastolic Dimension: 4.19 cm Aorta AO Root Diam: 3.60 cm Ascending Ao Diam: 3.50 cm Aortic Valve AoV Area (Peak Cheo): 1.33 cm2, 1.34 cm2 AoV Area (VTI): 1.46 cm2, 1.46 cm2 Peak Velocity(Antegrade Flow): 2.05 m/s, 2.10 m/s Peak Gradient(Antegrade Flow): 16.77 mm[Hg], 17.67 mm[Hg] Mean Velocity(Antegrade Flow): 1.41 m/s, 1.50 m/s Mean Gradient(Antegrade Flow): 8.99 mm[Hg], 10.17 mm[Hg] Velocity Time Integral: 48.12 cm, 47.88 cm Tricuspid Valve Peak Velocity (Regurgitant Flow): 2.44 m/s, 2.21 m/s, 2.74 m/s Pulmonic Valve Mean Gradient: 2.51 mm[Hg], 3.42 mm[Hg] Mean Velocity: 0.74 m/s, 0.87 m/s Peak Velocity: 1.13 m/s Peak Gradient: 4.78 mm[Hg], 5.42 mm[Hg] Right Atrium Right Atrium Systolic Pressure: 73.81 ml, 73.81 ml Dictated by: Shahana Padron M.D. on 12/03/2023 at 10:29 Approved by: Shahana Padron M.D. on 12/03/2023 at 10:34 Dictated By: Shahana Padron M.D. Signed By:12/03/23 1035 DD/ 1034 TD/TT: Clammer: Generic External Data Provider [facility] Final Result documented in this encounter Visit Diagnoses Not on filedocumented in this encounter Additional Health Concerns Assessment Noted Time PHQ-9 Depression Total Score: 4 03/26/20 23 11:00 AM EDT documented as of this encounter Care Teams Floorwalker Relationship Specialty Start Date End Date Marjorie Nath MD [address] [place] [address] PCP - Aet 05/26/22 Marjorie Nath MD 14[address] [facility] [place] [address] PCP - General Family Medicine 12/21/22 documented as of this encounter
--- OUTSIDE RECORDS SUMMARY | 2025-01-26 09:30 | XMS_ITS | Encounter Summary ---
Author Organization [facility] Address [address] [place] [address] Care Team Providers Care Warp Knitter Helper Name Role Phone Marjorie Dang MD Unavailable [phone] Marjorie Dang MD Primary Care Provider [phone] Encounter Details Date Type Department Care Team (Late st Contact Info) Description 12/19/2023 Telephone [facility] [address] [place] [address] Marjorie Dang MD [address] [place] [address] Social History Tobacco Use Types [...] often do you attend chur ch or baptism services? Patient declined 03/25/2023 Do you belong to any clubs o r organizations such as congregational groups, unions, fraternal or athletic groups, or [...] No 03/25/2023 Housing Stability Vital Sign Answer Ogld e Recorded In the last 12 months, [...] place to sleep or slept in a m[facility]p (including now)? No 03/25/2023 Sex and Gender Information Value Date Recorded Sex Assigned at Not on file Legal Sex Male 7:26 PM EDT Gender Identity Male 08/07/2022 7:26 PM EDT Sexual Orientation Not on file documented as of this encounter Miscellaneous Notes * Telephone Encounter - Amelia Fleming MA - 12/19/2023 4:54 PM EDT [facility] made aware, said they would update chart. * Telephone Encounter - Beverly Sutton - 12/19/2023 2:33 PM EDT Pt to discharge from [facility], [facility] home care calling to see if you will follow? [phone] opt 1- Mike documented in this encounter Plan of Treatment Upcoming Encounters Date Type Department Care Team (Late st Contact Info) Description 02/09/2025 11:00 AM EDT Office Visit [facility] [address] [place] [address] Kymberly Nation, [address] [place] [address] 04/15/2025 11:00 AM EST Office Visit [facility] [address] [place] [address] Marjorie Dang MD [address] [place], [place] [address] 04/19/2025 1:00 PM EST Procedure Visit [facility] [address] [place] [address] Aure Guevara, DPM [address] [place], [place] [address] 07/28/2025 11:05 AM EST Office Visit [facility] [place] [facility] [address] [place] [phone] Rossy Zaman, ASSOCIATE JUSTICE-GENERAL ASSEMBLER [address] [place] [address] documented as of this encounter Visit Diagnoses Not on filedocumented in this encounter Additional Health Concerns Assessment Noted Time PHQ-9 Depression Total Score: 4 03/26/20 23 11:00 AM EDT documented as of this encounter Care Teams Warp Knitter Helper Relationship Specialty Start Date End Date Marjorie Dang MD [address] [place] [address] PCP - Aet[employer] 05/26/22 Marjorie Dang MD [address] [place], [place] [address] PCP - General Family Medicine 12/21/22 documented as of this encounter
--- OUTSIDE RECORDS SUMMARY | 2025-01-26 09:30 | XMS_ITS | Encounter Summary ---
Author Organization [facility] Address [address] [place] [address] Care Team Providers Care Clinical Transplant Coordinator Name Role Phone Marjorie Dang MD Unavailable [phone] Marjorie Dang MD Primary Care Provider [phone] Encounter Details Date Type Department Care Team (Late st Contact Info) Description 06/09/2024 Orders Only [facility] Medicine [address] [place] [address] Marjorie Dang MD [address] [place] [address] Social History Tobacco Use Types [...] often do you attend chur ch or anabaptist services? Patient declined 03/25/2023 Do you belong to any clubs o r organizations such as samaritan groups, unions, fraternal or athletic groups, or [...] place to sleep or slept in a penitentiary (including now)? No 03/25/2023 Sex and Gender [...] EDT Office Visit [facility] [address] [place] [address] Kymberly Nation DO [address] [place] [address] 04/15/2025 11:00 AM EST Office Visit [facility] [place] [address] Marjorie Dang MD [address] [place], [place] [address] 04/19/2025 1:00 PM EST Procedure Visit [facility] [address] [facility] [place] [address] Aure Guevara, DPQuincy [address] [facility] [place] [address] 07/28/2025 11:05 AM EST Office Visit [facility] [address] [place] [address] Rossy Zaman APRN-WATER SUPERVISOR [address] [place] [address] documented as of this encounter Visit Diagnoses Not on filedocumented in this encounter Additional Health Concerns Assessment Noted Time PHQ-9 Depression Total Score: 0 04/15/20 24 1:00 PM EST documented as of this encounter Care Teams Clinical Transplant Coordinator Relationship Specialty Start Date End Date Marjorie Dang MD [address] [place] [address] PCP - Aetna 05/26/22 Marjorie Dang MD [address] [place] [address] PCP - General Family Medicine 12/21/22 documented as of this encounter
--- OUTSIDE RECORDS SUMMARY | 2025-01-26 09:30 | XMS_ITS | Encounter Summary ---
Author Organization [facility] Address [address] [place] [address] Care Team Providers Care Research And Development Director Name Role Phone Marjorie Dang MD Unavailable [phone] Marjorie Dang MD Primary Care Provider [phone] Reason for Visit * Reason Comments Med Refill Encounter Details Date Type Department Care Team (Late st Contact Info) Description 02/04/2023 Refill [facility] [address] [place] [address] Yesica Grant AUTOMATION CLERK [address] [phone] Type 2 diabetes mellitus without complication, without long-term current use of insulin (HCC) (Primary Dx) Social History Tobacco Use Types Packs/Day Years [...] Telephone Encounter - Marjorie Dang MD - 02/10/2023 3:16 PM EDT Approving, but needs appt for additional refills. * Telephone Encounter - Betsey Jorgensen MA - 02/06/2023 7:04 PM EDT Patient is calling for refills sent to [facility] Mail[facility]. documented in this encounter Plan of Treatment Upcoming Encounters Date Type Department Care Team (Late st Contact Info) Description 02/09/2025 11:00 AM EDT Office Visit [facility] [address] [place] [address] Kymberly Nation, DO [address] [facility] [place] [address] 04/15/2025 11:00 AM EST Office Visit [facility] [address] [place] [address] Marjorie Dang MD [address] [place], [place] [address] 04/19/2025 1:00 PM EST Procedure Visit [facility] [address] [place] [address] Aure Guevara, DPM [address] [place] [address] 07/28/2025 11:05 AM EST Office Visit [facility] [address] [place] [address] Rossy Zaman, CIVIL ENGINEERING TEACHER-GUEST HOUSE MANAGER [address] [place] [address] documented as of this encounter Visit Diagnoses Diagnosis Type 2 diabetes mellitus without complication, without long-term current use of insulin (HCC)- Primary documented in this encounter Care Teams Research And Development Director Relationship Specialty Start Date End Date Marjorie Dang MD [facility]9 [place], [place] [phone] PCP - Aetna 05/26/22 Marjorie Dang MD [address] [place] [address] PCP - General Family Medicine 12/21/22 documented as of this encounter
--- OUTSIDE RECORDS SUMMARY | 2025-01-26 09:30 | XMS_ITS | Encounter Summary ---
Author Organization [facility] Address [address] [place] [address] Care Team Providers Care Inspector Plating Name Role Phone Marjorie Dang MD Unavailable [phone] Marjorie Dang MD Primary Care Provider Encounter Details Date Type Department Care Team (Late Contact Info) Description 12/25/2022 Abstract [facility] [address] [place] [address] Aure Guevara, DPM [address] [place] [address] Social History Tobacco Use Types Packs/Day Years Used Date Smoking Tobacco: Never Smokeless Tobacco: Never Tobacco Cessation:Counseling Given: Not Answered Alcohol Use Standard Drinks/Week Comments Not Currently 0 (1 standard drink = 0.6 oz [...] AM EDT Office Visit [facility] [address] [place] [address] Kymberly Nation, DO [address] [address] 04/15/2025 11:00 AM EST Office Visit [facility] [address] [place] [address] Marjorie Dang MD [address] [place] [address] 04/19/2025 1:00 PM EST Procedure Visit [facility] [address] [place] [phone] Aure Guevara, DPM [address] [place], [place] [address] 07/28/2025 11:05 AM EST Office Visit [facility] [place] [facility] [address] [place] [address] Rossy Zaman APRN-CREATIVE DESIGNER [address] [place] [address] documented as of this encounter Visit Diagnoses Not on filedocumented in this encounter Care Teams Inspector Plating Relationship Specialty Start Date End Date Marjorie Dang MD [address] [place], [place] [phone] PCP - Aetna 05/26/22 Marjorie Dang MD [address] [facility] [place] [address] PCP - General Family Medicine 12/21/22 documented as of this encounter
--- OUTSIDE RECORDS SUMMARY | 2025-01-26 09:30 | XMS_ITS | Encounter Summary ---
Author Organization [facility] Address [address] [place] [address] Care Team Providers Care Filling Operator Name Role Phone Marjorie Dang MD Unavailable [phone] Marjorie Dang MD Primary Care Provider [phone] Encounter Details Date Type Department Care Team (Late st Contact Info) Description 11/08/2024 Abstract [facility] [address] [place] [address] Mario Horton DPM [address] [place], [place] [address] Social History Tobacco Use Types Packs/Day Years [...] often do you attend chur ch or latter day services? Patient declined 03/25/2023 Do you belong to any clubs o r organizations such as amish groups, unions, fraternal or athletic groups, or [...] 11:00 AM EDT Office Visit [facility] [address] [place] [address] Kymberly Nation DO [address] [place] [address] 04/15/2025 11:00 AM EST Office Visit [facility]9 [place] [address] Marjorie Dang MD [address] [place], [place] [address] 04/19/2025 1:00 PM EST Procedure Visit [facility] [address] [place] [address] Aure Guevara DPM [address] [place] [address] 07/28/2025 11:05 AM EST Office Visit [facility] [address] [place] [address] Rossy Zaman APRN-REPAIRER [employer]IPMENT [address] [place] [address] documented as of this encounter Visit Diagnoses Not on filedocumented in this encounter Additional Health Concerns Assessment Noted Time PHQ-9 Depression Total Score: 0 10/15/19 25 1:00 PM EDT documented as of this encounter Care Teams Filling Operator Relationship Specialty Start Date End Date Marjorie Dang MD [address] [place] [address] PCP - Aetna 05/26/22 Marjorie Dang MD [address] [place] [address] PCP - General Family Medicine 12/21/22 documented as of this encounter
--- OUTSIDE RECORDS SUMMARY | 2025-01-26 09:30 | XMS_ITS | Encounter Summary ---
Author Organization [facility] Address [address] [place] [address] Care Team Providers Care Senior Dot Net Developer Name Role Phone Marjorie Dang MD Unavailable [phone] Marjorie Dang MD Primary Care Provider [phone] Encounter Details Date Type Department Care Team (Late st Contact Info) Description 01/14/2025 Bamboo flowsheet [facility] Family Medicine [address] [place] [address] Marjorie Dang MD [address] [place] [address] Social History Tobacco Use Types [...] often do you attend chur ch or mu-ism services? Patient declined 03/25/2023 Do you belong to any clubs o r organizations such as yazidism groups, unions, fraternal or athletic groups, or [...] place to sleep or slept in a assisted (including now)? No 03/25/2023 Sex and Gender [...] EDT Office Visit [facility] [address] [place] [address] Kymberly Nation, DO [address] [place] [address] 04/15/2025 11:00 AM EST Office Visit [facility] [address] [place] [address] Marjorie Dang MD [address] [place], [place] [address] 04/19/2025 1:00 PM EST Procedure Visit [facility] [address] [place] [address] Aure Guevara DPQuincy [address] [place] [address] 07/28/2025 11:05 AM EST Office Visit [facility] [address] [place] [address] Rossy Zaman APRN-HOT TAR ROOFER [address] [place] [address] documented as of this encounter Visit Diagnoses Not on filedocumented in this encounter Additional Health Concerns Assessment Noted Time PHQ-9 Depression Total Score: 0 10/15/19 25 1:00 PM EDT documented as of this encounter Care Teams Senior Dot Net Developer Relationship Specialty Start Date End Date Marjorie Dang MD [address] [place] [address] PCP - Aetna 05/26/22 Marjorie Dang MD [address] [place] [address] PCP - General Family Medicine 12/21/22 documented as of this encounter
--- OUTSIDE RECORDS SUMMARY | 2025-01-26 09:30 | XMS_ITS | Encounter Summary ---
Author Organization [facility] Address [address] [place] [address] Care Team Providers Care Associate Professor Of Music Name Role Phone Marjorie Dang MD Unavailable [phone] Marjorie Dang MD Primary Care Provider [phone] Encounter Details Date Type Department Care Team (Late st Contact Info) Description 10/22/2024 Orders Only [facility] Family Medicine [address] [place] [address] Marjorie Dang MD [address] [place] [address] Social History Tobacco Use Types [...] often do you attend chur ch or protestant services? Patient declined 03/25/2023 Do you belong to any clubs o r organizations such as voodoo groups, unions, fraternal or athletic groups, or [...] place to sleep or slept in a long-term (including now)? No 03/25/2023 Sex and Gender [...] EDT Office Visit [facility] [address] [place] [phone] Kymberly Nation DO [address] [place] [address] 04/15/2025 11:00 AM EST Office Visit [facility] [place] [address] Marjorie Dang MD [address] [place], [place] [id number] 04/19/2025 1:00 PM EST Procedure Visit [facility] [address] [facility] [place] [phone] Aure Guevara, DPQuin[facility] [address] [facility] [place] [address] 07/28/2025 11:05 AM EST Office Visit [facility] [address] [place] [address] oRssy Zaman APRN-HARDWARE DESIGNER [address] [place] [address] documented as of this encounter Visit Diagnoses Not on filedocumented in this encounter Additional Health Concerns Assessment Noted Time PHQ-9 Depression Total Score: 0 10/15/19 25 1:00 PM EDT documented as of this encounter Care Teams Associate Professor Of Music Relationship Specialty Start Date End Date Marjorie Dang MD [address] [place] [address] PCP - [employer] 05/26/22 Marjorie Dang MD [address] [place] [address] PCP - General Family Medicine 12/21/22 documented as of this encounter
--- OUTSIDE RECORDS SUMMARY | 2025-01-26 09:30 | XMS_ITS | Encounter Summary ---
Author Organization [facility] Address [address] [place] [address] Care Team Providers Care Snuff Maker Name Role Phone Marjorie Dang MD Unavailable [phone] Marjorie Dang MD Primary Care Provider [phone] Encounter Details Date Type Department Care Team (Late Contact Info) Description 02/13/2023 Abstract [facility] [address] [place] [address] Kymberly Nation DO [address] [place] [address] Social History Tobacco Use Types Packs/Day Years [...] 02/09/2025 11:00 AM EDT Office Visit [facility] [address] [place] [address] Kymberly Nation DO [address] [place] [address] 04/15/2025 11:00 AM EST Office Visit [facility] [address] [place] [address] Marjorie Dang MD [address] [place] [address] 04/19/2025 1:00 PM EST Procedure Visit [facility] [address] [place] [id number] Aure Guevara, DPM [address] [place], [place] [id number] 07/28/2025 11:05 AM EST Office Visit [facility] [place] [facility] [address] [place] [phone] Rossy Zaman APRN-FIXED [employer]ING P[employer] [address] [place] [address] documented as of this encounter Visit Diagnoses Not on filedocumented in this encounter Care Teams Snuff Maker Relationship Specialty Start Date End Date Marjorie Dang MD [address] [place], [place] [id number] PCP - [employer] 05/26/22 Marjorie Dang MD [address] [facility] [place] [address] PCP - General Family Medicine 12/21/22 documented as of this encounter
--- OUTSIDE RECORDS SUMMARY | 2025-01-26 09:30 | XMS_ITS | Encounter Summary ---
Author Organization [facility] Address [address] [place] [address] Care Team Providers Care Playground Attendant Name Role Phone Marjorie Dang MD Unavailable [phone] Marjorie Dang MD Primary Care Provider [phone] Encounter Details Date Type Department Care Team (Late st Contact Info) Description 01/16/2024 Abstract [facility] Family Medicine [address] [place] [address] Marjorie Dang MD [address] [place] [address] Social History Tobacco Use Types [...] often do you attend chur ch or orthodoxy services? Patient declined 03/25/2023 Do you belong to any clubs o r organizations such as sabianist groups, unions, fraternal or athletic groups, or [...] place to sleep or slept in a senior living (including now)? No 03/25/2023 Sex and Gender [...] AM EDT Office Visit [facility] [address] [place] [phone] Kymberly Nation, DO [address] [place] [address] 04/15/2025 11:00 AM EST Office Visit [facility] [address] [place] [phone] Marjorie Dang MD [address] [place], [place] [id number] 04/19/2025 1:00 PM EST Procedure [facility] [address] [place] [address] Aure Guevara, DPQuincy [address] [place] [address] 07/28/2025 11:05 AM EST Office Visit [facility] [address] [place] [address] Rossy Zaman, CLAIMS SORTER-HYDRAULIC BILLET MAKER [address] [place] [address] documented as of this encounter Visit Diagnoses Not on filedocumented in this encounter Additional Health Concerns Assessment Noted Time PHQ-9 Depression Total Score: 4 03/26/20 23 11:00 AM EDT documented as of this encounter Care Teams Playground Attendant Relationship Specialty Start Date End Date Marjorie Dang MD [address] [place] [address] PCP - [employer] 05/26/22 Marjorie Dang MD [address] [place] [address] PCP - General Family Medicine 12/21/22 documented as of this encounter
--- OUTSIDE RECORDS SUMMARY | 2025-01-26 10:04 | XMS_ITS | CCD ---
Author Organization [facility] Care Team Providers Care Parts Room Associate Name Role Phone MARJORIE NATH Primary Care Physician GABRIELA CLEMENS Admitting Unavailable GABRIELA CLEMENS Attending Unavailable DR MARJORIE NATH Primary Care Unavailable GABRIELA CLEMENS Consulting Unavailable Pham WHITE, Marjorie Unavailable Marjorie Nath MD Primary Care Provider MARJORIE NATH Primary Care Physician Sherlyn Navarro Attending Unavailable Sherlyn Navarro Attending Unavailable Sherlyn Navarro Attending Unavailable Alejandra QUALITY ENGINEER MEDICAL DEVICE-MORTGAGE LOAN ORIGINATOR, Rizwana A Primary Care Pro vider JESSICA BARCENAS Attending Unavailable ALEJANDRA, RIZWANA A Primary Care Unavailab le ALEJANDRA, RIZWANA A Referring Unavailab le ALEJANDRA, RIZWANA A Primary Care Unavailab le JESSICA BARCENAS Attending Unavailable JESSICA BARCENAS Referring Unavailable ALEJANDRA, RIZWANA A Primary Care Unavailab le ALEJANDRA, RIZWANA A Referring Unavailab le ALEJANDRA, RIZWANA A Primary Care Unavailab le JESSICA BARCENAS Admitting Unavailable JESSICA BARCENAS Attending Unavailable JESSICA BARCENAS Referring Unavailable ALEJANDRA, RIZWANA A Primary Care Unavailab derek Dockery MD, Hanh Espinal Attending Provider Aylin Nath MD, Marjorie Massey Primary Care Pr ovider JESSICA BARCENAS Attending Unavailable ALEJANDRA, RIZWANA A Referring Unavailab le ALEJANDRA, RIZWANA A Primary Care Unavailab le JESSICA BARCENAS G Attending Unavailable RIZWANA ALEJANDRA Referring Unavailab le ALEJANDRA, RIZWANA Chan Primary Care Unavailab JESSICA Moreno Attending Unavailable RIZWANA ALEJANDRA Referring Unavailab le ALEJANDRA, RIZWANA A Primary Care Unavailab le Sarkis, Hanh Espinal Admitting Unavail able Greensjhonny Nath, Marjorie Massey Primary Care Un available Sarkis, Hanh Espinal Attending Unavail able [place] Pham, Marjorie L Primary Care Un available Sarkis, Hanh Espinal Attending Unavail able Sarkis, Hanh Espinal Admitting Unavail able RADHA, NESHA Attending Unavailable TRUMAN, RANDI Referring Unavailable MIMIDEIRDRE Referring Unavailable TRUMAN, RANDI Referring Unavailable TRUMAN, RANDI Referring Unavailable RADHA, NESHA Attending Unavailable PHAM, MARJORIE Attending Unavailable RIOS, KYMBERLY Pandey Attending Unavailable MIKHAIL, MARCELLA Chan Attending Unavailable HURLEY, AURE Thompson Attending Unavailable HURLEY, AURE Thompson Attending Unavailable PHAM, MARJORIE Attending Unavailable HURLEY, AURE Thompson Attending Unavailable HURLEY, AURE Thompson Attending Unavailable PHAM, MARJORIE Attending Unavailable FELTER, MARCELLA Chan Attending Unavailable RIOS, KYMBERLY Pandey Attending Unavailable HURLEY, AURE Thompson Attending Unavailable FELTER, MARCELLA Chan Attending Unavailable PHAM, MARJORIE Attending Unavailable HURLEY, AURE Thompson Attending Unavailable Allergies Allergy Classification Reported Allergen(s) Allergy Type Date of Onset Reaction(s) Facility (20 sources) Sulfamethoxazole / Trimethoprim; Translations: [sulfamethoxazole-t rimethoprim] Drug Allergy 01-13-20 13 Urticaria (disorder), Hives, Other [facility] (2 sources) Sulfamethoxazole / Trimethoprim; Translations: [Septra] Drug Allergy [facility] (20 sources) Sulfonamides (Antibiotic) Drug Intolerance 02-11-20 17 [facility] Work Phone: (20 sources) Sulfamethizole; Translations: [SULFAMETHIZOLE] Drug Allergy 04-14-20 16 [facility] (18 sources) Trimethoprim; Translations: [TRIMETHOPRIM] Drug Allergy 04-14-20 16 [email or web address] (1 source) Sulfonamides (Antibiotic) Drug allergy (disorder) 12-24-19 [facility] Repository Medications Current Medications Medication Drug Class(es) Dates Sig (Normalized) Sig (Original) [id number] 200 actuat albuterol 0.09 mg/actuat metered dose inhaler (20 sources) beta2-Adrenergic Agonist Start: 01-15-2023 albuterol HFA 90 mcg/act inhaler Indications: Chronic obstructive pulmonary disease, unspecified COPD type (HCC) USE 1 INHALATION ORALLY EVERY 4 HOURS NEEDED FORSHORTNESS OF BREATH OR COUGH for 34 18 g 5 01/15/2023 Active amLODIPine 10 mg oral tablet (20 sources) Dihydropyridine Calcium Channel Marcello Start: 2024 take 1 tablet by mouth once daily in the morning Amlodipine 10 mg tablet Active 10 MG PO Every morning 2024 12:00am Complies with drug therapy Start: 01-19-2019 End: 02-10-2024 take 1 tablet by mouth once daily amLODIPine (Norvasc) 10 MG tablet Indications: Benign essential hypertension (CMS/HCC) Take 1 tablet (10 mg) by mouth Daily 90 tablet 1 09/12/2023 02/10/2024 Discontinued (Therapy completed) aspirin 81 mg oral tablet (20 sources) Platelet Aggregation Inhibitor, Nonsteroidal Anti-inflammatory Drug Start: 2024 take 1 tablet by mouth once daily at bedtime Aspirin 81 mg tablet Active 81 MG PO Daily at bedtime 2024 12:00am Complies with drug therapy Start: 01-19-2019 take 1 mg by mouth once daily aspirin 81 mg oral tablet mg tab(s), Oral, Daily, Refills(s) 0 Start Date: 01/19/19 Status: Ordered take 1 tablet by susu th once daily aspirin 81 MG EC tablet Take 1 tablet by mouth Daily Active atorvastatin 80 mg oral tablet (20 sources) HMG-CoA Reductase Inhibitor Start: 11-29-2024 take 1 tablet by mouth at bedtime atorvastatin (Lipitor) 80 MG tablet Take 80 mg by mouth at bedtime 11/29/2024 Active Start: 01-14-2013 End: 01-14-2025 atorvastatin (Lipitor) 40 MG tablet Indications: Hyperlipidemia, unspecified hyperlipidemia type TAKE 1 TABLET DAILY 90 tablet 1 07/02/2024 01/14/2025 Discontinued Start: 01-14-2013 take 2 tablets by mo uth at bedtime atorvastatin (LIPITOR) 40 mg tablet Take 2 tablets (80 mg total) by mouth before bedtime. 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) Take 1 tablet by mouth Daily 30 tablet 3 10/14/2024 11/13/2024 Active carvedilol 12.5 mg oral tablet (20 sources) alpha-Adrenerg ic Marcello, beta-Adrenergi c Marcello Start: 2024 take 1 tablet by mouth twice daily at mealtime Carvedilol 6.25 mg tablet Active 6.25 MG PO Twice daily 2024 12:00am must administer with a meal/food Complies with drug therapy Start: 12-20-2023 End: 12-20-2024 take 1 tablet by mouth in the morning carvedilol (Coreg) 12.5 MG tablet Indications: Atherosclerosis of 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 Take 1 tablet (12.5 mg) by mouth in the morning and 1 tablet (12.5 mg) in the evening. Take with meals. 180 tablet 1 12/20/2024 Active Start: 09-25-2022 End: 09-25-2023 take 1 tablet by mouth in the morning carvedilol (Coreg) 6.25 MG tablet Take 6.25 mg by mouth in the morning and 6.25 mg in the evening. Take with meals. 09/25/2022 Active Start: 07-20-2020 take 1 mg by mouth twice daily carvedilol 6.25 mg Tab mg tab(s), Oral, BID, Refills(s) 0 Start Date: 07/20/20 Status: Ordered take 2 tablets by mo uth in the morning, then take 2 tablets by mouth at mealtime carvediloL (COREG) 6.25 mg tablet Take 2 tablets (12.5 mg total) by mouth in the morning and 2 tablets (12.5 mg total) in the evening. Take with meals. Active cholecalciferol 0.025 mg oral tablet (20 sources) Vitamin D Start: 2024 take 1 tablet by mouth once daily in the morning Cholecalciferol (Vitamin D3) (Vitamin D3) 25 mcg (1,000 unit) tablet Active 25 MCG PO Every morning 2024 12:00am Complies with drug therapy take 1 capsule by mouth in the m orning cholecalciferol (Vitamin D-3) 25 MCG (1000 UT) capsule Take 1,000 Units by mouth in the morning. Active ciclopirox 7.7 mg/ml topical cream (20 sources) Start: 12-21-2024 ciclopirox (Lo prox) 0.77 % cream Indications: Intertrigo APPLY TO SKIN FOLDS TOPICALLY TWO TIMES A DAY NEEDED FOR SKIN IRRITATION,HOLD WHEN CLEAR, 90 day supply 270 g 2 12/21/2024 Active Start: 2024 Ciclopirox 0.7 7 % cream Active 1 APPLIC TOPICAL Daily as needed for rash 2024 12:00am Complies with drug therapy Start: 09-30-2024 ciclopirox (Lo prox) 0.77 % cream Indications: Intertrigo APPLY TO SKIN FOLDS TOPICALLY TWO TIMES A DAY NEEDED FOR SKIN IRRITATION,HOLD WHEN CLEAR, 90 day supply 270 g 3 09/30/2024 Active Start: 06-08-2024 End: 07-29-2024 ciclopirox (Loprox) 0.77 % c ream Indications: Intertrigo APPLY TO SKIN FOLDS TOPICALLY TWO TIMES A DAY NEEDED FOR SKIN IRRITATION,HOLD WHEN CLEAR 90 g 11 07/29/2024 Active Start: 07-22-2023 ciclopirox (Lo prox) 0.77 % cream Indications: Intertrigo APPLY TO SKIN FOLDS TOPICALLY TWO TIMES A DAY NEEDED FOR SKIN IRRITATION,HOLD WHEN CLEAR 90 g 3 07/22/2023 Active Start: 05-06-2023 ciclopirox (Lo prox) 0.77 % cream Indications: Intertrigo Apply to skin folds External BID prn for skin irritation, hold when clear for 90 days 90 g 11 05/06/2023 Active Start: 12-25-2022 ciclopirox top ical 0.77% cream Refill(s) 0 Start Date: 12/25/22 Status: Ordered clopidogrel 75 mg oral tablet (20 sources) [id number] Platelet Inhibitor Start: 06-08-2024 clopidogrel (Plavix) 75 MG tablet Indications: CAD S/P percutaneous coronary angioplasty TAKE 1 TABLET ONCE DAILY 90 tablet 1 06/08/2024 Active Start: 01-14-2013 End: 01-27-2024 take 1 tablet by mouth once daily in the morning Clopidogrel (Plavix) 75 mg tablet Active 75 MG PO Every morning 2024 12:00am Complies with drug therapy dapagliflozin 5 mg oral tablet (20 sources) Sodium-Glucose Cotransporter 2 Inhibitor Start: 01-14-2025 End: 02-13-2025 take 1 tablet by mouth once daily dapagliflozin (Farxiga) 5 MG Indications: 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) Take 1 tablet (5 mg) by mouth Daily 30 tablet 01/14/2025 02/13/2025 Active Start: 10-28-2024 End: 01-14-2025 take 1 tablet by mouth once daily dapagliflozin (Farxiga) 10 MG Indications: 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) Take 1 tablet (10 mg) by mouth Daily 30 tablet 10/28/2024 01/14/2025 Discontinued (Dose adjustment) Start: 09-26-2023 End: 01-16-2024 take 1 tablet by mouth once daily in the morning Dapagliflozin Propanediol (Farxiga) 5 mg tablet Active 5 MG PO Every morning 2024 12:00am Complies with drug therapy Start: 03-31-2023 Farxiga 5 MG I ndications: Type 2 diabetes mellitus with microalbuminuria, without long-term current use of insulin (CMS/HCC) TAKE 1 TABLET IN THE MORNING 90 tablet 1 03/31/2023 Active furosemide 20 mg oral tablet (13 sources) Loop Diuretic Start: 12-25-2022 furosemide 20 mg Tab Refills(s) 0 Start Date: 12/25/22 Status: Ordered Start: 01-19-2019 take 1 tablet by susu th once daily furosemide 40 mg Tab 40 mg = 1 tab(s), Oral, Daily, patient takes 3-4 days per week, Refills(s) 0 Start Date: 01/19/19 Status: Ordered End: 11-01-2024 take 2 tablets by mouth once daily furosemide (LASIX) 20 mg tablet Take 40 mg by mouth daily. 11/01/2024 Discontinued Incruse Ellipta 62.5 mcg inhalation powder (2 sources) Start: 01-07-2024 take 1 ug by inhalation every twenty-four hours Incruse Ellipta 62.5 mcg inhalation powder mcg inh, Inhalation, q24hr, Refills(s) 0 Start Date: 01/07/24 Status: Ordered lisinopril 30 mg oral tablet (20 sources) Angiotensin Converting Enzyme Inhibitor Start: 12-24-2023 End: 05-06-2024 lisinopril 30 MG tablet Indications: Benign essential hypertension TAKE 1 TABLET EVERY MORNING 90 tablet 1 05/06/2024 Active Start: 06-23-2023 lisinopril 30 MG tablet Indications: Benign essential hypertension (CMS/HCC) TAKE 1 TABLET EVERY MORNING 90 tablet 1 06/23/2023 Active Start: 01-19-2019 take 1 tablet by susu once daily lisinopril 20 mg Tab 20 mg = 1 tab(s), Oral, Daily, Refills(s) 0 Start Date: 01/19/19 Status: Ordered Start: 01-14-2013 take 1.5 tablets by mouth in the morning lisinopril (PRINIVIL,ZESTRIL) 20 mg tablet Take 1.5 tablets (30 mg total) by mouth in the morning. 01/14/2013 Active metFORMIN hydrochloride 1000 mg oral tablet (20 sources) Biguanide Start: 01-19-2019 End: 12-20-2024 take 1 tablet by mouth in the morning metFORMIN (Glucophage) 1000 MG tablet Indications: Type 2 diabetes mellitus without complication, without long-term current use of insulin (HCC) Take 1 tablet (1,000 mg) by mouth in the morning and 1 tablet (1,000 mg) in the evening. Take with meals. 180 tablet 1 12/20/2024 Active moxifloxacin 5 mg/ml ophthalmic solution (2 sources) Quinolone Antimicrobial Start: 01-03-2025 moxifloxacin (Vigamox) 0.5 % ophthalmic solution 01/03/2025 Active nitrofurantoin, macrocrystals 25 mg / nitrofurantoin, monohydrate 75 mg oral capsule (1 source) Nitrofuran Antibacterial Start: 11-11-2024 End: 11-18-2024 take 1 capsule by mouth in the morning, then take 1 capsule by mouth at bedtime nitrofurantoin, macrocrystal-monoh ydrate, (MACROBID) 100 mg capsule Take 1 capsule (100 mg total) by mouth in the morning and 1 capsule (100 mg total) before bedtime. Do all this for 7 days. 14 capsule 11/11/2024 11/18/2024 Active nystatin 100 unt/mg topical powder (20 sources) Polyene Antifungal Start: 01-30-2024 End: 07-29-2024 nystatin (Mycostatin) [id number] UNIT/GM powder Indications: Intertrigo Apply topically 2 (two) times a day 60 g 11 07/29/2024 Active nystatin powder 100,000 units/gram (1 source) Start: 02-25-2024 nystatin powder 100,000 units/gram Topical, Refills(s) 0 Start Date: 02/25/24 Status: Ordered pioglitazone 30 mg oral tablet (18 sources) Peroxisome Proliferator Receptor alpha Agonist, Peroxisome Proliferator Receptor gamma Agonist, Thiazolidinedione Start: 2024 take 1 tablet by mouth once daily at bedtime Pioglitazone (Actos) 30 mg tablet Active 30 MG PO Daily at bedtime 2024 12:00am Complies with drug therapy Start: 07-20-2020 End: 11-01-2024 take 1 mg by mouth once daily Actos 30 mg Tab mg tab(s ), Oral, Daily, Refills(s) 0 Start Date: 07/20/20 Status: Ordered Start: 01-19-2019 take 1 tablet by [facility] once daily pioglitazone 15 mg Tab 15 mg = 1 tab(s), Oral, Daily, Refills(s) 0 Start Date: 01/19/19 Status: Ordered polyethylene glycol 3350 56125 mg powder for oral solution (14 sources) Osmotic Laxative polyethylene gl ycol (GLYCOLAX) 17 gram packet Take by mouth as needed. Active prazosin 5 mg oral capsule (20 sources) alpha-Adrenergic Marcello Start: 019 End: 025 take 1 capsule by mouth once daily prazosin (Minipress) 5 MG capsule Indications: Benign essential hypertension Take 1 capsule (5 mg) by mouth Daily 90 capsule 1 12/20/2024 Active traZODone hydrochloride 50 mg oral tablet (20 sources) Serotonin Reuptake Inhibitor Start: End: take 1 tablet by mouth at bedtime traZODone (Desyrel) 50 MG tablet Indications: Primary insomnia Take 1 tablet (50 mg) by mouth at bedtime 30 tablet 01/01/2024 Active Tylenol 8 HR Arthritis Pain (1 source) Start: Tylenol 8 HR Arthritis Pain Oral, BID, Refills(s) 0 Start Date: 12/08/19 Status: Ordered Umeclidinium (20 sources) Anticholinergic Start: take 62.5 ug by inhalation once daily as needed for wheezing Umeclidinium (Incruse Ellipta) 62.5 mcg/actuation blister with device Active 1 INH INHALATION Daily as needed for shortness of breath or wheezing 2024 12:00am Complies with drug therapy Start: 2024 take 62.5 ug by inha lation once daily as needed for wheezing Start: 07-02-2023 End: 04-15-2024 Umeclidinium [place] (Incrus e Ellipta) 62.5 MCG/ACT aerosol powder 07/02/2023 04/15/2024 Discontinued (Therapy completed) Start: 07-02-2023 End: 09-30-2023 take 1 puff(s) by inhalation in the morning Umeclidinium [place] (Incruse Ellipta) 62.5 MCG/ACT aerosol powder Indications: Chronic obstructive pulmonary disease, unspecified COPD type ([facility]) Inhale 1 puff in the morning. 90 each 0 07/02/2023 09/30/2023 Active Vitamin D3 (6 sources) Start: 01-19-2019 Vitamin D3 Ref ills(s) 0 Start Date: 01/19/19 Status: Ordered Completed/Discontinued Medications Medication Drug Class(es) Dates Sig (Normalized) Sig (Original) heparin (porcine) 10,000 Units, sodium bicarbonate 8.4 % (1 mEq/mL) 20 mEq, lidocaine (XYLOCAINE) 10 mg/mL (1 %) 200 mg, gentamicin (GARAMYCIN) 80 mg, triamcinolone acetonide (KENALOG-40) 120 mg bladder instillation (1 source) Start: 01-03-2025 End: 01-03-2025 intravesical, Administer over 2 Hours, Once, On 01/03/25 at 1245, For 1 dose, Assure bladder is empty prior to instillation. Instill using #8 or #12 Fr catheter. Have patient roll side to side with each instillation. , Indication: Other, Specify: Intersitial cystitis. sAXagliptin 5 mg oral tablet (9 sources) Dipeptidyl Peptidase 4 Inhibitor End: 11-01-2024 take 1 tablet by mouth once daily sAXagliptin (ONGLYZA) 5 mg tablet Take 5 mg by mouth daily. 11/01/2024 Discontinued Problems Active Problems Problem Classification Problem Date Documented Date Episodic/Chronic Acquired foot deformities (4 sources) Hammer toe; Translations: [Other hammer toe(s) (acquired), right foot] 09-16-2024 Chronic Acute cerebrovascular disease (20 sources) Cerebrovascular accident; Translations: [Cerebellar infarction] Onset: 01-12-2013 01-19-2019 Chronic Cataract (20 sources) Nuclear sclerotic cataract; Translations: [Age-related nuclear cataract, unspecified eye] Onset: 03-25-2023 03-25-2023 Chronic Chronic kidney disease (4 sources) Chronic kidney disease stage 3A ; Translations: [Chronic kidney disease, stage 3a (HCC) (CMS/HCC)] 07-02-2023 Chronic Chronic obstructive pulmonary disease and bronchiectasis (20 sources) Chronic obstructive lung disease; Translations: [Chronic obstructive pulmonary disease, unspecified] Onset: 03-09-2019 12-24-2022 Chronic Conduction disorders (20 sources) Cardiac pacemaker in situ; Translations: [Presence of cardiac pacemaker] Onset: 12-17-2023 01-01-2024 Chronic Coronary atherosclerosis and other heart disease (20 sources) Atherosclerosis of coronary artery without angina pectoris; Translations: [Atherosclerotic heart disease of [place] coronary artery without angina pectoris] Onset: 01-12-2013 12-24-2022 Chronic Diabetes mellitus with complications (20 sources) Disorder of nervous system due to type 2 diabetes mellitus; Translations: [Type 2 diabetes mellitus with other diabetic neurological complication] Onset: 12-24-2022 12-24-2022 Chronic Diabetes mellitus without complication (20 sources) Diabetes mellitus; Translations: [Type 2 diabetes mellitus without complications] Onset: 05-18-2014 12-24-2022 Chronic Disorders of lipid metabolism (20 sources) Hyperlipidemia; Translations: [Dyslipidemia] Onset: 09-11-2011 01-19-2019 Chronic Essential hypertension (20 sources) Hypertensive disorder; Translations: [Benign essential hypertension] Onset: 09-11-2011 Resolved: 03-27-2023 01-19-2019 Chronic Genitourinary symptoms and ill-defined conditions (20 sources) Urge incontinence; Translations: [Incontinence without sensory awareness] Onset: 06-24-2016 Chronic Heart valve disorders (20 sources) Nonrheumatic aortic (valve) stenosis; Translations: [Aortic valve stenosis] Onset: 04-28-2020 Chronic Hyperplasia of prostate (11 sources) Benign prostatic hypertrophy with outflow obstruction; Translations: [Benign prostatic hyperplasia with lower urinary tract symptoms] Onset: 09-11-2021 Chronic Immunizations and screening for infectious disease (2 sources) Patient encounter status; Translations: [Encounter for immunization] 04-15-2024 Episodic Late effects of cerebrovascular disease (20 sources) Ataxia as sequela of cerebrovascular disease; Translations: [Ataxia following cerebral infarction] Onset: 01-12-2013 12-24-2022 Chronic Mycoses (6 sources) Candidiasis; Translations: [Candidiasis, unspecified] 02-03-2024 Episodic Neoplasms of unspecified nature or uncertain behavior (2 sources) Neoplastic disease; Translations: [Neoplasm of unspecified behavior of bone, soft tissue, and skin] 03-16-2024 Episodic Osteoarthritis (20 sources) Primary gonarthrosis, bilateral; Translations: [Bilateral primary osteoarthritis of knee] Onset: 11-05-2017 12-24-2022 Chronic Other and ill-defined cerebrovascular disease (20 sources) Cerebrovascular disease; Translations: [Cerebrovascular disease, unspecified] Onset: 01-27-2013 03-25-2023 Chronic Other and ill-defined heart disease (20 sources) Cardiomegaly; Translations: [Cardiomegaly] Onset: 07-18-2016 12-24-2022 Chronic Other diseases of veins and lymphatics (20 sources) Lymphedema; Translations: [Lymphedema, not elsewhere classified] Onset: 06-07-2021 12-24-2022 Chronic Other eye disorders (20 sources) Bilateral posterior vitreous detachment; Translations: [Vitreous degeneration, bilateral] Onset: 03-25-2023 03-25-2023 Chronic Other inflammatory condition of skin (3 sources) Intertrigo; Translations: [Erythema intertrigo] 02-03-2024 Episodic Other liver diseases (20 sources) Steatosis of liver; Translations: [Fatty (change of) liver, not elsewhere classified] Onset: 12-24-2022 12-24-2022 Chronic Other lower respiratory disease (20 sources) Interstitial lung disease; Translations: [Interstitial pulmonary disease, unspecified] Onset: 12-22-2020 12-24-2022 Chronic Other nervous system disorders (20 sources) Chronic pain; Translations: [Other chronic pain] Onset: 06-08-2019 12-24-2022 Chronic Other nutritional; endocrine; and metabolic disorders (8 sources) Body mass index 40+ - severely obese; Translations: [Body mass index (BMI) 50.0-59.9, adult] 01-18-2020 Chronic Other nutritional; endocrine; and metabolic disorders (20 sources) Morbid obesity; Translations: [Morbid (severe) obesity due to excess calories] Onset: 04-28-2020 12-24-2022 Chronic Other nutritional; endocrine; and metabolic disorders (20 sources) Obesity caused by energy imbalance; Translations: [Other obesity due to excess calories] Onset: 09-11-2011 03-25-2023 Chronic Other skin disorders (6 sources) Acquired keratoderma; Translations: [Acquired keratosis [keratoderma] palmaris et plantaris] 02-12-2024 Episodic Residual codes; unclassified (20 sources) Obstructive sleep apnea syndrome; Translations: [Obstructive sleep apnea (adult) (pediatric)] Onset: 02-07-2021 12-24-2022 Chronic Retinal detachments; defects; vascular occlusion; and retinopathy (20 sources) Epiretinal membrane; Translations: [Puckering of macula, unspecified eye] Onset: 03-25-2023 03-25-2023 Chronic Unclassified (6 sources) Drug therapy finding 11-09-2019 Unclassified (3 sources) Autogenerated Problem Onset: 10-06-2024 10-06-2024 Unclassified (1 source) Urine Leakage Onset: 10-28-2024 Unclassified (1 source) Urinary incontinence, unspecified type [R32] Onset: 11-02-2024 Unclassified (1 source) Bladder Problem Onset: 01-03-2025 Past or Other Problems Problem Classification Problem Date Documented Date Episodic/Chronic Administrative/social admission (20 sources) Caregiver not readily available; Translations: [Need for assistance at home and no other household member able to render care] Onset: 01-01-2024 01-01-2024 Episodic Biliary tract disease (20 sources) Finding of measures of gallbladder; Translations: [Other specified diseases of gallbladder] Onset: 12-24-2022 12-24-2022 Episodic Blindness and vision defects (20 sources) Hypermetropia; Translations: [Hypermetropia, unspecified eye] Onset: 03-25-2023 03-25-2023 Episodic Coronary atherosclerosis and other heart disease (20 sources) Patient post percutaneous transluminal coronary angioplasty; Translations: [Coronary angioplasty status] Onset: 10-10-2011 03-25-2023 Episodic Genitourinary symptoms and ill-defined conditions (20 sources) Increased frequency of urination; Translations: [Nocturia] Onset: 03-13-2022 11-09-2019 Episodic Mood disorders (20 sources) Mood disorders Onset: 03-26-2023 Resolved: 10-14-2024 03-26-2023 Other circulatory disease (20 sources) History of cerebrovascular accident; Translations: [Personal history of transient ischemic attack (TIA), and cerebral infarction without residual deficits] Onset: 04-28-2020 12-24-2022 Episodic Other nutritional; endocrine; and metabolic disorders (2 sources) Personal history of other endocrine, nutritional and metabolic disease; Translations: [Personal history of other endocrine, nutritional and metabolic disease] Onset: 07-23-2024 Episodic Other screening for suspected conditions (not mental disorders or infectious disease) (20 sources) Encounter for screening for malignant neoplasm of prostate; Translations: [Screening for malignant neoplasm done] Onset: 09-11-2011 Episodic Residual codes; unclassified (20 sources) Edema; Translations: [Edema, unspecified] Onset: 03-13-2022 12-24-2022 Episodic Residual codes; unclassified (20 sources) H/O: neoplasm; Translations: [Personal history of other specified conditions] Onset: 06-29-2019 12-24-2022 Episodic Results Test Name Value Interpretation Reference Range Facility Laboratory - Hematology and Cell countson 01-14-2025 HbA1c (Bld) [Mass fraction] 6.8 % [facility] No Panel Informationon 01-14 [facility] Healthcare Orders Onlyon 12-29-2024 Orders Only [id number] Rodolfo Avery rt K 1945 M Date Provider Department Center 12/29/2024 RANDI KMA [facility] CARD [facility] HeartVAS Family History Problem Relation Age of Onset Coronary artery disease Father Coronary artery disease Brother Family Status - Relation Status Age at Father Brother Normal [facility] Capillary blood glucose joanne urement by glucometer (mass/volume)Ordered By: Hanh Dockery on 12-23-2024 Glucose [Mass/Vol] 123 mg/dL Normal [facility] Comment on above: Random Glucose Refer ence Range is dependent on time and content of last meal. Glucose of more than 200 mg/dL in a nonstressed, ambulatory subject supports the diagnosis of Diabetes Mellitus. Result Comment: [place] Glucose Reference Range is dependent on time and content of last meal. Glucose of more than 200 mg/dL in a nonstressed, ambulatory subject supports the diagnosis of Diabetes Mellitus. PERFORMED BY: [facility] [address] [place] [address] PATHOLOGIST PET CARE TECHNICIAN SUSIE SALMON M.D. Performed By: #### G LULS #### Point of Care testing , Glucose Poct Glucometerson 0 12-23-2024 Commemt1 Glu2: Cleaned Meter Normal [facility] Comment on above: Result Comment: PERF ORMED BY: [facility] [address] [address] PATHOLOGIST PET CARE TECHNICIAN SUSIE SALMON M.D. Performed By: #### G LULS #### Point of Care testing , Glucose [Mass/Vol] 134 mg/dL Normal [facility] Comment on above: Result Comment: [place] Glucose Reference Range is dependent on time and content of last meal. Glucose of more than 200 mg/dL in a nonstressed, ambulatory subject supports the diagnosis of Diabetes Mellitus. Performed By: #### G LULS #### Point of Care testing , No Panel InformationOrdered By: Hanh Dockery on 12-23-2024 Bedside Glucose Comment Glu2: cleaned meter [facility] Office Visiton 11-29-2024 Follow-up visit [id number] Rodolfo Avery rt Dannie 1945 M Date Provider Department Center 11/29/2024 [id number] MELÉNDEZ KARYN Diego Shannon Family History Problem Relation Age of Onset Coronary artery disease Father Coronary artery disease Brother Family Status - Relation Status Age at Father Brother Level of Service:[id number] [place] OFFICE/OUTPATIENT ESTABLISHED MOD MDM 30 MIN Normal [facility] Telephoneon 11-29-2024 Telephone [id number] Rodolfo Avery rt K 1945 M Date Provider Department Center 11/29/2024 JUANITA GRAHAM KARYN Ortega Family History Problem Relation Age of Onset Coronary artery disease Father Coronary artery disease Brother Family Status - Relation Status Age at Father Brother Normal [facility] GENERIC ORDERon 11-02-2 025 TEST RESULT SEE COMMENTS Abnormal [facility] Comment on above: Result Comment: Test Result Flag Unit RefValue ------- Susceptibility, Aerobic, ABBI SEE COMMENTS A SOURCE: [...] NS=NONSUSCEPTIBLE SDD=SUSCEPTIBLE DOSE DEPENDENT Test Performed by: [place] [address] Pilot Boat Operator: Juan Peña Ph.D.; CLIA# [id number] Performed By: #### M GO #### [facility] ([facility]) [address] [place] [address] VIR URINE CULTUREon 11-02-2024 Bacteria identified Cx Nom (U) CULTURE RESULTS CITROBACTER FREUNDII >100,000 CFU/mL Citrobacter freundii Normal [facility] Comment on above: Order Comment: Pre-o p diagnosis: Urinary incontinence, unspecified type [R32] Urine received without preservative - delays in transport may affect results. Interpret with caution and clinical correlation is recommended. CULTURE SENT TO REFERENCE LABORATORY FOR ID AND SUSCEPTIBILITY ON 11/04/24. This case was sent to [facility] for expert consult review. See Separate Report for susceptibility. Performed By: #### U C #### [facility] [address] [place] [address] VIR US RETROPERITONEAL COMPLETEo n 10-05-2024 US RETROPERITONEAL COMPLETE US RETROPERITONEAL COMPLETE CLINICAL INFORMATION: Urinary incontinence, unspecified type TECHNIQUE: US RETROPERITONEAL COMPLETE Ultrasound bilateral kidneys obtained. Right kidney measures 10.5 cm in longitudinal dimension while left kidney measures 11.0 cm. No hydronephrosis or nephrolithiasis. No abnormal perinephric fluid collection appreciated. Bladder volume is 203 mL. No obvious bladder abnormality. Ureteral jets are visualized bilaterally. IMPRESSION: Negative exam. Finalized by Babatunde Calderon MD on 10/05/2024 10:44 AM Normal [facility] Measure post void residualon 09-29-2024 Volume 2 mL [facility] POCT Urinalysis Non-auto, wi th Microscopyon 09-29-2024 External Poct Urine Blood Trace [facility] External Poct Urine Glucose 3+ [facility] External Poct Urine Ketones Negative [facility] External Poct Urine Leukocyte Esterase Trace [facility] External Poct Urine Nitrite Positive [facility] External Poct Urine Ph 5.5 Pr [facility] External Poct Urine Protein 1+ [facility] URINE CULTUREon 09-29-2024 Bacteria identified Cx Nom (U) CULTURE RESULTS CITROBACTER FREUNDII >100,000 CFU/mL Citrobacter freundii [ S = SUSCEPTIBLE R = RESISTANT I = INTERMEDIATE S-DO = Susceptible-dose dependent NS = Non-suscceptible NO = No Interpretation ] Organism: CITROBACTER FREUNDII Antibiotic Interpretation ABBI Status PIPERACIL/TAZOBACTAM S <=^4.0 F Cefazolin (non-urinary) R >=^32.0 F Cefazolin (urinary) R >=^32.0 F Ceftriaxone S <=^0.25 F Gentamicin S <=^1.0 F Ciprofloxacin S 0.12 F Levofloxacin S 0.5 F Nitrofurantoin S <=^16.0 F Trimethoprim + Sulfamethoxazole S <=^1.0 F Susceptible [facility] Comment on above: Order Comment: Along with 10,000 to 50,000 CFU/mL Normal [facility]. Performed By: #### U C #### [facility]) [address] [place] [address] VIR Office Visiton 07-23-2024 Follow-up visit [id number] Rodolfo Avery 1945 M Date Provider Department Center 07/23/2024 [id number], ADAM KARYN [facility] Family History Problem Relation Age of Onset Coronary artery disease Father Coronary artery disease Brother Family Status - Relation Status Age at Father Brother Level of Service:87771 [place] OFFICE/OUTPATIENT ESTABLISHED LOW MDM 20 MIN Normal [facility] Laboratory - Hematology and Cell countson 07-13-2024 HbA1c (Bld) [Mass fraction] 6.6 % [facility] No Panel Informationon 07-13 [facility] Laboratory - Hematology and Cell countson 04-15-2024 HbA1c (Bld) [Mass fraction] 6.8 % [facility] No Panel Informationon 04-15 Interpretation and review of laboratory results Abnormal [facility] No Panel Informationon 03-16 Type of biopsy: tangential Informed consent: discussed and consent obtained Informed consent comment: The risks and benefits of the biopsy were discussed. Risks include but are not limited to bleeding, infection, scarring, pain, and nerve damage. An opportunity to ask questions prior to the procedure was permitted and all questions were answered. Patient was prepped and draped in usual sterile fashion: area cleansed with alcohol. Anesthesia: the lesion was anesthetized in a standard fashion Anesthetic: 1% lidocaine w/ epinephrine 1-100,000 buffered w/ 8.4% NaHCO3 Instrument used: DermaBlade Hemostasis achieved with: electrodesiccation Outcome: patient tolerated procedure well Outcome comment: The specimen was placed in a prelabeled formalin container to be sent for pathology Post-procedure details: sterile dressing applied and wound care instructions given Post-procedure details comment: Emphasized need to contact clinic for any signs of infection, uncontrollable bleeding, or complications. Dressing type: bandage Additional details: Photo taken. Amount of lidocaine used: 1cc [facility] No Panel InformationOrdered By: Mary Scales on 03-16-2024 [facility] Ambulatory Visit Summaryon 1 Ambulatory Visit Summary Ambulatory Visit Summary NGHIA AVERY :1945 Visit Date:02/25/2024 Ambulatory Visit Instructions Your Diagnosis Urinary retention BPH with urinary obstruction Urinary incontinence without sensory awareness Your Care Team Attending Physician - Ramon WHITE, Sherlyn Hernandez Primary Care Physician - PHAM WHITE, MARJORIE Rich This Is Your Medications List Contact prescribing physician if questions or concerns aspirin (aspirin 81 mg oral tablet) atorvastatin (atorvastatin 40 mg Tab) carvedilol (carvedilol 6.25 mg Tab) cholecalciferol (Vitamin D3) ciclopirox topical (ciclopirox topical 0.77% cream) clopidogrel (Plavix 75 mg Tab) furosemide (furosemide 20 mg Tab) lisinopril (lisinopril 20 mg Tab) metformin (metformin 1000 mg Tab) nystatin topical (nystatin powder 100,000 units/gram) pioglitazone (Actos 30 mg Tab) prazosin (prazosin 5 mg oral capsule) umeclidinium (Incruse Ellipta 62.5 mcg inhalation powder) Procedures Performed Injection of therapeutic substance into bladder wall (12/16/2019), Injection of therapeutic substance into bladder wall (03/25/2019), Colonoscopy (11/04/2016), Cystoscopy (09/23/2014), Placement of stent in cardiac conduit (05/26/2009), Laser ablation of prostate (05/2007), Transrectal biopsy of prostate using ultrasound (US) guidance (05/26/2007), Appendectomy, Cystoscopy, Knee replacement. Discharge Vitals Height 170 cm Height 67 in What to do next Scheduled Follow-Up Appointments Friday 8:45 AM EDT With: Sherlyn Navarro MD Where: [facility] [address] [place] [address]- You Need to Schedule the Following Appointments Follow Up with Sherlyn Navarro MD, URL, URO When: Comments: 6 mos w/ PVR Where: [address] [place] [address]- [phone] Medications What How Much When Instructions Unchanged aspirin (aspirin 81 mg oral tablet) [...] prescribing physician if questions or concerns Unchanged nystatin topical (nystatin powder 100,000 units/ gram) Topical Contact prescribing physician if questions or concerns Unchanged pioglitazone (Actos 30 mg Tab) By Mouth Every day Contact prescribing physician if questions or concerns Unchanged prazosin (prazosin 5 mg oral capsule) 1 Capsules By Mouth At bedtime Contact prescribing physician if questions or concerns Unchanged umeclidinium (Incruse Ellipta 62.5 mcg inhalation powder) Inhalation Every 24 hours Contact prescribing physician if questions or concerns Allergies Septra (Hives) sulfamethoxazole-trime thoprim (Unknown) Problems Ongoing - Any problem that you are currently receiving treatment for. Anticoagulated BMI 50.0-59.9, adult BPH with urinary obstruction Nocturia Urge incontinence Urinary frequency Urinary incontinence without sensory awareness Urinary retention Urinary urgency Historical - Any problem that you are no longer receiving treatment for. Hyperlipidemia Hypertension Stroke Patient Survey You may receive a survey via text or e-mail asking about your office visit. Please share your experience with us by completing your survey. We appreciate your feedback and thank you for choosing us for your care. Education Materials Benign Prostatic Hyperplasia Benign prostatic [...] bladder damage and kidney (renal) failure. What a (more content not included)... Normal [facility] Urology Office/Clinic Noteon 02-25-2024 Urology Office/Clinic Note Urology Office/Clinic Note Chief Complaint Patient in office for 1 month f/u w/PVR HPI Staff 78 year old male patient presents today for 1 month f/u w/PVR. DX: Urinary retention, BPH with urinary obstruction, urinary incontinence without sensory awareness. PVR in today was 0. Patient was not able to void prior to PVR. States he feels as if he is emptying his bladder completely, states he does have mild leaking/dribbling. States he wears an adult diaper daily, states he has to change at least 2 x a day. Denies any issues/concerns at this time. Dysuria: denies Incomplete bladder emptying: denies Hematuria: denies Frequency: denies Urgency: denies Nocturia: 1 x a night Stream: steady Leaking: admits Post void dripping: admits Wearing pads/ Depends: admits Urge incontinence: denies Stress incontinence: denies Incontinence without Sensory Awareness: denies Abdominal pain: denies Flank pain: denies Sexual complaints: denies History of Present Illness Tests reviewed: reviewed bladder scan I have reviewed the previous health record information and history for this patient from Dr. Navarro. I have reviewed and verified the staff HPI to be accurate for this encounter. Review of Systems PHQ Score Initial Depression Screen Score: 0 SCORE ROS - Provider Constitutional: denies weight loss, denies hot flashes. Eyes: denies eye problems. Gastrointestinal: denies nausea, denies vomiting. Cardiovascular: denies chest pain or angina. Integumentary: no dryness Musculoskeletal: denies musculoskeletal symptoms. ENMT: denies otolaryngeal symptoms. Respiratory: no shortness of breath. Heme/Lymph: denies easy bleeding tendency, denies easy bruising tendency. Psychiatric: no confusion, no anxiety. Genitourinary: See HPI. Physical Exam Vitals & Measurements HT: 67 in HT: 170 cm General Appearance: alert, no distress, well nourished, well developed male. Assessment/Plan Pt had seen Diana Pickett in the past, followed up with Botox w/ KML. Pt has had botox in the past with DLS. Per 09/17/22 encounter, stopped monitoring PSA due to age & stability. GRACIA 5. 1. Urinary retention (R33.9: Retention of urine, unspecified) Presented to [facility] ER 12/16/23 due to bradycardia. Was also unable to urinate. Transferred to [facility] and had catheter placed 900 cc output per report. F/u with [facility] ER 01/04/24 due to leakage around catheter. No adjustments noted. Bladder scan was 0 mL per nursing staff. Catheter was draining well. -No hx of retention in the past. Had some constipation at time of retention episode and is s/p pacemaker placement 12/19/23. Likely went into retention due to constipation. -Fill/pull at prior OV 01/07/24 - leaked/spasmed during filling. Voided small amount. Bladder scanner was unavailable. Not in discomfort, declined Carlson. PVR (cc): 12/25/22 - 0 02/25/24 - 0 (random scan) No sample provided for UA today. Bladder scan 0. Has been voiding well and feels he empties. Has been having daily BMs. Shares he takes MiraLax when he has difficult BMs. Recommended increased water intake as well. No indication for intervention at this time. -F/u in 6 mos w/ PVR 2. BPH with urinary obstruction (N40.1: Benign prostatic hyperplasia with lower urinary tract symptoms) S/p KTP laser of prostate 05/2007 Cysto 09/2022- Unobstructed, Mild-moderate right lateral hypertrophy only, not obstructed overall from defect in prostatic fossa from prior outlet procedure. IPSS 3 (6), QoL 1 (3) Taking prazosin through PCP, not for BPH. No bother with urination at this time. -See #1 -Cont prazosin 3. Urinary incontinence without sensory awareness (N39.42: Incontinence without sensory awareness) S/p Botox 100u in Dec 2019, had good response per pt. S/p Botox 100u 09/30/22 [1] Prior PVRs post botox have been 0. Pt states he has been doing well. Advised pt repeat Botox is not recommended given #1. Pt agrees. -Timed voids Follow-up With When Contact Information Ramon WHITE, Sherlyn Hernandez, URL, URO [address], [place] [address]- [phone] Additional Instructions: 6 mos w/ PVR Patient Education Benign Prostatic Hyperplasia ICarli, personally scribed for Dr. Navarro on 02/25/2024 09:25:15. . Documentation recorded by the scribe, Carli Infante, accurately reflects the services(s) I performed and decisions made by me. Authenticated by Dr. Navarro on 02/25/2024 09:38:51. Problem List/Past Medical History Ongoing Anticoagulated BMI 50.0-59.9, adult BPH with urinary obstruction Nocturia Urge incontinence Urinary frequency Urinary incontinence without sensory awareness Urinary retention Urinary urgency Historical Hyperlipidemia Hypertension Stroke Procedure/Surgical History Injection of therapeutic substance into bladder wall (12/16/2019), Injection of therapeutic substance into bladder wall (03/25/2019), Colonoscopy (11/04/2016), Cystosc (more content not included)... Normal [facility] Comment on above: Result Comment: Elec tronically Signed By: Sherlyn Navarro MD\.br\Date and Time Signed: 02/25/24 09:38 EDT\.br\Electronically Co-Signed By: Carli Infante\.br\Date and Time Co-Signed: 02/25/24 09:25 EDT Urology Office/Clinic Noteon 01-07-2024 Urology Office/Clinic Note Urology Office/Clinic Note Chief Complaint Urinary retention HPI Staff 78 year old male patient presents today for an ER follow up [facility] w/ urinary retention, leaking from cath bag and penis. Was seen @[facility] due to catheter leaking 01/04/24. Catheter was placed 12/16/23 @ [facility]. Dysuria: denies pain and burning Hematuria: denies Leaking: leaking of bag Abdominal pain: denies Flank pain: denies History of Present Illness Tests reviewed: reviewed UA, ER notes and labs I have reviewed the previous health record information and history for this patient from Dr. Navarro and external providers. I have reviewed and verified the staff HPI to be accurate for this encounter. Review of Systems ROS - Provider Constitutional: denies weight loss, denies hot flashes. Eyes: denies eye problems. Gastrointestinal: denies nausea, denies vomiting. Cardiovascular: denies chest pain or angina. Integumentary: no dryness Musculoskeletal: denies musculoskeletal symptoms. ENMT: denies otolaryngeal symptoms. Respiratory: no shortness of breath. Heme/Lymph: denies easy bleeding tendency, denies easy bruising tendency. Psychiatric: no confusion, no anxiety. Genitourinary: See HPI. Physical Exam General Appearance: alert, no distress, well nourished, well developed male. Morbidly obese. Ambulates with roller walker. 16fr carlson to gravity, in trash can due to bag leakage Assessment/Plan Pt had seen Diana Pickett in the past, followed up with Botox w/ KML. Pt has had botox in the past with DLS. Per 09/17/22 encounter, stopped monitoring PSA due to age & stability. 1. Urinary retention (R33.9: Retention of urine, unspecified) Presented to [facility] ER 12/16/23 due to bradycardia. Was also unable to urinate. Transferred to [facility] and had catheter placed 900 cc output per report. F/u with [facility] ER 01/04/24 due to leakage around catheter. No adjustments noted. Bladder scan was 0 mL per nursing staff. Catheter was draining well. No hx of retention in the past Admits he did have some constipation at time of retention episode and is s/p pacemaker placement 12/19/23. States he has had daily BMs over the past week. Discussed he likely went into retention due to constipation. Not taking Tamsulosin at this time, on prazosin by PCP. Discussed attempting a voiding trial IO today. Pt wishes to proceed. -Fill/pull prior to leaving office today - leaked/spasmed during filling. Voided small amount. bladder scanner unavailable. PT not in discomfort, Declines carlson. Present to ER if unable to void in 6-8 hours or with pain -F/u in 2-4 wks w/ PVR -Bowel regimen -Cont prazosin 2. BPH with urinary obstruction (N40.1: Benign prostatic hyperplasia with lower urinary tract symptoms) IPSS (6), QoL (3) - not filled out today, pt has catheter. PVR 12/25/22 - 0 mL. Taking prazosin through PCP, not for BPH. Cysto 09/2022- Unobstructed, Mild-moderate right lateral hypertrophy only, not obstructed overall from defect in prostatic fossa from prior outlet procedure. [1] -See #1 3. Urinary incontinence without sensory awareness (N39.42: Incontinence without sensory awareness) S/p Botox 100u in Dec 2019, had good response per pt. S/p Botox 100u 09/30/22 [2] Prior PVRs post botox have been 0. Pt states he has been doing well. Will hold off on repeat at this time given #1 I spent 35 minutes today with the patient: reviewing tests in preparation to see and discuss them with the patient, obtaining and reviewing external separately obtained history, documenting clinical information in the electronic health records, and care coordination. Time was spent performing a medical exam and evaluation, counseling and educating the patient, and ordering procedures in caring for the patient. Follow-up With When Contact Information Ramon WHITE, Sherlyn Hernandez, URL, URO [address], [place] [phone] Additional Instructions: 2-4 wks w/ PVR Patient Education Acute Urinary Retention, Male I, Carli Infante, personally scribed for Dr. Navarro on 01/07/2024 10:29:44. . Documentation recorded by the scribe, Carli Infante, accurately reflects the services(s) I performed and decisions made by me. Authenticated by Dr. Navarro on 01/07/2024 11:47:54. Problem List/Past Medical History Ongoing Anticoagulated BMI 50.0-59.9, adult BPH with urinary obstruction Nocturia Urge incontinence Urinary frequency Urinary incontinence without sensory awareness Urinary retention Urinary urgency Historical Hyperlipidemia Hypertension Stroke Procedure/Surgical History Injection of therapeutic substance into bladder wall (12/16/2019), Injection of therapeutic substance into bladder wall (03/25/2019), Colonoscopy (11/04/2016), Cystoscopy (09/23/2014), Placement of stent in cardiac conduit (05/26/2009), Laser ablation of prostate (05/2007), Transrectal biopsy of prostate using ultrasound (US) guidance (05/26/2007), Appendectomy, Cystoscopy (more content not included)... Normal [facility] Comment on above: Result Comment: Elec tronically Signed By: Sherlyn Navarro MD\.br\Date and Time Signed: 01/07/24 11:49 EDT\.br\Electronically Co-Signed By: Carli Infante\.br\Date and Time Co-Signed: 01/07/24 10:30 EDT Laboratory - Hematology and Cell countson 07-02-2023 HbA1c (Bld) [Mass fraction] 6.3 % [facility] No Panel Informationon 07-02 Interpretation and review of laboratory results Abnormal [facility] XR Chest 2 Views*on 05-31-19 XR Chest 2 Views* FINDINGS: Comparison made with priorr chest x-ray 2020, subsequent chest CT January 23, 2021. Persistent diffuse interstitial prominence. No new parenchymal consolidation, infiltrates, or pulmonary edema. No pleural effusion. Mild beventricular prominence. IMPRESSION: Stable parenchymal findings consistent with interstitial lung disease Report reported and signed by Jan Cortes on 05/31/2022 0933 Normal [facility] US Liveron 04-05-2022 US Liver HISTORY: FINDINGS: [...] by Jan Cortes on 04/05/2022 0919 Normal [facility] ECHOCARDIO M/2D COMPLETEon 1 06-02-2021 ECHOCARDIO M/2D COMPLETE Patient: NGHIA AVERY Exam Date: 04/02/2022 : 1945 Gender:M Ordering : [facility] Admission #: [id number] Family : DR MARJORIE NATH M.D. Order #: [id number] CLICK HERE TO VIEW EXAM ECHOCARDIOGRAM REPORT [...] M.D. on 04/02/2022 at 16:11 Normal [facility] Comprehensive Metabolic Pane duane 06-18-2021 Albumin [Mass/Vol] 4.7 g/dL Normal 3.6-5.1 [facility] Comment on above: Performed By: #### C MP #### [facility] [address] [place], [place] [id number] Albumin/Globulin [Mass ratio] 2.2 {ratio} Normal 1.0-2.5 [facility] Comment on above: Performed By: #### C MP #### [facility] [address] [place], [place] [id number] ALP [Catalytic activity/Vol] 104 U/L Normal 40-129 [facility] Comment on above: Performed By: #### C MP #### [facility] [address] [place], [place] [id number] ALT [Catalytic activity/Vol] 18 U/L Normal 9-46 [facility] Comment on above: Result Comment: 04/25 Female reference range changed. Performed By: #### C MP #### [facility] [address] [place], [place] [id number] Anion gap [Moles/Vol] 18 mmol/L Normal 12-20 [facility] Comment on above: Result Comment: Effe ctive 05/31/2019 reference range changed. Performed By: #### C MP #### [facility] [address] [place], [place] [id number] AST [Catalytic activity/Vol] 17 U/L Normal 10-40 [facility] Comment on above: Performed By: #### C MP #### [facility] [address] [place], [place] [id number] Bilirubin [Mass/Vol] 0.86 mg/dL Normal 0.30-1.20 [facility] Comment on above: Performed By: #### C MP #### [facility] [address] [place], [place] [id number] BUN/CREA 25 Ratio High 6-22 [facility] Comment on above: Performed By: #### C MP #### [facility] [address] [place], [place] [id number] Calcium [Mass/Vol] 9.5 mg/dL Normal 8.6-10.2 [facility] Comment on above: Performed By: #### C MP #### [facility] [address] [place], [place] [id number] Chloride [Moles/Vol] 104 mmol/L Normal 98-107 [facility] Comment on above: Performed By: #### C MP #### [facility] [address] [place], [place] [id number] CO2 [Moles/Vol] 25 mmol/L Normal 20-31 [facility] Comment on above: Performed By: #### C MP #### [facility] [address] [place], [place] [id number] Creatinine [Mass/Vol] 0.8 mg/dL Normal 0.7-1.4 [facility] Comment on above: Performed By: #### C MP #### [facility] [address] [place], [place] [id number] eGFRAA 114 mL/min/1.73m2 Normal >60 [facility] Comment on above: Performed By: #### C MP #### [facility] [address] [facility] [place] [id number] eGFRNAA 94 mL/min/1.73m2 Normal >60 [facility] Comment on above: Performed By: #### C MP #### [facility] [address] [place], [place] [id number] Globulin (S) [Mass/Vol] 2.1 g/dL Normal 1.9-3.7 [facility] Comment on above: Performed By: #### C MP #### [facility] [address] [place], [place] [id number] Glucose [Mass/Vol] 157 mg/dL High 65-99 [facility] Comment on above: Result Comment: For FASTING Glucose --- ADA reference ranges: Normal 65-99 mg/dl Prediabetes 100-125 Diabetes >/= 126 Performed By: #### C MP #### [facility] [address] [place], [place] [id number] Potassium [Moles/Vol] 4.4 mmol/L Normal 3.5-5.5 [facility] Comment on above: Performed By: #### C MP #### [facility] [address] [place], [place] [id number] Protein [Mass/Vol] 6.8 g/dL Normal 6.1-8.1 [facility] Comment on above: Performed By: #### C MP #### [facility] [address] [place], [place] [id number] Sodium [Moles/Vol] 142 mmol/L Normal 135-146 [facility] Comment on above: Performed By: #### C MP #### [facility] [address] [place], [place] [id number] Urea nitrogen [Mass/Vol] 20 mg/dL Normal 7-25 [facility] Comment on above: Performed By: #### C MP #### [facility] [address] [place], [place] [id number] Hemoglobin A1Con 06-18-2021 EAG 154.20 Normal [facility] Comment on above: Performed By: #### A 1C #### [facility] [address] [place], [place] [id number] HbA1c (Bld) [Mass fraction] 7.0 % High 4.0-6.0 [facility] Comment on above: Performed By: #### A 1C #### [facility] [address] [place], [place] [id number] Vital Signs Date Time Vital Sign Value Performing Clinician Facility 01-14-2025 09:57-0400 Body height 165.1 cm Marjorie Nath MD Work Phone: [facility] 01-14-2025 09:57-0400 Body mass index (BMI) [Ratio] 49.96 kg/m2 Marjorie Nath MD Work Phone: [facility] 01-14-2025 09:57-0400 Body weight 136.17 kg Marjorie Nath MD Work Phone: [facility] 01-14-2025 09:57-0400 Diastolic blood pressure 76 mm[Hg] Marjorie Nath MD Work Phone: [facility] 01-14-2025 09:57-0400 Heart rate 60 /min Marjorie Nath MD Work Phone: [facility] 01-14-2025 09:57-0400 SaO2% (BldA) [Mass fraction] 94 % Marjorie Nath MD Work Phone: [facility] 01-14-2025 09:57-0400 Systolic blood pressure 128 mm[Hg] Marjorie Nath MD Work Phone: [facility] 01-06-2025 12:54-0400 Body height 165.1 cm Aure Hurley DPM Work Phone: [facility] 01-06-2025 12:54-0400 Body mass index (BMI) [Ratio] 49.92 kg/m2 Aure Hurley DPM Work Phone: [facility] 01-06-2025 12:54-0400 Body weight 136.08 kg Aure CAMPBELLM Work Phone: [facility] 12-23-2024 13:41-0400 Diastolic blood pressure 69 mm[Hg] Marjorie Nath MD Work Phone: [facility] 12-23-2024 13:41-0400 Heart rate 60 /min Marjorie Nath MD Work Phone: [facility] 12-23-2024 13:41-0400 SaO2% (BldA) [Mass fraction] 95 % Marjorie Nath MD Work Phone: [facility] 12-23-2024 13:41-0400 Systolic blood pressure 138 mm[Hg] Marjorie Nath MD Work Phone: [facility] 12-23-2024 13:10-0400 Inhaled oxygen flow rate 2 L/min Marjorie Nath MD Work Phone: [facility] 12-23-2024 12:55-0400 Respiratory rate 16 /min Marjorie Nath MD Work Phone: [facility] 12-23-2024 12:40-0400 Body temperature 96.6 [degF] Marjorie Nath MD Work Phone: [facility] 12-23-2024 10:08-0400 Body height 162.56 cm Marjorie Nath MD Work Phone: [facility] 12-23-2024 10:08-0400 Body weight 137.1 kg Marjorie Nath MD Work Phone: [facility] 12-08-2024 11:23-0400 Body height 167.6 cm [facility] 12-08-2024 11:23-0400 Body mass index (BMI) [Ratio] 47.61 kg/m2 Jessica Barcenas MD Work Phone: [facility] 12-08-2024 11:23-0400 Body weight 133.81 kg Jessica Barcenas MD Work Phone: [facility] 12-08-2024 11:23-0400 Diastolic blood pressure 69 mm[Hg] Jessica Barcenas MD Work Phone: [facility] 12-08-2024 11:23-0400 Heart rate 98 /min Jessica Barcenas MD Work Phone: [facility] 12-08-2024 11:23-0400 Systolic blood pressure 148 mm[Hg] Jessica Barcenas MD Work Phone: [facility] 10-21-2024 16:40-0400 Body height 165.1 cm Aure Hurley DPM Work Phone: [facility] 10-21-2024 16:40-0400 Body mass index (BMI) [Ratio] 51.09 kg/m2 Aure Hurley DPM Work Phone: [facility] 10-21-2024 16:40-0400 Body weight 139.25 kg Aure Hurley DPM Work Phone: [facility] 09-29-2024 15:23-0400 Body height 167.6 cm Jessica Barcenas MD Work Phone: [facility] 09-29-2024 15:23-0400 Body mass index (BMI) [Ratio] 47.61 kg/m2 Jessica Barcenas MD Work Phone: [facility] 09-29-2024 15:23-0400 Body weight 133.81 kg Jessica Barcenas MD Work Phone: [facility] 09-29-2024 15:23-0400 Diastolic blood pressure 68 mm[Hg] Jessica Barcenas MD Work Phone: [facility] Comment on above: Pt. states he usually has higher BP in t he Physician's office. 09-29-2024 15:23-0400 Heart rate 60 /min Jessica Barcenas MD Work Phone: [facility] 09-29-2024 15:23-0400 Systolic blood pressure 174 mm[Hg] Jessica Barcenas MD Work Phone: [facility] Comment on above: Pt. states he usually has higher BP in t he Physician's office. 09-16-2024 14:14-0400 Body height 165.1 cm Aure Ismael DPM Work Phone: [facility] 09-16-2024 14:14-0400 Body mass index (BMI) [Ratio] 51.09 kg/m2 Aure Hurley DPM Work Phone: [facility] 09-16-2024 14:14-0400 Body weight 139.25 kg Aure Hurley DPM Work Phone: [facility] 07-28-2024 09:42-0500 Body height 165.1 cm Kymberly Rios DO Work Phone: [facility] 07-28-2024 09:42-0500 Body mass index (BMI) [Ratio] 51.09 kg/m2 Kymberly Rios DO Work Phone: [facility] 07-28-2024 09:42-0500 Body weight 139.25 kg Kymberly Rios DO Work Phone: [facility] 07-28-2024 09:42-0500 Diastolic blood pressure 63 mm[Hg] Kymberly Rios DO Work Phone: [facility] 07-28-2024 09:42-0500 Heart rate 60 /min Kymberly Rios DO Work Phone: [facility] 07-28-2024 09:42-0500 SaO2% (BldA) [Mass fraction] 95 % Kymberly Rios DO Work Phone: [facility] 07-28-2024 09:42-0500 Systolic blood pressure 136 mm[Hg] Kymberly Rios DO Work Phone: [facility] 07-13-2024 11:16-0500 Body height 165.1 cm Marjorie Nath MD Work Phone: [facility] 07-13-2024 11:16-0500 Body mass index (BMI) [Ratio] 50.92 kg/m2 Marjorie Nath MD Work Phone: [facility] 07-13-2024 11:16-0500 Body weight 138.8 kg Marjorie Nath MD Work Phone: [facility] 07-13-2024 11:16-0500 Diastolic blood pressure 70 mm[Hg] Marjorie Nath MD Work Phone: [facility] 07-13-2024 11:16-0500 Heart rate 56 /min Marjorie Nath MD Work Phone: [facility] 07-13-2024 11:16-0500 SaO2% (BldA) [Mass fraction] 95 % Marjorie Nath MD Work Phone: [facility] 07-13-2024 11:16-0500 Systolic blood pressure 128 mm[Hg] Marjorie Nath MD Work Phone: [facility] 05-27-2024 08:44-0500 Body height 165.1 cm Aure Hurley DPM Work Phone: [facility] 05-27-2024 08:44-0500 Body mass index (BMI) [Ratio] 50.92 kg/m2 Aure Hurley DPM Work Phone: [facility] 05-27-2024 08:44-0500 Body weight 138.8 kg Aure Hurley DPM Work Phone: [facility] 04-15-2024 13:50-0500 Body height 165.1 cm Marjorie Nath MD Work Phone: [facility] 04-15-2024 13:50-0500 Body mass index (BMI) [Ratio] 51.05 kg/m2 Marjorie Nath MD Work Phone: [facility] 04-15-2024 13:50-0500 Body weight 139.16 kg Marjorie Nath MD Work Phone: [facility] 04-15-2024 13:50-0500 Diastolic blood pressure 62 mm[Hg] Marjorie Nath MD Work Phone: [facility] 04-15-2024 13:50-0500 Heart rate 60 /min Marjorie Nath MD Work Phone: [facility] 04-15-2024 13:50-0500 SaO2% (BldA) [Mass fraction] 95 % Marjorie Nath MD Work Phone: [facility] 04-15-2024 13:50-0500 Systolic blood pressure 138 mm[Hg] Marjorie Nath MD Work Phone: [facility] 02-12-2024 09:53-0400 Body height 165.1 cm Aure Hurley DPM Work Phone: [facility] 02-12-2024 09:53-0400 Body mass index (BMI) [Ratio] 49.92 kg/m2 Aure Hurley DPM Work Phone: [facility] 02-12-2024 09:53-0400 Body weight 136.08 kg Aure Hurley DPM Work Phone: [facility] 02-11-2024 13:00-0400 Body height 165.1 cm Kymberly Rios DO Work Phone: [facility] 02-11-2024 13:00-0400 Body mass index (BMI) [Ratio] 46.59 kg/m2 Kymberly Rios DO Work Phone: [facility] 02-11-2024 13:00-0400 Body weight 127.01 kg Kymberly Rios DO Work Phone: [facility] 02-11-2024 13:00-0400 Diastolic blood pressure 69 mm[Hg] Kymberly Rios DO Work Phone: [facility] 02-11-2024 13:00-0400 Heart rate 62 /min Kymberly Rios DO Work Phone: [facility] 02-11-2024 13:00-0400 SaO2% (BldA) [Mass fraction] 90 % Kymberly Rios DO Work Phone: [facility] 02-11-2024 13:00-0400 Systolic blood pressure 122 mm[Hg] Kymberly Rios DO Work Phone: [facility] 07-02-2023 11:33-0500 Diastolic blood pressure 62 mm[Hg] Beth Traore [employer] WORK[employer] Work Phone: [facility] 07-02-2023 11:33-0500 Systolic blood pressure 138 mm[Hg] Beth Traore [employer] SOC[employer] WORKER Work Phone: [facility] 07-02-2023 11:06-0500 Body height 165.1 cm Beth Traore [employer] SOC[employer] WORKER Work Phone: [facility] 07-02-2023 11:06-0500 Body mass index (BMI) [Ratio] 51.59 kg/m2 Beth Traore [employer] SOC[employer] WORKER Work Phone: [facility] 07-02-2023 11:06-0500 Body weight 140.62 kg Bteh Traore [employer] SOCIAL WORKER Work Phone: [facility] 07-02-2023 11:06-0500 Heart rate 66 /min Beth Traore [employer] SOC[employer] WORKER Work Phone: [facility] 07-02-2023 11:06-0500 SaO2% (BldA) [Mass fraction] 95 % Beth Traore [employer] SOC[employer] WORKER Work Phone: [facility] 12-25-2022 09:38-0400 Blood Pressure Location Sherlyn Lue [facility] 12-25-2022 09:38-0400 Diastolic blood pressure 84 mm[Hg] Sherlyn Lue [facility] 12-25-2022 09:38-0400 Heart rate 68 /min Sherlyn Lue [facility] 12-25-2022 09:38-0400 Respiratory rate 16 /min Sherlyn Lue [facility] 12-25-2022 09:38-0400 Systolic blood pressure 132 mm[Hg] Sherlyn Lue [facility] 09-17-2022 08:59-0400 Blood Pressure Location MARJORIE PICKETT [facility] 09-17-2022 08:59-0400 Diastolic blood pressure 78 mm[Hg] MARJORIE CATIE [facility] 09-17-2022 08:59-0400 Heart rate 68 /min MARJORIE CATIE [facility] 09-17-2022 08:59-0400 Respiratory rate 16 /min MARJORIE PICKETT [facility] 09-17-2022 08:59-0400 Systolic blood pressure 130 mm[Hg] MARJORIE CATIE [facility] 09-11-2021 11:06-0400 Diastolic blood pressure 73 mm[Hg] Ron Miller Jr. [facility] 09-11-2021 11:06-0400 Mean blood pressure 89 mm[Hg] Ron Miller Jr. [facility] 09-11-2021 11:06-0400 Systolic blood pressure 121 mm[Hg] oRn Miller Jr. [facility] 09-11-2021 10:29-0400 Blood Pressure Location Ron Miller Jr. [facility] 09-11-2021 10:29-0400 Diastolic blood pressure 70 mm[Hg] Ron Miller Jr. [facility] 09-11-2021 10:29-0400 Heart rate 62 /min Ron Miller Jr. [facility] 09-11-2021 10:29-0400 Respiratory rate 16 /min Ron Miller Jr. [facility] 09-11-2021 10:29-0400 Systolic blood pressure 158 mm[Hg] Ron Miller Jr. 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 Start: 01-06-2025 End: 01-06-2025 Bamboo flowsheet Aure Hurley DPM Work Phone: [facility] Start: 01-06-2025 End: 01-06-2025 Patient encounter procedure Aure Hurley DPM Work Phone: [facility] Comment on above: Type II or unspecifi ed type diabetes mellitus with neurological manifestations, not stated as uncontrolled(250.60) (HCC) (Primary Dx); Onychomycosis Start: 01-06-2025 End: 01-06-2025 ambulatory AURE HURLEY Not Available Start: 01-03-2025 End: 01-03-2025 ambulatory Jessica Barcenas MD Work Phone: [facility] Comment on above: Urinary incontinence , unspecified type (Primary Dx) Start: 12-23-2024 End: 12-23-2024 Admission to same day surgery center Hanh Dockery MD -[facility] [place] Start: 12-23-2024 End: 12-23-2024 ambulatory Marjorie Nath MD Work Phone: [facility] Work Phone: Start: 12-20-2024 End: 12-20-2024 Refill Marjorie Nath MD Work Phone: [facility] Comment on above: Benign essential hyp ertension ; Type 2 diabetes mellitus without complication, without long-term current use of insulin (HCC); Atherosclerosis of 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 Start: 2024 End: 2024 Patient encounter procedure Hanh Dockery MD -Pre-Surgical Testing Work Phone: Start: 2024 End: 2024 ambulatory Marjorie Nath MD Work Phone: [facility] Work Phone: Start: 12-14-2024 End: 12-14-2024 [facility] Start: 12-08-2024 End: 12-08-2024 Telephone encounter Jessica Barcenas MD Work Phone: [facility] Start: 12-08-2024 End: 12-08-2024 Office outpatient visit 15 minutes Jessica Barcenas MD Work Phone: [facility] Comment on above: Urinary incontinence , unspecified type (Primary Dx) Start: 12-08-2024 End: 12-08-2024 [facility] Start: 11-29-2024 End: 11-29-2024 ambulatory NESHA GARCIA [facility] Start: 11-11-2024 End: 11-11-2024 Orders Only Jessica Barcenas MD Work Phone: [facility] Start: 11-08-2024 End: 11-08-2024 Telephone encounter Mario Horton DPM Work Phone: [facility] Comment on above: Advice Only (Diabeti c shoes) Start: 11-02-2024 End: 11-02-2024 Telephone encounter Jessica Barcenas MD Work Phone: [facility] Start: 11-02-2024 End: 11-02-2024 Evaluation and management of inpatient [facility] Start: 11-01-2024 End: 11-01-2024 ambulatory [facility] Phone Call Provider 1 [facility] - Pre Ad[facility] Start: 10-28-2024 End: 10-28-2024 Telephone encounter Marjorie Nath MD Work Phone: [facility] Start: 10-28-2024 End: 10-28-2024 ambulatory [facility] Comment on above: Urinary incontinence , unspecified type Start: 10-28-2024 ambulatory RIZWANA Dustin WARRENALEJANDRA [facility] Start: 10-27-2024 End: 10-27-2024 Telephone encounter Ron Dumont [facility] Start: 10-25-2024 End: 10-25-2024 Telephone encounter Marjorie Nath MD Work Phone: [facility] Start: 10-22-2024 End: 10-22-2024 Telephone encounter Marjorie Nath MD Work Phone: [facility] Start: 10-21-2024 End: 10-21-2024 Patient encounter procedure Aure Hurley DPM Work Phone: [facility] Comment on above: Type II or unspecifi ed type diabetes mellitus with neurological manifestations, not stated as uncontrolled(250.60) (CMS/[facility]) (Primary Dx); Acquired keratoderma; Hammer toes of both feet; Lymphedema Start: 10-21-2024 End: 10-21-2024 ambulatory AURE HURLEY Not Available Start: 10-21-2024 End: 10-21-2024 Bamboo flowsheet Aure Hurley DPM Work Phone: [facility] Start: 10-21-2024 End: 10-21-2024 Bamboo flowsheet Aure Hurley DPM Work Phone: [facility] Start: 10-14-2024 End: 10-14-2024 ambulatory MARJORIE NATH Not Available Start: 10-12-2024 End: 10-12-2024 Bamboo flowsheet Aure Hurley DPM Work Phone: [facility] Start: 10-12-2024 End: 10-12-2024 Bamboo flowsheet Aure Hurley DPM Work Phone: [facility] Start: 10-12-2024 End: 10-12-2024 Postop follow up visit related to original px Aure Hurley DPM Work Phone: [facility] Comment on above: Type II or unspecifi ed type diabetes mellitus with neurological manifestations, not stated as uncontrolled(250.60) (CMS/[facility]) (Primary Dx); Acquired keratoderma; Hammer toes of both feet; Lymphedema Start: 10-12-2024 End: 10-12-2024 ambulatory AURE HURLEY Not Available Start: 10-04-2024 End: 10-04-2024 Telephone encounter Joan García LPN [facility] Start: 10-01-2024 End: 10-01-2024 ambulatory [facility] Start: 09-29-2024 End: 09-29-2024 Office outpatient new 45 minutes Jessica Barcenas MD Work Phone: [facility] Comment on above: Urinary incontinence , unspecified type (Primary Dx) Start: 09-29-2024 End: 09-29-2024 ambulatory [facility] Start: 09-29-2024 End: 10-27-2024 External Result Encounter Rizwana Alejandra [employer] Work Phone: [facility] Unsolicited Start: 09-29-2024 End: 10-27-2024 External Result Encounter Rizwana Alejandra [employer] WORK[employer] Work Phone: [facility] Unsolicited Start: 09-29-2024 End: 09-29-2024 Telephone encounter Jessica Barcenas MD Work Phone: [facility] Start: 09-29-2024 End: 09-29-2024 ambulatory [facility] Start: 09-16-2024 End: 09-16-2024 Office outpatient visit 15 minutes Aure Hurley DPM Work Phone: [facility] Comment on above: Type II or unspecifi ed type diabetes mellitus with neurological manifestations, not stated as uncontrolled(250.60) ([facility]) (Primary Dx); Onychomycosis; Acquired keratoderma; Hammer toes of both feet Start: 09-16-2024 End: 09-16-2024 ambulatory AURE HURLEY Not Available Start: 09-16-2024 End: 09-16-2024 Bamboo flowsheet Aure Hurley DPM Work Phone: [facility] Start: 09-16-2024 End: 09-16-2024 Bamboo flowsheet Aure Hurley DPM Work Phone: [facility] Start: 08-25-2024 End: 08-25-2024 ambulatory Sherlyn Navarro Facility:[facility] Start: 07-29-2024 End: 07-29-2024 Bamboo flowsheet Marcella A Felter QUALITY ENGINEER MEDICAL DEVICE-MORTGAGE LOAN ORIGINATOR Work Phone: [facility] Start: 07-29-2024 End: 07-29-2024 Bamboo flowsheet Marcella A Felter QUALITY ENGINEER MEDICAL DEVICE-MORTGAGE LOAN ORIGINATOR Work Phone: [facility] Start: 07-29-2024 End: 07-29-2024 Office outpatient visit 10 minutes Marcella A Felter QUALITY ENGINEER MEDICAL DEVICE-MORTGAGE LOAN ORIGINATOR Work Phone: [facility] Comment on above: Intertrigo (Primary Dx) Start: 07-29-2024 End: 07-29-2024 ambulatory MARCELLA A FELTER Not Available Start: 07-28-2024 End: 07-28-2024 Bamboo flowsheet Kymberly Nation DO Work Phone: [facility] Start: 07-28-2024 End: 07-28-2024 Bamboo flowsheet Kymberly Pandey Rios DO Work Phone: [facility] Start: 07-28-2024 End: 07-28-2024 Office outpatient visit 15 minutes Kymberly Nation DO Work Phone: [facility] Comment on above: Obstructive sleep ap mohit syndrome (Primary Dx); Interstitial lung disease (CMS/HCC) Start: 07-28-2024 End: 07-28-2024 ambulatory KYMBERLY Dannie RIOS Not Available Start: 07-23-2024 End: 07-23-2024 ambulatory NESHA GARCIA [facility] Start: 07-20-2024 End: 07-20-2024 ambulatory RANDI CALHOUNO [facility] Start: 07-13-2024 End: 07-13-2024 Bamboo flowsheet Marjorie Nath MD Work Phone: [facility] Start: 07-13-2024 End: 07-13-2024 Bamboo flowsheet Marjorie Nath MD Work Phone: [facility] Start: 07-13-2024 End: 07-13-2024 Office outpatient visit 25 minutes Marjorie Nath MD Work Phone: [facility] Comment on above: Type 2 diabetes leesa itus with neurological manifestation (CMS/HCC) (Primary Dx); Urinary incontinence, unspecified type; Benign essential hypertension (CMS/HCC); Atherosclerosis of 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 (CMS/HCC); Heart block AV third degree (CMS/HCC); Morbid obesity (CMS/HCC); Mixed hyperlipidemia (CMS/HCC); Type 2 diabetes mellitus with diabetic chronic kidney disease (CMS/HCC); Chronic kidney disease, stage 3a (HCC) (CMS/HCC); Interstitial pulmonary disease, unspecified (CMS/HCC); Body mass index (BMI) 50.0-59.9, adult (CMS/HCC); Type 2 diabetes mellitus with diabetic cataract (CMS/HCC); Cardiac pacemaker in situ Start: 07-13-2024 End: 07-13-2024 ambulatory MARJORIE NATH Not Available Start: 07-02-2024 End: 07-02-2024 Refill Marjorie Nath MD Work Phone: [facility] Comment on above: Hyperlipidemia, unsp ecified hyperlipidemia type (CMS/HCC) Start: 06-08-2024 End: 06-09-2024 Refill Marjorie Nath MD Work Phone: [facility] Comment on above: Atherosclerosis of n ative coronary artery of [place] heart without angina pectoris ([facility]) Start: 05-27-2024 End: 05-27-2024 Bamboo flowsheet Aure Hurley DPM Work Phone: [facility] Start: 05-27-2024 End: 05-27-2024 Bamboo flowsheet Aure Hurley DPM Work Phone: [facility] Start: 05-27-2024 End: 05-27-2024 Patient encounter procedure Aure Hurley DPM Work Phone: [facility] Comment on above: Onychomycosis (Prima ry Dx); Type II or unspecified type diabetes mellitus with neurological manifestations, not stated as uncontrolled(250.60) ([facility]); Acquired keratoderma; Lymphedema Start: 05-27-2024 End: 05-27-2024 ambulatory AURE HURLEY Not Available Start: 05-06-2024 End: 05-06-2024 Refill Beth Traore NP Work Phone: [facility] Comment on above: Benign essential hyp ertension ([facility]) Start: 04-15-2024 End: 04-15-2024 Bamboo flowsheet Marjorie Nath MD Work Phone: [facility] Start: 04-15-2024 End: 04-15-2024 Bamboo flowsheet Marjorie Nath MD Work Phone: [facility] Start: 04-15-2024 End: 04-15-2024 Patient encounter status Marjorie Nath MD Work Phone: [facility] Work Phone: Start: 04-15-2024 End: 04-15-2024 Periodic preventive med est patient 65yrs& older Marjorie Nath MD Work Phone: [facility] Comment on above: Encounter for wellne ss examination (Primary Dx); Obstructive sleep apnea syndrome; 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); Atherosclerosis of 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 (CMS/HCC); Benign essential hypertension (CMS/HCC); Morbid obesity (CMS/HCC); Dyslipidemia (CMS/HCC); Mixed hyperlipidemia (CMS/HCC); Encounter for immunization Start: 04-15-2024 End: 04-15-2024 ambulatory MARJORIE NATH Not Available Start: 03-16-2024 End: 03-16-2024 Patient encounter procedure Marcella Rothfreedom QUALITY ENGINEER MEDICAL DEVICE-MORTGAGE LOAN ORIGINATOR Work Phone: [facility] Comment on above: Neoplasm of unspecif ied behavior of bone, soft tissue, and skin (Primary Dx) Start: 03-16-2024 End: 03-16-2024 ambulatory MARCELLA A MAYDAFREEDOM Not Available Start: 03-11-2024 End: 03-17-2024 Refill Marjorie Nath MD Work Phone: [facility] Comment on above: Atherosclerosis of n ative coronary artery of [place] heart without angina pectoris (CMS/HCC) (Primary Dx); Hyperlipidemia, unspecified hyperlipidemia type (CMS/HCC) Start: 02-25-2024 End: 02-25-2024 ambulatory Sherlyn Navarro Facility:[facility] Start: 02-25-2024 End: 02-25-2024 Patient encounter procedure Sherlyn Navarro [facility] Start: 02-12-2024 End: 02-12-2024 Patient encounter procedure Aure Hurley DP Work Phone: [facility] Comment on above: Onychomycosis (Prima ry Dx); Type II or unspecified type diabetes mellitus with neurological manifestations, not stated as uncontrolled(250.60) (CMS/HCC); Acquired keratoderma; Lymphedema Start: 02-12-2024 End: 02-12-2024 ambulatory AURE HURLEY Not Available Start: 02-11-2024 End: 02-11-2024 Bamboo flowsheet Kymberly Pandey Rios DO Work Phone: [facility] Start: 02-11-2024 End: 02-11-2024 Bamboo flowsheet Kymberly Dannie Rios DO Work Phone: [facility] Start: 02-11-2024 End: 02-11-2024 Office outpatient visit 15 minutes Kymberly Dannie Rios DO Work Phone: [facility] Comment on above: Obstructive sleep ap mohit syndrome (Primary Dx); Interstitial lung disease ([facility]) Start: 02-11-2024 End: 02-11-2024 ambulatory KYMBERLY NATION Not Available Start: 02-03-2024 End: 02-03-2024 Bamboo flowsheet Marcella A Felter QUALITY ENGINEER MEDICAL DEVICE-MORTGAGE LOAN ORIGINATOR Work Phone: [facility] Start: 02-03-2024 End: 02-03-2024 Bamboo flowsheet Marcella A Felter QUALITY ENGINEER MEDICAL DEVICE-MORTGAGE LOAN ORIGINATOR Work Phone: [facility] Start: 02-03-2024 End: 02-03-2024 Office outpatient visit 15 minutes Marcella A Felter QUALITY ENGINEER MEDICAL DEVICE-MORTGAGE LOAN ORIGINATOR Work Phone: [facility] Comment on above: Intertrigo; Candidiasis Start: 02-03-2024 End: 02-03-2024 ambulatory MARCELLA A FELTER Not Available Start: 01-29-2024 End: 01-29-2024 Telephone encounter Beth Traore NP Work Phone: [facility] Start: 01-25-2024 End: 01-27-2024 Refill Beth Traore NP Work Phone: [facility] Comment on above: CAD S/P percutaneous coronary angioplasty ([facility]) Start: 01-20-2024 End: 01-20-2024 ambulatory [facility] Start: 01-08-2024 End: 02-06-2024 Telephone encounter Marjorie Nath MD Work Phone: [facility] Start: 01-07-2024 End: 01-07-2024 ambulatory Sherlyn Navarro Facility:[facility] Start: 01-07-2024 End: 01-07-2024 Patient encounter procedure Sherlyn Navarro [facility] Start: 07-02-2023 Bamboo flowsheet Beth Traore NP Work Phone: [facility] Start: 07-02-2023 Bamboo flowsheet Beth Traore NP Work Phone: [facility] Start: 07-02-2023 End: 07-02-2023 Office outpatient visit 25 minutes Beth Traore NP Work Phone: [facility] Comment on [...] long-term current use of insulin (CMS/HCC) Start: 03-25-2023 Patient encounter status Beth Traore NP Work Phone: [facility] Start: 12-25-2022 End: 12-25-2022 Patient encounter procedure Sherlyn Navarro [facility] Start: 09-17-2022 End: 09-17-2022 Lab Drop off MARJORIE PICKETT [facility] Start: 09-17-2022 End: 09-17-2022 Patient encounter procedure MARJORIE PICKETT [facility] Start: 04-02-2022 End: 04-03-2022 ambulatory GABRIELA CLEMENS Facility: Start: 09-11-2021 End: 09-11-2021 Patient encounter procedure Ron Miller Jr. [facility] Start: 07-22-2017 Patient encounter status Bubba Barcenas MD Work Phone: [email or web address] Procedures Date Procedure Procedure Detail Performing Clinician Start: 01-14-2025 Hemoglobin glycosyla gracie a1c Marjorie Nath MD Work Phone: Start: 12-23-2024 OR Cataract PHACO W/IOL/Vitrectomy (Right) Marjorie Nath MD Work Phone: Start: 12-08-2024 Follow-up visit Follow-up JESSICA BARCENAS Start: 09-29-2024 Culture bacterial quanttative colony count urine Rizwana Alejandra SCHOOL SOCIAL WORKER Work Phone: Start: 09-29-2024 Urinls dip stick/tab let reagnt non-auto micrscpy Jessica Barcenas MD Work Phone: Start: 09-29-2024 MEASURE POST VOID RESIDUAL Jessica Barcenas MD Work Phone: Start: 07-13-2024 Hemoglobin glycosyla gracie a1c Marjorie Nath MD Work Phone: Start: 04-15-2024 Hemoglobin glycosyla gracie a1c Marjorie Nath MD Work Phone: Start: 03-16-2024 SKIN / NAIL BIOPSY Opal Zaman QUALITY ENGINEER MEDICAL DEVICE-MORTGAGE LOAN ORIGINATOR Work Phone: Start: 07-02-2023 Hemoglobin glycosyla gracie a1c Beth Traore SCHOOL SOCIAL WORKER Work Phone: Start: 12-16-2019 Injection of therape utic substance into bladder wall Ron Miller Jr. Start: 03-25-2019 Injection of therape utic substance into bladder wall Ron Miller JrKayode Start: 11-04-2016 Colonoscopy Ron hodge JrKayode Start: 09-23-2014 Cystoscopy Ron hodge JrKayode Start: 05-26-2009 Placement of stent i n cardiac conduit Ron Miller JrKayode Start: 05-26-2007 Laser ablation of prostate Ron Miller JrKayode Start: 05-26-2007 Transrectal biopsy o f prostate using ultrasound guidance Ron Miller JrKayode Appendectomy Ron Miller Jr Kayode Arthroplasty of knee Ron Miller JrKayode Comment on above: B/L Cystoscopy Ron Miller Jr Kayode Plan of Treatment Date Care Activity Detail Author Start: 08-14-2033 DTaP,Tdap and Td Vaccines (3 - Td or Tdap) DTaP,Tdap and Td Vaccines (3 - Td or Tdap) [facility] Start: 09-07-2026 Glaucoma screening Diabetes: Retinopathy Screening [facility] Start: 12-08-2025 Tobacco Screening Tobacco Screening [facility] Start: 11-02-2025 Tobacco Screening Tobacco Screening [facility] Start: 10-14-2025 Medicare Annual Wellness (AWV) Medicare Annual Wellness (AWV) [facility] Start: 10-14-2025 Urine screening for protein Diabetes: Urine Protein Screening [facility] Start: 09-29-2025 Tobacco Screening Tobacco Screening [facility] Start: 07-28-2025 End: 07-28-2025 Patient encounter procedure [facility] Start: 06-15-2025 End: 06-15-2025 Patient encounter procedure 06/15/2025 3:15 PM EST Office Visit [facility] [address] [place] [address] [place] [address] Jessica Barcenas MD [address] [place] [address] [facility] Start: 04-19-2025 End: 04-19-2025 Patient encounter procedure 04/19/2025 1:00 PM EST Procedure Visit [facility] [address] [place] [phone] Aure Hurley DPQuincy [address] [place] [address] [facility] Start: 04-16-2025 Hemoglobin A1c measurement Diabetes: Hemoglobin A1C [facility] Start: 04-15-2025 Medicare Annual Wellness (AWV) Medicare Annual Wellness (AWV) [facility] Start: 04-15-2025 End: 04-15-2025 Patient encounter procedure 04/15/2025 11:00 AM EST Office Visit [facility] [place] [phone] Marjorie Nath MD [address] [place], [place] [phone] [facility] Start: 03-15-2025 End: 03-15-2025 ambulatory 03/15/2025 10:00 AM EDT Support Visit [facility] [address] [place] [address] [place] [phone] Russ Koo MD [address] [place] [address] [facility] Start: 03-13-2025 Glaucoma screening Diabetes: Retinopathy Screening [facility] Start: 02-09-2025 End: 02-09-2025 Patient encounter procedure 02/09/2025 11:00 AM EDT Office Visit [facility] [address] [place] [address] Kymberly Nation, DO [address] [place] [address] [facility] Start: 02-08-2025 End: 02-08-2025 ambulatory 02/08/2025 10:00 AM EDT Support Visit [facility] [address] [place] [address] [place] [address] Russ Koo MD [address] [place] [address] [facility] Start: 01-28-2025 End: 07-28-2025 XR Chest 2 Views XR chest 2 views Imaging Routine Interstitial lung disease (CMS/HCC) Expected: 01/28/2025, Expires: 07/28/2025 [facility] Work Phone: Comment on above: Expected: 01/28/2025, Expires: Start: 01-24-2025 Influenza vaccination [facility] Start: 01-14-2025 Hemoglobin A1c measurement Diabetes: Hemoglobin A1C [facility] Start: 01-14-2025 End: 01-14-2025 Patient encounter procedure [facility] Comment on above: Arrived Start: 01-06-2025 End: 01-06-2025 Patient encounter procedure [facility] Comment on above: Arrived Start: 12-23-2024 [facility] Start: 12-23-2024 [facility] Start: 12-22-2024 Urine screening for protein Diabetes: Urine Protein Screening [facility] Start: 12-08-2024 End: 12-08-2024 Patient encounter procedure 12/08/2024 11:30 AM EDT Office Visit [facility] [address] [place] [address] A [facility] [place] [address] Jessica Barcenas MD [address] [place] [address] [id number] [facility] Start: 11-11-2024 End: 11-11-2024 Patient encounter procedure 11/11/2024 11:15 AM EDT Office Visit [facility] [address] [place] [phone] Aure Hurley, DPM [address] [place], [place] [phone] [facility] Start: 11-02-2024 End: 11-02-2024 Admission to same day surgery center 11/02/2024 9:45 AM EDT - 11/02/2024 10:15 AM EDT Surgery [facility] [address] [place] [phone] Jessica Barcenas MD [address] [place] [address] CYSTOSCOPY WITH [facility] BLADDER SOLUTION [32657 (CPT )] [facility] - Surgery Comment on above: CYSTOSCOPY WITH [facility] BLADDER SOLUTION [95389 (CPT )] Start: 11-02-2024 End: 11-02-2024 [facility] Start: 11-02-2024 Subsequent hospital visit by physician 11/02/2024 9:45 AM EDT Hospital Encounter [facility] - Surgery [address] [place] [phone] Jessica Barcenas MD [address] [place] [address] [facility] - Surgery Start: 11-01-2024 End: 11-01-2024 ambulatory 11/01/2024 3:00 PM EDT Support Visit [facility] - Pre Admit [address] [place] [phone] [facility] Pre Admit Start: 10-28-2024 End: 10-28-2024 ambulatory 10/28/2024 12:30 PM EDT Support Visit [facility] [address] [place] [phone] [facility] Start: 10-21-2024 End: 10-21-2024 Patient encounter procedure 10/21/2024 4:15 PM EDT Office Visit [facility] [address] [place] [phone] Aure Hurley, MALIA [address] [place] [address] Arrived [facility] Comment on above: Arrived Start: 10-14-2024 End: 10-14-2024 Patient encounter procedure 10/14/2024 1:30 PM EDT Office Visit [facility] [address] [place] [phone] Marjorie Nath MD [address] [place] [address] [facility] Start: 10-12-2024 End: 10-12-2024 Patient encounter procedure 10/12/2024 1:15 PM EDT Office Visit [facility] [address] [place] [phone] Aure Hurley, DPM [address] [place] [address] Arrived [facility] Comment on above: Arrived Start: 10-10-2024 Hemoglobin A1c measurement Diabetes: Hemoglobin A1C [facility] Start: 09-29-2024 End: 09-29-2025 Cystometrogram Cystometrogram Procedure Routine Urinary incontinence, unspecified type Expected: 09/29/2024, Expires: 09/29/2025 [facility] Comment on above: Expected: 09/29/2024, Expires: Start: 09-29-2024 End: 09-29-2025 US Retroperitoneum Ultrasound retroperitoneal complete Imaging Routine Urinary incontinence, unspecified type Expected: 09/29/2024, Expires: 09/29/2025 [facility] Work Phone: Comment on above: Expected: 09/29/2024, Expires: Start: 09-16-2024 End: 09-16-2024 Patient encounter procedure 09/16/2024 2:15 PM EDT Procedure Visit [facility] [address] [place] [phone] Aure Hurley, MALIA [address] [place] [address] Arrived [facility] Comment on above: Arrived Start: 09-07-2024 End: 09-07-2024 Patient encounter procedure 09/07/2024 10:00 AM EDT Procedure Visit [facility] [address] [place] [phone] Aure Hurley, DPM [address] [place] [address] [facility] Start: 08-04-2024 COVID-19 Vaccine () COVID-19 Vaccine () [facility] Start: 08-04-2024 COVID-19 Vaccine ( season) COVID-19 Vaccine () [facility] Start: 07-29-2024 End: 07-29-2024 Patient encounter procedure [facility] Comment on above: Arrived Start: 07-28-2024 End: 07-28-2024 Patient encounter procedure [facility] Comment on above: Arrived Start: 07-16-2024 Hemoglobin A1c measurement Diabetes: Hemoglobin A1C [facility] Start: 07-13-2024 End: 07-13-2024 Patient encounter procedure [facility] Comment on above: Arrived Start: 05-27-2024 End: 05-27-2024 Patient encounter procedure [facility] Comment on above: Arrived Start: 04-15-2024 End: 04-15-2025 Comprehensive metabolic 2000 panel - Serum or Plasma Comprehensive metabolic panel Lab Routine 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) Expected: 04/15/2024 (Approximate), Expires: 04/15/2025 [facility] Comment on above: Expected: 04/15/2024 (Approximate), Expi res: 04/15/2025 Start: 04-15-2024 End: 04-15-2025 Lipid 1996 panel - Serum or Plasma Lipid panel Lab Routine 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 Start: 02-12-2024 End: 02-12-2024 Patient encounter procedure 02/12/2024 10:00 AM EDT Procedure Visit [facility] [address] [place] [phone] Aure Hurley DPM [address] [place] [address] [facility] Start: 02-11-2024 End: 02-11-2024 Patient encounter procedure [facility] Comment on above: Arrived Start: 02-03-2024 End: 02-03-2024 Patient encounter procedure [facility] Comment on above: Arrived Start: 01-25-2024 Influenza vaccination [facility] Start: 10-03-2023 End: 10-03-2023 Patient encounter procedure 10/03/2023 11:30 AM EDT Office Visit [facility] [address] [place] [phone] Beth Traore NP [address] [place] [address] [facility] Start: 09-30-2023 Hemoglobin A1c measurement Diabetes: Hemoglobin A1C [facility] Start: 08-05-2023 End: 08-05-2023 Patient encounter procedure 08/05/2023 9:30 AM EDT Procedure Visit [facility] [address] [place] [phone] Aure Hurley, DPM [address] [place] [address] [facility] Start: 07-30-2023 End: 07-30-2023 Patient encounter procedure 07/30/2023 10:45 AM EST Office Visit [facility] [address] [place] [phone] Kymberly Nation, DO [address] [facility] [place] [address] [facility] Start: 07-29-2023 End: 07-29-2023 Patient encounter procedure 07/29/2023 10:10 AM EST Office Visit [facility] [address] [place] [phone] Marcella Zaman APRN-MORTGAGE LOAN ORIGINATOR [address] [place], [place] [phone] [facility] Start: 06-26-2023 Hemoglobin A1c measurement Diabetes: Hemoglobin A1C [facility] Start: 12-14-2008 Fall Risk Screening Fall Risk Screening [facility] Start: 1955 Depression Screening Depression Screening [facility] Bacteria identified in Urine by Culture [facility] Dermatopathology exam Dermatopat hology exam Pathology and Cytology Timed Neoplasm of unspecified behavior of bone, soft tissue, and skin Release Upon Ordering for 1 Occurrences starting 03/16/2024 [facility] Work Phone: Comment on above: Release Upon Ordering for 1 Occurrences starting 03/16/2024 IRRIGATION OF BLADDER IRRIGATION OF BLADDER Procedures Routine Urinary incontinence, unspecified type Ordered: 01/03/2025 [facility] Work Phone: Comment on above: Ordered: 01/03/2025 Patient Education Know your Meds [facility] Work Phone: Patient referral [facility] Work Phone: Immunizations Immunization Date Immunization Notes Care Provider Fa cili 04-15-2024 Pneumococcal Conjuga te PCV 20 Marjorie Nath MD Work Phone: [facility] 02-05-2024 influenza virus vacc ine, unspecified formulation Kymberly Rios Work Phone: [facility] 02-05-2024 influenza, high dose seasonal, preservative-free Marjorie Nath MD Work Phone: [facility] 02-05-2024 SARS-COV-2 (COVID-19 ) vaccine, mRNA, spike protein, LNP, PF, 50 mcg/0.5 mL Marjorie Nath MD Work Phone: [facility] 08-15-2023 tetanus toxoid, redu dora diphtheria toxoid, and acellular pertussis vaccine, adsorbed Sherlyn Navarro [facility] 02-21-2023 RSV, recombinant, protein subunit RSVpreF, adjuvant reconstitu, 120mcg/0.5mL, PF (Arexvy) Beth Eugenie [employer]CHO[employer] SOCIAL WORKER Work Phone: [facility] 02-21-2023 SARS-COV-2 (COVID-19 ) vaccine, mRNA, spike protein, LNP, PF, alfonzo-sucrose, 30 mcg/0.3 mL Beth Eugenie [employer]CHOOL SOCIAL WORKER Work Phone: [facility] 02-07-2023 influenza virus vacc ine, unspecified formulation Sherlyn Navarro [facility] 02-07-2023 Influenza, Seasonal, Quadrivalent, Adjuvanted Beth Eugenie SCHO[employer] SOCIAL WORKER Work Phone: [facility] 02-07-2023 zoster vaccine recombinant Beth Eugenie SCHOOL SOCIAL WORKER Work Phone: [facility] 10-09-2022 Moderna Bivalent Gamez ster Vaccination Beth Eugenie [employer] SOCIAL WORKER Work Phone: [facility] 10-09-2022 SARS-CoV-2 (COVID-19 ) [id number] Sherlyn Navarro [facility] 10-09-2022 zoster vaccine recombinant Sherlyn Navarro [facility] 03-26-2022 Moderna Bivalent Gamez ster Vaccination Beth Eugenie SCHOOL SOCIAL WORKER Work Phone: [facility] 03-26-2022 SARS-CoV-2 (COVID-19 ) [id number] MARJORIE PICKETT [facility] 01-24-2022 influenza virus vacc ine, unspecified formulation Beth Eugenie SCHOOL SOCIAL WORKER Work Phone: [facility] 01-16-2022 influenza virus vacc ine, unspecified formulation MARJORIE PICKETT [facility] 01-16-2022 Influenza, Seasonal, Quadrivalent, Adjuvanted Beth Traore SCHOOL SOCIAL WORKER Work Phone: [facility] 09-03-2021 SARS-CoV-2 (COVID-19 ) [id number] vaccine MARJORIE PICKETT [facility] 09-03-2021 SARS-CoV-2, Unspecified April Traore SCHOOL SOCIAL WORKER Work Phone: [facility] 04-05-2021 SARS-CoV-2 (COVID-19 ) [id number] vaccine MARJORIE PICKETT [facility] 04-05-2021 SARS-CoV-2, Unspecified April Traore SCHOOL SOCIAL WORKER Work Phone: [facility] 04-04-2021 Moderna SARS-CoV-2 Vaccination Beth Traore SCHOOL SOCIAL WORKER Work Phone: [facility] 02-23-2021 influenza virus vacc ine, unspecified formulation Beth Traore [employer]CHO[employer] SOCIAL WORKER Work Phone: [facility] 02-16-2021 influenza virus vacc ine, unspecified formulation MARJORIE PICKETT [facility] 02-16-2021 Influenza, Seasonal, Quadrivalent, Adjuvanted Beth Traore SCHOOL SOCIAL WORKER Work Phone: [facility] 07-31-2020 Moderna SARS-CoV-2 Vaccination Beth Traore [employer]CHO[employer] SOCIAL WORKER Work Phone: [facility] 07-04-2020 SARS-CoV-2 (COVID-19 ) [id number] vaccine Ron Miller Jr. [facility] 07-03-2020 Moderna SARS-CoV-2 Vaccination Beth Traore [employer] SOCIAL WORKER Work Phone: [facility] 01-25-2020 influenza virus vacc ine, unspecified formulation Ron Miller Jr. [facility] 01-22-2020 influenza virus vacc ine, unspecified formulation MARJORIE CATIE [facility] 01-22-2020 influenza, injectabl e, quadrivalent, preservative free Beth Kampfer [employer] Work Phone: [facility] 03-11-2019 Influenza, High-dose Seasonal, Quadrivalent, Preservative Free Beth Kampfer [employer] Work Phone: [facility] 03-05-2019 influenza virus vacc ine, unspecified formulation MARJORIE CATIE [facility] 03-05-2019 Seasonal trivalent influenza vaccine, adjuvanted, preservative free Beth Kampfer [employer] WORK[employer] Work Phone: [facility] 01-24-2019 influenza virus vacc ine, unspecified formulation Beth Kampfer [employer] WORK[employer] Work Phone: [facility] 11-16-2018 pneumococcal conjuga te vaccine, 13 valent MARJORIE CATIE [facility] 02-09-2018 influenza virus vacc ine, unspecified formulation MARJORIE CATIE [facility] 02-09-2018 Seasonal trivalent influenza vaccine, adjuvanted, preservative free Beth Kampfer [employer] WORK[employer] Work Phone: [facility] 03-28-2017 pneumococcal polysaccharide vaccine, 23 valent MARJORIE CATIE [facility] 02-10-2017 tetanus toxoid, redu dora diphtheria toxoid, and acellular pertussis vaccine, adsorbed Beth Kampfer [employer] WORK[employer] Work Phone: [facility] 02-03-2017 influenza virus vacc ine, unspecified formulation MARJORIE CATIE [facility] 02-03-2017 Seasonal trivalent influenza vaccine, adjuvanted, preservative free Beth Kampfer [employer] WORK[employer] Work Phone: [facility] 03-27-2016 pneumococcal conjuga te vaccine, 13 valent MARJORIE CATIE [facility] 02-07-2016 influenza virus vacc ine, unspecified formulation MARJORIE CATIE [facility] 02-07-2016 seasonal influenza, intradermal, preservative free Beth Kampfer [employer] WORK[employer] Work Phone: [facility] 02-01-2015 influenza virus vacc ine, unspecified formulation MARJORIE CATIE [facility] 02-01-2015 influenza, high dose seasonal, preservative-free Beth Kampfer [employer] WORK[employer] Work Phone: [facility] 06-17-2013 zoster vaccine, live DAVID R CATIE [facility] 02-24-2012 influenza virus vacc ine, unspecified formulation MARJORIE CATIE [facility] 02-24-2012 influenza, seasonal, injectable Beth Kampfer [employer] WORK[employer] Work Phone: [facility] 02-27-2010 influenza virus vacc ine, unspecified formulation MARJORIE CATIE [facility] 02-27-2010 influenza, seasonal, injectable Beth Kampfer [employer] WORKER Work Phone: [facility] Payers Date Payer Category Payer Self-pay 2024 Unknown [id number] 02 2024 Medicare HMO [employer] MED[employer]ARE ember [id number] 2022 Medicaid A[employer]NA MEDICARE A DVANTAGE [id number] 2022 Medicare AETNA MEDICARE A DVANTAGE AETNA MEDICARE REPLACEMENT [id number] 2022-Present [address] [place] [address] [id number] 2022 Private Health Insurance [id number] 1961 Medicare [id number] 1945 Unknown [id number] 2.16.840.1.246399.3.579.2 .593 1943 Unknown [id number] 2.16840.1.188850.3.579.2 .727 1943 Unknown [id number] 2.16840.1.029435.3.579.2 .727 1943 Unknown [id number] 2.16.840.1.721715.3.579.2 .727 1943 Unknown [id number] 2.16840.1.122561.3.579.2 .1286 1943 Unknown [id number] 2.16.840.1.876864.3.579.2 .128 1943 Unknown [id number] 2.16.840.1.097058.3.579.2 .128 1943 Unknown [id number] 2.16840.1.546235.3.579.2 .128 1943 Unknown [id number] 2.16840.1.922473.3.579.2 .128 1943 Unknown [id number] 2.840.1.035245.3.579.2 .128 1943 Unknown [id number] 2.840.1.440985.3.579.2 .128 1943 Unknown [id number] 2.840.1.643917.3.579.2 .128 1943 Unknown [id number] 2.840.1.262639.3.579.2 .1258 1943 Unknown [id number] 2.840.1.443705.3.579.2 .1258 1943 Unknown [id number] 2.840.1.401242.3.579.2 .125 1943 Unknown [id number] 2.840.1.686556.3.579.2 .125 1943 Unknown [id number] 2.840.1.413837.3.579.2 .125 1943 Unknown [id number] 2.840.1.704063.3.579.2 .125 1943 Unknown [id number] 2.840.1.698252.3.579.2 .125 1943 Unknown [id number] 2.840.1.549097.3.579.2 .1259 1944 Unknown [id number] 2.16.840.1.825438.3.579.2 .1258 1943 Unknown [id number] 2.16.840.1.562528.3.579.2 .1258 1943 Unknown [id number] 2.16.840.1.869144.3.579.2 .1258 1943 Unknown [id number] 2.16.840.1.637907.3.579.2 .1258 1943 Unknown [id number] 2.16.840.1.505153.3.579.2 .1258 1943 Unknown [id number] 2.16.840.1.614410.3.579.2 .1258 1943 Unknown [id number] 2.16.840.1.842502.3.579.2 .1259 Unknown [facility] [id number] Unknown [id number] 2.16.840.1.107307.3.579.2 .531 Unknown [id number] 2.16.840.1.219973.3.579.2 .531 Social History Date Type Detail Facility Start: 09-11-2021 End: 12-25-2022 Tobacco smoking status Ex-smoker (finding) [facility] Start: 03-25-2023 End: 10-14-2024 Sex Assigned At Male [facility] Tobacco smoking status Never [facility] Start: 07-23-2017 End: 12-25-2022 Tobacco smoking status NHIS Never smoked tobacco [facility] Start: 07-23-2017 End: 12-25-2022 Tobacco use and exposure Smokeless tobacco non-user [facility] Start: 05-06-2023 End: 01-14-2025 Alcohol intake Lifetime non-drinker (finding) [facility] Start: 03-25-2023 End: 10-14-2024 History of Social function [facility] Within the last year , have you been afraid of your partner or ex-partner? No [facility] Are you now , , , , never or living with a partner? [facility] How often to you hav e a drink containing alcohol? Never [facility] (I/We) worried wheth er (my/our) food would run out before (I/we) got money to buy more. Never true [facility] Start: 01-15-2023 Alcohol Comment caffeine: coff ee occasionally [facility] Start: 1945 Sex Assigned At Not on file [facility] Start: 08-07-2022 Gender identity Identifies as male gender (finding) [facility] Start: 09-29-2024 End: 12-08-2024 Alcoholic beverage intake Current non-drinker of alcohol (finding) [facility] Start: 12-29-2014 Sex Male (finding) [facility] Start: 1945 Sex Assigned At Male [facility] Goals Date Patient Goal Desired Activity /State Personal health goal Functional Status Date Assessment Result Facility 10-14-2024 Patient Health Quest ionnaire 2 item (PHQ-2) [Reported] [facility] 02-25-2024 Functional Status N/A [facility] 12-25-2022 Functional Status N/A [facility] 09-17-2022 Functional Status N/A [facility] Clinical Notes 09-11-2021 to 01-14-2025 Marjorie Nath MD - 01/14/2025 10:00 AM Elenita Nath MD - 01/14/2025 10:00 AM Elenita Nath MD - 01/14/2025 10:00 AM Elenita Nath MD - 01/14/2025 10:00 AM EDT Note Date & Type Note Facility 01-14-2025 History of Present illness Narrative Associated Problem(s): 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 Associated Problem(s): Benign essential hypertension Controlled on medications. Associated Problem(s): Cardiac pacemaker in situ Follows with cardio for device checks. 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 male who presents for Diabetes. HPI History of Present Illness The patient presents for evaluation of diabetes, hypertension, sleep apnea, and cataract. He monitors his blood sugar levels at home every morning, which typically range between 90 and 120, influenced by his previous night's meal. His current [...] (Vigamox) 0.5 % ophthalmic solution nystatin (Mycostatin) 845773 UNIT/GM powder prazosin (Minipress) 5 MG capsule [...] lb 3.2 oz SpO2 94% BMI 49.96 kg/m Physical Exam Physical Exam General Appearance: Normal. [...] Type 2 diabetes mellitus with neurological manifestation ([facility]) Orders: dapagliflozin (Farxiga) 5 MG; Take 1 tablet (5 mg) by mouth Daily POCT Glycated hemoglobin, total Obstructive sleep apnea syndrome Compliant with his CPAP each night and it is beneficial. Benign essential hypertension Controlled on medications. Cardiac pacemaker in situ Follows with cardio for device checks. Coronary artery disease involving 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 No angina Class 2 obesity due to excess calories without serious comorbidity with body mass index (BMI) of 37.0 to 37.9 in adult Assessment & Plan 1. Diabetes Mellitus: - His A1c level is currently at 6.8, which is slightly elevated compared to the previous reading of 6.6 in 06/2024. - He will continue with [...] 02/17/2025 and will continue using the prescribed eye drops as directed. 4. Sleep Apnea: - He is using a CPAP machine for sleep apnea and will get a new hose and other supplies through his insurance. 5. Health Maintenance: - He is advised to receive the influenza vaccine at the end of January or beginning of February 2025. His other immunizations are up to date. 6. Unspecified diagnosis: - He does not recall the last time he needed to use his rescue inhaler for breathing issues. Follow-up: The patient will follow up in 3 months. documented in this encounter [facility] 01-06-2025 History of Present illness Narrative Images from the original note were not included. Subjective Patient ID: Nikko Avery is a 79 y.o. male who presents for Nail care (Nikko Avery is a 78 y.o. male who presents for Diabetic nail care. A1C 6.8 BS: 115 Dr. Nath 10/14/2024. ). Established patient returns requesting nail debridement. He states nails are thick, elongated, fungal requesting nail debridement today. He states his recently dispensed diabetic shoes are working well for him. Review of Systems Current Outpatient Medications: albuterol HFA 90 mcg/act inhaler, USE 1 INHALATION ORALLY EVERY 4 HOURS NEEDED FORSHORTNESS OF BREATH OR COUGH for 34, Disp: 18 g, Rfl: 5 aspirin 81 MG EC tablet, Take 1 tablet by mouth Daily, Disp: , Rfl: atorvastatin (Lipitor) 40 MG tablet, TAKE 1 TABLET DAILY, Disp: 90 tablet, Rfl: 1 carvedilol (Coreg) 12.5 MG tablet, Take 1 tablet (12.5 mg) by mouth in the morning and 1 tablet (12.5 mg) in the evening. Take with meals., Disp: 180 tablet, Rfl: 1 cholecalciferol (Vitamin D-3) 25 MCG (1000 UT) capsule, Take 1,000 Units by mouth in the morning., Disp: , Rfl: ciclopirox (Loprox) 0.77 % cream, APPLY TO SKIN FOLDS TOPICALLY TWO TIMES A DAY NEEDED FOR SKIN IRRITATION,HOLD WHEN CLEAR, 90 day supply, Disp: 270 g, Rfl: 2 clopidogrel (Plavix) 75 MG tablet, TAKE 1 TABLET ONCE DAILY, Disp: 90 tablet, Rfl: 1 dapagliflozin (Farxiga) 10 MG, Take 1 tablet (10 mg) by mouth Daily, Disp: 30 tablet, Rfl: 0 lisinopril 30 MG tablet, TAKE 1 TABLET EVERY MORNING, Disp: 90 tablet, Rfl: 1 metFORMIN (Glucophage) 1000 MG tablet, Take 1 tablet (1,000 mg) by mouth in the morning and 1 tablet (1,000 mg) in the evening. Take with meals., Disp: 180 tablet, Rfl: 1 nystatin (Mycostatin) [id number] UNIT/GM powder, Apply topically 2 (two) times a day, Disp: 60 g, Rfl: 11 prazosin (Minipress) 5 MG capsule, Take 1 capsule (5 mg) by mouth Daily, Disp: 90 capsule, Rfl: 1 traZODone (Desyrel) 50 MG tablet, Take 1 tablet (50 mg) by mouth at bedtime (Patient not taking: Reported on 10/14/2024), Disp: 30 tablet, Rfl: 0 Sulfa antibiotics and Sulfamethoxazole-trimethoprim Past Surgical History: Procedure Laterality Date APPENDECTOMY age 16 CARDIAC SURGERY Had a stint (? spelling) put in. CATARACT EXTRACTION Right 11/2024 Left sched 01/17/25 COLONOSCOPY 2009 CYSTOSCOPY 1989 INSERT / REPLACE / REMOVE PACEMAKER 12/16/2023 [facility] IR STENT PLACEMENT 2011 JOINT REPLACEMENT Knees TOTAL KNEE ARTHROPLASTY Right 2012 TOTAL KNEE ARTHROPLASTY Left 02/2015 VASECTOMY Family History Problem Relation Name Age of Onset Breast cancer Mother Mother Diabetes Mother Mother Arthritis Mother Mother Cancer Father Dod Alcohol abuse Father Dod Melanoma Neg Hx Objective Physical Exam Cardiovascular: Comments: Pedal pulses: DP 2/4 bilateral, PT 2/4 bilateral. Skin temp is warm to warm. Varicosities: mild, present Hair growth: present Lymphedema noted b/l Pulmonary: Effort: Pulmonary effort is normal. Musculoskeletal: General: No tenderness. Right lower leg: Edema present. Left lower leg: Edema present. Comments: JOINT RANGE OF MOTION:ankle joint and subtalar joint ROM are normal and pain free . DEFORMITIES:Digits 2-5 b/l are contracted flexibly. PAIN: No pain with palpation to either foot . MUSCLE STRENGTH5/5 for dorsiflexion, plantarflexion, inversion, eversion . Feet: Comments: Last diabetic foot exam: 09/16/2024 Skin: General: Skin is warm. Capillary Refill: Capillary refill takes 2 to 3 seconds. Findings: No bruising or erythema. Comments: SKIN FINDINGS:There are hemosiderin deposits noted lower legs, left worse than right. Webspaces are clean and dry. HYPERKERATOSIS: plantar medial HIPJ and distal medial hallux b/l, left worse than right. NAIL PATHOLOGY:Nails 1 b/l are splitting, fungal, 4mm thick, yellow and orange, with subungal debris. Nail 2 R is 4mm thick, yellow, elongated, fungal. Nail 5 L is elongated, raised, fungal, 4mm thick.. ULCER: none. Neurological: Mental Status: He is alert and oriented to person, place, and time. Comments: Light touch sensation intact VIBRATORY: is absent at IPJ, MPJ. Diminished at medial malleolus, and patella b/l. SEMMES-ASHISH 5.07 MONOFILAMENT: intact at 10/10 sites. Psychiatric: Mood and Affect: Mood normal. Behavior: Behavior normal. Modifier: Q9, 73740 Assessment/Plan ICD-10-CM 1. Type II or unspecified type diabetes mellitus with neurological manifestations, not stated as uncontrolled(250.60) ([facility]) E11.49 2. Onychomycosis B35.1 All nails debrided, the mycotic toenails and dystrophic toenails reduced. The nails are debrided in thickness and length. Any redundant tissue in the margins were curetted in an effort to reduce pain and pressure. All nails were debrided with large and small nail nippers, and power burring implemented to remove residual rough edges. With this treatment the patient relates relief of symptomatology. Shoes inspected and good foot hygiene discussed. Patient advised to call if condition exacerbates or issues arise This note was created with the assistance of a speech recognition program. While intending to generate aely document that accurately reflects the content of the visit, no guarantee can be provided that every grammatical or spelling mistake has been or will be identified or corrected. Thank you for your understanding. Aure Hurley DPM documented in this encounter [facility] 01-03-2025 History of Present illness Narrative Patient presents for first [facility] Bladder instillation per Dr Dennise MD order of monthly for three months. States there have been increased symptoms of incontinence. Meatus prepped with Betadine, 14 Fr coude straight urethral catheter inserted without difficulty, 100 ml of yellow urine drained. [facility] Rx solution instilled, catheter removed. Patient tolerated the procedure well and will return in one month for his next tx. Joan García LPN Ordering Physician: Dr Dennise MD Supervising Physician: Dr Dennise MD documented in this encounter [facility] 12-08-2024 Miscellaneous Notes Call Friday to schedule [facility] bladder solution monthly x3 documented in this encounter [facility] 12-08-2024 Telephone encounter Note Call Friday to schedule [facility] bladder solution monthly x3 [facility] 12-08-2024 Evaluation + Plan note Associated Problem(s): Urinary incontinence We discuss observation verses some maintenance therapy. Chooses maintenance. Will have him do monthly x3 then will see him back in 6 months [facility] 12-08-2024 Miscellaneous Notes Associated Problem(s): Urinary incontinence We discuss observation verses some maintenance therapy. Chooses maintenance. Will have him do monthly x3 then will see him back in 6 months documented in this encounter [facility] 12-08-2024 History of Present illness Narrative Images from the original note were not included. [address] [place] [address] [address] [facility] [address] Patient: Nghia Avery Date of : 1945 Encounter Date: 12/08/2024 History of Present Illness: The patient is a 78 y.o. male, an established patient, and is here for Chief Complaint Patient presents with Follow-up . Urgency frequency. Status post cysto [facility] bladder solution. Near resolution of symptoms. Patient happy. Urinalysis today: No results for input(s): EXTPOCURCO , EXTPOCURCH , EXTPOCAPP , EXTPOCURBS , EXTPOCURBIL , EXTPOCUKET , EXTPOCUSPG , EXTPOCUHGB , EXTPOCUPRO , EXTPOCUURO , EXTPOCULEU , EXTPOCUNIT , EXTPOCUWBC , EXTPOCUBLD , EXTPOCURBC , EXTPOCUCRY , EXTPOCUBAC , EXTPOCUTREP , EXTPOCUPH , EXTPOCULEE in the last 72 hours. Last BUN and creatinine: Lab Results Component Value Date BUN 18 09/13/2015 Lab Results Component Value Date CREATININE 0.77 09/13/2015 Last PSA: Lab Results Component Value Date PSA 0.44 01/30/2018 PSA 0.42 12/17/2016 PSA 0.8 09/13/2015 PSA 0.6 08/30/2014 No results found for: PROSTATICSP Past Medical, Family, and Social History Update: The following portions of the patient's history were reviewed and updated as appropriate: allergies, current medications, past family history, past medical history, past social history, past surgical history and problem list. Past Medical History: Diagnosis Date Abnormal digital rectal exam Abnormal result of cardiovascular function study Cerebrovascular disease CVA (cerebral vascular accident) ([facility]) Diabetes mellitus ([facility]) Elevated PSA Encounter for preprocedural cardiovascular examination Hypercholesteremia Hyperlipidemia Hypertension Incontinence Obesity Obesity Shortness of breath Stroke ([facility]) Past Surgical History: Procedure Laterality Date ANKLE SURGERY APPENDECTOMY CARDIAC CATHETERIZATION CARDIAC PACEMAKER PLACEMENT 12/18/2023 CARDIAC SURGERY Stent placed 2009 COLONOSCOPY N/A 11/04/2016 Performed by Jose Canseco MD at [facility] CYSTOSCOPY WITH [facility] BLADDER SOLUTION N/A 11/02/2024 Performed by Jessica Barcenas MD at [facility] JOINT REPLACEMENT Knee replacements both KNEE SURGERY Family History Problem Relation Age of Onset Dementia Mother Alzheimer's disease Mother Stroke Father Current Outpatient Medications Medication Sig Dispense Refill amLODIPine (NORVASC) 10 mg tablet Take by mouth. aspirin 81 mg atorvastatin (LIPITOR) 40 mg tablet Take 2 tablets (80 mg total) by mouth before bedtime. carvediloL (COREG) 6.25 mg tablet Take 2 tablets (12.5 mg total) by mouth in the morning and 2 tablets (12.5 mg total) in the evening. Take with meals. cholecalciferol, vitamin D3, 25 mcg (1,000 unit) capsule Take 1 capsule (1,000 Units total) by mouth in the morning. ciclopirox (LOPROX) 0.77 % cream Apply 1 Application topically in the morning and 1 Application before bedtime. Gently massage into affected areas and surrounding skin. clopidogrel (PLAVIX) 75 mg tablet Take by mouth. dapagliflozin propanediol (FARXIGA) 5 mg tablet Take 1 tablet (5 mg total) by mouth in the morning. lisinopril (PRINIVIL,ZESTRIL) 20 mg tablet Take 1.5 tablets (30 mg total) by mouth in the morning. metFORMIN (GLUCOPHAGE) 1000 mg tablet Take 1 tablet (1,000 mg total) by mouth in the morning and 1 tablet (1,000 mg total) in the evening. Take with meals. polyethylene glycol (GLYCOLAX) 17 gram packet Take by mouth as needed. prazosin (MINIPRESS) 5 mg capsule Take 1 capsule (5 mg total) by mouth nightly. No current facility-administered medications for this visit. (All medications reviewed and updated by provider since last office visit or hospitalization) Allergies: Sulfamethizole and Trimethoprim Tobacco History: Social History Tobacco Use Smoking Status Never Smokeless Tobacco Never (If patient a smoker, smoking cessation counseling offered) Social History: Social History Substance and Sexual Activity Alcohol Use No Review of Systems: General: Negative for chills and fever. Cardiovascular: Negative for chest pain and shortness of breath. Gastrointestinal: Negative for constipation, diarrhea, nausea, and vomitting. -per HPI Physical Exam: BP 148/69 Pulse 98 Ht 167.6 cm (5' 6 ) Wt 133.8 kg (295 lb) BMI 47.61 kg/m Nontoxic no apparent distress. Respirations nonlabored. Skin is dry. Awake alert oriented x3. Large bmi. Assessment and Plan: Nghia was seen today for follow-up. Diagnoses and all orders for this visit: Urinary incontinence, unspecified type Problem List High Urinary incontinence - Primary Overview #### May 2007: Status post laser prostatectomy ==== 12/08/2024 ==== #### status post cysto [facility] bladder solution. Open prostatic urethra. Patient has had near resolution of symptoms. ==== 09/29/2024 ==== patient had followed up with a outside urologist for some time. Still bothered by his lower urinary tract symptoms. Urinary incontinence. PVR today 2 cc Plan: Urine for culture-nitrate positive. Await culture results. Urodynamics study. Video. Cystoscopy [facility] bladder solution. Renal bladder ultrasound. May 2007: [...] try to lose weight which will help Current Assessment & Plan We discuss observation verses some maintenance therapy. Chooses maintenance. Will have him do monthly x3 then will see him back in 6 months Follow-up: [facility] bladder solution monthly x3 return clinic in six-months Jessica Barcenas MD Prescription drug management performed during today's office visit This note was created with the assistance of a speech recognition program. While intending to generate a timely document that accurately reflects the content of the visit, no guarantee can be provided that every grammatical or spelling mistake has been or will be identified or corrected. Thank you for your understanding. documented in this encounter [facility] 11-29-2024 Note SUBJECTIVE Reason for Visit: Nghia Avery is a 78 y.o. year old male patient being seen for 6-month follow-up visit. HPI: Nghia Avery is a 78 y.o. year old male with significant medical history of CAD with PCI and stent placement in 2011, hypertension, type 2 diabetes mellitus, COPD, hyperlipidemia, moderate aortic stenosis, CVA, and lymphedema. In November 2023, the patient was admitted to [facility] for evaluation of complete heart block after a Holter monitor showed evidence of conduction abnormalities. During his hospitalization, his beta-marcello was held, but he remained profoundly bradycardic, with heart rates as low as 29 bpm. Due to persistent bradycardia, he was subsequently transferred for pacemaker placement under the care of Dr. Mojica. 11/29/2024 office visit: Patient seen and evaluated in the office today. He reports doing very well overall, has no complaints or concerns. He denies chest pain, shortness of breath, palpitations, lightheadedness or dizziness, or lower extremity edema. He does have his compression stockings and shiv wraps on currently. Due for his device check soon. 07/23/2023 office visit: The patient presents for a routine six-month follow-up and reports feeling well overall with no concerns. He denies chest pain, shortness of breath, lightheadedness, dizziness, or palpitations. His blood pressure today is slightly elevated at 140/68 mmHg. However, he notes that at his recent PCP visit, readings were in the 120s. Given this variability, he was advised to maintain a home blood pressure log and bring it to his next visit for further assessment. At that time, we will reevaluate the need for any adjustments to his antihypertensive regimen. Medical History[1] Surgical History[2] Problem List[3] family history includes Coronary artery disease in his brother and father. Social History[4] OBJECTIVE Visit Vitals Smoking Status Former Physical Exam Constitutional: General Appearance: well-developed, appears stated age. Level of Distress: no acute distress. Neck: Jugular Veins: normal jugular venous pressure. Lungs: Auscultation: no rales or rhonchi and normal breath sounds. Cardiovascular: Rate And Rhythm: regular Heart Sounds: normal S1 and s2; Systolic Murmur: not heard. Diastolic Murmur: not heard. Extremities: Trace LE edema. Peripheral Pulses: Pulses: full and equal in all extremities except if noted. Abdomen: Inspection and Palpation: non distended or tender and soft. Musculoskeletal: Inspection: no joint tenderness or swelling. Neurologic: Gait: normal gait. Psychiatric: Mental Status: alert and normal affect. Skin: Inspection and Palpation: warm and dry. Allergies: Allergies[5] Outpatient Medications: Current Outpatient Medications Medication Instructions aspirin 81 mg EC tablet Daily RT atorvastatin (Lipitor) 40 mg tablet atorvastatin 40 mg tablet carvedilol (COREG) 12.5 mg, oral, 2 times daily cholecalciferol (VITAMIN D-3) 1,000 Units, oral, Daily RT clopidogrel (PLAVIX) 75 mg, oral, Daily dapagliflozin propanediol (FARXIGA) 5 mg, oral Incruse Ellipta 62.5 mcg/actuation inhalation lisinopril 30 mg, oral, Daily metFORMIN (GLUCOPHAGE) 1,000 mg, oral, Daily with breakfast pioglitazone (Actos) 30 mg tablet pioglitazone 30 mg tablet prazosin (Minipress) 5 mg capsule prazosin 5 mg capsule Recent Labs: Ancillary Procedure on 07/20/2024 Component Date Value BSA 07/28/2024 2.54 I have personally reviewed and anaylzed the following laboratory results above. These findings have been analyzed in the context of the patient's clinical presentation. Cardiovascular Diagnostic Studies: TTE 11/28/2023: Left Ventricle: The left ventricle is normal size. Global left ventricular systolic function is normal. The calculated Biplane EF is 59 %. Left ventricular wall thickness is normal. No regional wall motion abnormality. Unable to assess diastolic dysfunction. Right Ventricle: The right ventricle appears enlarged. Normal right ventricular systolic function. Unable to assess right sided pressures due to lack of measurable tricuspid regurgitation. Left Atrium: Left atrium not well visualized. Pericardium: Anterior free space is seen; effusion versus fat pad. Overall Conclusions: Due to suboptimal imaging Lumason contrast was administered for opacification and better delineation of endocardial borders. No significant valvular abnormalities 12 Lead ECG 2023: IMPRESSION: Atrial-sensed ventricular-paced rhythm with prolonged AV conduction Abnormal ECG Confirmed by Gus Franco ([id number]) on 12/22/2023 12:05:49 PM 12 Lead ECG: No results found for this or any previous visit (from the past 4464 hours). Cardiac device check 07/28/2024: I have personally reviewed and analyzed all available cardiac diagnostic tests and imaging reports. Findings have been analyzed in the context of the patient's clinical status. Thuan (more content not included)... [facility] 11-08-2024 Telephone encounter Note Called patient he likes shoes-no issues and is keeping them [facility] 11-08-2024 Miscellaneous Notes Called patient he likes shoes-no issues and is keeping them documented in this encounter [facility] 11-02-2024 Miscellaneous Notes Return the office in approximately 4 weeks or so. documented in this encounter [facility] 11-02-2024 Telephone encounter Note Return the office in approximately 4 weeks or so. [facility] 11-01-2024 Miscellaneous Notes Preoperative Education Checklist- General Surgery date: 11/02/2024 Surgery time: 9:45 am Arrival time: 8:45 am 1. Bring a photo ID and your insurance card with you the day of surgery. You will check in at the main lobby of the [facility]- registration desk is straight ahead as soon as you walk in. Tell them you are here for surgery. 2. If you have a Living Will/Durable Power of Inspector Tool for Health Care that is not on file here, please bring a copy the day of surgery. 3. Please shower/bathe the night before surgery with the provided soap or wipes. Do not shower the morning of surgery- you will do use wipes when you arrive here at the hospital before getting into your surgical gown. Do not shave the area of your procedure for 2 days prior to your surgery. 4. NO powder, lotion, perfume/cologne, aftershave, make-up, deodorant, or hair products after you have bathed. 5. NO nail slovak/acrylic on at least one finger. If you are having a hand, wrist or foot surgery then all nail slovak and artificial/acrylic nails must be removed from that hand or foot. 6. Avoid ALL Aspirin and non-steroidal anti-inflammatory drugs and certain vitamins (Ibuprofen, Advil, Aleve, Excedrin, Meloxicam, Celebrex, fish/krill oil, etc.) for 7 days prior to surgery as instructed by your surgeon and/or your prescribing doctor. Tylenol IS ALLOWED. If you are on Ticlid, Xarelto, Eliquis, Pradaxa, Plavix or Coumadin, please check with your prescribing doctor for instructions for when to stop them. 7. If you use an inhaler, continue to use it routinely. 8. Nothing to eat or drink (not even water, gum, mints, or hard candy!) AFTER midnight prior to your surgery. 9. Take only medications that you are instructed to on the morning of surgery with a TINY SIP OF WATER. 10. Choose a responsible adult that will be able to drive you home when you are discharged from your hospital stay for your surgery and can stay with you in your home for 24 hours after your procedure. You must NOT drive any vehicle or operate any machinery for 24 hours after surgery. 11. When you dress for your appointment, please wear loose fitting clothing that is appropriate to accommodate your surgical area procedure. BRING WITH YOU ANY DEVICES YOU MAY NEED: GRACIE hose, ice machine, sling/swath, brace or special shoe, oversized zip-up or button up shirt, CPAP machine if staying overnight. 12. Do NOT wear jewelry, watches, or any piercings or metal for surgery- leave these valuables and money at home. 13. Do NOT wear contact lenses for surgery- glasses are okay if needed. 14. The anesthesiologist will talk with you the day of surgery and will ask you to sign a Consent Form. 15. Refrain from smoking or any type of tobacco use for at least 8 hours and marijuana for 24 hours prior to arrival for your surgery. 16. Notify your surgeon if you develop any illness before your surgery. 17. If you are staying overnight, please DO NOT BRING your home medications with you. 18. If you have any questions prior to surgery, please call the Preadmission Testing office at [phone], Mon.-Fri. 7 a.m.-3 p.m. Leave a voicemail if needed. Pre-Surgery Instructions: Medication Instructions amLODIPine (NORVASC) 10 mg tablet Continue as prescribed, take morning of procedure aspirin 81 mg Continue as prescribed, take morning of procedure atorvastatin (LIPITOR) 40 mg tablet Continue as prescribed, take morning of procedure carvediloL (COREG) 6.25 mg tablet Continue as prescribed, take morning of procedure cholecalciferol, vitamin D3, 25 mcg (1,000 unit) capsule Continue as prescribed, take morning of procedure ciclopirox (LOPROX) 0.77 % cream Continue as prescribed, take morning of procedure clopidogrel (PLAVIX) 75 mg tablet Continue as prescribed, take morning of procedure dapagliflozin propanediol (FARXIGA) 5 mg tablet Continue as prescribed, take morning of procedure lisinopril (PRINIVIL,ZESTRIL) 20 mg tablet Continue as prescribed, take morning of procedure metFORMIN (GLUCOPHAGE) 1000 mg tablet Continue as prescribed, take morning of procedure polyethylene glycol (GLYCOLAX) 17 gram packet Continue as prescribed, take morning of procedure prazosin (MINIPRESS) 5 mg capsule Continue as prescribed, take morning of procedure documented in this encounter [facility] 11-01-2024 Nurse Note Preoperative Education Checklist- General Surgery date: 11/02/2024 Surgery time: 9:45 am Arrival time: 8:45 am 1. Bring a photo ID and your insurance card with you the day of surgery. You will check in at the main lobby of the [facility]- registration desk is straight ahead as soon as you walk in. Tell them you are here for surgery. 2. If you have a Living Will/Durable Power of Inspector Tool for Health Care that is not on file here, please bring a copy the day of surgery. 3. Please shower/bathe the night before surgery with the provided soap or wipes. Do not shower the morning of surgery- you will do use wipes when you arrive here at the hospital before getting into your surgical gown. Do not shave the area of your procedure for 2 days prior to your surgery. 4. NO powder, lotion, perfume/cologne, aftershave, make-up, deodorant, or hair products after you have bathed. 5. NO nail slovak/acrylic on at least one finger. If you are having a hand, wrist or foot surgery then all nail slovak and artificial/acrylic nails must be removed from that hand or foot. 6. Avoid ALL Aspirin and non-steroidal anti-inflammatory drugs and certain vitamins (Ibuprofen, Advil, Aleve, Excedrin, Meloxicam, Celebrex, fish/krill oil, etc.) for 7 days prior to surgery as instructed by your surgeon and/or your prescribing doctor. Tylenol IS ALLOWED. If you are on Ticlid, Xarelto, Eliquis, Pradaxa, Plavix or Coumadin, please check with your prescribing doctor for instructions for when to stop them. 7. If you use an inhaler, continue to use it routinely. 8. Nothing to eat or drink (not even water, gum, mints, or hard candy!) AFTER midnight prior to your surgery. 9. Take only medications that you are instructed to on the morning of surgery with a TINY SIP OF WATER. 10. Choose a responsible adult that will be able to drive you home when you are discharged from your hospital stay for your surgery and can stay with you in your home for 24 hours after your procedure. You must NOT drive any vehicle or operate any machinery for 24 hours after surgery. 11. When you dress for your appointment, please wear loose fitting clothing that is appropriate to accommodate your surgical area procedure. BRING WITH YOU ANY DEVICES YOU MAY NEED: GRACIE hose, ice machine, sling/swath, brace or special shoe, oversized zip-up or button up shirt, CPAP machine if staying overnight. 12. Do NOT wear jewelry, watches, or any piercings or metal for surgery- leave these valuables and money at home. 13. Do NOT wear contact lenses for surgery- glasses are okay if needed. 14. The anesthesiologist will talk with you the day of surgery and will ask you to sign a Consent Form. 15. Refrain from smoking or any type of tobacco use for at least 8 hours and marijuana for 24 hours prior to arrival for your surgery. 16. Notify your surgeon if you develop any illness before your surgery. 17. If you are staying overnight, please DO NOT BRING your home medications with you. 18. If you have any questions prior to surgery, please call the Preadmission Testing office at [phone], Mon.-Fri. 7 a.m.-3 p.m. Leave a voicemail if needed. Pre-Surgery Instructions: Medication Instructions amLODIPine (NORVASC) 10 mg tablet Continue as prescribed, take morning of procedure aspirin 81 mg Continue as prescribed, take morning of procedure atorvastatin (LIPITOR) 40 mg tablet Continue as prescribed, take morning of procedure carvediloL (COREG) 6.25 mg tablet Continue as prescribed, take morning of procedure cholecalciferol, vitamin D3, 25 mcg (1,000 unit) capsule Continue as prescribed, take morning of procedure ciclopirox (LOPROX) 0.77 % cream Continue as prescribed, take morning of procedure clopidogrel (PLAVIX) 75 mg tablet Continue as prescribed, take morning of procedure dapagliflozin propanediol (FARXIGA) 5 mg tablet Continue as prescribed, take morning of procedure lisinopril (PRINIVIL,ZESTRIL) 20 mg tablet Continue as prescribed, take morning of procedure metFORMIN (GLUCOPHAGE) 1000 mg tablet Continue as prescribed, take morning of procedure polyethylene glycol (GLYCOLAX) 17 gram packet Continue as prescribed, take morning of procedure prazosin (MINIPRESS) 5 mg capsule Continue as prescribed, take morning of procedure [facility] 10-28-2024 Telephone encounter Note [facility] and would like to speak with Dr Nath regarding Farxiga [facility] 10-28-2024 Miscellaneous Notes Pt cannot get through to [facility] and would like to speak with Dr Nath regarding Farxiga documented in this encounter [facility] 10-28-2024 History of Present illness Narrative Patient presents for Urodynamic procedure for urinary incontinence. Procedure explained. Allergies verified. Initial flow study performed by patient voiding. Patch electrodes placed on either side of rectum and rectal pressure catheter inserted. Glans meatus was prepped with Hibiclens, lidocaine 2% urojet instilled in urethra, 12F olive tip urethral catheter inserted into bladder and bladder drained. Post void residual documented and catheter removed. Urodynamics pressure catheter inserted into the bladder and secured. Urodynamics study performed using Cystografin. Urodynamic pressure catheter and patches removed. Patient tolerated procedure well and without difficulty. Patient educated that they may have some burning and irritation post procedure upon initial urination and to avoid caffienated and carbonated beverages. Ordering & Supervising Physician: Mary Barcenas M.D. documented in this encounter [facility] 10-27-[address] Barecnas, Urine culture was positive for Citrobacter freundii. Rizwana Alejandra CNP wanted you to be aware and she will treat the infection for the pt. Pt is scheduled for VUDS on 10/28/24 and cysto with [facility] instillation on 11/02/24. Please advise if anything further is needed, thank you. My understanding from your note is that they are going to start treating the UTI. If that is the case he can keep a cystoscopy as scheduled but reschedule the urodynamics for next week. Rizwana Alejandra CNP calls back stating that she made an error. The urine culture that she called about was from September that you had treated with Macrobid. She apologizes for the error and she did not look at the date on the result. documented in this encounter [facility] 10-27-2024 Telephone encounter Note Hi Dr. Barcenas, Urine culture was positive for Citrobacter freundii. Rizwana Alejandra CNP wanted you to be aware and she will treat the infection for the pt. Pt is scheduled for VUDS on 10/28/24 and cysto with [facility] instillation on 11/02/24. Please advise if anything further is needed, thank you. [facility] 10-27-2024 Telephone encounter Note My understanding from your note is that they are going to start treating the UTI. If that is the case he can keep a cystoscopy as scheduled but reschedule the urodynamics for next week. [facility] 10-27-2024 Telephone encounter Note Rizwana Alejandra CNP calls back stating that she made an error. The urine culture that she called about was from September that you had treated with Macrobid. She apologizes for the error and she did not look at the date on the result. [facility] 10-25-2024 Telephone encounter Note Patient requested bexaglifozin to [facility]. He is having trouble going thru the computer to complete this process. Can you resend to [facility] in [place]? Thank you. [facility] 10-25-2024 Miscellaneous Notes Patient requested bexaglifozin to [facility]. He is having trouble going thru the computer to complete this process. Can you resend to [facility] in [place]? Thank you. documented in this encounter [facility] 10-22-2024 Telephone encounter Note Pt just left this vm: This is Nghia Marker, and to try to find out if I got a prescription prescription that was supposed to be ordered for me, that is Nghia marker. 722 of 404I just want to check see if a prescription is supposed to be ordered for me. And I have not have not received any. Please call me [phone]. I did look in his chart and he had an appt on 10/14.. there are lab results from that day for a urine test.. and an rx was sent. Was it supposed to go to mail order? Or a local pharmacy? [facility] 10-22-2024 Miscellaneous Notes Pt just left this vm: This is Nghia Marker, and to try to find out if I got a prescription prescription that was supposed to be ordered for me, that is Nghia marker. 722 of 404I just want to check see if a prescription is supposed to be ordered for me. And I have not have not received any. Please call me [phone]. I did look in his chart and he had an appt on 10/14.. there are lab results from that day for a urine test.. and an rx was sent. Was it supposed to go to mail order? Or a local pharmacy? documented in this encounter [facility] 10-21-2024 History of Present illness Narrative Images from the original note were not included. Subjective Patient ID: Nikko Avery is a 78 y.o. male who presents for Diabetic Shoes (Pt presents today for dispensing of extra depth diabetic shoes with x2 pairs of heat molded inserts/BS: 84). Patient presents for dispensing of diabetic shoes and 2 pairs of heat molded inserts Review of Systems Current Outpatient Medications: albuterol HFA 90 mcg/act inhaler, USE 1 INHALATION ORALLY EVERY 4 HOURS NEEDED FORSHORTNESS OF BREATH OR COUGH for 34, Disp: 18 g, Rfl: 5 aspirin 81 MG EC tablet, Take 1 tablet by mouth Daily, Disp: , Rfl: atorvastatin (Lipitor) 40 MG tablet, TAKE 1 TABLET DAILY, Disp: 90 tablet, Rfl: 1 Bexagliflozin (Brenzavvy) 20 MG tablet, Take 1 tablet by mouth Daily, Disp: 30 tablet, Rfl: 3 carvedilol (Coreg) 12.5 MG tablet, TAKE 1 TABLET EVERY MORNINGAND 1 TABLET BEFORE BEDTIME, Disp: 180 tablet, Rfl: 1 cholecalciferol (Vitamin D-3) 25 MCG (1000 UT) capsule, Take 1,000 Units by mouth in the morning., Disp: , Rfl: ciclopirox (Loprox) 0.77 % cream, APPLY TO SKIN FOLDS TOPICALLY TWO TIMES A DAY NEEDED FOR SKIN IRRITATION,HOLD WHEN CLEAR, 90 day supply, Disp: 270 g, Rfl: 3 clopidogrel (Plavix) 75 MG tablet, TAKE 1 TABLET ONCE DAILY, Disp: 90 tablet, Rfl: 1 lisinopril 30 MG tablet, TAKE 1 TABLET EVERY MORNING, Disp: 90 tablet, Rfl: 1 metFORMIN (Glucophage) 1000 MG tablet, TAKE 1 TABLET IN THE MORNING AND 1 TABLET IN THEEVENING WITH MEALS, Disp: 180 tablet, Rfl: 1 nystatin (Mycostatin) 895600 UNIT/GM powder, Apply topically 2 (two) times a day, Disp: 60 g, Rfl: 11 prazosin (Minipress) 5 MG capsule, TAKE 1 CAPSULE DAILY, Disp: 90 capsule, Rfl: 1 traZODone (Desyrel) 50 MG tablet, Take 1 tablet (50 mg) by mouth at bedtime (Patient not taking: Reported on 10/14/2024), Disp: 30 tablet, Rfl: 0 Sulfa antibiotics and Sulfamethoxazole-trimethoprim Past Surgical History: Procedure Laterality Date APPENDECTOMY age 16 CARDIAC SURGERY Had a stint (? spelling) put in. COLONOSCOPY 2009 CYSTOSCOPY 1989 INSERT / REPLACE / REMOVE PACEMAKER 12/16/2023 [facility] IR STENT PLACEMENT 2011 JOINT REPLACEMENT Knees TOTAL KNEE ARTHROPLASTY Right 2012 TOTAL KNEE ARTHROPLASTY Left 02/2015 VASECTOMY Family History Problem Relation Name Age of Onset Breast cancer Mother Mother Diabetes Mother Mother Arthritis Mother Mother Cancer Father Dod Alcohol abuse Father Dod Melanoma Neg Hx Objective Physical Exam Cardiovascular: Comments: Pedal pulses: DP 2/4 bilateral, PT 2/4 bilateral. Skin temp is warm to warm. Varicosities: mild, present Hair growth: present Lymphedema noted b/l Pulmonary: Effort: Pulmonary effort is normal. Musculoskeletal: General: No tenderness. Right lower leg: Edema present. Left lower leg: Edema present. Comments: JOINT RANGE OF MOTION:ankle joint and subtalar joint ROM are normal and pain free . DEFORMITIES:Digits 2-5 b/l are contracted flexibly. PAIN: No pain with palpation to either foot . MUSCLE STRENGTH5/5 for dorsiflexion, plantarflexion, inversion, eversion . Feet: Comments: Last diabetic foot exam: 09/16/2024 Skin: General: Skin is warm. Capillary Refill: Capillary refill takes 2 to 3 seconds. Findings: No bruising or erythema. Comments: SKIN FINDINGS:There are hemosiderin deposits noted lower legs, left worse than right. Webspaces are clean and dry. HYPERKERATOSIS: plantar medial HIPJ and distal medial hallux b/l, left worse than right. NAIL PATHOLOGY:Nails 1 b/l are splitting, fungal, 4mm thick, yellow and orange, with subungal debris. Nail 2 R is 4mm thick, yellow, elongated, fungal. Nail 5 L is elongated, raised, fungal, 4mm thick.. ULCER: none. Neurological: Mental Status: He is alert and oriented to person, place, and time. Comments: Light touch sensation intact VIBRATORY: is absent at IPJ, MPJ. Diminished at medial malleolus, and patella b/l. SEMMES-ASHISH 5.07 MONOFILAMENT: intact at 10/10 sites. Psychiatric: Mood and Affect: Mood normal. Behavior: Behavior normal. Modifier: Q9, 33165 Assessment/Plan ICD-10-CM 1. Type II or unspecified type diabetes mellitus with neurological manifestations, not stated as uncontrolled(250.60) (CMS/HCC) E11.49 2. Acquired keratoderma L85.1 3. Hammer toes of both feet M20.41 M20.42 4. Lymphedema I89.0 Patient presents for the dispensing of 1 pair of extra depth diabetic shoes and 2 pairs of heat molded orthotics. The shoes were applied and fit well. Each pair of inserts were heated to 270 degrees and molded to the patient's feet. Patient was able to stand and weight bear for the molding. The inserts achieve total contact with the plantar surface of the patient's feet. The insoles are comfortable and appropriate for their foot type. Instructions were given in the rotation and changing of the insoles. Heat molded inserts are required to achieve and maintain total contact with the plantar aspect of the patient's foot for the life of the device and to prevent tissue damage. 2 pairs of inserts are utilized for this patient due to bottoming out and loss of protection after 6 months of wear. They were dated to assist them in this process. Patient is able to apply the shoes independently. Walking in the shoes is comfortable and nonirritating. Pt is instructed in the break in period and return policy for the shoes and insoles. The PCS is on file and instructions given to call the office if questions or problems arise. The supplier standards regarding the DME given to patient. At the time of dispensing the shoes and insoles are suitable and not substandard. RTO 3 weeks to check shoes. A copy of pt records were reviewed and initialed by the PCP prior to the signing of the certifying statement. The patient was advised to wear the shoes at home for only one hour on the first day and to check their feet for any sores or irritations. This note was created with the assistance of a speech recognition program. While intending to generate aely document that accurately reflects the content of the visit, no guarantee can be provided that every grammatical or spelling mistake has been or will be identified or corrected. Thank you for your understanding. Aure Hurley DPM documented in this encounter [facility] 10-12-2024 History of Present illness Narrative Images from the original note were not included. Subjective Patient ID: Nikko Avery is a 78 y.o. male who presents for No chief complaint on file.. Patient presents for measuring of diabetic shoes and 2 pairs of heat molded inserts Review of Systems Current Outpatient Medications: albuterol HFA 90 mcg/act inhaler, USE 1 INHALATION ORALLY EVERY 4 HOURS NEEDED FORSHORTNESS OF BREATH OR COUGH for 34, Disp: 18 g, Rfl: 5 aspirin 81 MG EC tablet, Take 1 tablet by mouth Daily, Disp: , Rfl: atorvastatin (Lipitor) 40 MG tablet, TAKE 1 TABLET DAILY, Disp: 90 tablet, Rfl: 1 carvedilol (Coreg) 12.5 MG tablet, TAKE 1 TABLET EVERY MORNINGAND 1 TABLET BEFORE BEDTIME, Disp: 180 tablet, Rfl: 1 cholecalciferol (Vitamin D-3) 25 MCG (1000 UT) capsule, Take 1,000 Units by mouth in the morning., Disp: , Rfl: ciclopirox (Loprox) 0.77 % cream, APPLY TO SKIN FOLDS TOPICALLY TWO TIMES A DAY NEEDED FOR SKIN IRRITATION,HOLD WHEN CLEAR, 90 day supply, Disp: 270 g, Rfl: 3 clopidogrel (Plavix) 75 MG tablet, TAKE 1 TABLET ONCE DAILY, Disp: 90 tablet, Rfl: 1 dapagliflozin (Farxiga) 5 MG, Take 1 tablet (5 mg) by mouth in the morning., Disp: 90 tablet, Rfl: 3 lisinopril 30 MG tablet, TAKE 1 TABLET EVERY MORNING, Disp: 90 tablet, Rfl: 1 metFORMIN (Glucophage) 1000 MG tablet, TAKE 1 TABLET IN THE MORNING AND 1 TABLET IN THEEVENING WITH MEALS, Disp: 180 tablet, Rfl: 1 nystatin (Mycostatin) [id number] UNIT/GM powder, Apply topically 2 (two) times a day, Disp: 60 g, Rfl: 11 prazosin (Minipress) 5 MG capsule, TAKE 1 CAPSULE DAILY, Disp: 90 capsule, Rfl: 1 traZODone (Desyrel) 50 MG tablet, Take 1 tablet (50 mg) by mouth at bedtime (Patient not taking: Reported on 07/13/2024), Disp: 30 tablet, Rfl: 0 Sulfa antibiotics and Sulfamethoxazole-trimethoprim Past Surgical History: Procedure Laterality Date APPENDECTOMY age 16 COLONOSCOPY 2009 CYSTOSCOPY 1989 INSERT / REPLACE / REMOVE PACEMAKER 12/16/2023 [facility] IR STENT PLACEMENT 2011 JOINT REPLACEMENT Knees TOTAL KNEE ARTHROPLASTY Right 2011 TOTAL KNEE ARTHROPLASTY Left 02/2015 VASECTOMY Family History Problem Relation Name Age of Onset Breast cancer Mother Mother Diabetes Mother Mother Arthritis Mother Mother Cancer Father Dod Alcohol abuse Father Dod Melanoma Neg Hx Objective Physical Exam Cardiovascular: Comments: Pedal pulses: DP 2/4 bilateral, PT 2/4 bilateral. Skin temp is warm to warm. Varicosities: mild, present Hair growth: present Lymphedema noted b/l Pulmonary: Effort: Pulmonary effort is normal. Musculoskeletal: General: No tenderness. Right lower leg: Edema present. Left lower leg: Edema present. Comments: JOINT RANGE OF MOTION:ankle joint and subtalar joint ROM are normal and pain free . DEFORMITIES:Digits 2-5 b/l are contracted flexibly. PAIN: No pain with palpation to either foot . MUSCLE STRENGTH5/5 for dorsiflexion, plantarflexion, inversion, eversion . Feet: Comments: Last diabetic foot exam: 09/16/2024 Skin: General: Skin is warm. Capillary Refill: Capillary refill takes 2 to 3 seconds. Findings: No bruising or erythema. Comments: SKIN FINDINGS:There are hemosiderin deposits noted lower legs, left worse than right. Webspaces are clean and dry. HYPERKERATOSIS: plantar medial HIPJ and distal medial hallux b/l, left worse than right. NAIL PATHOLOGY:Nails 1 b/l are splitting, fungal, 4mm thick, yellow and orange, with subungal debris. Nail 2 R is 4mm thick, yellow, elongated, fungal. Nail 5 L is elongated, raised, fungal, 4mm thick.. ULCER: none. Neurological: Mental Status: He is alert and oriented to person, place, and time. Comments: Light touch sensation intact VIBRATORY: is absent at IPJ, MPJ. Diminished at medial malleolus, and patella b/l. SEMMES-ASIHSH 5.07 MONOFILAMENT: intact at 10/10 sites. Psychiatric: Mood and Affect: Mood normal. Behavior: Behavior normal. Modifier: Q9, 05339 Assessment/Plan ICD-10-CM 1. Type II or unspecified type diabetes mellitus with neurological manifestations, not stated as uncontrolled(250.60) (CMS/HCC) E11.49 2. Acquired keratoderma L85.1 3. Hammer toes of both feet M20.41 M20.42 4. Lymphedema I89.0 Pt presents to be measured for extra depth diabetic shoes. Patient remains active and requests the heat molded insoles and desires 2 pairs. The pt was measured by al with [employer] device. Measured 10Won the right and 9.5W on the left. Will order size 10W. Patient selected the desired shoes. Our goal is to keep patient walking and minimize the risk of ulcer development and limb loss This note was created with the assistance of a speech recognition program. While intending to generate aely document that accurately reflects the content of the visit, no guarantee can be provided that every grammatical or spelling mistake has been or will be identified or corrected. Thank you for your understanding. Aure Hurley DPM documented in this encounter [facility] 10-04-2024 Miscellaneous Notes Pt is schedule for a video urodynamic appt 10-28-24. documented in this encounter [facility] 10-04-2024 Telephone encounter Note Pt is schedule for a video urodynamic appt 10-28-24. [facility] 10-04-2024 Miscellaneous Notes Contacted Pt. To see what pharmacy he goes to for Antibiotics, [facility] [place]. Pharmacy was added to the Pt.'s Pharmacies and Antibiotic [facility] called [facility] positive culture. documented in this encounter [facility] 10-04-2024 Telephone encounter Note Contacted Pt. To see what pharmacy he goes to for Antibiotics, [facility] [place]. Pharmacy was added to the Pt.'s Pharmacies and [facility] positive culture. [facility] 09-29-2024 Miscellaneous Notes Call pt to schedule a video urodynamic appt. documented in this encounter [facility] 09-29-2024 Telephone encounter Note Call pt to schedule a video urodynamic appt. [facility] 09-29-2024 Miscellaneous Notes [facility] bladder solution. Michelle. Diagnosis history of incontinence. Patient has have a video urodynamic studies done in [place]. documented in this encounter [facility] 09-29-2024 Telephone encounter Note [facility] bladder solution. Michelle. Diagnosis history of incontinence. Patient has have a video urodynamic studies done in [place]. [facility] 09-29-2024 History of Present illness Narrative Images from the original note were not included. [id number] [place] [address] A [facility] [id number] Patient: Nghia Avery Date of : 1945 Encounter Date: 09/29/2024 History of Present Illness: The patient is a 78 y.o. male, a new patient, and is here for Chief Complaint Patient presents with Urinary Incontinence Urine incontinence. Had been seen here for quite some time. Follow up with the another urologist. Bothered by his leakage. Daytime mild leakage. Nocturia 1 time wears diapers. Changes 2 to 3 times a day. Not too wet however.. Urinalysis today: Recent Labs 09/29/24 1541 EXTPOCURBS 3+ EXTPOCUKET Negative EXTPOCUPRO 1+ EXTPOCUNIT Positive EXTPOCUBLD Trace EXTPOCUPH 5.5 EXTPOCULEE Trace Last BUN and creatinine: Lab Results Component Value Date BUN 18 09/13/2015 Lab Results Component Value Date CREATININE 0.77 09/13/2015 Last PSA: Lab Results Component Value Date PSA 0.44 01/30/2018 PSA 0.42 12/17/2016 PSA 0.8 09/13/2015 PSA 0.6 08/30/2014 No results found for: PROSTATICSP Past Medical, Family, and Social History Update: The following portions of the patient's history were reviewed and updated as appropriate: allergies, current medications, past family history, past medical history, past social history, past surgical history and problem list. Past Medical History: Diagnosis Date Abnormal digital rectal exam Abnormal result of cardiovascular function study Cerebrovascular disease CVA (cerebral vascular accident) ([facility]) Diabetes mellitus [place] Elevated PSA Encounter for preprocedural cardiovascular examination Hypercholesteremia Hyperlipidemia Hypertension Incontinence Obesity Obesity Shortness of breath Stroke ([facility]) Past Surgical History: Procedure Laterality Date ANKLE SURGERY APPENDECTOMY CARDIAC CATHETERIZATION CARDIAC PACEMAKER PLACEMENT 12/18/2023 CARDIAC SURGERY Stent placed 2009 COLONOSCOPY N/A 11/04/2016 Performed by Jose Canseco MD at [facility] JOINT REPLACEMENT Knee replacements both KNEE SURGERY Family History Problem Relation Age of Onset Dementia Mother Alzheimer's disease Mother Stroke Father Current Outpatient Medications Medication Sig Dispense Refill aspirin 81 mg atorvastatin (LIPITOR) 40 mg tablet Take by mouth. carvediloL (COREG) 6.25 mg tablet Take 2 tablets (12.5 mg total) by mouth in the morning and 2 tablets (12.5 mg total) in the evening. Take with meals. cholecalciferol, vitamin D3, 25 mcg (1,000 unit) capsule Take 1 capsule (1,000 Units total) by mouth in the morning. clopidogrel (PLAVIX) 75 mg tablet Take by mouth. dapagliflozin propanediol (FARXIGA) 5 mg tablet Take 1 tablet (5 mg total) by mouth in the morning. lisinopril (PRINIVIL,ZESTRIL) 20 mg tablet Take 1.5 tablets (30 mg total) by mouth in the morning. metFORMIN (GLUCOPHAGE) 1000 mg tablet Take 1 tablet (1,000 mg total) by mouth in the morning and 1 tablet (1,000 mg total) in the evening. Take with meals. prazosin (MINIPRESS) 5 mg capsule Take 1 capsule (5 mg total) by mouth nightly. amLODIPine (NORVASC) 10 mg tablet Take by mouth. (Patient not taking: Reported on 09/29/2024) ciclopirox (LOPROX) 0.77 % cream Apply 1 application topically in the morning and 1 application before bedtime. Gently massage into affected areas and surrounding skin. (Patient not taking: Reported on 09/29/2024) furosemide (LASIX) 20 mg tablet Take 40 mg by mouth daily. (Patient not taking: Reported on 09/29/2024) pioglitazone (ACTOS) 30 mg tablet Take 1 tablet (30 mg total) by mouth in the morning. (Patient not taking: Reported on 09/29/2024) polyethylene glycol (GLYCOLAX) 17 gram packet Take by mouth as needed. (Patient not taking: Reported on 09/29/2024) sAXagliptin (ONGLYZA) 5 mg tablet Take 5 mg by mouth daily. (Patient not taking: Reported on 09/29/2024) No current facility-administered medications for this visit. (All medications reviewed and updated by provider since last office visit or hospitalization) Allergies: Sulfamethizole and Trimethoprim Tobacco History: Social History Tobacco Use Smoking Status Never Smokeless Tobacco Never (If patient a smoker, smoking cessation counseling offered) Social History: Social History Substance and Sexual Activity Alcohol Use No Review of Systems: Constitutional: Normal activity and energy. Patient denies change in appetite, weight loss or gain, malaise (depression), chills, fever, or diaphoresis (sweating). Eyes: Vision Changes Ears, Nose, Nose and Throat: Tinnitus (ringing in ears) Respiratory: Patient denies dyspnea (shortness of breath), cough, hemotypsis (blood in sputum), and wheezing. Cardiovascular: Patient denies chest pain, palpitations, and shortness of breath. Gastrointestinal: Patient denies abdominal pain, nausea, vomiting, bloating, diarrhea (chronic), constipation (chronic), melena (black stool), hematochezia (blood in stool). Musculoskeletal: Patient denies joint pain/stiffness, weakness, swelling, and backache. Neurologic: Patient denies weakness, dizziness, loss of consciousness, transient ischemic symptoms, and seizures. Integument: Patient denies rashes and non-healing lesions. Psychiatric: Patient denies increased nervousness, mood changes, or depression. Endocrine: Diabetes Blood Disorders: Patient denies anemia, easy bruising, and easy bleeding. Physical Exam: BP 174/68 Comment: Pt. states he usually has higher BP in the Physician's office. Pulse 60 Ht 167.6 cm (5' 6 ) Wt 133.8 kg (295 lb) BMI 47.61 kg/m General Alert., Cooperative. Not in acute distress. Non-toxic. Orientation - Oriented X3. Head and Neck Normocephalic, atraumatic with no lesions. No abnormal movements. Trachea - midline. Integumentary Normal coloration of skin. Skin Moisture - normal skin moisture. Chest and Lung Exam Quiet, even and easy respiratory effort with no use of accessory muscles. Neurologic NON-focal Has LE edema--wears compression stockings Assessment and Plan: Nghia was seen today for urinary incontinence. Diagnoses and all orders for this visit: Urinary incontinence, unspecified type - Measure post void residual - POCT Urinalysis Non-auto, with Microscopy - Ultrasound retroperitoneal complete; Future - Cystometrogram; Future Problem List High Urinary incontinence - Primary Overview ==== 09/29/2024 ==== patient had followed up with a outside urologist for some time. Still bothered by his lower urinary tract symptoms. Urinary incontinence. PVR today 2 cc Plan: Urine for culture-nitrate positive. Await culture results. Urodynamics study. Video. Cystoscopy [facility] bladder solution. Renal bladder ultrasound. May 2007: [...] try to lose weight which will help Relevant Orders Measure post void residual (Completed) POCT Urinalysis Non-auto, with Microscopy (Completed) Ultrasound retroperitoneal complete Cystometrogram Follow-up: Set up [place] Urine for culture today. Renal bladder ultrasound. Setup Video urodynamic study Jessica Barcenas MD This note was created with the assistance of a speech recognition program. While intending to generate a timely document that accurately reflects the content of the visit, no guarantee can be provided that every grammatical or spelling mistake has been or will be identified or corrected. Thank you for your understanding. documented in this encounter [facility] 09-29-2024 Miscellaneous Notes Addended by: JOAN GARCÍA on: 09/29/2024 06:33 PM Modules accepted: Orders documented in this encounter [facility] 09-29-2024 Note Addended by: JOAN GARCÍA on: 09/29/2024 06:33 PM Modules accepted: Orders [facility] 09-16-2024 History of Present illness Narrative Images from the original note were not included. Subjective Patient ID: Nikko Avery is a 78 y.o. male who presents for DM Foot Care (Established pt presents today for DM nail care. PCP: Dr. Pham CONTEH 07/23/24, A1C: 6.6 (06/2024), BS: 115). Established patient returns requesting nail debridement. He states the nails are thick, elongated, fungal. He has bilateral lower extremity lymphedema. He is requesting we start the shoe process. He is due for diabetic foot exam today. Review of Systems Current Outpatient Medications: albuterol HFA 90 mcg/act inhaler, USE 1 INHALATION ORALLY EVERY 4 HOURS NEEDED FORSHORTNESS OF BREATH OR COUGH for 34, Disp: 18 g, Rfl: 5 aspirin 81 MG EC tablet, Take 1 tablet by mouth Daily, Disp: , Rfl: atorvastatin (Lipitor) 40 MG tablet, TAKE 1 TABLET DAILY, Disp: 90 tablet, Rfl: 1 carvedilol (Coreg) 12.5 MG tablet, TAKE 1 TABLET EVERY MORNINGAND 1 TABLET BEFORE BEDTIME, Disp: 180 tablet, Rfl: 1 cholecalciferol (Vitamin D-3) 25 MCG (1000 UT) capsule, Take 1,000 Units by mouth in the morning., Disp: , Rfl: ciclopirox (Loprox) 0.77 % cream, APPLY TO SKIN FOLDS TOPICALLY TWO TIMES A DAY NEEDED FOR SKIN IRRITATION,HOLD WHEN CLEAR, Disp: 90 g, Rfl: 11 clopidogrel (Plavix) 75 MG tablet, TAKE 1 TABLET ONCE DAILY, Disp: 90 tablet, Rfl: 1 dapagliflozin (Farxiga) 5 MG, Take 1 tablet (5 mg) by mouth in the morning., Disp: 90 tablet, Rfl: 3 lisinopril 30 MG tablet, TAKE 1 TABLET EVERY MORNING, Disp: 90 tablet, Rfl: 1 metFORMIN (Glucophage) 1000 MG tablet, TAKE 1 TABLET IN THE MORNING AND 1 TABLET IN THEEVENING WITH MEALS, Disp: 180 tablet, Rfl: 1 nystatin (Mycostatin) [id number] UNIT/GM powder, Apply topically 2 (two) times a day, Disp: 60 g, Rfl: 11 prazosin (Minipress) 5 MG capsule, TAKE 1 CAPSULE DAILY, Disp: 90 capsule, Rfl: 1 traZODone (Desyrel) 50 MG tablet, Take 1 tablet (50 mg) by mouth at bedtime (Patient not taking: Reported on 07/13/2024), Disp: 30 tablet, Rfl: 0 Sulfa antibiotics and Sulfamethoxazole-trimethoprim Past Surgical History: Procedure Laterality Date APPENDECTOMY age 16 COLONOSCOPY 2009 CYSTOSCOPY 1989 INSERT / REPLACE / REMOVE PACEMAKER 12/16/2023 [facility] IR STENT PLACEMENT 2011 JOINT REPLACEMENT Knees TOTAL KNEE ARTHROPLASTY Right 2011 TOTAL KNEE ARTHROPLASTY Left 02/2015 VASECTOMY Family History Problem Relation Name Age of Onset Breast cancer Mother Mother Diabetes Mother Mother Arthritis Mother Mother Cancer Father Dod Alcohol abuse Father Dod Melanoma Neg Hx Objective Physical Exam Cardiovascular: Comments: Pedal pulses: DP 2/4 bilateral, PT 2/4 bilateral. Skin temp is warm to warm. Varicosities: mild, present Hair growth: present Lymphedema noted b/l Pulmonary: Effort: Pulmonary effort is normal. Musculoskeletal: General: No tenderness. Right lower leg: Edema present. Left lower leg: Edema present. Comments: JOINT RANGE OF MOTION:ankle joint and subtalar joint ROM are normal and pain free . DEFORMITIES:Digits 2-5 b/l are contracted flexibly. PAIN: No pain with palpation to either foot . MUSCLE STRENGTH5/5 for dorsiflexion, plantarflexion, inversion, eversion . Feet: Comments: Last diabetic foot exam: 09/16/2024 Skin: General: Skin is warm. Capillary Refill: Capillary refill takes 2 to 3 seconds. Findings: No bruising or erythema. Comments: SKIN FINDINGS:There are hemosiderin deposits noted lower legs, left worse than right. Webspaces are clean and dry. HYPERKERATOSIS: plantar medial HIPJ and distal medial hallux b/l, left worse than right. NAIL PATHOLOGY:Nails 1 b/l are splitting, fungal, 4mm thick, yellow and orange, with subungal debris. Nail 2 R is 4mm thick, yellow, elongated, fungal. Nail 5 L is elongated, raised, fungal, 4mm thick.. ULCER: none. Neurological: Mental Status: He is alert and oriented to person, place, and time. Comments: Light touch sensation intact VIBRATORY: is absent at IPJ, MPJ. Diminished at medial malleolus, and patella b/l. SEMMES-ASHISH 5.07 MONOFILAMENT: intact at 10/10 sites. Psychiatric: Mood and Affect: Mood normal. Behavior: Behavior normal. Modifier: Q9, 99615 Assessment/Plan ICD-10-CM 1. Onychomycosis B35.1 2. Type II or unspecified type diabetes mellitus with neurological manifestations, not stated as uncontrolled(250.60) (CMS/[facility]) E11.49 3. Acquired keratoderma L85.1 Reviewed findings of diabetic foot exam with the pt along with diagnosis of peripheral neuropathy and importance of maintaining good control of blood sugars. They are to get into a habit of looking at their feet or have someone look at them. They are to look for any signs of redness, blistering, cracking, swelling, drainage, open lesions etc. They are to dry in-between the toes after each bath or shower gently. They are to refrain from going barefoot. Wear shoes at all times to help protect feet. Shoe gear should be inspected for any foreign objects. Shoes should have a deep wide toe box. With any type of shoe, the feet should be inspected for any signs of pressure, i.e., redness, blistering, or open sores. Will start process for DM shoes today. All mycotic nails were debrided in length and thickness by manual and mechanical means. Small and large nail nipper used along with electronic fariha. Advised patient of proper foot care to prevent any future complications. Return as needed if problems arise This note was created with the assistance of a speech recognition program. While intending to generate aely document that accurately reflects the content of the visit, no guarantee can be provided that every grammatical or spelling mistake has been or will be identified or corrected. Thank you for your understanding. Aure Hurley DPM documented in this encounter [facility] 07-29-2024 History of Present illness Narrative Follow up: Diagnosis: Intertrigo Location: groin and under right chest Last visit: 03/16/2024 Status: stable with treatment Associated symptoms: redness Current Treatments: Nystatin powder bid, ciclopirox cream bid . Keeps handkerchief in folds. Established patient All pertinent medical history, medications, and allergies were reviewed. General Exam: alert, oriented to person, place, and time, normal affect, well appearing uses walker Unaccompanied A focused exam completed based on patient reported problems, see below: 1. Intertrigo Left Inguinal Area, Right Inframammary Fold, Right Inguinal Area Mildly pink patches, improved from last visit Discussed that intertrigo is a chronic condition that can be controlled but not cured. Recommend keeping areas as dry as possible to avoid flares. Continue Ciclopirox cream apply topically bid as needed and nystatin power apply topically to affected area bid as needed. Notify the office for significant flare or if not controlled with current treatment. Follow up in 1 year. Notify office if any worsening despite treatment. Related Medications nystatin (Mycostatin) [id number] UNIT/GM powder Apply topically 2 (two) times a day ciclopirox (Loprox) 0.77 % cream APPLY TO SKIN FOLDS TOPICALLY TWO TIMES A DAY NEEDED FOR SKIN IRRITATION,HOLD WHEN CLEAR Next Visit: 1 year follow up documented in this encounter [facility] 07-28-2024 History of Present illness Narrative Images from the original note were not included. Nghia Avery presents today for follow up on NAGA and ILD. He was last seen several months ago. He denies any complaints of increasing shortness of breath at rest or with exertion. He denies any chest pain, palpitations, fevers, chills, sweats, or recent unintentional weight changes. He does remain compliant with the CPAP machine. He does use this on average about 5 hours per night. He states he generally goes to bed at around 11:00 p.m. and gets up around 5:00 a.m.. He denies any snoring or apneas while using the machine. He states his breathing has been stable as well. He denies any other complaints at this time. Allergies: Allergies Allergen Reactions Sulfa Antibiotics Hives Sulfamethoxazole-Trimethoprim Hives Medications: Current Outpatient Medications: albuterol HFA 90 mcg/act inhaler, USE 1 INHALATION ORALLY EVERY 4 HOURS NEEDED FORSHORTNESS OF BREATH OR COUGH for 34, Disp: 18 g, Rfl: 5 aspirin 81 MG EC tablet, Take 1 tablet by mouth in the morning., Disp: , Rfl: atorvastatin (Lipitor) 40 MG tablet, TAKE 1 TABLET DAILY, Disp: 90 tablet, Rfl: 1 carvedilol (Coreg) 12.5 MG tablet, TAKE 1 TABLET EVERY MORNINGAND 1 TABLET BEFORE BEDTIME, Disp: 180 tablet, Rfl: 1 cholecalciferol (Vitamin D-3) 25 MCG (1000 UT) capsule, Take 1,000 Units by mouth in the morning., Disp: , Rfl: ciclopirox (Loprox) 0.77 % cream, APPLY TO SKIN FOLDS TOPICALLY TWO TIMES A DAY NEEDED FOR SKIN IRRITATION,HOLD WHEN CLEAR, Disp: 90 g, Rfl: 1 clopidogrel (Plavix) 75 MG tablet, TAKE 1 TABLET ONCE DAILY, Disp: 90 tablet, Rfl: 1 dapagliflozin (Farxiga) 5 MG, Take 1 tablet (5 mg) by mouth in the morning., Disp: 90 tablet, Rfl: 3 lisinopril 30 MG tablet, TAKE 1 TABLET EVERY MORNING, Disp: 90 tablet, Rfl: 1 metFORMIN (Glucophage) 1000 MG tablet, TAKE 1 TABLET IN THE MORNING AND 1 TABLET IN THEEVENING WITH MEALS, Disp: 180 tablet, Rfl: 1 nystatin (Mycostatin) [id number] UNIT/GM powder, Apply topically 2 (two) times a day, Disp: 60 g, Rfl: 11 prazosin (Minipress) 5 MG capsule, TAKE 1 CAPSULE DAILY, Disp: 90 capsule, Rfl: 1 traZODone (Desyrel) 50 MG tablet, Take 1 tablet (50 mg) by mouth at bedtime (Patient not taking: Reported on 07/13/2024), Disp: 30 tablet, Rfl: 0 Past Medical History: Past Medical History: Diagnosis Date Benign essential hypertension (CMS/HCC) Chicken pox Community acquired pneumonia of right lower lobe of lung Coronary artery stenosis (CMS/HCC) Dermatitis Diabetes (CMS/HCC) DM (diabetes mellitus) (CMS/HCC) Hematuria Hyperlipidemia (CMS/HCC) Liver disease Lymphedema Measles Mumps Obesity Proteinuria Sepsis due to pneumonia (CMS/HCC) [place] Severely atypical nevus, worrisome for melanoma in situ, right neck, 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 Stroke (cerebrum) (CMS/HCC) Urine incontinence Social History: Social History Tobacco Use Smoking status: Never Smokeless tobacco: Never Substance Use Topics Alcohol use: Never Comment: caffeine: coffee occasionally Vitals: BP 136/63 (BP Location: Left arm, Patient Position: Sitting) Pulse 60 Ht 5' 5 Wt 307 lb SpO2 95% BMI 51.09 kg/m Exam: Heart: regular rate Lungs: clear to auscultation bilaterally, no wheezes/rales/rhonchi, no resp distress Extremities: no edema noted, no visible rashes Neuro: alert, oriented x3 Imaging Reviewed: None Assessment/Plan: Diagnoses and all orders for this visit: Obstructive sleep apnea syndrome Interstitial lung disease (CMS/HCC) - XR chest 2 views; Future NAGA -- he does remain compliant with use of his CPAP machine on a nightly basis. He does average at least 5 hours per night. At this time he will continue with regular use of his CPAP given that he has been benefitting from and tolerating its use. He will follow here in 6 months time unless needed before then. ILD -- I did review his last x-ray that was done after his pacemaker implantation. This did not demonstrate any significant interstitial changes. He will have a follow-up x-ray prior to his next office visit in 6 months time. He denies any complaints of shortness of breath at rest or with exertion. We will continue with symptom and radiographic surveillance. Follow up in about 6 months (around 01/28/2025) for ILD, NAGA. Kymberly Nation DO documented in this encounter [facility] 07-23-2024 Note Patient here for 6 m o follow up. He had routine labs with lipid panel in Mar 2024. Denies chest pain, SOB, palpitations, and lightheadedness/syncope. Device was interrogated in the office a few days ago. Review of Systems Musculoskeletal: Positive for muscle weakness. Neurological: Positive for weakness. All other systems reviewed and are negative. [facility] 07-23-2024 Note SUBJECTIVE Reason for Visit: Nghia Avery is a 78 y.o. year old male patient being seen for 6-month follow-up. HPI: Nghia Avery is an 78-year-old male with a past medical history of CAD with PCI and stent placement in 2011, hypertension, type 2 diabetes mellitus, COPD, hyperlipidemia, moderate aortic stenosis, CVA, and lymphedema. In November 2023, the patient was admitted to [facility] for evaluation of complete heart block after a Holter monitor showed evidence of conduction abnormalities. During his hospitalization, his beta-marcello was held, but he remained profoundly bradycardic, with heart rates as low as 29 bpm. Due to persistent bradycardia, he was subsequently transferred for pacemaker placement under the care of Dr. Mojica. 07/23/2023 office visit: The patient presents for a routine six-month follow-up and reports feeling well overall with no concerns. He denies chest pain, shortness of breath, lightheadedness, dizziness, or palpitations. His blood pressure today is slightly elevated at 140/68 mmHg. However, he notes that at his recent PCP visit, readings were in the 120s. Given this variability, he was advised to maintain a home blood pressure log and bring it to his next visit for further assessment. At that time, we will reevaluate the need for any adjustments to his antihypertensive regimen. 12/26/2023 (Kassy Hernandez NP): Past Medical History: Diagnosis Date Coronary artery disease Diabetes mellitus (CMS/HCC) Heart valve disease Hyperlipidemia Hypertension Sleep apnea Stroke (CMS/HCC) Past Surgical History: Procedure Laterality Date APPENDECTOMY TOTAL KNEE ARTHROPLASTY Patient Active Problem List Diagnosis Abnormal result [...] (CMS/HCC) Heart block AV third degree (CMS/HCC) Cardiac pacemaker in situ Need for assistance at home and no other household member able to render care family history includes Coronary artery disease in his brother and father. Social History Tobacco Use Smoking status: Former Types: Cigarettes Smokeless tobacco: Never Substance Use Topics Alcohol use: Not Currently OBJECTIVE Visit Vitals Ht 1.676 m (5' 6 ) BMI 49.13 kg/m??? Smoking Status Former BSA 2.53 m??? Physical Exam Constitutional: General Appearance: well-developed, appears stated age. Level of Distress: no acute distress. Neck: Jugular Veins: normal jugular venous pressure. Lungs: Auscultation: no rales or rhonchi and normal breath sounds. Cardiovascular: Rate And Rhythm: regular. Heart Sounds: normal S1 and s2; Systolic Murmur: not heard. Diastolic Murmur: not heard. Extremities: Trace lower extremity edema, hyphedonia Peripheral Pulses: Pulses: full and equal in all extremities except if noted. Abdomen: Inspection and Palpation: non distended or tender and soft. Musculoskeletal: Inspection: no joint tenderness or swelling. Neurologic: Gait: normal gait. Psychiatric: Mental Status: alert and normal affect. Skin: Inspection and Palpation: warm and dry. Allergies: Allergies Allergen Reactions Sulfamethizole Other reaction(s): Intolerance-unknown Sulfamethoxazole-Trimethoprim Hives Trimethoprim Other reaction(s): Intolerance-unknown Outpatient Medications: Current Outpatient Medications Medication Instructions aspirin 81 mg EC tablet Daily RT atorvastatin (Lipitor) 40 mg tablet atorvastatin 40 mg tablet carvedilol (COREG) 12.5 mg, oral, 2 times daily cholecalciferol (VITAMIN D-3) 1,000 Units, oral, Daily RT dapagliflozin propaned (more content not included)... [facility] 07-13-2024 History of Present illness Narrative Associated Problem(s): Heart block AV third degree (CMS/HCC) Pacer placed 12/16. Associated Problem(s): Atherosclerosis of coronary artery without angina pectoris (CMS/HCC) No angina. Associated Problem(s): Benign essential hypertension (CMS/HCC) Controlled on medications. Associated Problem(s): 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) A1c controlled. Images from the original note were not included. Nghia Avery is a 78 y.o. male presents with chief complaint of Diabetes HPI: HPI Patient presents today for 3 month follow up on diabetes. Pt states his blood sugar was 124 this AM. History of Present Illness The patient presents for evaluation of urinary incontinence, diabetes, hypertension, hyperlipidemia, and heart disease. He has been under the care of a urologist for urinary incontinence, which remains a persistent issue. He expresses a desire to transition his care to a more proximal location due to the inconvenience of traveling to [place] for treatment. He reports no leg swelling but mentions an incident where he tripped over his toenail, resulting in ankle swelling. He is on metformin and Farxiga for diabetes. He has a 90-day supply of Farxiga at home. He had a pacemaker placed on 12/19/2023. He had a cardiology appointment recently. He has 2 appointments scheduled this month at [place] to check his pacemaker. [facility] He has an appointment scheduled in September. He wants to get one scheduled as soon as he can because his eyes feel a little dry. He occasionally coughs up white phlegm but reports no shortness of breath during the day. He does not need to use his albuterol inhaler. He is on lisinopril, prazosin, and carvedilol for blood pressure management. His blood pressure is usually around 140/70. He is on Lipitor for cholesterol management. MEDICATIONS Lisinopril, Farxiga, metformin, Lipitor, prazosin, carvedilol, Plavix, albuterol inhaler. SUBJECTIVE: MEDICATIONS: Current Outpatient Medications Medication Instructions albuterol HFA 90 mcg/act inhaler USE 1 INHALATION ORALLY EVERY 4 HOURS NEEDED FORSHORTNESS OF BREATH OR COUGH for 34 aspirin 81 MG EC tablet 1 tablet, Daily atorvastatin (LIPITOR) 40 mg, Oral, Daily carvedilol (Coreg) 12.5 MG tablet TAKE 1 TABLET EVERY MORNINGAND 1 TABLET BEFORE BEDTIME cholecalciferol (VITAMIN D-3) 1,000 Units, Daily RT ciclopirox (Loprox) 0.77 % cream APPLY TO SKIN FOLDS TOPICALLY TWO TIMES A DAY NEEDED FOR SKIN IRRITATION,HOLD WHEN CLEAR clopidogrel (PLAVIX) 75 mg, Oral, Daily dapagliflozin (FARXIGA) 5 mg, Oral, Every morning lisinopril 30 mg, Oral, Every morning metFORMIN (Glucophage) 1000 MG tablet TAKE 1 TABLET IN THE MORNING AND 1 TABLET IN THEEVENING WITH MEALS nystatin (Mycostatin) [id number] UNIT/GM powder Topical, 2 times daily prazosin (MINIPRESS) 5 mg, Oral, Daily traZODone (DESYREL) 50 mg, Oral, Nightly I have reviewed and reconciled the history and medication list with the patient today. REVIEW OF SYMPTOMS: Review of Systems OBJECTIVE: Visit Vitals BP 128/70 Pulse 56 Ht 5' 5 Wt 306 lb SpO2 95% BMI 50.92 kg/m Smoking Status Never BSA 2.52 m Physical Exam Vitals and nursing note reviewed. Constitutional: Appearance: Normal appearance. Cardiovascular: Rate and Rhythm: Normal rate and regular rhythm. Pulses: Normal pulses. Heart sounds: Normal heart sounds. Pulmonary: Effort: Pulmonary effort is normal. Musculoskeletal: Cervical back: Normal range of motion and neck supple. Skin: Comments: Red and irritated in the groin. Cream applied at his request (he has difficulty in reaching hte areas.) Neurological: Mental Status: He is alert. Psychiatric: Mood and Affect: Mood normal. ASSESSMENT AND PLAN: Assessment & Plan 1. Urinary incontinence. A referral to urology will be initiated for further evaluation and management. 2. Diabetes mellitus. His A1c has improved from 6.8 in March to 6.6 today. He is currently on metformin and Farxiga. He is advised to continue his current medication regimen. He is also reminded to have his eyes checked on a yearly basis due to his diabetes. 3. Hypertension. His blood pressure is well-controlled today. He is currently on lisinopril, prazosin, and carvedilol. He is advised to continue his current medication regimen. 4. Hyperlipidemia. He is currently on Lipitor for cholesterol management. He is advised to continue his current medication regimen. 5. Heart disease. He has a pacemaker and is currently on Plavix 75 mg for his heart. He has follow-up appointments scheduled at [facility] for pacemaker checks on the and of this month. He is advised to continue his current medication regimen and follow up with his rework operator as scheduled. 6. Dry eyes. He reports experiencing dry eyes and has an upcoming appointment in September at the [place]. He is advised to keep this appointment and schedule an earlier one if symptoms worsen. 7. Cough with phlegm. He reports coughing up white phlegm but is not experiencing shortness of breath or needing to use his albuterol inhaler. No immediate intervention is required, but he is advised to use the inhaler if needed. Follow-up The patient will follow up in 3 months for a Medicare wellness visit. Assessment/Plan Problem List Items Addressed This Visit Atherosclerosis of coronary artery without angina pectoris ([facility]/HCC) No angina. Benign essential hypertension (CMS/HCC) Controlled on medications. Morbid obesity (CMS/HCC) 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) - Primary A1c controlled. Relevant Orders POCT Glycated hemoglobin, total (Completed) Urinary incontinence Relevant Orders Ambulatory referral to Urology Hyperlipidemia (CMS/HCC) Cardiac pacemaker in situ Heart block AV third degree (CMS/HCC) Pacer placed 12/16. Other Visit Diagnoses Type 2 diabetes mellitus with diabetic chronic kidney disease ([facility]) Chronic kidney disease, stage 3a ([facility]) [place] Interstitial pulmonary disease, unspecified [place] Body mass index (BMI) 50.0-59.9, adult [place] Type 2 diabetes mellitus with diabetic cataract [place] documented in this encounter [facility] 06-09-2024 Telephone encounter Note Refills sent. [facility] 06-09-2024 Miscellaneous Notes Refills sent. documented in this encounter [facility] 05-27-2024 History of Present illness Narrative Images from the original note were not included. Subjective Patient ID: Nikko Avery is a 78 y.o. male who presents for Nail care (Nikko Avery is a 78 y.o. male who presents for DM Foot Care PCP: Dr. Nath/Eugenie 04/15/2024, A1C: 6.3, BS: 111, SS: 9.5). Pt presents complaining of elongated, thick, fungal nails. He is requesting nail debridement. He has lymphedema, but no other pedal complaints. He is doing well since his pacemaker placement in November. Review of Systems Current Outpatient Medications: albuterol HFA 90 mcg/act inhaler, USE 1 INHALATION ORALLY EVERY 4 HOURS NEEDED FORSHORTNESS OF BREATH OR COUGH for 34, Disp: 18 g, Rfl: 5 aspirin 81 MG EC tablet, Take 1 tablet by mouth in the morning., Disp: , Rfl: atorvastatin (Lipitor) 40 MG tablet, Take 1 tablet (40 mg) by mouth Daily, Disp: 90 tablet, Rfl: 0 carvedilol (Coreg) 12.5 MG tablet, Take 1 tablet (12.5 mg) by mouth in the morning and 1 tablet (12.5 mg) before bedtime., Disp: 180 tablet, Rfl: 0 carvedilol (Coreg) 6.25 MG tablet, Take 6.25 mg by mouth in the morning and 6.25 mg in the evening. Take with meals., Disp: , Rfl: cholecalciferol (Vitamin D-3) 25 MCG (1000 UT) capsule, Take 1,000 Units by mouth in the morning., Disp: , Rfl: ciclopirox (Loprox) 0.77 % cream, APPLY TO SKIN FOLDS TOPICALLY TWO TIMES A DAY NEEDED FOR SKIN IRRITATION,HOLD WHEN CLEAR, Disp: 90 g, Rfl: 3 clopidogrel (Plavix) 75 MG tablet, TAKE 1 TABLET ONCE DAILY, Disp: 90 tablet, Rfl: 1 dapagliflozin (Farxiga) 5 MG, Take 1 tablet (5 mg) by mouth in the morning., Disp: 90 tablet, Rfl: 3 lisinopril 30 MG tablet, TAKE 1 TABLET EVERY MORNING, Disp: 90 tablet, Rfl: 1 metFORMIN (Glucophage) 1000 MG tablet, Take 1 tablet (1,000 mg) by mouth in the morning and 1 tablet (1,000 mg) in the evening. Take with meals., Disp: 180 tablet, Rfl: 1 nystatin (Mycostatin) [id number] UNIT/GM powder, Apply topically 2 (two) times a day, Disp: 60 g, Rfl: 11 prazosin (Minipress) 5 MG capsule, Take 1 capsule (5 mg) by mouth Daily, Disp: 90 capsule, Rfl: 1 traZODone (Desyrel) 50 MG tablet, Take 1 tablet (50 mg) by mouth at bedtime, Disp: 30 tablet, Rfl: 0 Sulfa antibiotics and Sulfamethoxazole-trimethoprim Past Surgical History: Procedure Laterality Date APPENDECTOMY age 16 COLONOSCOPY 2009 CYSTOSCOPY 1989 INSERT / REPLACE / REMOVE PACEMAKER 12/16/2023 [facility] IR STENT PLACEMENT 2011 JOINT REPLACEMENT Knees TOTAL KNEE ARTHROPLASTY Right 2012 TOTAL KNEE ARTHROPLASTY Left 02/2015 VASECTOMY Family History Problem Relation Name Age of Onset Breast cancer Mother Mother Diabetes Mother Mother Arthritis Mother Mother Cancer Father Dod Alcohol abuse Father Dod Melanoma Neg Hx Objective Physical Exam Cardiovascular: Comments: Pedal pulses: DP 2/4 bilateral, PT 2/4 bilateral. Skin temp is warm to warm. Varicosities: mild, present Hair growth: present Pulmonary: Effort: Pulmonary effort is normal. Musculoskeletal: General: No tenderness. Right lower leg: Edema present. Left lower leg: Edema present. Comments: JOINT RANGE OF MOTION:ankle joint and subtalar joint ROM are normal and pain free . DEFORMITIES:Digits 2-5 b/l are contracted flexibly. PAIN: No pain with palpation to either foot . MUSCLE STRENGTH5/5 for dorsiflexion, plantarflexion, inversion, eversion . Feet: Comments: Last diabetic foot exam: 08/05/2023 Skin: General: Skin is warm. Capillary Refill: Capillary refill takes 2 to 3 seconds. Findings: No bruising or erythema. Comments: SKIN FINDINGS:There are hemosiderin deposits noted lower legs, left worse than right. Webspaces are clean and dry. HYPERKERATOSIS: plantar medial HIPJ and distal medial hallux b/l, left worse than right. NAIL PATHOLOGY:Nails 1 b/l are splitting, fungal, 4mm thick, yellow and orange, with subungal debris. Nail 2 R is 4mm thick, yellow, elongated, fungal. Nail 5 L is elongated, raised, fungal, 4mm thick.. ULCER: none. Neurological: Mental Status: He is alert and oriented to person, place, and time. Comments: Light touch sensation intact VIBRATORY: is diminished at IPJ, MPJ. Absent at medial malleolus, and patella b/l. SEMMES-ASHISH 5.07 MONOFILAMENT: intact at 10/10 sites. Psychiatric: Mood and Affect: Mood normal. Behavior: Behavior normal. Modifier: Q9, 201[address] Assessment/Plan ICD-10-CM 1. Onychomycosis B35.1 2. Type II or unspecified type diabetes mellitus with neurological manifestations, not stated as uncontrolled(250.60) (CMS/HCC) E11.49 3. Acquired keratoderma L85.1 4. Lymphedema I89.0 Mycotic toenail debridement. All nails debrided in thickness and length. Instrumentation utilized: large and small nail nipper and curette and power bur. Discuss various treatments options including topical therapy vs oral medication. At this time the patient defers these options. Relief of discomfort noted by patient. All nails debrided appropriately. Web spaces inspected and found to be free of disease and ulceration. Shoes inspected and hygiene discussed. Advised to RTO on as needed basis This note was created with the assistance of a speech recognition program. While intending to generate aely document that accurately reflects the content of the visit, no guarantee can be provided that every grammatical or spelling mistake has been or will be identified or corrected. Thank you for your understanding. Aure Hurley DPM documented in this encounter [facility] 04-15-2024 History of Present illness Narrative Images from the original note were not included. Nghia Avery is a 78 y.o. male presents with chief complaint of medicare wellness HPI: Over the past 2 weeks, how often have you been bothered by any of the following problems? Little interest or pleasure in doing things: Not at all Feeling down, depressed, or hopeless: Not at all Patient Health Questionnaire-2 Score: 0 Over the past 2 weeks, how often have you been bothered by any of the following problems? Trouble falling or staying asleep, or sleeping too much: Not at all Feeling tired or having little energy: Not at all Poor appetite or overeating: Not at all Feeling bad about yourself - or that you are a failure or have let yourself or your family down: Not at all Trouble concentrating on things, such as reading the newspaper or watching television: Not at all Moving or speaking so slowly that other people could have noticed? Or the opposite - being so fidgety or restless that you have been moving around a lot more than usual.: Not at all Thoughts that you would be better off or hurting yourself in some way: Not at all Patient Health Questionnaire-9 Score: 0 Elda Fall Risk History of Falling, Immediate or Within 3 Months: Yes Secondary Diagnosis: No Ambulatory Aid: Crutches/cane/walker Intravenous Therapy/Heparin Lock: No Gait/Transferring: Normal/bedrest/immobile Mental Status: Oriented to own ability Schroeder Fall Risk Score: 40 Health Risk Assessment Form Do you need help eating, bathing, using the toilet, dressing, or getting around your home?: No Can you prepare your own meals?: Yes Can you do your own housework without help?: No Can you shop for groceries or clothes without help?: Yes Do you exercise for about 20 minutes 3 or more days a week?: No How confident are you that you can control and manage most of your health problems?: Very confident Can you mange your money, credit cards and accounts, pay bills and taxes?: Yes Vision Screening: Yes, 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 He underwent a pacemaker implantation on 12/18/2022 due to a significant drop in his pulse rate to 24. He experiences occasional urinary incontinence, for which he uses diapers. The severity of this issue varies. He consulted a urologist in 08/2023 and has received Botox treatment three times, which provides temporary relief. He also experiences difficulty urinating at times. During his pacemaker procedure, he had a catheter inserted, which was removed after 13 days. His last eye examination was conducted at [facility] on a Friday. He reports a film over his right lens, but his left eye is functioning well. He has an appointment scheduled at [facility] in 09/2024 for a follow-up eye examination. He is currently taking metformin and Farxiga for blood sugar control, lisinopril and carvedilol for blood pressure management, Plavix, and Lipitor. His last A1c reading was 6.3. He uses a CPAP machine for sleep apnea and wears compression sleeves on both sides for an hour before bedtime. He has received the Pneumovax 23 and Prevnar 13 vaccines. SOCIAL HISTORY He never smoked. IMMUNIZATIONS He is up to date on his tetanus vaccine until 2033. He had his shingles vaccine done. He had his COVID-19 vaccine done. SUBJECTIVE: MEDICATIONS: Current Outpatient Medications Medication Instructions albuterol HFA 90 mcg/act inhaler USE 1 INHALATION ORALLY EVERY 4 HOURS NEEDED FORSHORTNESS OF BREATH OR COUGH for 34 aspirin 81 MG EC tablet 1 tablet, Daily atorvastatin (LIPITOR) 40 mg, Oral, Daily carvedilol (COREG) 6.25 mg, Oral, 2 times daily with meals carvedilol (COREG) 12.5 mg, Oral, 2 times daily cholecalciferol (VITAMIN D-3) 1,000 Units, Daily RT ciclopirox (Loprox) 0.77 % cream APPLY TO SKIN FOLDS TOPICALLY TWO TIMES A DAY NEEDED FOR SKIN IRRITATION,HOLD WHEN CLEAR clopidogrel (PLAVIX) 75 mg, Oral, Daily dapagliflozin (FARXIGA) 5 mg, Oral, Every morning lisinopril 30 mg, Oral, Every morning metFORMIN (GLUCOPHAGE) 1,000 mg, Oral, 2 times daily with meals nystatin (Mycostatin) [id number] UNIT/GM powder Topical, 2 times daily prazosin (MINIPRESS) 5 mg, Oral, Daily traZODone (DESYREL) 50 mg, Oral, Nightly I have reviewed and reconciled the history and medication list with the patient today. REVIEW OF SYMPTOMS: Review of Systems OBJECTIVE: Visit Vitals BP 138/62 Pulse 60 Ht 5' 5 Wt 306 lb 12.8 oz SpO2 95% BMI 51.05 kg/m Smoking Status Never BSA 2.52 m Physical Exam Vitals reviewed. HENT: Head: Normocephalic and atraumatic. Nose: Nose [...] person, place, and time. ASSESSMENT AND PLAN: Assessment & Plan 1. Medicare wellness visit. His colon cancer screening was conducted in 2017, and his PSA levels were within normal range a year ago. Prevnar 20 will be administered today. Blood work will be ordered to assess cholesterol, kidney function, and liver function. 2. Urinary incontinence. He reports occasional urinary incontinence and uses adult diapers. He has been receiving Botox treatments every 6 months, which provide temporary relief. He is currently under the care of a urologist and has an appointment scheduled in August. 3. Vision issues. He reports a film over his right lens and [facility] [place] He has an appointment scheduled at the [facility] in September for further evaluation. 4. Diabetes Mellitus. He is currently taking Metformin and Farxiga for blood sugar control. His last A1c was 6.3, and he expects it might be slightly elevated now due to dietary indulgences during his 78th birthday. 5. Hypertension. His blood pressure is well-controlled with Lisinopril and Carvedilol. 6. Hyperlipidemia. He is taking Lipitor for cholesterol management. Blood work will be ordered to check his cholesterol levels. 7. Sleep apnea. He uses a CPAP machine every night and feels better in the morning. He plans to get new equipment for his CPAP. 8. Medication management. He is taking Plavix (clopidogrel) as prescribed by his rework operator. He also takes aspirin for blood thinning. 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 Encouraged healthy diet and regular exercise. Discussed vaccines and encouraged yearly flu shot. Annual eye and dental exam. Vaccines and cancer screens reviewed for completeness. Screen labs as needed. Assessed needs for tools in the home for independence. Living will and durable power of divorce attorney reviewed. Updated patient problem list and reviewed all current medications with patient. Given time to ask questions. Encounter for immunization Relevant Orders Pneumococcal conjugate vaccine 20-valent IM (Completed) documented in this encounter [facility] 03-16-2024 Telephone encounter Note Approving, but needs appt for additional refills. [facility] 03-16-2024 Miscellaneous Notes Approving, but needs appt for additional refills. documented in this encounter [facility] 03-16-2024 History of Present illness Narrative Images from the original note were not included. Follow up: Diagnosis: Intertrigo Location: groin Duration: months Quality: bleeding, possible skin tag? Modifying factors: rubs on clothing, aggravated by picking Associated symptoms: non-healing Treatments: Nystatin powder, ciclopirox cream. Keeps handkerchief in folds. Established patient All pertinent medical history, medications, and allergies were reviewed. General Exam: alert, oriented to person, place, and time, normal affect, well appearing uses a walker Unaccompanied A focused exam completed based on patient reported problems, see below: 1. Neoplasm of unspecified behavior of bone, soft tissue, and skin Right Medial Thigh Pritchett papule Lesion biopsy Type of biopsy: tangential Informed consent: discussed and consent obtained Informed consent comment: The risks and benefits of the biopsy were discussed. Risks include but are not limited to bleeding, infection, scarring, pain, and nerve damage. An opportunity to ask questions prior to the procedure was permitted and all questions were answered. Patient was prepped and draped in usual sterile fashion: area cleansed with alcohol. Anesthesia: the lesion was anesthetized in a standard fashion Anesthetic: 1% lidocaine w/ epinephrine 1-100,000 buffered w/ 8.4% NaHCO3 Instrument used: DermaBlade Hemostasis achieved with: electrodesiccation Outcome: patient tolerated procedure well Outcome comment: The specimen was placed in a prelabeled formalin container to be sent for pathology Post-procedure details: sterile dressing applied and wound care instructions given Post-procedure details comment: Emphasized need to contact clinic for any signs of infection, uncontrollable bleeding, or complications. Dressing type: bandage Additional details: Photo taken. Amount of lidocaine used: 1cc Specimen A - Dermatopathology exam Differential Diagnosis: SCC vs BCC vs other Check Margins: No Size of lesion: 0.8 x 0.7 cm Next Visit: as scheduled documented in this encounter [facility] 02-25-2024 Hospital Discharge instructions Patient Education 02/25/2024 09:24:42 Benign Prostatic Hyperplasia Benign Prostatic Hyperplasia Benign [...] urethra. Follow these instructions at home: Take [id number] and prescription medicines only as told by [...] provider. Document Revised: 11/28/2021 Document Reviewed: 11/28/2021 [employer] Patient Education 2023 [employer]. Follow Up Care 01/07/2024 10:51:26 With:Ramon WHITE, DESMOND Wong, [facility] Address: [address], [place] [address] [phone] When: Unknown Comments:6 mos w/ PVR [facility] 02-25-2024 Note Patient Education Urology Benign Prostatic Hyperplasia Benign [...] Follow these instructions at home: ? Take [id number]-sno-[id number] and prescription medicines only as told by [...] better with treatment. ? You develop side effec (more content not included)... [facility] 02-12-2024 History of Present illness Narrative Images from the original note were not included. Subjective Patient ID: Nikko Avery is a 78 y.o. male who presents for Toenail Care (Nikko Avery is a 78 y.o. male who presents for DM Foot Care PCP: Dr. Nath/Eugenie CONTEH 01/01/24, A1C: 6.3, BS: 101, SS: 9.5). Established patient returns requesting nail debridement. He states the nails are thick, elongated, fungal. He can not reach his feet himself. He is diabetic with lymphedema and wears compression wraps on his legs. Review of Systems Current Outpatient Medications: albuterol HFA 90 mcg/act inhaler, USE 1 INHALATION ORALLY EVERY 4 HOURS NEEDED FORSHORTNESS OF BREATH OR COUGH for 34, Disp: 18 g, Rfl: 5 aspirin 81 MG EC tablet, Take 1 tablet by mouth in the morning., Disp: , Rfl: atorvastatin (Lipitor) 40 MG tablet, TAKE 1 TABLET ONCE DAILY, Disp: 90 tablet, Rfl: 1 carvedilol (Coreg) 12.5 MG tablet, Take 12.5 mg by mouth in the morning and 12.5 mg before bedtime., Disp: , Rfl: carvedilol (Coreg) 6.25 MG tablet, Take 6.25 mg by mouth in the morning and 6.25 mg in the evening. Take with meals., Disp: , Rfl: cholecalciferol (Vitamin D-3) 25 MCG (1000 UT) capsule, Take 1,000 Units by mouth in the morning., Disp: , Rfl: ciclopirox (Loprox) 0.77 % cream, APPLY TO SKIN FOLDS TOPICALLY TWO TIMES A DAY NEEDED FOR SKIN IRRITATION,HOLD WHEN CLEAR, Disp: 90 g, Rfl: 3 clopidogrel (Plavix) 75 MG tablet, TAKE 1 TABLET ONCE DAILY, Disp: 90 tablet, Rfl: 1 dapagliflozin (Farxiga) 5 MG, Take 1 tablet (5 mg) by mouth in the morning., Disp: 90 tablet, Rfl: 3 lisinopril 30 MG tablet, Take 1 tablet (30 mg) by mouth in the morning., Disp: 90 tablet, Rfl: 1 metFORMIN (Glucophage) 1000 MG tablet, Take 1 tablet (1,000 mg) by mouth in the morning and 1 tablet (1,000 mg) in the evening. Take with meals., Disp: 180 tablet, Rfl: 1 nystatin (Mycostatin) 620262 UNIT/GM powder, Apply topically 2 (two) times a day, Disp: 60 g, Rfl: 11 prazosin (Minipress) 5 MG capsule, Take 1 capsule (5 mg) by mouth Daily, Disp: 90 capsule, Rfl: 1 traZODone (Desyrel) 50 MG tablet, Take 1 tablet (50 mg) by mouth at bedtime, Disp: 30 tablet, Rfl: 0 Umeclidinium [place] (Incruse Ellipta) 62.5 MCG/ACT aerosol powder , , Disp: , Rfl: Sulfa antibiotics and Sulfamethoxazole-trimethoprim Past Surgical History: Procedure Laterality Date APPENDECTOMY age 16 COLONOSCOPY 2009 CYSTOSCOPY 1989 INSERT / REPLACE / REMOVE PACEMAKER 12/16/2023 [facility] IR STENT PLACEMENT 2012 JOINT REPLACEMENT Knees TOTAL KNEE ARTHROPLASTY Right 2012 TOTAL KNEE ARTHROPLASTY Left 02/2015 VASECTOMY Family History Problem Relation Name Age of Onset Breast cancer Mother Mother Diabetes Mother Mother Arthritis Mother Mother Cancer Father Dod Alcohol abuse Father Dod Melanoma Neg Hx Objective Physical Exam Cardiovascular: Comments: Pedal pulses: DP 2/4 bilateral, PT 2/4 bilateral. Skin temp is warm to warm. Varicosities: mild, present Hair growth: present Pulmonary: Effort: Pulmonary effort is normal. Musculoskeletal: General: No tenderness. Right lower leg: Edema present. Left lower leg: Edema present. Comments: JOINT RANGE OF MOTION:ankle joint and subtalar joint ROM are normal and pain free . DEFORMITIES:Digits 2-5 b/l are contracted flexibly. PAIN: No pain with palpation to either foot . MUSCLE STRENGTH5/5 for dorsiflexion, plantarflexion, inversion, eversion . Feet: Comments: Last diabetic foot exam: 08/05/2023 Skin: General: Skin is warm. Capillary Refill: Capillary refill takes 2 to 3 seconds. Findings: No bruising or erythema. Comments: SKIN FINDINGS:There are hemosiderin deposits noted lower legs, left worse than right. Webspaces are clean and dry. HYPERKERATOSIS: plantar medial HIPJ and distal medial hallux b/l, left worse than right. NAIL PATHOLOGY:Nails 1 b/l are splitting, fungal, 4mm thick, yellow and orange, with subungal debris. Nail 2 R is 4mm thick, yellow, elongated, fungal. Nail 5 L is elongated, raised, fungal, 4mm thick.. ULCER: none. Neurological: Mental Status: He is alert and oriented to person, place, and time. Comments: Light touch sensation intact VIBRATORY: is diminished at IPJ, MPJ. Absent at medial malleolus, and patella b/l. SEMMES-ASHISH 5.07 MONOFILAMENT: intact at 10/10 sites. Psychiatric: Mood and Affect: Mood normal. Behavior: Behavior normal. Modifier: A3, 75279 Assessment/Plan ICD-10-CM 1. Onychomycosis B35.1 2. Type II or unspecified type diabetes mellitus with neurological manifestations, not stated as uncontrolled(250.60) ([facility]) E11.49 3. Acquired keratoderma L85.1 4. Lymphedema I89.0 Conservative and palliative care implemented as per request. Under aseptic technique all nails debrided with large and small nail nippers, curette and power fariha. Onychodebridement in length and thickness with the goals of relief of pain, reducing risks of infection, ulceration or pain. Well tolerated and expresses appreciation for care given. Feet inspected and hygiene discussed This note was created with the assistance of a speech recognition program. While intending to generate aely document that accurately reflects the content of the visit, no guarantee can be provided that every grammatical or spelling mistake has been or will be identified or corrected. Thank you for your understanding. Aure Hurley DPM documented in this encounter [facility] 02-11-2024 History of Present illness Narrative Images from the original note were not included. Nghia Avery presents today for follow up on Sleep apnea and interstitial lung disease. He was last seen 6 months ago. He states his breathing has been fairly stable since his last office visit. He has continued to be compliant with the CPAP machine. He states he does average 4-6 hours per night. He does still complain of feeling dry when he gets up, but is been able to tolerate this for the most part. He denies any snoring or apneas while using the machine. His breathing has remained stable. States he has not needed to use albuterol at all since his last office visit. Did undergo pacemaker placement in November 2023. He states that he was noted to have bradycardia at a routine office visit the day after his birthday. He denies any current complaints of chest pain, palpitations, fevers, chills, sweats, or recent unintentional weight changes. He denies any other complaints at this time. Allergies: Allergies Allergen Reactions Sulfa Antibiotics Hives Sulfamethoxazole-Trimethoprim Hives Medications: Current Outpatient Medications: albuterol HFA 90 mcg/act inhaler, USE 1 INHALATION ORALLY EVERY 4 HOURS NEEDED FORSHORTNESS OF BREATH OR COUGH for 34, Disp: 18 g, Rfl: 5 aspirin 81 MG EC tablet, Take 1 tablet by mouth in the morning., Disp: , Rfl: atorvastatin (Lipitor) 40 MG tablet, TAKE 1 TABLET ONCE DAILY, Disp: 90 tablet, Rfl: 1 carvedilol (Coreg) 12.5 MG tablet, Take 12.5 mg by mouth in the morning and 12.5 mg before bedtime., Disp: , Rfl: cholecalciferol (Vitamin D-3) 25 MCG (1000 UT) capsule, Take 1,000 Units by mouth in the morning., Disp: , Rfl: ciclopirox (Loprox) 0.77 % cream, APPLY TO SKIN FOLDS TOPICALLY TWO TIMES A DAY NEEDED FOR SKIN IRRITATION,HOLD WHEN CLEAR, Disp: 90 g, Rfl: 3 clopidogrel (Plavix) 75 MG tablet, TAKE 1 TABLET ONCE DAILY, Disp: 90 tablet, Rfl: 1 dapagliflozin (Farxiga) 5 MG, Take 1 tablet (5 mg) by mouth in the morning., Disp: 90 tablet, Rfl: 3 lisinopril 30 MG tablet, Take 1 tablet (30 mg) by mouth in the morning., Disp: 90 tablet, Rfl: 1 metFORMIN (Glucophage) 1000 MG tablet, Take 1 tablet (1,000 mg) by mouth in the morning and 1 tablet (1,000 mg) in the evening. Take with meals., Disp: 180 tablet, Rfl: 1 nystatin (Mycostatin) 735867 UNIT/GM powder, Apply topically 2 (two) times a day, Disp: 60 g, Rfl: 11 prazosin (Minipress) 5 MG capsule, Take 1 capsule (5 mg) by mouth Daily, Disp: 90 capsule, Rfl: 1 Umeclidinium [place] (Incruse Ellipta) 62.5 MCG/ACT aerosol powder , , Disp: , Rfl: carvedilol (Coreg) 6.25 MG tablet, Take 6.25 mg by mouth in the morning and 6.25 mg in the evening. Take with meals., Disp: , Rfl: traZODone (Desyrel) 50 MG tablet, Take 1 tablet (50 mg) by mouth at bedtime, Disp: 30 tablet, Rfl: 0 Past Medical History: Past Medical History: Diagnosis Date Benign essential hypertension (CMS/HCC) Chicken pox Community acquired pneumonia of right lower lobe of lung Coronary artery stenosis (CMS/HCC) Dermatitis Diabetes (CMS/HCC) DM (diabetes mellitus) (CMS/HCC) Hematuria Hyperlipidemia (CMS/HCC) Liver disease Lymphedema Measles Mumps Obesity Proteinuria Sepsis due to pneumonia (CMS/HCC) [place] Severely atypical nevus, worrisome for melanoma in situ, right neck, 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 Stroke (cerebrum) (CMS/HCC) Urine incontinence Social History: Social History Tobacco Use Smoking status: Never Smokeless tobacco: Never Substance Use Topics Alcohol use: Never Comment: caffeine: coffee occasionally Vitals: BP 122/69 (BP Location: Left arm, Patient Position: Sitting) Pulse 62 Ht 5' 5 Wt 280 lb SpO2 90% BMI 46.59 kg/m Exam: Heart: regular rate Lungs: clear to auscultation bilaterally, no wheezes/rales/rhonchi, no resp distress Extremities: no edema noted, no visible rashes Neuro: alert, oriented x3 Imaging Reviewed: None Assessment/Plan: Diagnoses and all orders for this visit: Obstructive sleep apnea syndrome Interstitial lung disease (CMS/HCC) NAGA -- he does remain compliant with use of his CPAP machine. He does average at least 4-6 hours per night. He denies any snoring or apneas while using the machine. He will continue with regular use of his CPAP given that he has been benefitting from and tolerating its use. ILD -- does have a known history of interstitial lung disease. He remained stable from a symptom standpoint. I was able to review the report of his chest x-ray from his pacemaker implantation. This did not demonstrate any significant interstitial changes per the report. There was some atelectasis. At this time will continue with symptomatic and radiographic surveillance. He will follow here in 6 months time unless needed before then. Follow up in about 6 months (around 08/10/2024) for ILD, NAGA. Kymberly Nation DO documented in this encounter [facility] 02-03-2024 History of Present illness Narrative Follow up Diagnosis: Intertrigo Location: abdomen, groin Last visit: 6 months ago Symptoms: less irritated Status: improved from last visit Current treatment: Nystatin 30259 units/g powder All pertinent medical history, medications, and allergies were reviewed. General Exam: alert , oriented to person, place, and time , normal affect, well appearing Unaccompanied A focused exam completed based on patient reported problems, see below: 1. Intertrigo Left Inguinal Area, Right Inguinal Area Pritchett moist plaques. Improved since last visit Discussed that intertrigo is a chronic condition that can be controlled but not cured. Recommend keeping areas as dry as possible to avoid flares. Continue Nystatin powder daily. Related Medications ciclopirox (Loprox) 0.77 % cream APPLY TO SKIN FOLDS TOPICALLY TWO TIMES A DAY NEEDED FOR SKIN IRRITATION,HOLD WHEN CLEAR nystatin (Mycostatin) 864150 UNIT/GM powder Apply topically 2 (two) times a day 2. Candidiasis Next Visit: as scheduled documented in this encounter [facility] 01-29-2024 Telephone encounter Note Patient called needing prescription order nystatin [id number] Unit/GM powder please send script to [facility] pt is out of powder. Thank you [facility] 01-29-2024 Miscellaneous Notes Patient called needing prescription order nystatin [id number] Unit/GM powder please send script to [facility] pt is out of powder. Thank you documented in this encounter [facility] 01-21-2024 Telephone encounter Note Called [facility], his rx has been sent to their pharmacy, and said it would take anywhere from 10-14 days to be shipped out. They also informed me pt should be receiving a text with the tracking information. Called pt and relayed information. Pt vu. [facility] 01-21-2024 Miscellaneous Notes Called [facility], his rx has been sent to their pharmacy, and said it would take anywhere from 10-14 days to be shipped out. They also informed me pt should be receiving a text with the tracking information. Called pt and relayed information. Pt vu. Spoke with pt, let him know he was approved. Told pt I would be calling them tomorrow to see when he would be getting medication. Forms scanned into chart and faxed. Spoke with pt, he is going to try and make it in today 01/09/24. If not he will come in on Friday to sign forms. Patient is calling asking if there is a different medication he can try instead of the Farxiga since the edmonds went up from $141 to $434. He would like the new medication sent to [facility]. Pt wants to know if there is a cheaper version of farxiga, it costs over $484 for a 90 day supply documented in this encounter [facility] 01-20-2024 Telephone encounter Note Spoke with pt, let him know he was approved. Told pt I would be calling them tomorrow to see when he would be getting medication. [facility] 01-09-2024 Telephone encounter Note Forms scanned into chart and faxed. [facility] 01-09-2024 History of Present illness Narrative <January 09, 2024, 14:25 - GINNA Garcia> DOCUMENT CONTR[employer] ASSOCIATE spoke to pt, educated on [facility] P[facility] and he completed application in office. Provided application to Amelia, she will submit to [facility] documented in this encounter [facility] 01-09-2024 Telephone encounter Note Spoke with pt, he is going to try and make it in today 01/09/24. If not he will come in on Friday to sign forms. [facility] 01-08-2024 Telephone encounter Note Patient is calling asking if there is a different medication he can try instead of the Farxiga since the edmonds went up from $141 to $434. He would like the new medication sent to [facility]. [facility] 01-08-2024 Telephone encounter Note Pt wants to know if there is a cheaper version of farxiga, it costs over $484 for a 90 day supply [facility] 01-07-2024 Hospital Discharge instructions Patient Education 01/07/2024 10:29:19 Acute Urinary Retention, Male Acute Urinary Retention, Male Acute urinary retention is a condition in which a person is unable to pass urine or can only pass a little urine. This condition can happen suddenly and last for a short time. If left untreated, it can become long-term (chronic) and result in kidney damage or other serious complications. What are the causes? This condition may be caused by: Obstruction or narrowing of the tube that drains the bladder (urethra). This may be caused by surgery, problems with nearby organs, or injury to the bladder or urethra. Problems with the nerves in the bladder. Tumors in the area of the pelvis, bladder, or urethra. Certain medicines. Bladder or urinary tract infection. Constipation. What increases the risk? This condition is more likely to develop in older men. As men age, their prostate may become larger and may start to press or squeeze on the bladder or the urethra. Other chronic health conditions can increase the risk of acute urinary retention. These include: Diseases such as multiple sclerosis. Spinal cord injuries. Diabetes. Degenerative cognitive conditions, such as delirium or dementia. Psychological conditions. A man may hold his urine due to trauma or because he does not want to use the bathroom. What are the signs or symptoms? Symptoms of this condition include: Trouble urinating. Pain in the lower abdomen. How is this diagnosed? This condition is diagnosed based on a physical exam and your medical history. You may also have other tests, including: An ultrasound of the bladder or kidneys or both. Blood tests. A urine analysis. Additional tests may be needed, such as a CT scan, MRI, and kidney or bladder function tests. How is this treated? Treatment for this condition may include: Medicines. Placing a thin, sterile tube (catheter) into the bladder to drain urine out of the body. This is called an indwelling urinary catheter. After it is inserted, the catheter is held in place with a small balloon that is filled with sterile water. Urine drains from the catheter into a collection bag outside of the body. Behavioral therapy. Treatment for other conditions. If needed, you may be treated in the hospital for kidney function problems or to manage other complications. Follow these instructions at home: Medicines Take wyzt-spt-casyfqg and prescription medicines only as told by your health care provider. Avoid certain medicines, such as decongestants, antihistamines, and some prescription medicines. Do not take any medicine unless your health care provider approves. If you were prescribed an antibiotic medicine, take it as told by your health care provider. Do not stop using the antibiotic even if you start to feel better. General instructions Do not use any products that contain nicotine or tobacco. These products include cigarettes, chewing tobacco, and vaping devices, such as e-cigarettes. If you need help quitting, ask your health care provider. Drink enough fluid to keep your urine pale yellow. If you have an indwelling urinary catheter, follow the instructions from your health care provider. Monitor any changes in your symptoms. Tell your health care provider about any changes. If instructed, monitor your blood pressure at home. Report changes as told by your health care provider. Keep all follow-up visits. This is important. Contact a health care provider if: You have uncomfortable bladder contractions that you cannot control (spasms). You leak urine with the spasms. Get help right away if: You have chills or a fever. You have blood in your urine. You have a catheter and the following happens: ?Your catheter stops draining urine. ?Your catheter falls out. Summary Acute urinary retention is a condition in which a person is unable to pass urine or can only pass a little urine. If left untreated, this condition can result in kidney damage or other serious complications. An enlarged prostate may cause this condition. As men age, their prostate gland may become larger and may press or squeeze on the bladder or the urethra. Treatment for this condition may include medicines and placement of an indwelling urinary catheter. Monitor any changes in your symptoms. Tell your health care provider about any changes. This information is not intended to replace advice given to you by your health care provider. Make sure you discuss any questions you have with your health care provider. Document Revised: 01/31/2021 Document Reviewed: 01/31/2021 [employer] Patient Education 2022 [employer]. Follow Up Care 12/18/2023 12:56:49 With:Ramon WHITE, Sherlyn Hernandez URL, [facility] Address: [address] [place], [place] [address], [place] [address] [phone] When: Unknown Comments:2-4 wks w/ PVR [facility] 01-07-2024 Note Patient Education Urology Acute Urinary Retention, Male Acute urinary retention is a condition in which a person is unable to pass urine or can only pass a little urine. This condition can happen suddenly and last for a short time. If left untreated, it can become long-term (chronic) and result in kidney damage or other serious complications. What are the causes? This condition may be caused by: ? Obstruction or narrowing of the tube that drains the bladder (urethra). This may be caused by surgery, problems with nearby organs, or injury to the bladder or urethra. ? Problems with the nerves in the bladder. ? Tumors in the area of the pelvis, bladder, or urethra. ? Certain medicines. ? Bladder or urinary tract infection. ? Constipation. What increases the risk? This condition is more likely to develop in older men. As men age, their prostate may become larger and may start to press or squeeze on the bladder or the urethra. Other chronic health conditions can increase the risk of acute urinary retention. These include: ? Diseases such as multiple sclerosis. ? Spinal cord injuries. ? Diabetes. ? Degenerative cognitive conditions, such as delirium or dementia. ? Psychological conditions. A man may hold his urine due to trauma or because he does not want to use the bathroom. What are the signs or symptoms? Symptoms of this condition include: ? Trouble urinating. ? Pain in the lower abdomen. How is this diagnosed? This condition is diagnosed based on a physical exam and your medical history. You may also have other tests, including: ? An ultrasound of the bladder or kidneys or both. ? Blood tests. ? A urine analysis. ? Additional tests may be needed, such as a CT scan, MRI, and kidney or bladder function tests. How is this treated? Treatment for this condition may include: ? Medicines. ? Placing a thin, sterile tube (catheter) into the bladder to drain urine out of the body. This is called an indwelling urinary catheter. After it is inserted, the catheter is held in place with a small balloon that is filled with sterile water. Urine drains from the catheter into a collection bag outside of the body. ? Behavioral therapy. ? Treatment for other conditions. If needed, you may be treated in the hospital for kidney function problems or to manage other complications. Follow these instructions at home: Medicines ? Take zgto-fqa-envwhzz and prescription medicines only as told by your health care provider. Avoid certain medicines, such as decongestants, antihistamines, and some prescription medicines. Do not take any medicine unless your health care provider approves. ? If you were prescribed an antibiotic medicine, take it as told by your health care provider. Do not stop using the antibiotic even if you start to feel better. General instructions ? Do not use any products that contain nicotine or tobacco. These products include cigarettes, chewing tobacco, and vaping devices, such as e-cigarettes. If you need help quitting, ask your health care provider. ? Drink enough fluid to keep your urine pale yellow. ? If you have an indwelling urinary catheter, follow the instructions from your health care provider. ? Monitor any changes in your symptoms. Tell your health care provider about any changes. ? If instructed, monitor your blood pressure at home. Report changes as told by your health care provider. ? Keep all follow-up visits. This is important. Contact a health care provider if: ? You have uncomfortable bladder contractions that you cannot control (spasms). ? You leak urine with the spasms. Get help right away if: ? You have chills or a fever. ? You have blood in your urine. ? You have a catheter and the following happens: ? Your catheter stops draining urine. ? Your catheter falls out. Summary ? Acute urinary retention is a condition in which a person is unable to pass urine or can only pass a little urine. If left untreated, this condition can result in kidney damage or other serious complications. ? An enlarged prostate may cause this condition. As men age, their prostate gland may become larger and may press or squeeze on the bladder or the urethra. ? Treatment for this condition may include medicines and placement of an indwelling urinary catheter. ? Monitor any changes in your symptoms. Tell your health care provider about any changes. This information is not intended to replace advice given to you by your health care provider. Make sure you discuss any questions you have with your health care provider. Document Revised: 01/31/2021 Document Reviewed: 01/31/2021 [employer] Patient Education ? 2022 [employer]. [facility] 07-02-2023 History of Present illness Narrative Nghia [...] Type 2 diabetes mellitus with neurological manifestation ([facility]) - POCT Glycated hemoglobin, total -Diabetic protocols [...] Chronic obstructive pulmonary disease, unspecified COPD type ([facility]) - Umeclidinium [place] (Incruse Ellipta) 62.5 MCG/ACT aerosol powder ; Inhale 1 puff in the morning. -Using rescue inhaler frequently during the week. Start him on a maintenance inhaler to help with his breathing. He is agreeable to this. Type 2 diabetes mellitus with stage 3a chronic kidney disease, without long-term current use of insulin ([facility]) ([facility]) Chronic kidney disease, stage 3a (N18.31) Type 2 diabetes mellitus with diabetic cataract, without long-term current use of insulin ([facility]) documented in this encounter [facility] 12-25-2022 Hospital Discharge instructions Patient Education 12/25/2022 [...] urethra. Follow these instructions at home: Take lrvm-qvd-kwbbjvk and prescription medicines only as told by [...] provider. Document Revised: 11/28/2021 Document Reviewed: 11/28/2021 [employer] Patient Education 2022 [employer]. Follow Up Care 09/30/2022 10:27:46 With:Ramon WHITE, DESMOND Wong, URO Address: When: Unknown Comments:PRINCE [facility] 09-17-2022 Evaluation + Plan note Diagnostic Tests PendingUrine Culture 09/17/22 [facility] 09-17-2022 Hospital Discharge instructions Patient Education 09/17/2022 [...] nerve stimulation). ?For women, using a medical scribe to prevent urine leaks. This is a [...] right after experiencing incontinence. General instructions Take lena-uxl-vopwuco and prescription medicines only as told by [...] important. Where to find more information [employer] [place] of [employer] and Digestive and Kidney Diseases: www.niddk.nih.gov [employer] [employer]: www.urologyhealth.org Contact a health care [...] provider. Document Revised: 2020 Document Reviewed: 2020 [employer] Patient Education 2022 [employer]. Follow Up Care 09/11/2021 11:22:38 With:[facility] Address: [address] [place] [address] Business (1) When: Unknown Comments:our aircraft pilot will be contacting you for follow-up [facility] 09-11-2021 Hospital Discharge instructions Patient Education 09/11/2021 [...] fried and sweet foods. General instructions Take qomp-pfk-mrxsowr and prescription medicines only as told by [...] 03/08/2010 Document Revised: 09/02/2019 Document Reviewed: 05/28/2018 Elsevier Patient Education 2020 [employer] Follow Up Care 03/08/2021 12:21:21 With:Ron Miller Jr., MD, URO Address: [facility] [address], [place] [address] [phone] When:09/11/2022 [facility] Evaluation + Plan note Future Appointments Appointment Date:09/17/2022 10:30:00 AM Scheduled Provider:Ron Miller Jr., MD Location:[facility] Appointment Type:URO Office Visit Diagnostic Tests PendingPSA Total 09/11/21 [facility] Evaluation + Plan note Future Appointments Appointment Date:02/25/2024 09:00:00 AM Scheduled Provider:Sherlyn Navarro MD Location:[facility] Appointment Type:URO Office Visit [facility] Evaluation + Plan note Future Appointments Appointment Date:08/25/2024 08:45:00 AM Scheduled Provider:Sherlyn Navarro MD Location:[facility] Appointment Type:URO Office Visit [facility] Evaluation note Diagnosis 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)- Primary Chronic obstructive pulmonary disease, unspecified COPD type (CMS/HCC) Type 2 diabetes mellitus with stage 3a chronic kidney disease, without long-term current use of insulin (HCC) ([facility]/HCC) Chronic kidney disease, stage 3a (N18.31) Type 2 diabetes mellitus with diabetic cataract, without long-term current use of insulin ([facility]/HCC) documented [facility] Diagnosis Primary insomnia- Primary Persistent disorder of initiating or maintaining sleep NAGA (obstructive sleep apnea) Obstructive sleep apnea (adult) (pediatric) Complete heart block (CMS/HCC) Atrioventricular block, complete S/P placement of cardiac pacemaker Atherosclerosis of 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 (CMS/HCC) Benign essential hypertension (CMS/HCC) Essential hypertension, benign Heart block AV third degree (CMS/HCC) Atrioventricular block, complete Morbid obesity (CMS/HCC) Morbid obesity Pure hypercholesterolemia ([facility]/HCC) Pure hypercholesterolemia Urinary retention Unspecified retention of urine Type 2 diabetes mellitus with neurological manifestation ([facility]) Chronic obstructive pulmonary disease, unspecified COPD type ([facility]) Body mass index (BMI) 45.0-49.9, adult ([facility]) Neoplasm of unspecified behavior of bone, soft tissue, and skin- Primary documented in this encounter [facility]* Diagnosis Primary insomnia- Primary Persistent disorder of initiating or maintaining sleep NAGA (obstructive sleep apnea) Obstructive sleep apnea (adult) (pediatric) Complete heart block (CMS/HCC) Atrioventricular block, complete S/P placement of cardiac pacemaker Atherosclerosis of 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 ([facility]) Benign essential hypertension ([facility]) Essential hypertension, benign Heart block AV third degree (CMS/HCC) Atrioventricular block, complete Morbid obesity ([facility]) Morbid obesity Pure hypercholesterolemia ([facility]) Pure hypercholesterolemia Urinary retention Unspecified retention of urine Type 2 diabetes mellitus with neurological manifestation ([facility]) Chronic obstructive pulmonary disease, unspecified COPD type ([facility]) Body mass index (BMI) 45.0-49.9, adult ([facility]) Atherosclerosis of 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 ([facility])- Primary Hyperlipidemia, unspecified hyperlipidemia type ([facility]) documented in this encounter [facility]* Diagnosis Primary insomnia- Primary Persistent disorder of initiating or maintaining sleep NAGA (obstructive sleep apnea) Obstructive sleep apnea (adult) (pediatric) Complete heart block (CMS/HCC) Atrioventricular block, complete S/P placement of cardiac pacemaker Atherosclerosis of 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 (CMS/HCC) Benign essential hypertension ([facility]/HCC) Essential hypertension, benign Heart block AV third degree (CMS/HCC) Atrioventricular block, complete Morbid obesity ([facility]) Morbid obesity Pure hypercholesterolemia ([facility]) Pure hypercholesterolemia Urinary retention Unspecified retention of urine Type 2 diabetes mellitus with neurological manifestation ([facility]) Chronic obstructive pulmonary disease, unspecified COPD type ([facility]) Body mass index (BMI) 45.0-49.9, adult ([facility]) Encounter for wellness examination- Primary Obstructive sleep apnea syndrome Obstructive sleep apnea (adult) (pediatric) Type 2 diabetes mellitus with neurological manifestation ([facility]) Atherosclerosis of 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 ([facility]) Benign essential hypertension ([facility]) Essential hypertension, benign Morbid obesity ([facility]) Morbid obesity Dyslipidemia ([facility]) Other and unspecified hyperlipidemia Mixed hyperlipidemia [place] Mixed hyperlipidemia Encounter for immunization documented in [facility]* Diagnosis Type 2 diabetes mellitus with microalbuminuria, without long-term current use of insulin ([facility]) documented in [facility]* Diagnosis Obstructive sleep apnea syndrome- Primary Obstructive sleep apnea (adult) (pediatric) Interstitial lung disease ([facility]) Postinflammatory pulmonary fibrosis documented in [facility]* Diagnosis Primary insomnia- Primary Persistent disorder of initiating or maintaining sleep NAGA (obstructive sleep apnea) Obstructive sleep apnea (adult) (pediatric) Complete heart block ([facility]) Atrioventricular block, complete S/P placement of cardiac pacemaker Atherosclerosis of 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 [place] Benign essential hypertension ([facility]) Essential hypertension, benign Heart block AV third degree ([facility]) Atrioventricular block, complete Morbid obesity [place] Morbid obesity Pure hypercholesterolemia ([facility]) Pure hypercholesterolemia Urinary retention Unspecified retention of urine Type 2 diabetes mellitus with neurological manifestation ([facility]) Chronic obstructive pulmonary disease, unspecified COPD type ([facility]) Body mass index (BMI) 45.0-49.9, adult [place] Benign essential hypertension ([facility]) Essential hypertension, benign documented in [facility]* Diagnosis CAD S/P percutaneous coronary angioplasty ([facility]) documented [facility]* Diagnosis Intertrigo Other specified erythematous condition Candidiasis documented in this encounter [facility]* Diagnosis Onychomycosis- Primary Dermatophytosis of nail Type II or unspecified type diabetes mellitus with neurological manifestations, not stated as uncontrolled(250.60) ([facility]) Type II or unspecified type diabetes mellitus with neurological manifestations, not stated as uncontrolled Acquired keratoderma Lymphedema Other noninfectious lymphedema documented in this [facility]* Diagnosis Primary insomnia- Primary Persistent disorder of initiating or maintaining sleep NAGA (obstructive sleep apnea) Obstructive sleep apnea (adult) (pediatric) Complete heart block ([facility]) Atrioventricular block, complete S/P placement of cardiac pacemaker Atherosclerosis of 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 (CMS/HCC) Benign essential hypertension ([facility]/HCC) Essential hypertension, benign Heart block AV third degree (CMS/HCC) Atrioventricular block, complete Morbid obesity (CMS/HCC) Morbid obesity Pure hypercholesterolemia ([facility]/HCC) Pure hypercholesterolemia Urinary retention Unspecified retention of urine Type 2 diabetes mellitus with neurological manifestation ([facility]/HCC) Chronic obstructive pulmonary disease, unspecified COPD type ([facility]) Body mass index (BMI) 45.0-49.9, adult ([facility]) Onychomycosis- Primary Dermatophytosis of nail Type II or unspecified type diabetes mellitus with neurological manifestations, not stated as uncontrolled(250.60) ([facility]) Type II or unspecified type diabetes mellitus with neurological manifestations, not stated as uncontrolled Acquired keratoderma Lymphedema Other noninfectious lymphedema documented in [facility]* Diagnosis Primary insomnia- Primary Persistent disorder of initiating or maintaining sleep NAGA (obstructive sleep apnea) Obstructive sleep apnea (adult) (pediatric) Complete heart block (CMS/HCC) Atrioventricular block, complete S/P placement of cardiac pacemaker Atherosclerosis of 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 (CMS/HCC) Benign essential hypertension (CMS/HCC) Essential hypertension, benign Heart block AV third degree (CMS/HCC) Atrioventricular block, complete Morbid obesity ([facility]/HCC) Morbid obesity Pure hypercholesterolemia ([facility]/HCC) Pure hypercholesterolemia Urinary retention Unspecified retention of urine Type 2 diabetes mellitus with neurological manifestation ([facility]/HCC) Chronic obstructive pulmonary disease, unspecified COPD type ([facility]) Body mass index (BMI) 45.0-49.9, adult ([facility]) Atherosclerosis of 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 ([facility]/HCC) documented [facility]* Diagnosis Primary insomnia- Primary Persistent disorder of initiating or maintaining sleep NAGA (obstructive sleep apnea) Obstructive sleep apnea (adult) (pediatric) Complete heart block (CMS/HCC) Atrioventricular block, complete S/P placement of cardiac pacemaker Atherosclerosis of 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 (CMS/HCC) Benign essential hypertension (CMS/HCC) Essential hypertension, benign Heart block AV third degree (CMS/HCC) Atrioventricular block, complete Morbid obesity (CMS/HCC) Morbid obesity Pure hypercholesterolemia (CMS/HCC) Pure hypercholesterolemia Urinary retention Unspecified retention of urine Type 2 diabetes mellitus with neurological manifestation ([facility]/HCC) Chronic obstructive pulmonary disease, unspecified COPD type ([facility]) Body mass index (BMI) 45.0-49.9, adult ([facility]) Hyperlipidemia, unspecified hyperlipidemia type ([facility]) documented in this encounter [facility]* Diagnosis Primary insomnia- Primary Persistent disorder of initiating or maintaining sleep NAGA (obstructive sleep apnea) Obstructive sleep apnea (adult) (pediatric) Complete heart block (CMS/HCC) Atrioventricular block, complete S/P placement of cardiac pacemaker Atherosclerosis of 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 ([facility]/HCC) Benign essential hypertension ([facility]) Essential hypertension, benign Heart block AV third degree ([facility]/HCC) Atrioventricular block, complete Morbid obesity ([facility]) Morbid obesity Pure hypercholesterolemia ([facility]) Pure hypercholesterolemia Urinary retention Unspecified retention of urine Type 2 diabetes mellitus with neurological manifestation ([facility]) Chronic obstructive pulmonary disease, unspecified COPD type ([facility]) Body mass index (BMI) 45.0-49.9, adult ([facility]) Type 2 diabetes mellitus with neurological manifestation ([facility])- Primary Urinary incontinence, unspecified type Benign essential hypertension ([facility]) Essential hypertension, benign Atherosclerosis of 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 ([facility]) Heart block AV third degree ([facility]) Atrioventricular block, complete Morbid obesity ([facility]) Morbid obesity Mixed hyperlipidemia ([facility]) Mixed hyperlipidemia Type 2 diabetes mellitus with diabetic chronic kidney disease ([facility]) Chronic kidney disease, stage 3a (HCC) ([facility]) Interstitial pulmonary disease, unspecified ([facility]) Body mass index (BMI) 50.0-59.9, adult ([facility]) Type 2 diabetes mellitus with diabetic cataract ([facility]) Type II or unspecified type diabetes mellitus with ophthalmic manifestations, not stated as uncontrolled Cardiac pacemaker in situ documented in this encounter [facility] HealthcareEvaluation note* Diagnosis Primary insomnia- Primary Persistent disorder of initiating or maintaining sleep NAGA (obstructive sleep apnea) Obstructive sleep apnea (adult) (pediatric) Complete heart block (CMS/HCC) Atrioventricular block, complete S/P placement of cardiac pacemaker Atherosclerosis of 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 ([facility]) Benign essential hypertension ([facility]) Essential hypertension, benign Heart block AV third degree (CMS/HCC) Atrioventricular block, complete Morbid obesity ([facility]/HCC) Morbid obesity Pure hypercholesterolemia (CMS/HCC) Pure hypercholesterolemia Urinary retention Unspecified retention of urine 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) Chronic obstructive pulmonary disease, unspecified COPD type (CMS/HCC) Body mass index (BMI) 45.0-49.9, adult (CMS/HCC) 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)- Primary Urinary incontinence, unspecified type Benign essential hypertension (CMS/HCC) Essential hypertension, benign Atherosclerosis of 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 (CMS/HCC) Heart block AV third degree (CMS/HCC) Atrioventricular block, complete Morbid obesity (CMS/HCC) Morbid obesity Mixed hyperlipidemia (CMS/HCC) Mixed hyperlipidemia Type 2 diabetes mellitus with diabetic chronic kidney disease (CMS/HCC) Chronic kidney disease, stage 3a (HCC) (CMS/HCC) Interstitial pulmonary disease, unspecified (CMS/HCC) Body mass index (BMI) 50.0-59.9, adult ([facility]/HCC) Type 2 diabetes mellitus with diabetic cataract ([facility]) Type II or unspecified type diabetes mellitus with ophthalmic manifestations, not stated as uncontrolled Cardiac pacemaker in situ Obstructive sleep apnea syndrome- Primary Obstructive sleep apnea (adult) (pediatric) Interstitial lung disease (CMS/HCC) Postinflammatory pulmonary fibrosis documented in this encounter [facility] HealthcareEvaluation note* Diagnosis Primary insomnia- Primary Persistent disorder of initiating or maintaining sleep NAGA (obstructive sleep apnea) Obstructive sleep apnea (adult) (pediatric) Complete heart block (CMS/HCC) Atrioventricular block, complete S/P placement of cardiac pacemaker Atherosclerosis of 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 (CMS/HCC) Benign essential hypertension (CMS/HCC) Essential hypertension, benign Heart block AV third degree (CMS/HCC) Atrioventricular block, complete Morbid obesity (CMS/HCC) Morbid obesity Pure hypercholesterolemia (CMS/HCC) Pure hypercholesterolemia Urinary retention Unspecified retention of urine 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) Chronic obstructive pulmonary disease, unspecified COPD type (CMS/HCC) Body mass index (BMI) 45.0-49.9, adult (CMS/HCC) 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)- Primary Urinary incontinence, unspecified type Benign essential hypertension (CMS/HCC) Essential hypertension, benign Atherosclerosis of 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 (CMS/HCC) Heart block AV third degree (CMS/HCC) Atrioventricular block, complete Morbid obesity (CMS/HCC) Morbid obesity Mixed hyperlipidemia ([facility]/HCC) Mixed hyperlipidemia Type 2 diabetes mellitus with diabetic chronic kidney disease (CMS/HCC) Chronic kidney disease, stage 3a (HCC) ([facility]) Interstitial pulmonary disease, unspecified ([facility]) Body mass index (BMI) 50.0-59.9, adult ([facility]) Type 2 diabetes mellitus with diabetic cataract ([facility]) Type II or unspecified type diabetes mellitus with ophthalmic manifestations, not stated as uncontrolled Cardiac pacemaker in situ Intertrigo- Primary Other specified erythematous condition documented in this encounter [facility] HealthcareEvaluation note* Diagnosis Primary insomnia- Primary Persistent disorder of initiating or maintaining sleep NAGA (obstructive sleep apnea) Obstructive sleep apnea (adult) (pediatric) Complete heart block ([facility]) Atrioventricular block, complete S/P placement of cardiac pacemaker Atherosclerosis of 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 ([facility]) Benign essential hypertension ([facility]) Essential hypertension, benign Heart block AV third degree ([facility]) Atrioventricular block, complete Morbid obesity ([facility]) Morbid obesity Pure hypercholesterolemia ([facility]) Pure hypercholesterolemia Urinary retention Unspecified retention of urine Type 2 diabetes mellitus with neurological manifestation ([facility]) Chronic obstructive pulmonary disease, unspecified COPD type ([facility]) Body mass index (BMI) 45.0-49.9, adult ([facility]) Type 2 diabetes mellitus with neurological manifestation ([facility])- Primary Urinary incontinence, unspecified type Benign essential hypertension ([facility]) Essential hypertension, benign Atherosclerosis of 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 ([facility]) Heart block AV third degree ([facility]) Atrioventricular block, complete Morbid obesity ([facility]) Morbid obesity Mixed hyperlipidemia ([facility]) Mixed hyperlipidemia Type 2 diabetes mellitus with diabetic chronic kidney disease ([facility]) Chronic kidney disease, stage 3a (HCC) ([facility]) Interstitial pulmonary disease, unspecified Body mass index (BMI) 50.0-59.9, adult ([facility]) Type 2 diabetes mellitus with diabetic cataract ([facility]) Type II or unspecified type diabetes mellitus with ophthalmic manifestations, not stated as uncontrolled Cardiac pacemaker in situ Type II or unspecified type diabetes mellitus with neurological manifestations, not stated as uncontrolled(250.60) ([facility])- Primary Type II or unspecified type diabetes mellitus with neurological manifestations, not stated as uncontrolled Onychomycosis Dermatophytosis of nail Acquired keratoderma Hammer toes of both feet documented in this encounter [facility] HealthcareEvaluation note* Diagnosis Urinary incontinence, unspecified type- Primary documented in this encounter [facility] SystemEvaluation note* Diagnosis Primary insomnia- Primary Persistent disorder of initiating or maintaining sleep NAGA (obstructive sleep apnea) Obstructive sleep apnea (adult) (pediatric) Complete heart block (CMS/HCC) Atrioventricular block, complete S/P placement of cardiac pacemaker Atherosclerosis of 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 ([facility]) Benign essential hypertension ([facility]) Essential hypertension, benign Heart block AV third degree ([facility]) Atrioventricular block, complete Morbid obesity ([facility]) Morbid obesity Pure hypercholesterolemia ([facility]) Pure hypercholesterolemia Urinary retention Unspecified retention of urine Type 2 diabetes mellitus with neurological manifestation ([facility]) Chronic obstructive pulmonary disease, unspecified COPD type ([facility]) Body mass index (BMI) 45.0-49.9, adult ([facility]) Type 2 diabetes mellitus with neurological manifestation ([facility])- Primary Urinary incontinence, unspecified type Benign essential hypertension ([facility]) Essential hypertension, benign Atherosclerosis of 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 ([facility]) Heart block AV third degree ([facility]) Atrioventricular block, complete Morbid obesity ([facility]) Morbid obesity Mixed hyperlipidemia ([facility]) Mixed hyperlipidemia Type 2 diabetes mellitus with diabetic chronic kidney disease ([facility]) Chronic kidney disease, stage 3a ([facility]) ([facility]) Interstitial pulmonary disease, unspecified Body mass index (BMI) 50.0-59.9, adult ([facility]) Type 2 diabetes mellitus with diabetic cataract ([facility]) Type II or unspecified type diabetes mellitus with ophthalmic manifestations, not stated as uncontrolled Cardiac pacemaker in situ Type II or unspecified type diabetes mellitus with neurological manifestations, not stated as uncontrolled(250.60) ([facility])- Primary Type II or unspecified type diabetes mellitus with neurological manifestations, not stated as uncontrolled Acquired keratoderma Hammer toes of both feet Lymphedema Other noninfectious lymphedema documented in this encounter [facility] HealthcareEvaluation note* Diagnosis Primary insomnia- Primary Persistent disorder of initiating or maintaining sleep NAGA (obstructive sleep apnea) Obstructive sleep apnea (adult) (pediatric) Complete heart block (CMS/HCC) Atrioventricular block, complete S/P placement of cardiac pacemaker Atherosclerosis of 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 (CMS/HCC) Benign essential hypertension ([facility]/HCC) Essential hypertension, benign Heart block AV third degree (CMS/HCC) Atrioventricular block, complete Morbid obesity (CMS/HCC) Morbid obesity Pure hypercholesterolemia (CMS/HCC) Pure hypercholesterolemia Urinary retention Unspecified retention of urine Type 2 diabetes mellitus with neurological manifestation ([facility]/HCC) Chronic obstructive pulmonary disease, unspecified COPD type ([facility]/HCC) Body mass index (BMI) 45.0-49.9, adult ([facility]/HCC) Type 2 diabetes mellitus with neurological manifestation ([facility]/HCC)- Primary Urinary incontinence, unspecified type Benign essential hypertension ([facility]/HCC) Essential hypertension, benign Atherosclerosis of 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 (CMS/HCC) Heart block AV third degree (CMS/HCC) Atrioventricular block, complete Morbid obesity (CMS/HCC) Morbid obesity Mixed hyperlipidemia ([facility]/HCC) Mixed hyperlipidemia Type 2 diabetes mellitus with diabetic chronic kidney disease ([facility]) Chronic kidney disease, stage 3a (HCC) ([facility]) Interstitial pulmonary disease, unspecified Body mass index (BMI) 50.0-59.9, adult ([facility]) Type 2 diabetes mellitus with diabetic cataract ([facility]) Type II or unspecified type diabetes mellitus with ophthalmic manifestations, not stated as uncontrolled Cardiac pacemaker in situ Wellness examination- Primary Obstructive sleep apnea syndrome Obstructive sleep apnea (adult) (pediatric) Type 2 diabetes mellitus with neurological manifestation ([facility]) Chronic obstructive pulmonary disease, unspecified COPD type ([facility]) Atherosclerosis of 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 ([facility]/HCC) Benign essential hypertension ([facility]/HCC) Essential hypertension, benign Cardiac pacemaker in situ Heart block AV third degree ([facility]/HCC) Atrioventricular block, complete Morbid obesity ([facility]/HCC) Morbid obesity Mixed hyperlipidemia ([facility]/HCC) Mixed hyperlipidemia Fatty liver Other chronic nonalcoholic liver disease Type II or unspecified type diabetes mellitus with neurological manifestations, not stated as uncontrolled(250.60) ([facility])- Primary Type II or unspecified type diabetes mellitus with neurological manifestations, not stated as uncontrolled Acquired keratoderma Hammer toes of both feet Lymphedema Other noninfectious lymphedema documented in this encounter [facility] HealthcareEvaluation note* Diagnosis Urinary incontinence- Primary Unspecified urinary incontinence Urinary incontinence, unspecified type Urinary incontinence, unspecified type documented in this encounter [facility] SystemEvaluation note* Diagnosis Urinary incontinence, unspecified type- Primary documented in this encounter [facility] SystemEvaluation noteNo assessment information available [facility] Work Phone: Evaluation note* Diagnosis Primary insomnia- Primary Persistent disorder of initiating or maintaining sleep NAGA (obstructive sleep apnea) Obstructive sleep apnea (adult) (pediatric) Complete heart block (HCC) Atrioventricular block, complete S/P placement of cardiac pacemaker Atherosclerosis of 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 Benign essential hypertension Essential hypertension, benign 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, complete Morbid obesity (CMS-HCC) Morbid obesity Pure hypercholesterolemia Pure hypercholesterolemia Urinary retention Unspecified retention of urine 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) Chronic obstructive pulmonary disease, unspecified COPD type (HCC) Body mass index (BMI) 45.0-49.9, adult (CMS-HCC) 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)- Primary Urinary incontinence, unspecified type Benign essential hypertension Essential hypertension, benign Atherosclerosis of 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, complete Morbid obesity (CMS-HCC) Morbid obesity Mixed hyperlipidemia Mixed hyperlipidemia Type 2 diabetes mellitus with diabetic chronic kidney disease (HCC) Chronic kidney disease, stage 3a (CMS-HCC) Interstitial pulmonary disease, unspecified (HCC) Body mass index (BMI) 50.0-59.9, adult (CMS-HCC) Type 2 diabetes mellitus with diabetic cataract (HCC) Type II or unspecified type diabetes mellitus with ophthalmic manifestations, not stated as uncontrolled Cardiac pacemaker in situ Wellness examination- Primary Obstructive sleep apnea syndrome Obstructive sleep apnea (adult) (pediatric) 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) Chronic obstructive pulmonary disease, unspecified COPD type (HCC) Atherosclerosis of 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 Benign essential hypertension Essential hypertension, benign Cardiac pacemaker in situ 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, complete Morbid obesity (CMS-HCC) Morbid obesity Mixed hyperlipidemia Mixed hyperlipidemia Fatty liver Other chronic nonalcoholic liver disease Benign essential hypertension Essential hypertension, benign Type 2 diabetes mellitus without complication, without long-term current use of insulin (HCC) Atherosclerosis of 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 documented in this encounter [facility] HealthcareEvaluation note* Diagnosis Urinary incontinence, unspecified type- Primary Urinary incontinence, unspecified type- Primary documented in this encounter [facility] SystemEvaluation note* Diagnosis Primary insomnia- Primary Persistent disorder of initiating or maintaining sleep NAGA (obstructive sleep apnea) Obstructive sleep apnea (adult) (pediatric) Complete heart block (HCC) Atrioventricular block, complete S/P placement of cardiac pacemaker Atherosclerosis of 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 Benign essential hypertension Essential hypertension, benign 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, complete Morbid obesity ([facility]) Morbid obesity Pure hypercholesterolemia Pure hypercholesterolemia Urinary retention Unspecified retention of urine 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) Chronic obstructive pulmonary disease, unspecified COPD type ([facility]) Body mass index (BMI) 45.0-49.9, adult ([facility]) Type 2 diabetes mellitus with neurological manifestation ([facility])- Primary Urinary incontinence, unspecified type Benign essential hypertension Essential hypertension, benign Atherosclerosis of 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, complete Morbid obesity ([facility]-HCC) Morbid obesity Mixed hyperlipidemia Mixed hyperlipidemia Type 2 diabetes mellitus with diabetic chronic kidney disease (HCC) Chronic kidney disease, stage 3a ([facility]) Interstitial pulmonary disease, unspecified ([facility]) Body mass index (BMI) 50.0-59.9, adult ([facility]) Type 2 diabetes mellitus with diabetic cataract ([facility]) Type II or unspecified type diabetes mellitus with ophthalmic manifestations, not stated as uncontrolled Cardiac pacemaker in situ Wellness examination- Primary Obstructive sleep apnea syndrome Obstructive sleep apnea (adult) (pediatric) 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) Chronic obstructive pulmonary disease, unspecified COPD type (HCC) Atherosclerosis of 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 Benign essential hypertension Essential hypertension, benign Cardiac pacemaker in situ 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, complete Morbid obesity ([facility]) Morbid obesity Mixed hyperlipidemia Mixed hyperlipidemia Fatty liver Other chronic nonalcoholic liver disease Type II or unspecified type diabetes mellitus with neurological manifestations, not stated as uncontrolled(250.60) ([facility])- Primary Type II or unspecified type diabetes mellitus with neurological manifestations, not stated as uncontrolled Onychomycosis Dermatophytosis of nail documented in this encounter [facility] HealthcareEvaluation note* Diagnosis Primary insomnia- Primary Persistent disorder of initiating or maintaining sleep NAGA (obstructive sleep apnea) Obstructive sleep apnea (adult) (pediatric) Complete heart block (HCC) Atrioventricular block, complete S/P placement of cardiac pacemaker Atherosclerosis of 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 Benign essential hypertension Essential hypertension, benign 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, complete Morbid obesity ([facility]-HCC) Morbid obesity Pure hypercholesterolemia Pure hypercholesterolemia Urinary retention Unspecified retention of urine 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) Chronic obstructive pulmonary disease, unspecified COPD type (HCC) Body mass index (BMI) 45.0-49.9, adult ([facility]) 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)- Primary Urinary incontinence, unspecified type Benign essential hypertension Essential hypertension, benign Atherosclerosis of 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, complete Morbid obesity ([facility]-HCC) Morbid obesity Mixed hyperlipidemia Mixed hyperlipidemia Type 2 diabetes mellitus with diabetic chronic kidney disease (HCC) Chronic kidney disease, stage 3a ([facility]) Interstitial pulmonary disease, unspecified (HCC) Body mass index (BMI) 50.0-59.9, adult ([facility]) Type 2 diabetes mellitus with diabetic cataract ([facility]) Type II or unspecified type diabetes mellitus with ophthalmic manifestations, not stated as uncontrolled Cardiac pacemaker in situ Wellness examination- Primary Obstructive sleep apnea syndrome Obstructive sleep apnea (adult) (pediatric) 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) Chronic obstructive pulmonary disease, unspecified COPD type (HCC) Atherosclerosis of 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 Benign essential hypertension Essential hypertension, benign Cardiac pacemaker in situ 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, complete Morbid obesity ([facility]) Morbid obesity Mixed hyperlipidemia Mixed hyperlipidemia Fatty liver Other chronic nonalcoholic liver disease Obstructive sleep apnea syndrome- Primary Obstructive sleep apnea (adult) (pediatric) 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 Discharge instructions No data available for this section [facility] Additional Instructions POST CATARACT SURGERY INSTRUCTIONS EYEDROPS First day (24 hours) [Ocuflox or Vigamox and Pred Forte-use 1 drop to operative eye every hour while awake.] [Artificial tears- May use 1 drop 4 times a day as needed in the surgical eye.] Next day [Ocuflox or Vigamox-continue to use the drop in the surgery eye 4 times per day for 1 week.] [Pred Forte-start using the drop in the surgery eye 4 times per day for 1 week, then taper to 3 times per day for 1 week, 2 times a day for 1 week, then once a day for 1 week.] [Artificial tears- May use 1 drop 4 times a day as needed in the surgical eye.] -Wait 5 minutes or more between using the different medications. -Please bring all your eyedrops to every follow-up visit. BATHING: You may shower, bathe, or wash her hair normally after the surgery. SUNGLASSES: Please bring sunglasses for your ride home. Some people are light- sensitive for a few weeks following surgery. Wear sunglasses for comfort. Sunglasses are not required. DUE TO ANESTHESIA: DO NOT make complex decision/sign legal documents for 24 hours after your procedure. No smoking or drinking alcohol for 24 hours. EYE RUBBING: DO NOT RUB YOUR EYE for at least 4 weeks. BLUR: Blurriness is common for several days to weeks. IRRITATION: Mild irritation or watering eye is common. MEDICATION: Continue/resume normal medications, including eye drops. Patient educated on importance of managing medication information: -Give list of medications to primary care physician. -Update information when medications are discontinued, doses are changed or new medications added. -Carry medication list with you at all times in case of emergency. Call if questions/problems occur: If you experience 1. Persistent pain/vomiting 2. Sudden worsening of your eyesight. Please call your flat spring assembler during normal business hours. If after business hours call Dr. Theron Menezes at his cell [phone] or his office [phone].[facility] Work Phone: InstructionsNot on filedocumented in this encounter [facility] filed[facility] this [facility]Not on filedocumented in this encounter [facility]Not on filedocumented in this encounter [facility] filedocumented in this encounter [facility] on filedocumented in this encounter [facility]ructionsNot on filedocumented in this encounter [facility] No data available for this section [facility] reason for referral (narrative)No reason for referral information available[facility] Work Phone: Summary Purpose Family History No Family History Records Found Relationship Condition Age at Onset Recorded Date/T brice father Myocardial infarction Unknown mother Malignant neoplasm of breast Unknown brother History of heart surgery Unknown Advance Directives No Advanced Directives Records Found Advance Directive Response Recorded Date/ Time Advance Directives No December 10 11:17am Chief Complaint and Reason for Visit Chief Complaint Admit Date cataract 2024 12:2 9pm Chief Complaint Admit Date cataract 2024 12:2 9pm cataract December 23, 2024 9:32 am Additional Source Comments (unrecognized sect ion and content) No Status Records FoundNo Status Records FoundNo Status Records FoundNo Status Records FoundNo Status Records FoundNo Status Records FoundNo Status Records FoundNo Status Records FoundNo Status Records Found INFORMATION SOURCE (unrecogn ized section and content) DATE CREATED AUTHOR 05/31/2022 [facility] dical Specialist DATE CREATED AUTHOR AUTHOR'S ORGANIZ ATION 08/08/2022 [facility] DATE CREATED AUTHOR AUTHOR'S ORGANIZ ATION 08/29/2024 [facility] DATE CREATED AUTHOR AUTHOR'S ORGANIZ ATION 10/29/2024 [facility] DATE CREATED AUTHOR AUTHOR'S ORGANIZ ATION 11/14/2024 [facility] DATE CREATED AUTHOR AUTHOR'S ORGANIZ ATION 01/04/2025 [facility] DATE CREATED AUTHOR AUTHOR'S ORGANIZ ATION 01/04/2025 [facility] DATE CREATED AUTHOR AUTHOR'S ORGANIZ ATION 01/08/2025 [facility] DATE CREATED AUTHOR AUTHOR'S ORGANIZ ATION 01/16/2025 [facility] dical Specialists EPIC Patient Care team informatio n (unrecognized section and content) Parts Room Associate Relationship Specialty Start Date End Date Marjorie Nath MD [address] [place] [address] PCP - [employer] 05/26/22 Marjorie Nath MD [address] [place] [address] PCP - General Family Medicine 12/21/22 Parts Room Associate Relationship Specialty Start Date End Date Marjorie Nath MD [address] [place] [address] PCP - [employer] 05/26/22 Marjorie Nath MD [address] [place] [address] PCP - General Family Medicine 12/21/22 Parts Room Associate Relationship Specialty Start Date End Date Marjorie Nath MD [address] [place] [address] PCP - [employer] 05/26/22 Marjorie Nath MD [address] [place] [address] PCP - General Family Medicine 12/21/22 Parts Room Associate Relationship Specialty Start Date End Date Marjorie Nath MD [address] [place] [address] PCP - [employer] 05/26/22 Marjorie Nath MD [address] [place] [address] PCP - General Family Medicine 12/21/22 Parts Room Associate Relationship Specialty Start Date End Date Marjorie Nath MD [address] [place] [address] PCP - [employer] 05/26/22 Marjorie Nath MD [address] [place] [address] PCP - General Family Medicine 12/21/22 Parts Room Associate Relationship Specialty Start Date End Date Marjorie Nath MD [address] [place] [address] PCP - [employer] 05/26/22 Marjorie Nath MD [address] [place] [address] PCP - General Family Medicine 12/21/22 Parts Room Associate Relationship Specialty Start Date End Date Marjorie Nath MD [address] [place] [address] PCP - [employer] 05/26/22 Marjorie Nath MD [address] [place] [address] PCP - General Family Medicine 12/21/22 Parts Room Associate Relationship Specialty Start Date End Date Marjorie Nath MD [address] [place] [address] PCP - [employer] 05/26/22 Marjorie Nath MD [address] [place] [address] PCP - General Family Medicine 12/21/22 Parts Room Associate Relationship Specialty Start Date End Date Marjorie Nath MD [address] [place] [address] PCP - [employer] 05/26/22 Marjorie Nath MD [address] [place] [address] PCP - General Family Medicine 12/21/22 Parts Room Associate Relationship Specialty Start Date End Date Marjorie Nath MD [address] [place] [address] PCP - [employer] 05/26/22 Marjorie Nath MD [address] [place] [address] PCP - General Family Medicine 12/21/22 Parts Room Associate Relationship Specialty Start Date End Date Marjorie Nath MD [address] [place] [address] PCP - [employer] 05/26/22 Marjorie Nath MD [address] [place] [address] PCP - General Family Medicine 12/21/22 Parts Room Associate Relationship Specialty Start Date End Date Marjorie Nath MD [address] [place] [address] PCP - [employer] 05/26/22 Marjorie Nath MD [address] [place] [address] PCP - General Family Medicine 12/21/22 Parts Room Associate Relationship Specialty Start Date End Date Marjorie Nath MD [address] [place] [address] PCP - [employer] 05/26/22 Marjorie Nath MD [address] [place] [address] PCP - General Family Medicine 12/21/22 Parts Room Associate Relationship Specialty Start Date End Date Marjorie Nath MD [address] [place] [address] PCP - [employer] 05/26/22 Marjorie Nath MD [address] [place] [address] PCP - General Family Medicine 12/21/22 Parts Room Associate Relationship Specialty Start Date End Date Marjorie Nath MD [address] [place] [address] PCP - [employer]et[employer] 05/26/22 Marjorie Nath MD [address] [place] [address] PCP - General Family Medicine 12/21/22 Parts Room Associate Relationship Specialty Start Date End Date Marjorie Nath MD [address] [place] [address] PCP - [employer] 05/26/22 Marjorie Nath MD [address] [place] [address] PCP - General Family Medicine 12/21/22 Parts Room Associate Relationship Specialty Start Date End Date Marjorie Nath MD [address] [place] [address] PCP - [employer]et[employer] 05/26/22 Marjorie Nath MD [address] [place] [address] PCP - General Family Medicine 12/21/22 Parts Room Associate Relationship Specialty Start Date End Date Marjorie Nath MD [address] [place] [address] PCP - [employer]et[employer] 05/26/22 Marjorie Nath MD [address] [place] [address] PCP - General Family Medicine 12/21/22 Parts Room Associate Relationship Specialty Start Date End Date Marjorie Nath MD [address] [place] [address] PCP - [employer]et[employer] 05/26/22 Marjorie Nath MD [address] [place] [address] PCP - General Family Medicine 12/21/22 Parts Room Associate Relationship Specialty Start Date End Date Marjorie Nath MD [address] [place] [address] PCP - [employer]et[employer] 05/26/22 Marjorie Nath MD [address] [place] [address] PCP - General Family Medicine 12/21/22 Parts Room Associate Relationship Specialty Start Date End Date Marjorie Nath MD [address] [place] [address] PCP - [employer]et[employer] 05/26/22 Marjorie Nath MD [address] [place] [address] PCP - General Family Medicine 12/21/22 Parts Room Associate Relationship Specialty Start Date End Date Marjorie Nath MD [address] [place] [address] PCP - [employer]et[employer] 05/26/22 Marjorie Nath MD [address] [place] [address] PCP - General Family Medicine 12/21/22 Parts Room Associate Relationship Specialty Start Date End Date Rziwana Alejandra APRN-MORTGAGE LOAN ORIGINATOR [address] [place] [address] PCP - General Internal Medicine 07/21/18 Parts Room Associate Relationship Specialty Start Date End Date Rizwana Alejandra APRN-MORTGAGE LOAN ORIGINATOR [address] [place] [address] PCP - General Internal Medicine 07/21/18 Parts Room Associate Relationship Specialty Start Date End Date Rizwana Alejandra APRN-MORTGAGE LOAN ORIGINATOR [address] [place] [address] PCP - General Internal Medicine 07/21/18 Parts Room Associate Relationship Specialty Start Date End Date Marjorie Nath MD [address] [place] [address] PCP - [employer]et[employer] 05/26/22 Marjorie Nath MD [address] [place] [address] PCP - General Family Medicine 12/21/22 Parts Room Associate Relationship Specialty Start Date End Date Marjorie Nath MD [address] [place] [address] PCP - [employer]et[employer] 05/26/22 Marjorie Nath MD [address] [place] [address] PCP - General Family Medicine 12/21/22 Parts Room Associate Relationship Specialty Start Date End Date Marjorie Nath MD [address] [place] [address] PCP - [employer]et[employer] 05/26/22 Marjorie Nath MD [address] [place] [address] PCP - General Family Medicine 12/21/22 Parts Room Associate Relationship Specialty Start Date End Date Marjorie Nath MD [address] [place] [address] PCP - [employer]et[employer] 05/26/22 Marjorie Nath MD [address] [place] [address] PCP - General Family Medicine 12/21/22 Parts Room Associate Relationship Specialty Start Date End Date Rizwana Alejandra, QUALITY ENGINEER MEDICAL DEVICE-MORTGAGE LOAN ORIGINATOR [address] [place] [address] PCP - General Internal Medicine 07/21/18 Parts Room Associate Relationship Specialty Start Date End Date Rizwana Alejandra APRN-MORTGAGE LOAN ORIGINATOR [address] [place] [address] PCP - General Internal Medicine 07/21/18 Parts Room Associate Relationship Specialty Start Date End Date Rizwana Alejandra QUALITY ENGINEER MEDICAL DEVICE-MORTGAGE LOAN ORIGINATOR [address] [place] [address] PCP - General Internal Medicine 07/21/18 Parts Room Associate Relationship Specialty Start Date End Date Marjorie Nath MD [address] [place] [address] PCP - [employer]et[employer] 05/26/22 Marjorie Nath MD [address] [place] [address] PCP - General Family Medicine 12/21/22 Parts Room Associate Relationship Specialty Start Date End Date Marjorie Nath MD [address] [place] [address] PCP - [employer]et[employer] 05/26/22 Marjorie Nath MD [address] [place] [address] PCP - General Family Medicine 12/21/22 Parts Room Associate Relationship Specialty Start Date End Date Rizwana Alejandra QUALITY ENGINEER MEDICAL DEVICE-MORTGAGE LOAN ORIGINATOR [address] [place] [address] PCP - General Internal Medicine 07/21/18 Parts Room Associate Relationship Specialty Start Date End Date Rizwana Alejandra QUALITY ENGINEER MEDICAL DEVICE-MORTGAGE LOAN ORIGINATOR [address] [place] [address] PCP - General Internal Medicine 07/21/18 Team Status: Active Member Role Status Dates Marjorie Nath MD Primary Care Provide r Active Team Status: Inactive Member Role Status Dates Hanh Dockery MD Attending Provider Active Start: 2024 End: 2024 Marjorie Nath MD Primary Care Provide r Active Start: 2024 End: 2024 Parts Room Associate Relationship Specialty Start Date End Date Marjorie Nath MD [address] [place] [address] PCP - Aet 05/26/22 Marjorie Nath MD [address] [place] [address] PCP - General Family Medicine 12/21/22 Team Status: Inactive Member Role Status Dates Hanh Dockery MD Attending Provider Active Start: December 23, 2024 End: December 23, 2024 Marjorie Nath MD Primary Care Provide r Active Start: December 23, 2024 End: December 23, 2024 Parts Room Associate Relationship Specialty Start Date End Date Rizwana Alejandra QUALITY ENGINEER MEDICAL DEVICE-MORTGAGE LOAN ORIGINATOR [address] [place] [address] PCP - General Internal Medicine 07/21/18 Parts Room Associate Relationship Specialty Start Date End Date Marjorie Nath MD [address] [place] [address] PCP - Aet 05/26/22 Marjorie Nath MD [address] [place] [address] PCP - General Family Medicine 12/21/22 Parts Room Associate Relationship Specialty Start Date End Date Marjorie Nath MD [address] [place] [address] PCP - Aet[employer] 05/26/22 Marjorie Nath MD [address] [facility] [place] [address] PCP - General Family Medicine 12/21/22 Parts Room Associate Relationship Specialty Start Date End Date Marjorie Nath MD [address] [facility] [place] [address] PCP - Aet[employer] 05/26/22 Marjorie Nath MD [address] [facility] [place] [address] PCP - General Family Medicine 12/21/22 Reason for Visit (unrecogniz ed section and content) Reason Comments Diabetes Follow-up Reason Comments Suspicious Skin Lesion Reason Comments Interstitial lung disease 6 month follow up Sleep Apnea COPD Reason Comments Med Refill Reason Comments Skin Check Reason Comments Toenail Care Nikko Avery is a 78 y.o. male who presents for DM Foot Care PCP: Dr. Nath/Eugenie CONTEH 01/01/24, A1C: 6.3, BS: 101, SS: 9.5 Reason Comments Nail care Nikko Avery is a 78 y.o. male who presents for DM Foot Care PCP: Dr. Nath/Eugenie CONTEH04/15/2024, A1C: 6.3, BS: 111, SS: 9.5 Reason Comments Diabetes Reason Comments Interstitial lung disease 3 month follow up Sleep Apnea 3 month follow up Reason Comments Follow-up Reason Comments DM Foot Care Established pt prese nts today for DM nail care. PCP: Dr. Pham CONTEH 07/23/24, A1C: 6.6 (06/2024), BS: 115 Reason Comments Urinary Incontinence Specialty Diagnoses / Procedures Referred By Lynn blackwell Referred To Contact Urology Diagnoses Urinary incontinence, unspecified type Procedures LA OFFICE OUTPATIENT VISIT 60-74 MINS HIGH MDM [id number] (SNOMED CT) - AMB REFERRAL TO UROLOGY Marjorie Nath MD [address] [place] [address] Phone: tel: fax: Russ Koo MD [address] [place] [address] Phone: tel: fax: Referral ID Status Reason Start Date Expiration Date V isits Requested Visits Authorized [id number] Pending Review 07/13/2024 01/09/2025 1 1 Reason Comments Diabetic Shoes Pt presents today fo r dispensing of extra depth diabetic shoes with x2 pairs of heat molded insertsBS: 84 Reason Comments Urine Leakage Reason Onset Date Comments Advice Only 11/08/2024 Diabetic shoes Reason Comments Bladder Problem Specialty Diagnoses / Procedures Referred By Lynn blackwell Referred To Contact Diagnoses Urinary incontinence, unspecified type Jessica Barcenas MD [address] [place] [address] Phone: tel: fax: Jessica Barcenas MD [address] [place] [address] Phone: tel: fax: Referral ID Status Reason Start Date Expiration Date V isits Requested Visits Authorized [id number] Pending Review 01/03/2025 01/03/2026 1 1 Reason Comments Nail care Nikko Avery is a 78 y.o. male who presents for Diabetic nail care. A1C 6.8 BS: 115 Dr. Nath 10/14/2024. Reason Comments Diabetes Goals (unrecognized section and content) Goals may be documented in a n alternate section FOR RECORDS PERTAINING TO PATIENTS WHO ARE [...] BE BASED ON THE PRIMARY CLINICAL RECORDS. [facility]. provides no warranty or guarantee of the accuracy or completeness of information in this document.
[2025-01-26 11:32] LABS: Cholesterol 109 mg/dL (<=200); HDL Cholesterol 42 mg/dL (40-60); Triglycerides 62 mg/dL (<=150); VLDL CHOLESTEROL 12.4 mg/dL
== END 2025-01-26 09:27 | disposition home or self-care (01) ==
PROVIDERS: PCP Family Medicine
DX: I25.10 Atherosclerotic heart disease of native coronary artery without angina pectoris (principal); E78.2 Mixed hyperlipidemia
CPT/HCPCS: 36415; 80061